=== PATIENT | female | born 1945 | race Caucasian/White ===

== ENCOUNTER 2022-02-27 13:14 | Emergency (ER) | payer MEDICARE, SELFPAY ==
[2022-02-27 13:15] VITALS: BP 177/95; PULSE 76; RESP 18; TEMP 36.4; O2SAT 98; BMI 31.1
--- NOTE | 2022-02-27 13:23 | ED_ITS ---
HPI - Extremity Problem General: Chief complaint: Fall Stated complaint: FELL OFF THE ROOF, LEFT ANKLE SWELLING Time Seen by Provider: 02/27/22 13:14 Source: patient Mode of arrival: EMS Limitations: no limitations History of Present Illness: 76-year-old female arrives via EMS after falling off a roof she complaining left ankle pain and right elbow pain. She has a history of A. fib but is not on any medications. She was stepping onto a ladder from the roof of and missed stepped fell landed on her feet twisting her left ankle and then landing on her right elbow. There is no loss consciousness st rike her head she is awake alert and oriented she denies any other injury she has an obvious deformity to the left ankle. There is an abrasion to the right elbow but no deformity she demonstrates active range of motion with pronation supination flexion extension with minimal discomfort. MD Complaint: joint swelling and joint pain Onset (ago): minute(s) Pain Consistency: constant Location: left (Ankle), right, upper extremity and lower extremity Quality: sharp Relieving factors: nothing Exacerbating factors: nothing Associated symptoms: Deny chest pain, fever(s) or rash Review of Systems Const: Denies: fever(s), chills, body aches, change in appetite, fatigue or malaise ENMT: Denies: throat pain, ear or mastoid pain, nasal discharge or nasal congestion Card: Denies: chest pain, edema, dyspnea on exertion or orthopnea Resp: Denies: dyspnea, productive cough or non-productive cough GI: Denies: abdominal pain, nausea, vomiting, hematemesis, coffee ground emesis, diarrhea, constipation, bloating, hematochezia or melena : Denies: flank pain, difficulty voiding, dysuria, urinary frequency or urinary urgency Musc: Reports: joint pain (Left ankle obvious deformity, right elbow abrasion) Skin/Breast: Denies: rash or pruritus PFSH ED PFSH: Medical History No pertinent past medical history Social History Smoking and tobacco status: never smoked Alcohol intake: never Physical Exam Const: COMMON NORMALS: no acute distress GENERAL APPEARANCE: cooperative and comfortable ORIENTATION/CONSCIOUSNESS: Yes awake, Yes oriented to person, Yes oriented to place and Yes oriented to time HENMT: COMMON NORMALS: normocephalic, atraumatic, hearing grossly normal bilaterally, external ears normal, EAC's normal and TM's normal bilaterally HEAD & SCALP: normocephalic and atraumatic EXTERNAL EAR: Yes external ears normal EXTERNAL AUDITORY CANAL: EAC's normal TYMPANIC MEMBRANE: TM's normal bilaterally Eye: COMMON NORMALS: Equal, round and reactive pupils present, EOMs intact bilaterally, conjunctivae normal and no scleral icterus CONJUNCTIVA: Yes conjunctivae normal PUPIL: Yes Equal, round and reactive pupils present Neck/C-Spine: COMMON NORMALS: full ROM, no lymphadenopathy, supple and no JVD Resp: COMMON NORMALS: normal respiratory effort, No retractions, No use of accessory muscles and clear to auscultation bilaterally AUSCULTATION: clear to auscultation bilaterally Cardio: COMMON NORMALS: no JVD, regular rate, regular rhythm and No murmurs present (Cardio) RATE: regular rate RHYTHM: regular rhythm GI: COMMON NORMALS: Soft to palpation and No hepatosplenomegaly present AUSCULTATION: Yes normoactive bowel sounds PALPATION: Yes Soft to palpation, No Tenderness to palpation present (GI), No Guarding due to palpation present (GI) and Yes No hepatosplenomegaly present Extremity: OTHER: Abrasion right elbow. Patient has active range of motion of flexion and pronation and supination with minimal discomfort. Most of the pain comes with palpation over the abrasion. Obvious deformity of the left ankle. Neuro: SENSORIUM/ORIENTATION: Yes oriented to person, Yes oriented to place and Yes oriented to time Skin: COMMON NORMALS: no rashes or lesions noted GENERAL SKIN EXAM: no rashes or lesions noted Procedures Orthopedic Fracture Reduction Fracture #1: Time Out Performed: Yes Side: left Fracture Reduction Location: other (Ankle) Analgesia: procedural sedation Technique: direct manipulation Post Reduction X-rays Demonstrate: anatomical reduction Post-reduction neuro exam: intact Post-reduction vascular exam: intact Splint Applied: Yes Patient Tolerated Procedure: well Orthopedic Splinting/Casting Injury #1: Side: left Lower Extremity Injury Location: ankle Lower Extremity Immobilizer: posterior splint Other Orthopedic Equipment: crutches Additional Comments: Posterior Ortho-Glass splint applied with ankle in 90 degree position good anatomical reduction of the fracture maintained. Procedural Sedation Indication: fracture/dislocation reduction Preparation: cardiac cath technician applied, pulse oximeter, capnometry used, supplemental O2 applied, suction/airway equipment at bedside and IV secured IV Etomidate dose (mg): 10 Patient Tolerated Procedure: well Complications: none Additional Comments: Initial attempt patient was given 5 etomidate had no reaction and given 5 more nurse notified me that the IV had infiltrated at that point. New IV was started patient was redosed with etomidate with adequate reaction which allowed us to remove her pants without significant discomfort and then reduce the fracture and apply splint patient tolerated well. Course Vital Signs: Vital signs: Vital Signs Temperature 97.5 F L 02/27/22 13:15 Pulse Rate 80 02/27/22 14:58 Respiratory Rate 23 H 02/27/22 14:58 Blood Pressure 142/65 02/27/22 14:58 Pulse Oximetry 100 02/27/22 14:58 MDM - Extremity (Nontraumatic) Medical Decision Making Question of right radial head fracture patient has pronation and supination with minimal discomfort she does have some soft tissue discomfort does not seem to have any significant joint discomfort she cannot recall any previous injury for now we will put her in a sling and have her follow-up with Ortho likely elbow injury we will place her in a wheelchair to make her nonweightbearing something she will be able to operate crutches appropriately without elbow. Posterior splint applied to the left lower leg after reduction of fracture. Follow-up with Ortho reviewed with the patient to review labs and x-rays patient discharged home. manager dialysis will make arrangements for Ortho follow-up. Medical Records I reviewed the patient's medical records. Lab Data I reviewed the patient's lab results. : 02/27/22 13:43 02/27/22 13:43 Radiology Impressions Elbow X-Ray 02/27/22 13:44 IMPRESSION: 1. Avulsion fracture of the lateral aspect of the radial head. The fracture fragment is difficult to localize. Fracture age is indeterminate but this may be an acute fracture. 2. Joint effusion. Ankle X-Ray 02/27/22 15:05 IMPRESSION: 1. Talotibial subluxation is been reduced. 2. Trimalleolar fracture as discussed above. Foot X-Ray 02/27/22 15:28 IMPRESSION: 1. Minimally displaced oblique fracture involving one of the proximal metatarsals. I suspect this probably the first or second metatarsal. 2. Very slight lateral subluxation of the first metatarsal with respect to the medial cuneiform. 3. Better alignment at the tibiotalar joint but there is still very slight anterior subluxation of the tibia. Laboratory Results WBC 19.5 10^3/uL (4.0-10.0) H 02/27/22 13:43 RBC 5.08 10^6/uL (4.1-5.3) 02/27/22 13:43 Hgb 14.3 g/dL (11.5-15.3) 02/27/22 13:43 Hct 43.7 % (37.0-47.0) 02/27/22 13:43 MCV 86.0 fl (81-99) 02/27/22 13:43 MCH 28.1 pg (28.0-34.0) 02/27/22 13:43 MCHC 32.7 g/dL (30.0-36.0) 02/27/22 13:43 RDW 13.8 % (12.1-15.1) 02/27/22 13:43 Plt Count 232 10^3/cmm (130-400) 02/27/22 13:43 MPV 10.5 fL (7.4-10.4) H 02/27/22 13:43 Neut % (Auto) 87.6 % 02/27/22 13:43 Lymph % (Auto) 6.4 % 02/27/22 13:43 [place] % (Auto) 4.9 % 02/27/22 13:43 Eos % (Auto) 0.2 % 02/27/22 13:43 Baso % (Auto) 0.3 % 02/27/22 13:43 Neut # (Auto) 17.11 10^3/uL (1.8-7.7) H 02/27/22 13:43 Lymph # (Auto) 1.2 10^3/uL (0.8-4.8) 02/27/22 13:43 [place] # (Auto) 1.0 10^3/uL (0.2-0.9) H 02/27/22 13:43 Eos # (Auto) 0.0 10^3/uL (0.0-0.8) 02/27/22 13:43 Baso # (Auto) 0.1 10^3/uL (0.0-0.1) 02/27/22 13:43 Nucleated RBC % (auto) 0 % 02/27/22 13:43 Nucleated RBCs # 0.0 /100WBC 02/27/22 13:43 Sodium 133 mmol/L (136-145) L 02/27/22 13:43 Potassium 3.9 mmol/L (3.5-5.1) 02/27/22 13:43 Chloride 99 mmol/L (98-107) 02/27/22 13:43 Carbon Dioxide 22 mmol/L (22-29) 02/27/22 13:43 Anion Gap 15.9 (5-19) 02/27/22 13:43 BUN 14 mg/dL (8-23) 02/27/22 13:43 Creatinine 0.5 mg/dL (0.5-0.9) 02/27/22 13:43 GFR Calculation Not Reportable 02/27/22 13:43 Glucose 127 mg/dL (65-115) H 02/27/22 13:43 Calculated Osmolality 278 mOsm/kg (285-295) L 02/27/22 13:43 Calcium 9.2 mg/dL (8.5-10.5) 02/27/22 13:43 Total Bilirubin 0.4 mg/dL (0.15-1.2) 02/27/22 13:43 AST 27 U/L (0-32) 02/27/22 13:43 ALT 20 U/L (0-33) 02/27/22 13:43 Alkaline Phosphatase 55 IU/L (35-105) 02/27/22 13:43 Total Protein 6.1 g/dL (6.6-8.7) L 02/27/22 13:43 Albumin 4.2 g/dL (3.5-5.2) 02/27/22 13:43 Globulin 1.9 g/dL (1.3-4.6) 02/27/22 13:43 Discharge Plan Discharge Patient Disposition: Home Clinical Impression: Trimalleolar fracture of left ankle, Closed fracture of radial head Condition: Stable Prescriptions: New hydrocodone-acetaminophen 5-325 mg tablet 1 tab PO Q6H PRN (Reason: pain) Qty: 20 0RF No Action multivitamin Tablet 1 tab PO DAILY 0RF aspirin 325 mg Tablet 650 mg PO DAILY PRN (Reason: Pain) 0RF Discharge Orders: Discharge ED (Routine); Ordered 02/27/22 Ordered By: Ankur Anderson Other Ambulatory Orders: DME: Wheelchair (Order) Location: None Selected Ordered By: Ankur Anderson Discharge Diet: Usual diet Discharge Activity: Limit activity as instructed Patient Instructions: Opioid Safety Activity Restrictions/Additional Instructions: manager dialysis will make arrangements for you to follow-up with orthopedics. Nonweightbearing on the left foot. Coding Level of Care Code ED Billet Cutter for Moises Fwd Exam Comprehensive
--- NOTE | 2022-02-27 13:24 | XR_ITS ---
WS: [id number] Exam: XR ankle LT min 3V* [id number] Date/Time of Exam: 02/27/2022 1:27 PM Reason For Exam: fall/deformity There is a comminuted displaced fracture of the lower fibula. There is also a transverse fracture of the medial malleolus with some displacement. A posterior shelf tibial fracture is also noted with dorothy e displacement. There is anterior and medial subluxation of the tibia upon the talar dome. Soft tissu e swelling about the ankle. Partially visualized acute fracture the proximal first metatarsal noted. XR/XR ankle LT min 3V* [id number] IMPRESSION: 1. Displaced trimalleolar fracture of the ankle with the anterior medial sublux ation of the tibia upon the talar dome. Soft tissue swelling. 2. There also appears to be an acute partially visualized fracture involving th e proximal first metatarsal. Detailed images of the foot would be recommended f or further workup.
--- NOTE | 2022-02-27 13:44 | XR_ITS ---
WS: [id number] Exam: XR elbow RT min 3V* [id number] Date/Time of Exam: 02/27/2022 1:55 PM Reason For Exam: pain trauma There is an avulsion fracture involving the lateral aspect of the radial head. The fracture fragment is difficult to identify but might lie along the neck of the radius. No other fractures. There is blaise nt effusion. XR/XR elbow RT min 3V* [id number] IMPRESSION: 1. Avulsion fracture of the lateral aspect of the radial head. The fracture fra gment is difficult to localize. Fracture age is indeterminate but this may be a n acute fracture. 2. Joint effusion.
[2022-02-27 13:58] LABS: Basophils # 0.1 10^3/uL (0.0-0.1); Basophils % 0.3 %; Eosinophils % 0.2 %; Hematocrit 43.7 % (37.0-47.0); Hemoglobin 14.3 g/dL (11.5-15.3); Lymphocytes # 1.2 10^3/uL (0.8-4.8); Lymphocytes % 6.4 %; Mean Corpuscular HGB Conc 32.7 g/dL (30.0-36.0); Mean Corpuscular Hemoglobin 28.1 pg (28.0-34.0); Mean Platelet Volume 10.5 fL (7.4-10.4); Monocytes % 4.9 %; Neutrophils # 17.11 10^3/uL (1.8-7.7); Neutrophils % 87.6 %; Nucleated Red Blood Cells % 0 %; Platelet Count 232 10^3/cmm (130-400); Red Blood Count 5.08 10^6/uL (4.1-5.3); Red Cell Distribution Width 13.8 % (12.1-15.1); White Blood Count 19.5 10^3/uL (4.0-10.0)
[2022-02-27 14:23] VITALS: RESP 14; O2SAT 97
[2022-02-27] MEDS: morphine 4 mg/mL SDV 1 mL IVP (14:23)
[2022-02-27] MEDS: ondansetron 2 mg/ML SDV 2 mL 4 MG IVP (14:23)
[2022-02-27 14:30] LABS: Alanine Aminotransferase 20 U/L (0-33); Albumin Level 4.2 g/dL (3.5-5.2); Alkaline Phosphatase 55 IU/L (35-105); Aspartate Amino Transferase 27 U/L (0-32); Blood Urea Nitrogen 14 mg/dL (8-23); Calcium 9.2 mg/dL (8.5-10.5); Carbon Dioxide 22 mmol/L (22-29); Chloride 99 mmol/L (98-107); Globulin 1.9 g/dL (1.3-4.6); Glucose 127 mg/dL (65-115); Osmolality Calculated 278 mOsm/kg (285-295); Sodium 133 mmol/L (136-145); Total Bilirubin 0.4 mg/dL (0.15-1.2); Total Protein 6.1 g/dL (6.6-8.7)
[2022-02-27 14:32] LABS: Anion Gap 15.9 (5-19); Potassium 3.9 mmol/L (3.5-5.1)
[2022-02-27 14:58] VITALS: BP 142/65; PULSE 80; RESP 23; O2SAT 100
--- NOTE | 2022-02-27 15:05 | XR_ITS ---
WS: [id number] Exam: XR ankle LT 2V [id number] Date/Time of Exam: 02/27/2022 3:07 PM Reason For Exam: POST REDUCT Comparison with the last exam performed earlier on the same day at 0145 hours. Previously noted talotibial subluxation has been reduced. Again noted is trimalleolar fracture of the ankle. There is still some displacement of the distal fibular fracture and posterior shelf tibial fr acture. Soft tissue swelling about the ankle. Posterior fiberglass splint in place. XR/XR ankle LT 2V [id number] IMPRESSION: 1. Talotibial subluxation is been reduced. 2. Trimalleolar fracture as discussed above.
--- NOTE | 2022-02-27 15:28 | XR_ITS ---
WS: [id number] LEFT FOOT: 3 VIEW(S) TECHNIQUE: AP, oblique and lateral. HISTORY: Trauma pain COMPARISON: Study earlier the same day. Since the prior examination there is better alignment at the tibiotalar joint. There is still very sl ight anterior subluxation of the tibia with respect to the talar dome. Partial splinting of the foot and ankle. Seen best on the lateral projection is a fracture involving the proximal metatarsal. This is probably the second or first metatarsal. The proximal first metatarsal is very slightly laterally with respec t to the medial cuneiform. Trimalleolar fracture at the ankle was better visualized on the dedicated ankle radiographs. XR/XR foot LT min 3V* [id number] IMPRESSION: 1. Minimally displaced oblique fracture involving one of the proximal metatars als. I suspect this probably the first or second metatarsal. 2. Very slight lateral subluxation of the first metatarsal with respect to the medial cuneiform. 3. Better alignment at the tibiotalar joint but there is still very slight ant erior subluxation of the tibia.
--- NOTE | 2022-02-27 18:22 | PC.NURSE ---
DR. GODFREY PERFORMED LEFT ANKLE REDUCTION. SHORT LEG POSTERIOR SPLINT PLACED.
--- NOTE | 2022-02-28 11:28 | DCPLANNER ---
Addendum entered by Liza Grant 03/21/22 20:20: Patient had a follow up appointment scheduled with ortho - patient did attend appointment. Addendum entered by Liza Grant 03/01/22 07:56: Patient has a follow up appointment scheduled for Saturday, March 05, 2022 at 11:[address] Cobos at ortho. Clinic will call patient with appointment information. Original Note: industrial maintenance manager had message to schedule a follow up appointment for patient with ortho. industrial maintenance manager sent patients information to the front office staff at ortho. Patients information will be printed and reviewed. Clinic will call patient with appointment information.
== END 2022-02-27 18:26 | disposition home or self-care (01) ==
PROVIDERS: Emergency Provider Family Medicine
DX: S82.852A Displaced trimalleolar fracture of left lower leg, initial encounter for closed fracture (principal); S52.121A Displaced fracture of head of right radius, initial encounter for closed fracture; W13.2XXA Fall from, out of or through roof, initial encounter
CPT/HCPCS: 27818; 73080; 73600; 73610; 73630; 80053; 85025; 96374; 96375; 99284; J2270; J2405; J3490

== ENCOUNTER → 2022-03-05 11:00 | Outpatient (BNVA) | payer MEDICARE, SELFPAY | PROVIDERS: PCP Nurse Practitioner; Referring Provider Family Medicine; Visit Provider Specialist | DX: S92.315A Nondisplaced fracture of first metatarsal bone, left foot, initial encounter for closed fracture (principal); S92.322A Displaced fracture of second metatarsal bone, left foot, initial encounter for closed fracture; S92.332A Displaced fracture of third metatarsal bone, left foot, initial encounter for closed fracture; S93.326A Dislocation of tarsometatarsal joint of unspecified foot, initial encounter; W11.XXXA Fall on and from ladder, initial encounter; S82.852A Displaced trimalleolar fracture of left lower leg, initial encounter for closed fracture; S52.124A Nondisplaced fracture of head of right radius, initial encounter for closed fracture; Z46.89 Encounter for fitting and adjustment of other specified devices; S82.852D Displaced trimalleolar fracture of left lower leg, subsequent encounter for closed fracture with routine healing; S52.121D Displaced fracture of head of right radius, subsequent encounter for closed fracture with routine healing; X58.XXXD Exposure to other specified factors, subsequent encounter | CPT/HCPCS: 24650; 73080; 73610; 73630; 97760; 99204; 99205; L3761; L4361 ==

== ENCOUNTER 2022-03-05 14:07 | Outpatient (CLI) | payer MEDICARE, SELFPAY | END 2022-03-05 14:08 | disposition home or self-care (01) | LOC: SPT 03-06 14:08 | PROVIDERS: PCP Nurse Practitioner; Visit Provider Specialist | DX: Z46.89 Encounter for fitting and adjustment of other specified devices (principal); S82.852D Displaced trimalleolar fracture of left lower leg, subsequent encounter for closed fracture with routine healing; S52.121D Displaced fracture of head of right radius, subsequent encounter for closed fracture with routine healing; X58.XXXD Exposure to other specified factors, subsequent encounter | CPT/HCPCS: 97760; L3761; L4361 ==

== ENCOUNTER → 2022-03-14 13:29 | Outpatient (BNVA) | payer MEDICARE, SELFPAY | PROVIDERS: PCP Nurse Practitioner; Visit Provider Podiatrist Foot & Ankle Surgery | DX: S92.332D Displaced fracture of third metatarsal bone, left foot, subsequent encounter for fracture with routine healing (principal); S82.852D Displaced trimalleolar fracture of left lower leg, subsequent encounter for closed fracture with routine healing; S92.315D Nondisplaced fracture of first metatarsal bone, left foot, subsequent encounter for fracture with routine healing; S92.322D Displaced fracture of second metatarsal bone, left foot, subsequent encounter for fracture with routine healing; S93.325D Dislocation of tarsometatarsal joint of left foot, subsequent encounter; W13.2XXA Fall from, out of or through roof, initial encounter | CPT/HCPCS: 73610; 73630; 99214 ==

== ENCOUNTER → 2022-03-22 09:22 | Outpatient (BNVA) | payer MEDICARE, SELFPAY | PROVIDERS: PCP Nurse Practitioner; Visit Provider Podiatrist Foot & Ankle Surgery | DX: S92.332D Displaced fracture of third metatarsal bone, left foot, subsequent encounter for fracture with routine healing (principal); S82.852D Displaced trimalleolar fracture of left lower leg, subsequent encounter for closed fracture with routine healing; S92.315D Nondisplaced fracture of first metatarsal bone, left foot, subsequent encounter for fracture with routine healing; S92.322D Displaced fracture of second metatarsal bone, left foot, subsequent encounter for fracture with routine healing; S93.325D Dislocation of tarsometatarsal joint of left foot, subsequent encounter; M25.572 Pain in left ankle and joints of left foot; M79.672 Pain in left foot; W13.2XXD Fall from, out of or through roof, subsequent encounter | CPT/HCPCS: 99213; 99214 ==

== ENCOUNTER 2022-03-23 08:35 | Day surgery (SDC) | payer MEDICARE, SELFPAY ==
[2022-03-22 12:04] VITALS: BMI 31.1
[2022-03-23] VITALS (11 sets, daily range): BP systolic 148–184; BP diastolic 58–93; PULSE 48–81; RESP 16; TEMP 36.6–37.2; O2SAT 92–100
--- NOTE | 2022-03-23 | SCC_ITS ---
Procedure done: Open reduction internal fixation left trimalleolar fracture. CPT code 82811 Primary arthrodesis left tarsometatarsal joint. CPT code 20219 Open reduction internal fixation left second metatarsal fracture. CPT code 82969 14 seconds of fluoroscopic guidance, for a cumulative dose of 0.3 mGy, was provided to Dr. Irwin by the radiology department. C-arm images of the LEFT ankle were saved for the patient's permanent record. CATE
--- NOTE | 2022-03-23 09:09 | ECG_ITS ---
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 Measurements Intervals [place] Rate: 91 P: 45 CO: 142 QRS: -6 QRSD: 80 T: 71 QT: 336 QTc: 413 Interpretive Statements SINUS RHYTHM WITH OCCASIONAL VENTRICULAR PREMATURE COMPLEXES NONSPECIFIC T-WAVE ABNORMALITY No previous ECG available for comparison Electronically Signed On 03-23-2022 20:44:02 CDT by Bradley Reed M.D. [id number]
--- NOTE | 2022-03-23 09:32 | P.ANESASSM_ITS ---
Pre-Anesthetic Assessment Height/Weight: Height 1.57 m Weight 77.111 kg Temp Pulse Resp BP Pulse Ox 98.0 F 61 16 173/72 96 03/23/22 09:01 03/23/22 09:01 03/23/22 09:01 03/23/22 09:01 03/23/22 09:01 Preop Diagnosis: Left trimalleolar fracture. Left Lisfranc fracture dislocation. Operation Date: 03/23/22 10:10 Proposed Procedures p ORIF Trimalleolar Ankle 12219/86092/60681/s82.852a/s93.326a/s92.322a(Left) - Gato Irwin DPM s ORIF Metatarsal(Left) - Gato Irwin DPM Familial anesthetic complications: None Was Beta Venecia taken within 24 hours: N/A Was Clonidine taken within 24 hours: N/A Last intake: Intake Last Liquid Date 03/22/22 Last Liquid Time 19:00 Last Solid Date 03/22/22 Last Solid Time 17:30 Social No alcohol and No tobacco Exam alert, oriented x 3, clear to auscultation bilaterally and regular rate & rhythm Airway Submandibular: within normal limits Cervical ROM: within normal limits Mallampati: Class II Dentition: full History/ROS No significant history except as noted Anesthetic Plan ASA status: 2 Anesthesia: General and Regional (specify below) (left pop blk) Medications/Allergies Home Medications Medication Instructions Recorded Confirmed Last Taken Type aspirin 325 mg tablet 650 mg PO DAILY PRN 02/27/22 03/23/22 03/22/22 History hydrocodone 5 mg-acetaminophen 325 1 tab PO Q6H PRN #20 tab 02/27/22 03/23/22 03/22/22 19:00 Rx mg tablet multivitamin 1 tab PO DAILY 02/27/22 03/23/22 03/22/22 History HINGED ELBOW BRACE. #1 ea 03/05/22 03/22/22 Unknown Rx cam boot #1 ea 03/06/22 03/22/22 Unknown Rx Allergies Allergy/AdvReac Type Severity Reaction Status Date / Time No Known Allergies Allergy Verified 03/22/22 12:03 [facility] Anesthesia Medical History No pertinent past medical history Social History Smoking and tobacco status: never smoked Alcohol intake: never Data Anesthesia Cardiac Studies: No Data to Display
[2022-03-23] MEDS: sodium chloride 0.9% 1,000 ML 30 ML IV (09:47)
--- NOTE | 2022-03-23 09:48 | W.PM.OPSUD ---
Surgery/Procedure H&P Update DATE OF PROCEDURE: March 23, 2022 DATE H&P PERFORMED: 03/16/22 CHANGES TO PREVIOUS DOCUMENTATION: None PREOP DIAGNOSIS: Left trimalleolar fracture. Left Lisfranc fracture dislocation. PLANNED PROCEDURE: Operation Date: 03/23/22 10:10 Proposed Procedures p ORIF Trimalleolar Ankle 75116/[id number]/08314/s82.852a/s93.326a/s92.322a(Left) - Gato Irwin DPM s ORIF Metatarsal(Left) - Gato Irwin DPM
--- NOTE | 2022-03-23 10:27 | ANES.PROC ---
Anesthesia Procedures Procedure/Date: 03/23/22 Nerve Block ^: Nerve Block 1: Main Anesthesia: general anesthesia Time Out Performed: Yes Consent: requested by attending/covering physician, from patient, risks and benefits reviewed and patient agrees to proceed Nerve block location: popliteal (left) Anesthesia monitors applied: pulse oximetry, EKG, BP cuff and oxygen Nerve block position: supine Anesthetic Used: ropivicaine 0.5% Amount of anesthesia used (mL): 30 Ultrasound used to: recognize landmarks Nerve Stimulator Used?: No Interscalene/Femoral BLK: 4 stimuplex 21 g needle used for position and inplane approach Injection: neg aspiration of heme Patient Tolerated Procedure: well Complications: none
[2022-03-23] MEDS: lidocaine 2% INJ 20 mL INJECTION (10:52)
--- NOTE | 2022-03-23 12:31 | XR_ITS ---
WS: [id number] LEFT FOOT: 3 VIEW(S) TECHNIQUE: AP, oblique and lateral. HISTORY: post op COMPARISON: 03/14/2022 Short plate and screw fixation across the first and second tarsometatarsal articulations. The fractur es involving the metatarsals are in good position alignment. No widening of the Lisfranc joint. Also noted are plate and screw fixations involving the medial and lateral malleolus. XR/XR foot LT min 3V* [id number] IMPRESSION: Plate and screw fixation across the first and second tarsometatarsal articulati ons with fractures in good alignment.
--- NOTE | 2022-03-23 12:32 | XR_ITS ---
WS: [id number] LEFT ANKLE: 3 VIEW(S) TECHNIQUE: AP, oblique(s) and lateral. HISTORY: post op COMPARISON: 03/14/2022. Status post short plate and screw fixation distal fibular fracture which is in good position and alig nment. Additional hooked plate and screws stabilizing the medial malleolus fracture which is also in good position and alignment. Soft tissue gregg are present bilaterally. The ankle mortise is kevan lly aligned. Additional plate and screw fixation involving the proximal first and second metatarsals. Extensive soft tissue edema. XR/XR ankle LT min 3V* [id number] IMPRESSION: 1. Bimalleolar plate and screw fixation of fractures now in good position and alignment. 2. Additional plate and screw fixation proximal first and second metatarsal fr actures.
--- NOTE | 2022-03-23 12:36 | P.OP_ITS ---
Operative Report Date of procedure: March 23, 2022 Pre-op diagnosis: Left trimalleolar ankle fracture. Left second metatarsal fracture. Left first tarsometatarsal dislocation. Post-op diagnosis: Same Post-op findings: Gross instability at the first metatarsal base and medial cuneiform joint. Procedure done: Open reduction internal fixation left trimalleolar fracture. CPT code 30188 Primary arthrodesis left tarsometatarsal joint. CPT code 79604 Open reduction internal fixation left second metatarsal fracture. CPT code 82711 Implants: On 28 one third tubular plate and 3.5 millimeter screws. [place] 28 2 hole hook plate plate medially with 3.5 millimeter screws. [place] 28 tarsometatarsal joint arthrodesis plate with 3.5 millimeter screws, [place] 28 clover plate with 2.7 millimeter screws. 2-0 Vicryl, 3-0 Vicryl, skin gregg and 4-0 nylon. Specimens removed/disposition: None Pathology: None Surgeon: Gato Irwin D.P.M. Meat Seafood Associate: See intraoperative documentation Estimated blood loss: 25 Approximately 104 IV fluids: None Urine output: None Complications: None Findings: Gross instability at the left first metatarsal base and medial cuneiform articulation. Brief History: Left trimalleolar fracture and left tarsometatarsal joint fracture with Lisfranc dislocation fell off of roof cleaning out her gutters date of injury 02/27/2022 with concomitant right elbow injury. Patient examined and evaluated, findings and treatment options discussed with patient and her daughter and at length.? She is already utilizing a wheelchair and is living in a wheelchair accessible home.? Has help for everyday living with family including her and daughter.? I discussed the extent of her fractures and need for surgical intervention.? Recommended ORIF of left trimalleolar fracture and primary arthrodesis of left first and second and potentially third tarsometatarsal joints due to metatarsal fracture, displaced Lisfranc injury. Fracture blisters resolved, soft tissue appropriate for surgical intervention. Will proceed as planned. Risks include but are not limited to pain, bleeding, numbness, infection, hardware irritation, hardware failure, delayed union, malunion, nonunion, deep vein thrombosis, heart attack, stroke and . She is at increased risk for wound complications postoperatively. Patient n.p.o. since midnight. Informed consent signed by patient myself. Initialed patient's left lower extremity. No guarantees written, expressed or implied. Patient wishes to proceed. Procedure: Under mild sedation the patient was brought to the operating room and placed on the operating table in supine position. A timeout was performed. Anesthesia was then administered by the anesthesia service. Left popliteal block performed preoperatively per anesthesia. Well-padded pneumatic tourniquet applied left high calf. Left lower extremity was then scrubbed, prepped and draped utilizing normal aseptic technique. Left foot and ankle were exanguinated with an Esmarch bandage and the tourniquet inflated to 250 mmHg. Attention was directed to the lateral malleolus where a linear longitudinal incision was made with a #15 blade through skin with dissection carried down through subcutaneous tissue to the layer of periosteum utilizing sharp and blunt technique. Care was taken to retract and preserve neurovascular and tendinous structures. All bleeders were ligated and cauterized as necessary. Periosteal incision was made in the distal fibular fracture was appreciated this was oblique starting at the ankle mortise and a Tom Be B type fracture, this was distracted and curettage and flushed of hematoma formation followed by reduction and fixation utilizing standard AO technique. [place] 28 one third tubular plate and 3.5 millimeter screws utilized to stabilize the fracture with excellent bony apposition and compression noted. Screws not violating the ankle joint confirmed with intraoperative fluoroscopy. Fibula was out to length and derotated in a nonanatomic position. No angulation appreciated post reduction. Incision was flushed with saline solution and closed with periosteum reapproximated utilizing 2-0 Vicryl, subcutaneous tissue reapproximated utilizing 3-0 Vicryl and skin reapproximated utilizing gregg. Attention was then directed to the medial malleolus where a curvilinear incision was made with a #15 blade with dissection carried down the layer of periosteum utilizing sharp and blunt technique. Care was taken to retract and preserve neurovascular and tendinous structures. All bleeders were ligated and cauterized as necessary. Fracture was curettaged of hematoma utilizing a curette and flushed with saline solution. Periosteal flap within the fracture was freed. This was reduced and fixated utilizing standard AO technique and was stabilized utilizing a [place] 28 medial malleolus hook plate with excellent bony apposition and compression noted and fracture being reduced. Ankle mortise was congruent on all 3 standard views utilizing intraoperative fluoroscopy. No hardware violating the ankle joint. The incision was then flushed with saline solution and closed in a layered fashion with 2-0 Vicryl periosteum, 3-0 Vicryl in the subcutaneous tissue and skin gregg. Attention was then directed to the left dorsal medial foot at the level of the first metatarsal base medial cuneiform joint where a linear longitudinal incision was made with a #15 blade with dissection carried down through subcutaneous tissue to the layer of periosteum identifying the first metatarsal base and medial cuneiform articulation. Care was taken to retract and preserve neurovascular and tendinous structures. All bleeders were ligated and cauterized as necessary. Intraoperative manipulation of the first metatarsal base and medial cuneiform joint showed gross instability. Intraoperative decision was made to perform arthrodesis given the amount of instability appreciated intraoperatively. Instability was in all 3 planes. Distal articular surface of the medial cuneiform and proximal articular surface of the first metatarsal base was transected utilizing sagittal saw possible operative field, subchondral drilling followed by joint compression and fixation utilizing standard AO technique and a [place] 28 anatomic plate with 3.5 mm locking and nonlocking screws with excellent bony apposition and compression noted. Incision was then flushed with saline solution and closed in a layered fashion utilizing 3-0 Vicryl periosteum and subcutaneous tissue and 4-0 nylon at skin. Attention was then directed to the dorsal left midfoot where a linear longitudinal incision was made over the second metatarsal and intermediate c uneiform. Dissection was carried down through subcutaneous tissue to the layer of periosteum and fracture of the second metatarsal with care taken to retract and preserve neurovascular and tendinous structures. All bleeders were ligated and cauterized as necessary. The second metatarsal fracture was noted to extend into the joint at the second metatarsal base and intermediate cuneiform. The fr acture was curettaged of hematoma and flushed with saline solution followed by reduction and fixation with intraoperative decision to bridge across the intermediate cuneiform and second metatarsal joint. Fracture was reduced and fixated utilizing standard AO technique and [place] 28 clover plate with 2.7 mm locking and nonlocking screws. Excellent bony apposition and compression noted. Fracture was reduced in all 3 planes. Incision was flushed with saline solution and closed in a layered fashion. 3-0 Vicryl at subcutaneous tissue and periosteum. Skin reapproximated utilizing 4-0 nylon. Incision sites were dressed with Adaptic, sterile 4 x 4's, Kerlix and Rigo wrap. An Unna boot was applied as well to help control edema postoperatively. Cam boot was then applied and tourniquet was deflated with a prompt hyperemic response noted to the distal digits of the left foot. Patient tolerated the procedure and anesthesia well and was transferred to the PACU with vital signs stable and vascular status intact. Following a period of postoperative monitoring she will be discharged home is to remain strict nonweightbearing, elevate her left foot while resting and continue with aspirin daily to potentially reduce the risk of deep vein thrombosis. Will follow-up in podiatry clinic next week.
--- NOTE | 2022-03-23 13:15 | ANE.PACU2 ---
Inpatient post-anesthesia follow up: Airway intact: Yes Vital signs: Temperature 98.8 F Pulse Rate 76 Respiratory Rate 16 Blood Pressure 162/69 Pulse Oximetry 92 Oxygen Delivery Me thod Room Air Oxygen Flow Rate 5 Fraction of Inspir ed Oxygen Hydration adequate: Yes Nausea and vomiting: No Pain level: 2 Mental status: Baseline
== END 2022-03-23 14:15 | disposition home or self-care (01) ==
PROVIDERS: PCP Nurse Practitioner; Visit Provider Podiatrist Foot & Ankle Surgery
PROC: (CPT 27822; principal; 2022-03-23 10:00)
PROC: (CPT 28485; 2022-03-23 10:00)
DX: S82.852A Displaced trimalleolar fracture of left lower leg, initial encounter for closed fracture (principal); S92.322A Displaced fracture of second metatarsal bone, left foot, initial encounter for closed fracture; S92.312A Displaced fracture of first metatarsal bone, left foot, initial encounter for closed fracture; X58.XXXA Exposure to other specified factors, initial encounter; Z79.82 Long term (current) use of aspirin; W13.2XXA Fall from, out of or through roof, initial encounter
CPT/HCPCS: 27822; 28485; 28615; 64450; 73610; 73630; 76000; 76942; 93005; C1713; J0690; J1100; J2405; J2704; J2795; J3010; J7030

== ENCOUNTER → 2022-04-02 13:35 | Outpatient (BNVA) | payer MEDICARE, SELFPAY | PROVIDERS: PCP Nurse Practitioner; Visit Provider Specialist | DX: Z98.890 Other specified postprocedural states (principal); S52.122D Displaced fracture of head of left radius, subsequent encounter for closed fracture with routine healing; X58.XXXD Exposure to other specified factors, subsequent encounter | CPT/HCPCS: 73080; 99203; 99204; 99213 ==

== ENCOUNTER → 2022-04-12 15:46 | Outpatient (BNVA) | payer MEDICARE, SELFPAY | PROVIDERS: PCP Nurse Practitioner; Visit Provider Podiatrist Foot & Ankle Surgery | DX: Z98.890 Other specified postprocedural states (principal) | CPT/HCPCS: 73600; 73630 ==

== ENCOUNTER → 2022-05-02 14:16 | Outpatient (BNVA) | payer MEDICARE, SELFPAY | PROVIDERS: PCP Nurse Practitioner; Visit Provider Podiatrist Foot & Ankle Surgery | DX: Z98.890 Other specified postprocedural states (principal) | CPT/HCPCS: 73610; 73630; 99024 ==

== ENCOUNTER → 2022-05-24 14:38 | Outpatient (BNVA) | payer MEDICARE, SELFPAY | PROVIDERS: PCP Nurse Practitioner; Visit Provider Podiatrist Foot & Ankle Surgery | DX: Z98.890 Other specified postprocedural states (principal) | CPT/HCPCS: 73600; 73630; 99024 ==

== ENCOUNTER 2024-01-04 10:28 | Inpatient (IN) | payer MEDICARE, SELFPAY ==
[2024-01-04] VITALS (34 sets, daily range): BP systolic 106–176; BP diastolic 48–87; PULSE 69–111; RESP 12–35; TEMP 36.1–36.9; O2SAT 79–99; BMI 31.6; BMI 31.4
--- NOTE | 2024-01-04 10:47 | XRR_ITS ---
PROCEDURE INFORMATION: Exam: XR Chest Exam date and time: 01/04/2024 10:56 AM Age: 78 years old Clinical indication: Shortness of breath; Additional info: Dyspnea/cough TECHNIQUE: Imaging protocol: Radiologic exam of the chest. Views: 1 view. COMPARISON: No relevant prior studies available. FINDINGS: Lungs: Lung volumes are low. Central interstitial markings are indistinct. There is central lower lung predominant ground-glass opacity. Pleural spaces: The right lateral costophrenic sulcus is blunted. The left lateral costophrenic sulcus is blunted. No pneumothorax. Heart/Mediastinum: The cardiac silhouette is prominent but partially obscured. Bones/joints: There is moderate degenerative disease of the right shoulder. No visible fractures. XR/XR chest 1V portable [id number] IMPRESSION: 1. Bilateral pulmonary opacity consistent with pulmonary edema. 2. Bilateral pleural effusions. 3. Probable cardiac enlargement. The heart is partially obscured.
--- NOTE | 2024-01-04 10:48 | ECG_ITS ---
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 Measurements Intervals [place] Rate: 114 P: 42 OK: 155 QRS: 31 QRSD: 81 T: 28 QT: 271 QTc: 373 Interpretive Statements SINUS TACHYCARDIA WITH OCCASIONAL SUPRAVENTRICULAR PREMATURE COMPLEXES NONSPECIFIC T-WAVE ABNORMALITY ABNORMAL RHYTHM ECG Compared to ECG 03/23/2022 09:21:07 Sinus rhythm no longer present Ventricular premature complex(es) no longer present T-wave abnormality still present Electronically Signed On 01-04-2024 15:31:08 CYTOGENETIC TECHNICIAN by Ignacio Rivers M.D. [id number]
--- NOTE | 2024-01-04 10:56 | ED_ITS ---
HPI - SOB/Dyspnea 2 General: Chief Complaint: Shortness of Breath/Dyspnea Stated Complaint: SOB Time Seen by Provider: 01/04/24 10:46 Source: patient Mode of arrival: ambulatory History of Present Illness: HPI Narrative: 70-year-old female presents emergency ro om complaining of shortness of breath increased swelling in her legs. On arrival here She is in the 70s. She does correct with supplemental oxygen. No history of coronary disease atrial fibrillation congestive heart failure that she is aware of. She is not on any anticoagulants. She is not on any diuretics. Earlier this week she was seen in the office and treated for respiratory illness. MD elicited complaint: shortness of breath Associated symptoms: Reports orthopnea and palpitations; Deny abdominal pain, chest pain or fever(s) Review of Systems 2 Const: Denies: fever(s) or chills Card: Reports: palpitations, edema, swelling of feet/ankles, dyspnea on exertion and orthopnea; Denies: chest pain Resp: Reports: dyspnea and non-productive cough GI: Denies: abdominal pain : Denies: dysuria, urinary frequency or urinary urgency Musc: Denies: neck pain or back pain Skin/Breast: Denies: rash PFSH ED 2 PFSH: Medical History Anxiety Anxiety No pertinent past medical history Surgical History History of foot surgery Social History Smoking and tobacco/nicotine status: never used tobacco/nicotine Alcohol intake: never Substance/Drug Use: never Physical Exam 2 Const: GENERAL APPEARANCE: cooperative NUTRITIONAL APPEARANCE: obese O RIENTATION/CONSCIOUSNESS: Yes awake, Yes oriented to person, Yes oriented to place and Yes oriented to time HENMT: COMMON NORMALS: normocephalic, atraumatic and hearing grossly normal bilaterally HEAD & SCALP: normocephalic and atraumatic Resp: EFFORT & INSPECTION: Yes tachypneic, Yes respiratory distress, Yes labored and Yes uses accessory muscles AUSCULTATION: crackles Cardio: COMMON NORMALS: regular rhythm and No murmurs present (Cardio) R ATE: tachycardic RHYTHM: regular rhythm GI: COMMON NORMALS: Soft to palpation and No hepatosplenomegaly present A USCULTATION: Yes normoactive bowel sounds PALPATION: Yes Soft to palpation, No Tenderness to palpation present (GI), No Guarding due to palpation present (GI) and Yes No hepatosplenomegaly present Extremity: COMMON NORMALS: normal to inspection, capillary refill normal, no clubbing, cyanosis or edema, no calf tenderness and no pedal edema Neuro: SENSORIUM/ORIENTATION: Yes oriented to person, Yes oriented to place and Yes oriented to time Skin: COMMON NORMALS: no rashes or lesions noted GENERAL SKIN EXAM: no rashes or lesions noted Course 2 Vital Signs: Vital signs: Vital Signs Temperature 97.4 F L 01/04/24 13:15 Pulse Rate 87 01/04/24 16:00 Respiratory Rate 27 H 01/04/24 16:00 Blood Pressure 125/54 01/04/24 16:00 Pulse Oximetry 98 01/04/24 16:00 Oxygen Delivery Me thod BiPAP 01/04/24 13:51 Fraction of Inspir ed Oxygen 30 01/04/24 13:51 MDM - SOB/Dyspnea Medical Decision Making Acute severe decompensated congestive heart failure patient was not previously known to have heart issues. Initial troponin was slightly elevated delta troponin was markedly elevated she not having any chest pain there is no acute ST changes on her EKG I did inform Dr. Robles the troponin came back after patient be admitted and left the department. I suspect it is from decompensated heart failure. But the time she left to between BiPAP and Lasix she was significantly improved and much more comfortable she diuresed over 700 mL. Echocardiogram has been ordered will admit to ICU for her decompensated congestive heart failure. Discussed with family. Dr. Robles was going to review the chart again and reevaluate the patient after we have advised him of the positive delta troponin Medical Records I reviewed the patient's medical records. Lab Data I reviewed the patient's lab results. 01/04/24 10:50 01/04/24 10:50 Labs/Radiology: Radiology Impressions Chest X-Ray 01/04/24 10:47 IMPRESSION: 1. Bilateral pulmonary opacity consistent with pulmonary edema. 2. Bilateral pleural effusions. 3. Probable cardiac enlargement. The heart is partially obscured. Laboratory Results WBC 15.94 10^3/uL (3.29-11.43) H 01/04/24 10:50 RBC 5.10 10^6/uL (3.85-5.65) 01/04/24 10:50 Hgb 14.70 g/dL (11.27-16.99) 01/04/24 10:50 Hct 45.9 % (36-47) 01/04/24 10:50 MCV 90.0 fl (85-98) 01/04/24 10:50 MCH 28.8 pg (27-33) 01/04/24 10:50 MCHC 32.0 g/dL (30-55) 01/04/24 10:50 RDW 14.9 % (12.1-15.1) 01/04/24 10:50 Plt Count 319 10^3/cmm (157-399) 01/04/24 10:50 MPV 10.7 fL (7.4-10.4) H 01/04/24 10:50 Neut % (Auto) 89.7 % 01/04/24 10:50 Lymph % (Auto) 7.0 % 01/04/24 10:50 [place] % (Auto) 2.5 % 01/04/24 10:50 Eos % (Auto) 0.1 % 01/04/24 10:50 Baso % (Auto) 0.1 % 01/04/24 10:50 Neut # (Auto) 14.30 10^3/uL (1.8-7.7) H 01/04/24 10:50 Lymph # (Auto) 1.1 10^3/uL (0.8-4.8) 01/04/24 10:50 [place] # (Auto) 0.4 10^3/uL (0.2-0.9) 01/04/24 10:50 Eos # (Auto) 0.0 10^3/uL (0.0-0.8) 01/04/24 10:50 Baso # (Auto) 0.0 10^3/uL (0.0-0.1) 01/04/24 10:50 Nucleated RBC % (auto) 0 % 01/04/24 10:50 Nucleated RBCs # 0.0 /100WBC 01/04/24 10:50 Specimen Type Arterial 01/04/24 10:49 Sample Site Brachial, left 01/04/24 10:49 ABG pH 7.26 (7.35-7.45) L 01/04/24 10:49 ABG pCO2 57.9 mmHg (35-45) H 01/04/24 10:49 ABG pO2 69.2 mmHg (80.0-100.0) L 01/04/24 10:49 ABG PO2/FiO2 Ratio 0 01/04/24 10:49 ABG HCO3 25.8 mmol/L (22-26) 01/04/24 10:49 ABG O2 Saturation 91.8 01/04/24 10:49 ABG Base Excess -2.5 mmol/L (-2.0-2.0) L 01/04/24 10:49 [place] Test N/a 01/04/24 10:49 A-a O2 Gradient 19.1 mmHg (5-10) H 01/04/24 10:49 Hematocrit 45.9 % (37-47) 01/04/24 10:49 Hgb O2 Saturation 90.1 % (95-100) L 01/04/24 10:49 Carboxyhemoglobin 1.5 %THgb (0.4-20.1) 01/04/24 10:49 Methemoglobin 0.4 % (0.4-1.5) 01/04/24 10:49 Total Hemoglobin 15.0 g/dL (12-16) 01/04/24 10:49 Sodium 139.0 mmol/L (131-143) 01/04/24 10:49 Potassium 4.1 mmol/L (3.5-5.0) 01/04/24 10:49 Glucose 232.0 mg/dL (70-115) H 01/04/24 10:49 Ionized Calcium 1.3 mmol/L (1.1-1.4) 01/04/24 10:49 O2 Delivery Device Nc 01/04/24 10:49 O2 Liters/Min 5.0 % 01/04/24 10:49 FiO2 40.0 % 01/04/24 10:49 Windows Security Analyst ID Amh 01/04/24 10:49 Sodium 138 mmol/L (136-145) 01/04/24 10:50 Potassium 4.9 mmol/L (3.5-5.1) 01/04/24 10:50 Chloride 101 mmol/L (98-107) 01/04/24 10:50 Carbon Dioxide 24 mmol/L (22-29) 01/04/24 10:50 Anion Gap 17.9 (5-19) 01/04/24 10:50 BUN 24 mg/dL (8-23) H 01/04/24 10:50 Creatinine 0.7 mg/dL (0.5-0.9) 01/04/24 10:50 GFR Calculation Not Reportable 01/04/24 10:50 Glucose 255 mg/dL (65-115) H 01/04/24 10:50 Estimat Average Glucose 120 01/04/24 10:50 Hemoglobin A1c 5.8 % (4.0-6.0) 01/04/24 10:50 Calculated Osmolality 299 mOsm/kg (285-295) H 01/04/24 10:50 Lactic Acid 2.6 mmol/L (0.5-2.2) H 01/04/24 10:50 Calcium 9.6 mg/dL (8.5-10.5) 01/04/24 10:50 Total Bilirubin 1.0 mg/dL (0.15-1.2) 01/04/24 10:50 AST 29 U/L (0-32) 01/04/24 10:50 ALT 42 U/L (0-33) H 01/04/24 10:50 Alkaline Phosphatase 75 U/L (35-105) 01/04/24 10:50 Troponin T Baseline 21 ng/L (0-10) H 01/04/24 10:50 NT-Pro-B Natriuret Pep 1417 pg/mL (0-450) H 01/04/24 10:50 Total Protein 6.4 g/dL (6.6-8.7) L 01/04/24 10:50 Albumin 4.2 g/dL (3.5-5.2) 01/04/24 10:50 Globulin 2.2 g/dL (1.3-4.6) 01/04/24 10:50 Triglycerides 111 mg/dL (0-150) 01/04/24 10:50 Cholesterol 204 mg/dL (0-200) H 01/04/24 10:50 LDL Cholesterol, Calc 136 mg/dL (50-129) H 01/04/24 10:50 HDL Cholesterol 46 mg/dL (60-100) L 01/04/24 10:50 LDL/HDL Ratio 2.96 RATIO (0.00-3.22) 01/04/24 10:50 Cholesterol/HDL Ratio 4.43 mg/dL (0.0-4.40) H 01/04/24 10:50 Adenovirus (PCR) Not detected (NOT DETECT) 01/04/24 11:25 C. pneumoniae DNA (PCR) Not detected (NOT DETECT) 01/04/24 11:25 Coronavirus 229E (PCR) Not detected (NOT DETECT) 01/04/24 11:25 Human Metapneumovir PCR Not detected (NOT DETECT) 01/04/24 11:25 Influenza A (H1) PCR Not detected (NOT DETECT) 01/04/24 11:25 Influ A (H1/09) PCR Not detected (NOT DETECT) 01/04/24 11:25 Influenza A (H3) PCR Not detected (NOT DETECT) 01/04/24 11:25 Influenza Type A (PCR) Not detected (NOT DETECT) 01/04/24 11:25 Influenza Type B (PCR) Not detected (NOT DETECT) 01/04/24 11:25 M. pneumoniae (PCR) Not detected (NOT DETECT) 01/04/24 11:25 Parainfluenza 1 (PCR) Not detected (NOT DETECT) 01/04/24 11:25 Parainfluenza 2 (PCR) Not detected (NOT DETECT) 01/04/24 11:25 Parainfluenza 3 (PCR) Not detected (NOT DETECT) 01/04/24 11:25 Parainfluenza 4 (PCR) Not detected (NOT DETECT) 01/04/24 11:25 RSV Type A (PCR) Not detected (NOT DETECT) 01/04/24 11:25 RSV Type B (PCR) Not detected (NOT DETECT) 01/04/24 11:25 Entero/Rhino (PCR) Not detected (NOT DETECT) 01/04/24 11:25 SARS-CoV-2 (PCR) Not detected (NOT DETECT) 01/04/24 11:25 All radiology interpretation(s) finalized by discharge Discharge Plan Discharge Patient Disposition: Admitted As Inpatient Admit Provider: Aldo Robles Clinical Impression: CHF (congestive heart failure), Hypertension, Lactic acidosis, Transaminitis Condition: Stable Coding Level of Care Code ED Patient Observer for Moises Jeff
[2024-01-04 10:59] LABS: Basophils % 0.1 %; Eosinophils % 0.1 %; Hematocrit 45.9 % (36-47); Lymphocytes # 1.1 10^3/uL (0.8-4.8); Mean Corpuscular Hemoglobin 28.8 pg (27-33); Mean Platelet Volume 10.7 fL (7.4-10.4); Monocytes # 0.4 10^3/uL (0.2-0.9); Monocytes % 2.5 %; Neutrophils % 89.7 %; Nucleated Red Blood Cells % 0 %; Platelet Count 319 10^3/cmm (157-399); Red Cell Distribution Width 14.9 % (12.1-15.1); White Blood Count 15.94 10^3/uL (3.29-11.43)
[2024-01-04] MEDS: FUROsemide 10 mg/mL SDV 4mL 40 MG IVP ×2 (10:59→16:57)
[2024-01-04 11:00] LABS: ABG PCO2 57.9 mmHg (35-45); ABG PH Result 7.26 (7.35-7.45); Alveolar-Arterial Oxygen Gradi 19.1 mmHg (5-10); Arterial Blood Gas Hematocrit 45.9 % (37-47); Base Excess ABG -2.5 mmol/L (-2.0-2.0); Blood Gas Operator Identificat AMH; Blood Gas Sample Site Brachial, left; Blood Gas Sample Type Arterial; Carboxyhemoglobin 1.5 %THgb (0.4-20.1); HCO3 ABG 25.8 mmol/L (22-26); HGB O2 Sat 90.1 % (95-100); Ionized Calcium Level - ABG 1.3 mmol/L (1.1-1.4); Methemoglobin 0.4 % (0.4-1.5); Oxygen Device NC; Oxygen Saturation ABG 91.8; PO2 ABG 69.2 mmHg (80.0-100.0); PO2 FiO2 Ratio Arterial Blood 0; Potassium Level - ABG 4.1 mmol/L (3.5-5.0)
--- NOTE | 2024-01-04 11:07 | USCV_ITS ---
Arielle Salas Age: 78 Gender: F : 1945 Exam Date: 01/04/2024 14:21 Ordering Phys: Ankur Anderson DO Technologist: Tony Santos [place]am Location[place] [facility] [place] Indication: chf BP: 118 / 50 HR: Rhythm: Sinus Technical Quality: Adequate MEASUREMENTS (Male / Female) Normal Values 2D ECHO LVOT Diameter 2.1 cm LV Ejection Fraction MOD 2C 72.0 % LV Ejection Fraction 2C AL 0.0 % LA Diameter 4.5 cm Aorta at Sinotubular Diameter 2.6 cm IVC Diameter 1.7 cm M-MODE LA Ao Ratio MM 2.0 AV Cusp Separation MM 2.1 cm DOPPLER AV Peak Velocity 312.6 cm/s LVOT Peak Velocity 99.0 cm/s AV Area Cont Eq vti 0.8 cm squared AV Area Cont Eq pk 1.1 cm squared MV Peak Velocity 459.0 cm/s MV Area PHT 5.4 cm squared Mitral E to A Ratio 2.8 TR Peak Velocity 349.0 cm/s TR Peak Gradient 48.7 mmHg TR Mean Velocity 251.0 cm/s TR Mean Gradient 28.8 mmHg TR Velocity Time Integral 84.8 cm PV Peak Velocity 93.3 cm/s RV Ejection Time 0.3 s FINDINGS Left Ventricle Normal left ventricular size and systolic function, EF 72% Grade III/IV diastolic dysfunction (restrictive filling pattern), severely elevated filling pressures. Mild left ventricular hypertrophy. No regional wall motion abnormalities. Right Ventricle The right ventricle is normal in size and function. Right Atrium The right atrium is normal in size. Left Atrium Moderately increased left atrial size. Mitral Valve Moderate mitral annular calcification. Moderate prolapse of the posterior mitral leaflet. Moderate eccentric mitral regurgitation with the regurgitant jet directed anteriorly Aortic Valve Thickened aortic valve. Tricuspid Valve [id number] tricuspid valve regurgitation. Estimated pulmonary artery peak systolic pressure is a 57 mmHg with a mean pressure of 37 mmHg Pulmonic Valve Moderate pulmonary valve regurgitation. Pericardium No pericardial effusion Aorta Normal ascending aorta dimension. Normal ascending aorta dimension. IVC Normal IVC dimension with <50% respiratory change of the inferior vena cava. CONCLUSIONS Normal left ventricular size and systolic function, EF 72%. Grade III/IV diastolic dysfunction (restrictive filling pattern), severely elevated filling pressures. Mild left ventricular hypertrophy. No regional wall motion abnormalities. Moderately increased left atrial size. Moderate mitral annular calcification. Moderate prolapse of the posterior mitral leaflet. At least moderate eccentric mitral regurgitation with the regurgitant jet directed anteriorly. Thickened aortic valve. [id number] tricuspid valve regurgitation. Moderate pulmonary hypertension with an estimated pulmonary artery peak systolic pressure of 57 mmHg. Moderate pulmonary valve regurgitation. There is no pericardial effusion. No similar previous studies are available for comparison Dr Ignacio Rivers MD [facility] (Electronically Signed) Final Date: 05 January 2024 09:44 S
[2024-01-04 11:22] LABS: Troponin(5th) Baseline 21 ng/L (0-10)
[2024-01-04 11:25] LABS: Lactic Sepsis W/Reflex 2.6 mmol/L (0.5-2.2)
[2024-01-04] MEDS: labetalol 5 mg/mL SDV 20mL IVP (11:29)
[2024-01-04] MEDS: hyDRALAzine 20 mg/mL INJ 1 mL 10 MG IVP (11:30)
[2024-01-04 11:32] LABS: Alanine Aminotransferase 42 U/L (0-33); Albumin Level 4.2 g/dL (3.5-5.2); Alkaline Phosphatase 75 U/L (35-105); Aspartate Amino Transferase 29 U/L (0-32); Blood Urea Nitrogen 24 mg/dL (8-23); Calcium 9.6 mg/dL (8.5-10.5); Carbon Dioxide 24 mmol/L (22-29); Chloride 101 mmol/L (98-107); Globulin 2.2 g/dL (1.3-4.6); Glucose 255 mg/dL (65-115); NT Pro B Type Natriuretic Pept 1417 pg/mL (0-450); Osmolality Calculated 299 mOsm/kg (285-295); Sodium 138 mmol/L (136-145); Total Protein 6.4 g/dL (6.6-8.7)
[2024-01-04 11:33] LABS: Anion Gap 17.9 (5-19); Potassium 4.9 mmol/L (3.5-5.1)
[2024-01-04 12:32] LABS: ABG PCO2 39.4 mmHg (35-45); ABG PH Result 7.43 (7.35-7.45); Alveolar-Arterial Oxygen Gradi 16.9 mmHg (5-10); Arterial Blood Gas Hematocrit 45.9 % (37-47); Base Excess ABG 1.8 mmol/L (-2.0-2.0); Blood Gas Operator Identificat AMH; Blood Gas Sample Site Brachial, left; Blood Gas Sample Type Arterial; Carboxyhemoglobin 1.4 %THgb (0.4-20.1); HCO3 ABG 26.1 mmol/L (22-26); HGB O2 Sat 97.5 % (95-100); Ionized Calcium Level - ABG 1.3 mmol/L (1.1-1.4); Methemoglobin 0.3 % (0.4-1.5); Oxygen Device BIPAP; Oxygen Saturation ABG 99.2; PO2 FiO2 Ratio Arterial Blood 0; Potassium Level - ABG 3.6 mmol/L (3.5-5.0)
[2024-01-04 12:59] LABS: Reflex Lactate Order REFLEX LACTIC ORDERD
--- NOTE | 2024-01-04 13:28 | P.HP_ITS ---
Providers/Chief Complaint 2 Admitting Physician: Aldo Robles MD Primary Care Provider: LAZARA Wesley-Casey Chief Complaint: SOB History of Present Illness Arielle Salas is a 78 year old female with a past medical history significant for anxiety who presents emergency department shortness of breath. Patient states she was in her usual state of health about 2 to 3 weeks ago. She reports symptoms began with shortness of breath. Worse with exertion. Improved with rest. She noticed leg swelling 3 to 4 days ago. Her respiratory status continued to worsen. She was seen by PCP prescribed prednisone and azithromycin. Despite taking these, symptoms not improved. This prompted her to visit the emergency department. In the emergency department, patient was found to have mixed respiratory failure with respiratory distress. She required BiPAP therapy. She was found to have acute heart failure. She denies any history of known congestive heart failure or heart disease. Of note, patient endorses significant stress and emotional sadness related to her 's condition. He is currently admitted at [facility] in [place]. He has metastatic cancer with very poor prognosis. She reports are planning on discharging him on Saturday to [facility]. She notices this has caused her severe stress. Review of Systems 2 Narrative: A complete review of systems was obtained and is negative except as stated in HPI. Medications/Allergies Home Medications Medication Instructions Recorded Confirmed Last Taken Type aspirin 325 mg tablet 650 mg PO DAILY PRN Pain 02/27/22 01/04/24 03/22/22 History multivitamin 1 tab PO DAILY 02/27/22 01/04/24 01/04/24 History HINGED ELBOW BRACE. #1 ea 03/05/22 01/04/24 Unknown Rx cam boot #1 ea 03/06/22 01/04/24 Unknown Rx albuterol sulfate 90 mcg/actuation 2 puff inhalation QID PRN 01/02/24 01/04/24 01/04/24 Rx aerosol inhaler shortness of breath or wheezing #6.7 grams azithromycin 250 mg tablet See Rx Instructions PO .COMPLEX #6 01/02/24 01/04/24 01/04/24 Rx tabs buspirone 10 mg tablet 10 mg PO TID #30 tabs 01/02/24 01/04/24 01/04/24 Rx prednisone 20 mg tablet 20 mg PO BID #10 tabs 01/02/24 01/04/2401/04/24 Rx Allergies Allergy/AdvReac Type Severity Reaction Status Date / Time No Known Allergies Allergy Verified 01/04/24 10:57 PFSH Acute 2 PFSH: Medical History Anxiety Anxiety No pertinent past medical history Surgical History History of foot surgery Social History (Updated 01/04/24 @ 15:34 by Aldo Robles MD) Smoking and tobacco/nicotine status: never used tobacco/nicotine Alcohol intake: never Substance/Drug Use: never Vitals/I&O/Wt Last Vital Signs Temp 97.4 F L 01/04/24 13:15 Pulse 78 01/04/24 13:24 Resp 19 H 01/04/24 13:15 BP 116/77 01/04/24 13:15 Pulse Ox 99 01/04/24 13:24 O2 Del Method Room Air 01/04/24 13:14 FiO2 35 01/04/24 13:24 01/03/24 01/04/24 01/04/24 22:59 06:59 14:59 Output Total 700 / 700 Balance -700 / -700 Weight last 48 hrs Weight 78 kg Weight 78.471 kg Physical Exam 2 Narrative: General: Patient is awake. In moderate respiratory distress. Head: Normocephalic. Atraumatic. EOM intact. Neck: Elevated JVD. Cardiovascular: RRR. No gallops. No murmurs. 2+ pitting edema bilateral lower extremities. Lungs: Increased work of breathing. Tachypneic with accessory muscle use. On BiPAP. Dependent crackles with very faint end expiratory cardiac wheeze. Skin: No jaundice. No rashes. Abdomen: Normal bowel sounds, abdomen soft and nontender. Genito Urinary: Genital exam not performed since complaints not related. Rectal: Rectal exam not performed since no symptoms indicated blood loss. Extremities: No cyanosis or clubbing. Musculoskeletal: No swollen or erythematous joints. Neurological: Moves all 4 extremities. No myoclonus. Urinary Catheter Management: Hackett: Cath Placed During This Visit: yes Urinary Catheter Date of Insertion: 01/04/24 Urinary Catheter Time of Insertion: 11:15 Data 01/04/24 10:50 01/04/24 10:50 Micro: Microbiology 01/04/24 10:50 Blood Culture - Preliminary Blood SPECIMEN COLLECTED 01/04/24 11:29 Blood Culture - Preliminary Blood SPECIMEN COLLECTED A&P Assessment and plan (1) CHF (congestive heart failure): Acute congestive heart failure Unknown type Stat echo Start IV diuresis Hackett for strict I's and O's Daily weights Supportive care (2) Respiratory failure: Acute hypoxic hypercapnic respiratory failure requiring noninvasive mechanical ventilation secondary to above Treat underlying heart failure Telemetry with continuous pulse oximetry Pulmonary toilet, supportive care (3) Myocardial injury: Troponin elevated with positive delta troponin Echocardiogram is pending, follow-up read EKG is reviewed Telemetry monitoring Start baby aspirin, hold home aspirin Start statin Start therapeutic Lovenox to cover for possible NSTEMI (4) Emotional stress: Patient reports very high emotional stress due to 's element Patient may have Takotsubo cardiomyopathy, follow-up echo Supportive care (5) Anxiety: Continue home meds (6) Hypertension: Blood pressure elevated Received IV antihypertensives in the ED Blood pressure is improved Continue Lasix Plan for beta-pietro as CHF includes (7) Leukocytosis: Suspect steroid-induced, trend procalcitonin and CRP for possible infection (8) Lactic acidosis: Secondary to heart failure (9) Transaminitis: Suspected congestive hepatopathy (10) Dyslipidemia: Lipids and A1c backordered Start high intensity statin Plan DVT prophylaxis: Therapeutic Lovenox CODE STATUS: Full code Attestations 2 Medical Necessity Statement*: Patient presents with shortness of breath, found to have respiratory distress with acute hypoxic/hypercapnic respiratory failure requiring noninvasive mechanical ventilation and ICU level of care with expected hospitalization to cross 2 midnights. Critical Care Time: The high probability of a clinically significant, sudden or life threatening deterioration of the patient's pulmonary cardiac system(s) required my full and direct attention, intervention and personal management. The critical care time is as shown. This time is in addition to time spent performing any reported procedures but includes the following: [x] Data and vital sign review and interpretation [x] Patient assessment, examination and intervention [x] Documentation [x] Medication orders and management Critical care diagnoses: Acute hypoxic hypercapnic respiratory failure requiring noninvasive mechanical ventilation Critical Care Time (min): 35 Coding Level of Care Code Acute Code for [facility] Diagnoses CHF (congestive heart failure) I50.9 Respiratory failure J96.90 Myocardial injury I5A Emotional stress R45.7 Anxiety F41.9 Hypertension I10 Leukocytosis D72.829 Lactic acidosis E87.20 Transaminitis R74.01 Dyslipidemia E78.5
[2024-01-04 13:58] LABS: Troponin 5 2HR 71.82 ng/L (0-10)
[2024-01-04 14:02] LABS: Lactic Acid level (Lactate) 2.9 mmol/L (0.5-2.2); Troponin 5 2HR Delta 50.82 ABS# (0-10)
[2024-01-04 14:07] LABS: Procalcitonin 0.05 ng/mL (0-0.5)
--- NOTE | 2024-01-04 14:08 | PC.NURSE ---
admit from er very dyspnic on transfer to bed placed back on bipap , no significant prior medical history related that her is in [facility] with new diagnosis of cancer and making arrangements for discharge to skilled nursing saturday and this has been very stressful for her .. tearful when attempt to talk about
[2024-01-04] MEDS: BuSPIRONE 10 mg Tablet PO ×2 (15:03→20:12)
[2024-01-04] MEDS: enoxaparin 80 mg/0.8 mL Syringe SUBCUT (15:03)
[2024-01-04 15:21] LABS: Chol HDL Ratio 4.43 mg/dL (0.0-4.40); Cholesterol 204 mg/dL (0-200); HDL Cholesterol 46 mg/dL (60-100); LDL Cholesterol Calculated 136 mg/dL (50-129); LDL HDL Ratio 2.96 RATIO (0.00-3.22); Triglycerides 111 mg/dL (0-150)
[2024-01-04 15:39] LABS: Adenovirus Not Detected (NOT DETECT); Chlamydia Pneumoniae Not Detected (NOT DETECT); Coronavirus 229E,HKU1,NL63,OC4 Not Detected (NOT DETECT); Human Metapneumovirus Not Detected (NOT DETECT); Human Rhinovirus/Enterovirus Not Detected (NOT DETECT); Influenza A Not Detected (NOT DETECT); Influenza A H1 Not Detected (NOT DETECT); Influenza A H1-2009 Not Detected (NOT DETECT); Influenza A H3 Not Detected (NOT DETECT); Influenza B Not Detected (NOT DETECT); Mycoplasma Pneumoniae Not Detected (NOT DETECT); Parainfluenza Virus Type 1 Not Detected (NOT DETECT); Parainfluenza Virus Type 2 Not Detected (NOT DETECT); Parainfluenza Virus Type 3 Not Detected (NOT DETECT); Parainfluenza Virus Type 4 Not Detected (NOT DETECT); Respiratory Syncytial Virus A Not Detected (NOT DETECT); Respiratory Syncytial Virus B Not Detected (NOT DETECT); SARS-COV-2 Not Detected (NOT DETECT)
[2024-01-04 15:47] LABS: Estmated Average Glucose 120; Hemoglobin A1C 5.8 % (4.0-6.0)
--- NOTE | 2024-01-04 18:12 | PC.NURSE ---
off bipap short while to eat on 3lnc some dyspnea with activity back on bipap tolerating well at this time
[2024-01-04 18:23] LABS: Troponin 5 6HR 56.45 ng/L (0-10)
[2024-01-04 18:28] LABS: Troponin 5 6HR Delta 35.45 ng/L (0-12)
[2024-01-04] MEDS: atorvastatin 40 mg Tablet PO (20:12)
[2024-01-05] VITALS (48 sets, daily range): BP systolic 103–152; BP diastolic 46–75; PULSE 65–101; RESP 13–33; TEMP 36.5–36.8; O2SAT 90–99; BMI 30.7
[2024-01-05] MEDS: enoxaparin 80 mg/0.8 mL Syringe SUBCUT ×2 (03:59→14:23)
[2024-01-05 05:14] LABS: Basophils % 0.4 %; Eosinophils # 0.1 10^3/uL (0.0-0.8); Eosinophils % 0.7 %; Hematocrit 42.9 % (36-47); Lymphocytes # 1.7 10^3/uL (0.8-4.8); Lymphocytes % 16.5 %; Mean Corpuscular HGB Conc 31.7 g/dL (30-55); Mean Corpuscular Hemoglobin 28.5 pg (27-33); Mean Corpuscular Volume 89.7 fl (85-98); Mean Platelet Volume 10.3 fL (7.4-10.4); Monocytes % 9.3 %; Neutrophils # 7.55 10^3/uL (1.8-7.7); Neutrophils % 72.7 %; Nucleated Red Blood Cells % 0 %; Platelet Count 251 10^3/cmm (157-399); Red Blood Count 4.78 10^6/uL (3.85-5.65); Red Cell Distribution Width 15.1 % (12.1-15.1); White Blood Count 10.37 10^3/uL (3.29-11.43)
[2024-01-05 05:37] LABS: Blood Urea Nitrogen 25 mg/dL (8-23); Carbon Dioxide 31 mmol/L (22-29); Chloride 98 mmol/L (98-107); Creatinine Clr Calc Pharmacy 56.0486; Glucose 111 mg/dL (65-115); Magnesium 2.3 mg/dL (1.7-2.3); Osmolality Calculated 287 mOsm/kg (285-295); Phosphorus 3.9 mg/dL (2.5-4.5); Sodium 136 mmol/L (136-145)
[2024-01-05] MEDS: FUROsemide 10 mg/mL SDV 4mL 40 MG IVP ×2 (06:12→17:29)
[2024-01-05] MEDS: aspirin 81 mg EC Tablet PO (08:56)
[2024-01-05] MEDS: BuSPIRONE 10 mg Tablet PO ×3 (08:56→20:53)
--- NOTE | 2024-01-05 11:20 | PC.NURSE ---
off bipap for am breakfast tolerated well some dyspnea with activity noted . Developed leg cramps assisted up in chair
--- NOTE | 2024-01-05 15:00 | PC.NURSE ---
Report received from . Care assumed.
--- NOTE | 2024-01-05 16:02 | P.PN_ITS ---
Subjective 2 Subjective: Patient reports her breathing is improved some. Still short of breath. Denies nausea or vomiting. Denies fevers or chills. Medications: Reviewed: Yes Vitals/I&O/Wt Last Vital Signs Temp 97.8 F 01/05/24 04:00 Pulse 80 01/05/24 15:30 Resp 21 H 01/05/24 15:30 BP 125/50 01/05/24 15:30 Pulse Ox 94 01/05/24 15:30 O2 Del Method Room Air 01/05/24 15:30 O2 Flow Rate 3 01/05/24 14:30 FiO2 30 01/05/24 08:29 01/05/24 01/05/24 01/05/24 06:59 14:59 22:59 Intake Total 500 / 500 Output Total 175 / 2600 Balance -175 / -2150 500 / 500 Weight last 48 hrs Weight 76.34 kg Weight 78 kg Weight 78.471 kg Physical Exam 2 Narrative: General: Patient is awake and alert. Very pleasant. Head: Normocephalic. Atraumatic. EOM intact. Neck: Slightly elevated JVD. Cardiovascular: RRR. No gallops. 2-3+ murmur present. Lungs: Dependent crackles. Increased work of breathing when speaking. Currently on nasal cannula support. Skin: No jaundice. No rashes. Abdomen: Normal bowel sounds, abdomen soft and nontender. Genito Urinary: Hackett catheter with loly urine. Rectal: Rectal exam not performed since no symptoms indicated blood loss. Extremities: No cyanosis or clubbing. Musculoskeletal: No swollen or erythematous joints. Neurological: Moves all 4 extremities. No myoclonus. Urinary Catheter Management: Hackett: Cath Placed During This Visit: yes Reason for Continuing Indwelling Catheter: Accurate Measurement of Urinary Output in Critically Ill Patients Urinary Catheter Date of Insertion: 01/04/24 Urinary Catheter Time of Insertion: 11:15 Data 01/05/24 04:54 01/05/24 04:54 Micro: Microbiology 01/04/24 10:50 Blood Culture - Preliminary Blood NEGATIVE TO DATE 01/04/24 11:29 Blood Culture - Preliminary Blood NEGATIVE TO DATE A&P Assessment and plan (1) CHF (congestive heart failure): Acute heart failure with preserved ejection fraction exacerbation TTE with preserved LVEF 72%, grade 3/4 diastolic dysfunction, mitral valvulopathy, sequela of fluid overload Continue IV Lasix Hackett for strict I's and O's Daily weights Supportive care Cardiology consulted, discussed with Dr. Rivers (2) Respiratory failure: Acute hypoxic hypercapnic respiratory failure requiring noninvasive mechanical ventilation secondary to above Treat underlying heart failure Telemetry with continuous pulse oximetry Pulmonary toilet, supportive care (3) Myocardial injury: Acute myocardial injury, suspect secondary to acute CHF Echo reviewed She may benefit from ischemic evaluation, cardiology has been consulted Telemetry monitoring Continue low-dose aspirin Continue statin Continue therapeutic Lovenox for now until cardiology evaluates (4) Emotional stress: Patient reports very high emotional stress due to 's illness, he still admitted to [facility] with plans to discharge staff may be on Saturday, there is reports that he is requiring a sitter so this may not happen Supportive care (5) Anxiety: Continue home meds (6) Hypertension: Blood pressure has improved Continue Lasix She would benefit from a beta-pietro after decompensated CHF improves (7) Leukocytosis: Leukocytosis has resolved, was likely steroid-induced (8) Lactic acidosis: Secondary to heart failure (9) Transaminitis: Suspected congestive hepatopathy Will repeat liver function testing in a.m. (10) Dyslipidemia: Lipid profile reviewed, started statin A1c 5.8 Plan DVT prophylaxis: Therapeutic Lovenox CODE STATUS: Full code Attestations 2 Medical Necessity Statement*: Patient requires ongoing hospitalization for continued respiratory support, IV diuresis, electrolyte management, cardiology evaluation, and workup of newly diagnosed acute heart failure exacerbation. Coding Level of Care Code Acute Code for [facility] Diagnoses CHF (congestive heart failure) I50.9 Respiratory failure J96.90 Myocardial injury I5A Emotional stress R45.7 Anxiety F41.9 Hypertension I10 Leukocytosis D72.829 Lactic acidosis E87.20 Transaminitis R74.01 Dyslipidemia E78.5
--- NOTE | 2024-01-05 17:55 | P.CONIM_ITS ---
Providers/Reason For Consult 2 Consulting Physician/Specialty*: INES Rivers MD/cardiology Reason for Consult*: Acute heart failure/elevated troponin T/mitral regurgitation Requesting Physician: Patient with respiratory distress, congestive heart failure and abnormal echocardiogram Attending Physician: Aldo Robles MD Primary Care Provider: MARCIE Wesley History of Present Illness History of Present Illness Arielle Salas is a 78 year old female is admitted to hospital through the emergency room where she presented with complaints of progressive shortness of breath and leg swelling. According to the patient, she has not been feeling well for the last couple of months. She had some dyspnea on exertion. Over the last couple of weeks, the shortness of breath has been getting worse. She started noticing swelling of the lower extremities 3 days ago. Because of the worsening shortness of breath, she present to the emergency room. In the emergency room, she was found to be in respiratory failure. She was placed on BiPAP initially. She is gradually weaned off the BiPAP at this time. Her chest x-ray showed evidence of congestive heart failure and cardiomegaly. She had an echocardiogram done which revealed normal LV size and ejection fraction 72%. She had a grade 3 left- ventricular diastolic dysfunction. She was found to have features of mitral valve prolapse and at least moderate mitral regurgitation. She had moderate pulmonary hypertension and moderate left atrial enlargement. This patient has no previous history for congestive heart failure. No history for any heart murmur. She was told to have an irregular heartbeat a year ago when she presented with left ankle injury. She is not on any specific medications. She takes a baby aspirin a day. For the last 7 or 8 months, she been taking care of her who is diagnosed with metastatic bladder CA. He is currently at the [facility] in [place]. She has been undergoing a lot of stress situations at home. She has no previous history for any hypertension, diabetes or dyslipidemia. No history for CVA or peripheral artery disease. No history for kidney disease, liver disease or bleeding disorders. Her father had a myocardial infarction at the age of 69. Mother had a congestive heart failure in the late 70s. No other relevant family history. She denies any smoking abuse or alcohol abuse. Her blood test revealed an elevated troponin T with a 2-hour delta of 50 and a 6-hour delta of 35 Review of Systems 2 Narrative: CONSTITUTIONAL: No fever or chills. EYES: No blurring of vision or other visual disturbances lately. ENT: No hoarseness of voice, auditory disturbances or sore throat. CARDIOVASCULAR: As mentioned above. RESPIRATORY: Progressive shortness of breath as mentioned above GASTROINTESTINAL: No hematemesis or melena. GENITOURINARY: No dysuria or hematuria. INTEGUMENTARY: No skin rashes or history of skin cancer. NEURO: No transient ischemic attacks or amaurosis. PSYCHIATRIC: No history of psychosis or major depression. HEMATOLOGIC: No bleeding disorders or significant anemia. ENDOCRINE: No history of polyuria or polydipsia. MUSCULOSKELETAL: Swelling of the lower extremities as mentioned above ALLERGY/IMMUNOLOGY: As mentioned above. Medications/Allergies Home Medications Medication Instructions Recorded Confirmed Last Taken Type aspirin 325 mg tablet 650 mg PO DAILY PRN Pain 02/27/22 01/04/24 03/22/22 History multivitamin 1 tab PO DAILY 02/27/22 01/04/24 01/04/24 History HINGED ELBOW BRACE. #1 ea 03/05/22 01/04/24 Unknown Rx cam boot #1 ea 03/06/22 01/04/24 Unknown Rx albuterol sulfate 90 mcg/actuation 2 puff inhalation QID PRN 01/02/24 01/04/24 01/04/24 Rx aerosol inhaler shortness of breath or wheezing #6.7 grams azithromycin 250 mg tablet See Rx Instructions PO .COMPLEX #6 01/02/24 01/04/24 01/04/24 Rx tabs buspirone 10 mg tablet 10 mg PO TID #30 tabs 01/02/24 01/04/24 01/04/24 Rx prednisone 20 mg tablet 20 mg PO BID #10 tabs 01/02/24 01/04/24 01/04/24 Rx Allergies Allergy/AdvReac Type Severity Reaction Status Date / Time No Known Allergies Allergy Verified 01/04/24 10:57 Current Medications Generic Name Dose Route Start Last Admin Trade Name Freq PRN Reason Stop Dose Admin Aspirin 81 mg 01/05/24 09:00 01/05/24 08:56 Aspirin 81 Mg Ec Tablet PO 81 mg DAILY NATHAN Administration Atorvastatin Calcium 40 mg 01/04/24 21:00 01/04/24 20:12 Atorvastatin 40 Mg Tablet PO 40 mg BEDTIME NATHAN Administration Buspirone HCl 10 mg 01/04/24 15:00 01/05/24 14:23 Buspirone 10 Mg Tablet PO 10 mg TID NATHAN Administration Enoxaparin Sodium 80 mg 01/04/24 15:00 01/05/24 14:23 Enoxaparin 80 Mg/0.8 Ml Syringe SUBCUT 80 mg Q12H NATHAN Administration Furosemide 40 mg 01/04/24 17:00 01/05/24 06:12 Furosemide 10 Mg/Ml Sdv 4ml IVP 40 mg BIDAC NATHAN Administration PFSH Acute 2 PFSH: Medical History Anxiety Anxiety No pertinent past medical history Surgical History History of foot surgery Social History Smoking and tobacco/nicotine status: never used tobacco/nicotine Alcohol intake: never Substance/Drug Use: never Vitals/I&O/Wt Last Vital Signs Temp 97.8 F 01/05/24 04:00 Pulse 80 01/05/24 15:30 Resp 21 H 01/05/24 15:30 BP 125/50 01/05/24 15:30 Pulse Ox 94 01/05/24 15:30 O2 Del Method Room Air 01/05/24 15:30 O2 Flow Rate 3 01/05/24 14:30 FiO2 30 01/05/24 08:29 01/05/24 01/05/24 01/05/24 06:59 14:59 22:59 Intake Total 500 / 500 Output Total 175 / 2600 Balance -175 / -2150 500 / 500 Weight last 48 hrs Weight 168 lb 4.8 oz Weight 171 lb 15.369 oz Weight 173 lb Physical Exam 2 Narrative: GENERAL: The patient is alert and oriented times three. Not in any acute distress. HEENT: No significant pallor, icterus or lymphadenopathy.Oral cavity: There are no mucous membrane lesions. NECK: Trachea appears to be central. No masses noted. No JVD or thyromegaly appreciated. RESPIRATORY: Chest is symmetrical. No intercostals muscle retraction or any accessory muscle activation. There is no chest wall tenderness. Breath sounds are heard bilaterally. No rales or rhonchi heard. No evidence of any consolidation. BREASTS: Deferred. HEART: The heart sounds are normal. No S3 or S4. Systolic murmur grade 3 or 6 in the mitral area. No pericardial rub ABDOMEN: No vessel pulsations or distention. No tenderness. No organomegaly appreciated. Bowel sounds are normally heard. : Deferred. RECTAL: Deferred. LYMPHATIC: No lymphadenopathy noted in the neck. EXTREMITIES: 1+ edema of the left lower extremity and trace edema of the right lower extremity. No cyanosis. Ever since the ankle injury on the left side, she been having more swelling on the left side. MUSCULOSKELETAL: No acute joint deformities or swelling SKIN: There are no significant rashes or ecchymosis NEUROPSYCHIATRIC: The patient is alert and oriented x3. Appears to be in a good mood. No tremors or rigidity noted. Urinary Catheter Management: Hackett: Cath Placed During This Visit: yes Reason for Continuing Indwelling Catheter: Accurate Measurement of Urinary Output in Critically Ill Patients Urinary Catheter Date of Insertion: 01/04/24 Urinary Catheter Time of Insertion: 11:15 Data 01/05/24 04:54 01/05/24 04:54 Other Labs: Laboratory Last Values WBC 10.37 10^3/uL (3.29-11.43) 01/05/24 04:54 RBC 4.78 10^6/uL (3.85-5.65) 01/05/24 04:54 Hgb 13.60 g/dL (11.27-16.99) 01/05/24 04:54 Hct 42.9 % (36-47) 01/05/24 04:54 MCV 89.7 fl (85-98) 01/05/24 04:54 MCH 28.5 pg (27-33) 01/05/24 04:54 MCHC 31.7 g/dL (30-55) 01/05/24 04:54 RDW 15.1 % (12.1-15.1) 01/05/24 04:54 Plt Count 251 10^3/cmm (157-399) 01/05/24 04:54 MPV 10.3 fL (7.4-10.4) 01/05/24 04:54 Neut % (Auto) 72.7 % 01/05/24 04:54 Lymph % (Auto) 16.5 % 01/05/24 04:54 Weld % (Auto) 9.3 % 01/05/24 04:54 Eos % (Auto) 0.7 % 01/05/24 04:54 Baso % (Auto) 0.4 % 01/05/24 04:54 Neut # (Auto) 7.55 10^3/uL (1.8-7.7) 01/05/24 04:54 Lymph # (Auto) 1.7 10^3/uL (0.8-4.8) 01/05/24 04:54 Weld # (Auto) 1.0 10^3/uL (0.2-0.9) H 01/05/24 04:54 Eos # (Auto) 0.1 10^3/uL (0.0-0.8) 01/05/24 04:54 Baso # (Auto) 0.0 10^3/uL (0.0-0.1) 01/05/24 04:54 Nucleated RBC % (auto) 0 % 01/05/24 04:54 Nucleated RBCs # 0.0 /100WBC 01/05/24 04:54 Specimen Type Arterial 01/04/24 12:20 Sample Site Brachial, left 01/04/24 12:20 ABG pH 7.43 (7.35-7.45) 01/04/24 12:20 ABG pCO2 39.4 mmHg (35-45) 01/04/24 12:20 ABG pO2 105.0 mmHg (80.0-100.0) H 01/04/24 12:20 ABG PO2/FiO2 Ratio 0 01/04/24 12:20 ABG HCO3 26.1 mmol/L (22-26) H 01/04/24 12:20 ABG O2 Saturation 99.2 01/04/24 12:20 ABG Base Excess 1.8 mmol/L (-2.0-2.0) 01/04/24 12:20 Parish Test N/a 01/04/24 12:20 A-a O2 Gradient 16.9 mmHg (5-10) H 01/04/24 12:20 Hematocrit 45.9 % (37-47) 01/04/24 12:20 Hgb O2 Saturation 97.5 % (95-100) 01/04/24 12:20 Carboxyhemoglobin 1.4 %THgb (0.4-20.1) 01/04/24 12:20 Methemoglobin 0.3 % (0.4-1.5) L 01/04/24 12:20 Total Hemoglobin 15.0 g/dL (12-16) 01/04/24 12:20 Sodium 139.0 mmol/L (131-143) 01/04/24 12:20 Potassium 3.6 mmol/L (3.5-5.0) 01/04/24 12:20 Glucose 186.0 mg/dL (70-115) H 01/04/24 12:20 Ionized Calcium 1.3 mmol/L (1.1-1.4) 01/04/24 12:20 O2 Delivery Device Bipap 01/04/24 12:20 O2 Liters/Min 5.0 % 01/04/24 10:49 FiO2 40.0 % 01/04/24 12:20 Teacher Education Director ID [facility] 01/04/24 12:20 Sodium 136 mmol/L (136-145) 01/05/24 04:54 Potassium 4.0 mmol/L (3.5-5.1) 01/05/24 04:54 Chloride 98 mmol/L (98-107) 01/05/24 04:54 Carbon Dioxide 31 mmol/L (22-29) H 01/05/24 04:54 Anion Gap 11.0 (5-19) 01/05/24 04:54 BUN 25 mg/dL (8-23) H 01/05/24 04:54 Creatinine 0.6 mg/dL (0.5-0.9) 01/05/24 04:54 GFR Calculation Not Reportable 01/05/24 04:54 Glucose 111 mg/dL (65-115) 01/05/24 04:54 Estimat Average Glucose 120 01/04/24 10:50 Hemoglobin A1c 5.8 % (4.0-6.0) 01/04/24 10:50 Calculated Osmolality 287 mOsm/kg (285-295) 01/05/24 04:54 Lactic Acid 2.6 mmol/L (0.5-2.2) H 01/04/24 10:50 Lactic Acid (Sepsis) 2.9 mmol/L (0.5-2.2) H 01/04/24 13:12 Calcium 9.0 mg/dL (8.5-10.5) 01/05/24 04:54 Phosphorus 3.9 mg/dL (2.5-4.5) 01/05/24 04:54 Magnesium 2.3 mg/dL (1.7-2.3) 01/05/24 04:54 Total Bilirubin 1.0 mg/dL (0.15-1.2) 01/04/24 10:50 AST 29 U/L (0-32) 01/04/24 10:50 ALT 42 U/L (0-33) H 01/04/24 10:50 Alkaline Phosphatase 75 U/L (35-105) 01/04/24 10:50 Troponin T Baseline 21 ng/L (0-10) H 01/04/24 10:50 Troponin T 120 Minute 71.82 ng/L (0-10) H 01/04/24 13:12 Delta Troponin T 50.82 ABS# (0-10) H* 01/04/24 13:12 Troponin T Hi Sens 6Hr 56.45 ng/L (0-10) H 01/04/24 17:52 Troponin T Hi Sens 6Hr Delta 35.45 ng/L (0-12) H* 01/04/24 17:52 C-Reactive Protein 3.0 mg/L (0.0-4.9) 01/04/24 13:12 NT-Pro-B Natriuret Pep 1417 pg/mL (0-450) H 01/04/24 10:50 Total Protein 6.4 g/dL (6.6-8.7) L 01/04/24 10:50 Albumin 4.2 g/dL (3.5-5.2) 01/04/24 10:50 Globulin 2.2 g/dL (1.3-4.6) 01/04/24 10:50 Triglycerides 111 mg/dL (0-150) 01/04/24 10:50 Cholesterol 204 mg/dL (0-200) H 01/04/24 10:50 LDL Cholesterol, Calc 136 mg/dL (50-129) H 01/04/24 10:50 HDL Cholesterol 46 mg/dL (60-100) L 01/04/24 10:50 LDL/HDL Ratio 2.96 RATIO (0.00-3.22) 01/04/24 10:50 Cholesterol/HDL Ratio 4.43 mg/dL (0.0-4.40) H 01/04/24 10:50 Procalcitonin 0.05 ng/mL (0-0.5) 01/04/24 13:12 Adenovirus (PCR) Not detected (NOT DETECT) 01/04/24 11:25 C. pneumoniae DNA (PCR) Not detected (NOT DETECT) 01/04/24 11:25 Coronavirus 229E (PCR) Not detected (NOT DETECT) 01/04/24 11:25 Human Metapneumovir PCR Not detected (NOT DETECT) 01/04/24 11:25 Influenza A (H1) PCR Not detected (NOT DETECT) 01/04/24 11:25 Influ A (H1/09) PCR Not detected (NOT DETECT) 01/04/24 11:25 Influenza A (H3) PCR Not detected (NOT DETECT) 01/04/24 11:25 Influenza Type A (PCR) Not detected (NOT DETECT) 01/04/24 11:25 Influenza Type B (PCR) Not detected (NOT DETECT) 01/04/24 11:25 M. pneumoniae (PCR) Not detected (NOT DETECT) 01/04/24 11:25 Parainfluenza 1 (PCR) Not detected (NOT DETECT) 01/04/24 11:25 Parainfluenza 2 (PCR) Not detected (NOT DETECT) 01/04/24 11:25 Parainfluenza 3 (PCR) Not detected (NOT DETECT) 01/04/24 11:25 Parainfluenza 4 (PCR) Not detected (NOT DETECT) 01/04/24 11:25 RSV Type A (PCR) Not detected (NOT DETECT) 01/04/24 11:25 RSV Type B (PCR) Not detected (NOT DETECT) 01/04/24 11:25 Entero/Rhino (PCR) Not detected (NOT DETECT) 01/04/24 11:25 SARS-CoV-2 (PCR) Not detected (NOT DETECT) 01/04/24 11:25 Micro: Microbiology 01/04/24 10:50 Blood Culture - Preliminary Blood NEGATIVE TO DATE 01/04/24 11:29 Blood Culture - Preliminary Blood NEGATIVE TO DATE Other data: Echocardiogram on 01/05/2024 normal left ventricular size and systolic function, EF 72%. Grade III/IV diastolic dysfunction (restrictive filling pattern), severely elevated filling pressures. Mild left ventricular hypertrophy. No regional wall motion abnormalities. Moderately increased left atrial size. Moderate mitral annular calcification. Moderate prolapse of the posterior mitral leaflet. At least moderate eccentric mitral regurgitation with the regurgitant jet directed anteriorly. Thickened aortic valve. [id number] tricuspid valve regurgitation. Moderate pulmonary hypertension with an estimated pulmonary artery peak systolic pressure of 57 mmHg. Moderate pulmonary valve regurgitation. There is no pericardial effusion. No similar previous studies are available for comparison EKG from 01/04/2024 Sinus tachycardia. Nonspecific T wave changes. A&P Assessment and plan (1) Elevated troponin: Most likely this patient had a type II myocardial infarction. The EKG changes are nonspecific. Possibility of her having underlying coronary disease is a consideration that needs to be excluded. Patient will be treated with subcu Lovenox, aspirin, statin and beta-pietro. (2) Acute heart failure with preserved ejection fraction: Etiology is not clear. Left-ventricular diastolic function is a strong possibility. Underlying coronary ischemia also is a strong consideration. Patient may be carefully treated with IV diuretics. (3) Hypertension: Currently the blood pressures are stage II. Antihypertensive medications need to be optimized. I may start him on metoprolol 25 mg p.o. twice daily Qualifiers: Hypertension type: primary hypertension Qualified Code(s): I10 - Essential (primary) hypertension (4) Dyslipidemia: Agree with the atorvastatin. 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 She may undergo any specific intervention at this point. Plan To further evaluate the etiology of the heart failure, and the elevated troponin T, we may go ahead and do a Myocardial perfusion imaging. A Lexiscan/sestamibi/sestamibi stress test would be appropriate. This may be done sometime tomorrow. Based on the results, further recommendations will be made. Thank you for the opportunity to evaluate this patient and make these recommendations Coding Level of Care Code 70527 Diagnoses Elevated troponin R79.89 Acute heart failure with preserved ejection fraction I50.31 Primary hypertension I10 Hypertension type: primary hypertension Dyslipidemia E78.5 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 Time Spent (min) 65
--- NOTE | 2024-01-05 19:08 | ECG_ITS ---
[facility] Test Date: 2024-01-06 Pat Name: Arielle Salas Department: Room: ICU08 Gender: Female Case Management Associate: : 1945 Requested By: Ignacio Rivres Order Number: [id number] Marina MD: Ignacio Rivers M.D. Interpretive Statements NAME OF STUDY: LEXISCAN SESTAMIBI STRESS TEST INDICATION: Congestive Heart Failure; Nonstemi PROCEDURE: At the baseline, the EKG revealed normal sinus rhythm with diffuse nonspecific T wave changes in the anterolateral and inferior leads. Motion artifacts are noted at the baseline recording.. The baseline heart was 80 bpm with a blood pressue of 128/67 mm of Hg Lexiscan was infused over a period of 20 seconds. A total of 0.4 milligrams of Lexiscan was infused. The stress phase was continued for a total of 5 minutes. Heart rate at the end of the stress phase was 84 bpm with a blood pressure 109/50 mm of Hg. The EKG at the peak infusion revealed no significant changes. Sestamibi was injected 20 seconds after the Lexiscan infusion. Heart rate at the end of the recovery phase was 95 bpm with a blood pressure of 130/70 mm of Hg. CONCLUSION: 1. No significant EKG changes with the LexiScan infusion 2. No LexiScan induced chest pain or cardiac arrhythmia 3. Normal blood pressure and heart rate response 4. Sestamibi/sestamibi perfusion scan pending; see separate report. Electronically Signed On 01-13-2024 9:10:31 ASSOCIATE DIRECTOR OF SALES by Ignacio Rivers M.D. [email or web address]
--- NOTE | 2024-01-05 19:38 | PC.NURSE ---
Shift summary: Pt has rested in bed and been up to chair today. She has received Lasix twice this shift. She was using O2 at 3lpm/NC now she is o room air O2 sats 95%. She is tolerating it well. A trace of edema still present on lower extremities. Sinus rhythm noted on monitor. She has ate a good portion of her meals. She has had 1350ml of urine output. Pt attempted to have Bm on BSC tody, Flatulence noted.
[2024-01-05] MEDS: atorvastatin 40 mg Tablet PO (20:52)
[2024-01-05] MEDS: metoprolol tartrate 25 mg Tablet PO (20:53)
[2024-01-06] VITALS (32 sets, daily range): BP systolic 103–136; BP diastolic 46–68; PULSE 66–92; RESP 14–28; TEMP 36.2–37.3; O2SAT 86–95; BMI 30.4
[2024-01-06] MEDS: enoxaparin 80 mg/0.8 mL Syringe SUBCUT (03:15)
[2024-01-06 03:46] LABS: Basophils % 0.4 %; Eosinophils # 0.1 10^3/uL (0.0-0.8); Eosinophils % 0.9 %; Hematocrit 40.7 % (36-47); Lymphocytes # 1.2 10^3/uL (0.8-4.8); Lymphocytes % 14.9 %; Mean Corpuscular HGB Conc 32.7 g/dL (30-55); Mean Corpuscular Hemoglobin 28.7 pg (27-33); Mean Corpuscular Volume 87.9 fl (85-98); Mean Platelet Volume 10.4 fL (7.4-10.4); Monocytes # 0.8 10^3/uL (0.2-0.9); Neutrophils % 73.3 %; Nucleated Red Blood Cells % 0 %; Platelet Count 228 10^3/cmm (157-399); Red Blood Count 4.63 10^6/uL (3.85-5.65); Red Cell Distribution Width 14.8 % (12.1-15.1); White Blood Count 8.04 10^3/uL (3.29-11.43)
[2024-01-06 04:05] LABS: Albumin Level 3.3 g/dL (3.5-5.2); Anion Gap 10.4 (5-19); Blood Urea Nitrogen 24 mg/dL (8-23); Calcium 8.5 mg/dL (8.5-10.5); Carbon Dioxide 32 mmol/L (22-29); Chloride 99 mmol/L (98-107); Creatinine Clr Calc Pharmacy 55.4411; Glucose 114 mg/dL (65-115); Magnesium 2.1 mg/dL (1.7-2.3); Phosphorus 3.3 mg/dL (2.5-4.5); Potassium 3.4 mmol/L (3.5-5.1); Sodium 138 mmol/L (136-145)
[2024-01-06 04:06] LABS: Alanine Aminotransferase 31 U/L (0-33); Albumin Level 3.3 g/dL (3.5-5.2); Alkaline Phosphatase 58 U/L (35-105); Aspartate Amino Transferase 15 U/L (0-32); Globulin 1.7 g/dL (1.3-4.6); Total Bilirubin 0.9 mg/dL (0.15-1.2)
--- NOTE | 2024-01-06 04:45 | PC.NURSE ---
Potassium PO: Patient's potassium had been treanding down and is currently 3.4, Dr. Waldron informed. Verbal order received for potassium 40 meq PO BID to be given with lasix.
[2024-01-06] MEDS: FUROsemide 10 mg/mL SDV 4mL 40 MG IVP (06:04)
[2024-01-06] MEDS: potassium chloride ER 20 mEq Tablet 40 MEQ PO (06:04)
[2024-01-06] MEDS: regadenoson 0.4 Mg/5 ml Syringe 0.400000000000000022 MG IVP (07:20)
[2024-01-06] MEDS: BuSPIRONE 10 mg Tablet PO ×2 (11:05→14:21)
[2024-01-06] MEDS: aspirin 81 mg EC Tablet PO (11:05)
[2024-01-06] MEDS: metoprolol tartrate 25 mg Tablet PO (11:05)
--- NOTE | 2024-01-06 13:49 | P.DS_ITS ---
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 6-hour delta was 35. This was attributed to most likely demand ischemia. Patient was placed on subcu Lovenox aspirin statin beta-pietro. She was diuresed during hospital stay and stress test was recommended. Stress test was completed which showed LVEF of 88% uniform tracer uptake with no abnormalities. Low-volume ischemia. Therefore it was decided to discharge patient home on metoprolol, aspirin, Lasix, potassium and she was given a follow-up appointment at discharge with cardiology. Cardiology also saw the patient during hospital stay and above recommendations were discussed with them prior to discharge. Physical Exam Narrative: General: Patient is awake and alert. Very pleasant. 2-3+ murmur present. Lungs: Clear to auscultation bilaterally no wheezes no rhonchi. Patient on room air. Abdomen: Normal bowel sounds, abdomen soft and nontender. Extremities: No cyanosis or clubbing. Musculoskeletal: No swollen or erythematous joints. Neurological: Moves all 4 extremities. No myoclonus. Urinary Catheter Management: Hackett: Cath Placed During This Visit: yes Reason for Continuing Indwelling Catheter: Accurate Measurement of Urinary Output in Critically Ill Patients Urinary Catheter Date of Insertion: 01/04/24 Urinary Catheter Time of Insertion: 11:15 Discharge Data Studies Completed and Pending Completed Studies During Hospitalization Category Date Time Status Cardiac Stress Test MIBI [Sestamibi Stress Test Request Exams 01/05/24 19:08 Draft ] Routine XR chest 1V portable [id number] Stat Exams 01/04/24 10:47 Completed NM velia perf SPECT r/s* [id number] Routine Nuc Med 01/06/24 19:09 Completed US echo complete [CV. echo complete* [id number]] Stat Ultrasound 01/04/24 11:07 Completed Pending at discharge Category Date Time Status Blood Culture Stat Lab 01/04/24 10:50 Results Radiology Impressions Chest X-Ray 01/04/24 10:47 IMPRESSION: 1. Bilateral pulmonary opacity consistent with pulmonary edema. 2. Bilateral pleural effusions. 3. Probable cardiac enlargement. The heart is partially obscured. Laboratory Results WBC 8.04 10^3/uL (3.29-11.43) 01/06/24 03:14 RBC 4.63 10^6/uL (3.85-5.65) 01/06/24 03:14 Hgb 13.30 g/dL (11.27-16.99) 01/06/24 03:14 Hct 40.7 % (36-47) 01/06/24 03:14 MCV 87.9 fl (85-98) 01/06/24 03:14 MCH 28.7 pg (27-33) 01/06/24 03:14 MCHC 32.7 g/dL (30-55) 01/06/24 03:14 RDW 14.8 % (12.1-15.1) 01/06/24 03:14 Plt Count 228 10^3/cmm (157-399) 01/06/24 03:14 MPV 10.4 fL (7.4-10.4) 01/06/24 03:14 Neut % (Auto) 73.3 % 01/06/24 03:14 Lymph % (Auto) 14.9 % 01/06/24 03:14 [place] % (Auto) 10.0 % 01/06/24 03:14 Eos % (Auto) 0.9 % 01/06/24 03:14 Baso % (Auto) 0.4 % 01/06/24 03:14 Neut # (Auto) 5.90 10^3/uL (1.8-7.7) 01/06/24 03:14 Lymph # (Auto) 1.2 10^3/uL (0.8-4.8) 01/06/24 03:14 [place] # (Auto) 0.8 10^3/uL (0.2-0.9) 01/06/24 03:14 Eos # (Auto) 0.1 10^3/uL (0.0-0.8) 01/06/24 03:14 Baso # (Auto) 0.0 10^3/uL (0.0-0.1) 01/06/24 03:14 Nucleated RBC % (auto) 0 % 01/06/24 03:14 Nucleated RBCs # 0.0 /100WBC 01/06/24 03:14 Specimen Type Arterial 01/04/24 12:20 Sample Site Brachial, left 01/04/24 12:20 ABG pH 7.43 (7.35-7.45) 01/04/24 12:20 ABG pCO2 39.4 mmHg (35-45) 01/04/24 12:20 ABG pO2 105.0 mmHg (80.0-100.0) H 01/04/24 12:20 ABG PO2/FiO2 Ratio 0 01/04/24 12:20 ABG HCO3 26.1 mmol/L (22-26) H 01/04/24 12:20 ABG O2 Saturation 99.2 01/04/24 12:20 ABG Base Excess 1.8 mmol/L (-2.0-2.0) 01/04/24 12:20 Parish Test N/a 01/04/24 12:20 A-a O2 Gradient 16.9 mmHg (5-10) H 01/04/24 12:20 Hematocrit 45.9 % (37-47) 01/04/24 12:20 Hgb O2 Saturation 97.5 % (95-100) 01/04/24 12:20 Carboxyhemoglobin 1.4 %THgb (0.4-20.1) 01/04/24 12:20 Methemoglobin 0.3 % (0.4-1.5) L 01/04/24 12:20 Total Hemoglobin 15.0 g/dL (12-16) 01/04/24 12:20 Sodium 139.0 mmol/L (131-143) 01/04/24 12:20 Potassium 3.6 mmol/L (3.5-5.0) 01/04/24 12:20 Glucose 186.0 mg/dL (70-115) H 01/04/24 12:20 Ionized Calcium 1.3 mmol/L (1.1-1.4) 01/04/24 12:20 O2 Delivery Device Bipap 01/04/24 12:20 O2 Liters/Min 5.0 % 01/04/24 10:49 FiO2 40.0 % 01/04/24 12:20 Stave Cutter ID Amh 01/04/24 12:20 Sodium 138 mmol/L (136-145) 01/06/24 03:14 Potassium 3.4 mmol/L (3.5-5.1) L 01/06/24 03:14 Chloride 99 mmol/L (98-107) 01/06/24 03:14 Carbon Dioxide 32 mmol/L (22-29) H 01/06/24 03:14 Anion Gap 10.4 (5-19) 01/06/24 03:14 BUN 24 mg/dL (8-23) H 01/06/24 03:14 Creatinine 0.6 mg/dL (0.5-0.9) 01/06/24 03:14 GFR Calculation Not Reportable 01/06/24 03:14 Glucose 114 mg/dL (65-115) 01/06/24 03:14 Estimat Average Glucose 120 01/04/24 10:50 Hemoglobin A1c 5.8 % (4.0-6.0) 01/04/24 10:50 Calculated Osmolality 287 mOsm/kg (285-295) 01/05/24 04:54 Lactic Acid 2.6 mmol/L (0.5-2.2) H 01/04/24 10:50 Lactic Acid (Sepsis) 2.9 mmol/L (0.5-2.2) H 01/04/24 13:12 Calcium 8.5 mg/dL (8.5-10.5) 01/06/24 03:14 Phosphorus 3.3 mg/dL (2.5-4.5) 01/06/24 03:14 Magnesium 2.1 mg/dL (1.7-2.3) 01/06/24 03:14 Total Bilirubin 0.9 mg/dL (0.15-1.2) 01/06/24 03:14 Direct Bilirubin 0.20 mg/dL (0.00-0.30) 01/06/24 03:14 AST 15 U/L (0-32) 01/06/24 03:14 ALT 31 U/L (0-33) 01/06/24 03:14 Alkaline Phosphatase 58 U/L (35-105) 01/06/24 03:14 Troponin T Baseline 21 ng/L (0-10) H 01/04/24 10:50 Troponin T 120 Minute 71.82 ng/L (0-10) H 01/04/24 13:12 Delta Troponin T 50.82 ABS# (0-10) H* 01/04/24 13:12 Troponin T Hi Sens 6Hr 56.45 ng/L (0-10) H 01/04/24 17:52 Troponin T Hi Sens 6Hr Delta 35.45 ng/L (0-12) H* 01/04/24 17:52 C-Reactive Protein 3.0 mg/L (0.0-4.9) 01/04/24 13:12 NT-Pro-B Natriuret Pep 1417 pg/mL (0-450) H 01/04/24 10:50 Total Protein 5.0 g/dL (6.6-8.7) L 01/06/24 03:14 Albumin 3.3 g/dL (3.5-5.2) L 01/06/24 03:14 Albumin 3.3 g/dL (3.5-5.2) L 01/06/24 03:14 Globulin 1.7 g/dL (1.3-4.6) 01/06/24 03:14 Triglycerides 111 mg/dL (0-150) 01/04/24 10:50 Cholesterol 204 mg/dL (0-200) H 01/04/24 10:50 LDL Cholesterol, Calc 136 mg/dL (50-129) H 01/04/24 10:50 HDL Cholesterol 46 mg/dL (60-100) L 01/04/24 10:50 LDL/HDL Ratio 2.96 RATIO (0.00-3.22) 01/04/24 10:50 Cholesterol/HDL Ratio 4.43 mg/dL (0.0-4.40) H 01/04/24 10:50 Procalcitonin 0.05 ng/mL (0-0.5) 01/04/24 13:12 Adenovirus (PCR) Not detected (NOT DETECT) 01/04/24 11:25 C. pneumoniae DNA (PCR) Not detected (NOT DETECT) 01/04/24 11:25 Coronavirus 229E (PCR) Not detected (NOT DETECT) 01/04/24 11:25 Human Metapneumovir PCR Not detected (NOT DETECT) 01/04/24 11:25 Influenza A (H1) PCR Not detected (NOT DETECT) 01/04/24 11:25 Influ A (H1/09) PCR Not detected (NOT DETECT) 01/04/24 11:25 Influenza A (H3) PCR Not detected (NOT DETECT) 01/04/24 11:25 Influenza Type A (PCR) Not detected (NOT DETECT) 01/04/24 11:25 Influenza Type B (PCR) Not detected (NOT DETECT) 01/04/24 11:25 M. pneumoniae (PCR) Not detected (NOT DETECT) 01/04/24 11:25 Parainfluenza 1 (PCR) Not detected (NOT DETECT) 01/04/24 11:25 Parainfluenza 2 (PCR) Not detected (NOT DETECT) 01/04/24 11:25 Parainfluenza 3 (PCR) Not detected (NOT DETECT) 01/04/24 11:25 Parainfluenza 4 (PCR) Not detected (NOT DETECT) 01/04/24 11:25 RSV Type A (PCR) Not detected (NOT DETECT) 01/04/24 11:25 RSV Type B (PCR) Not detected (NOT DETECT) 01/04/24 11:25 Entero/Rhino (PCR) Not detected (NOT DETECT) 01/04/24 11:25 SARS-CoV-2 (PCR) Not detected (NOT DETECT) 01/04/24 11:25 Vitals Last Vital Signs Temp 98.2 F 01/06/24 13:00 Pulse 66 01/06/24 13:00 Resp 20 H 01/06/24 13:00 BP 131/54 01/06/24 13:30 Pulse Ox 92 01/06/24 13:00 O2 Del Method Room Air 01/06/24 09:30 O2 Flow Rate 3 01/05/24 14:30 FiO2 30 01/05/24 08:29 Discharge Plan Discharge Patient Disposition: Home Condition: Stable Prescriptions: Continued (DME) HINGED ELBOW BRACE. See Rx Instructions .ROUTE .MEDSUPPLY Qty: 1 0RF Rx Instructions: As directed set 0-90 buspirone 10 mg tablet 10 mg PO TID Qty: 30 2RF (DME) cam boot See Rx Instructions .Route .MEDSUPPLY Qty: 1 0RF Rx Instructions: As directed multivitamin Tablet 1 tab PO DAILY aspirin 325 mg Tablet 650 mg PO DAILY PRN (Reason: Pain) Discontinued prednisone 20 mg tablet 20 mg PO BID Qty: 10 0RF No Action atorvastatin 40 mg tablet 40 mg PO BEDTIME Qty: 30 2RF Lasix 40 mg tablet 40 mg PO DAILY Qty: 30 2RF metoprolol tartrate 25 mg tablet 25 mg PO BID@0900,2100 Qty: 60 2RF aspirin 81 mg tablet,delayed release (DR/EC) 81 mg PO DAILY Qty: 30 2RF potassium chloride 10 mEq tablet extended release 10 meq PO DAILY Qty: 30 2RF Discharge Orders: Discharge Order (Routine); Ordered 01/06/24 Ordered By: Aleta Mesa Referrals: Ignacio Rivers MD [Physician] - 1 month Lalitha Morales FNP-C [Primary Care Provider] - 4-7 days Shell Perez FNP [Nurse Practitioner] - 01/22/24 2:00 pm Discharge Diet: Cardiac Discharge Activity: Resume usual activity Patient Instructions: Metoprolol (By mouth), Furosemide (By mouth), Potassium Chloride (By mouth), Aspirin (By mouth), Atorvastatin (By mouth), Heart Failure (DC), Mitral Regurgitation (DC), Heart Healthy Diet (DC), Opioid Safety Discharge Attestations Time Spent in Discharge Care*: greater than 30 min Quality Metrics Clinical Quality Measures [ No reported AMI, CVA or VTE this stay] Coding Level of Care Code 65764 Total time (in minutes) for Discharge: 30 Diagnoses Elevated troponin R79.89 Acute heart failure with preserved ejection fraction I50.31 Primary hypertension I10 Hypertension type: primary hypertension Dyslipidemia E78.5 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
--- NOTE | 2024-01-06 14:03 | PM.PN ---
Subjective Subjective: The patient is feeling okay. No chest pain or palpitations. Telemetry shows sinus rhythm. No new arrhythmias on the monitor. Medications: Medication Review Details: Current Medications Acetaminophen (Acetaminophen 325 Mg Tablet) 650 mg PO Q6H PRN PRN Reason: Mild/Mod Pain Or Temp >/= 101 Albuterol Sulfate (Albuterol 2.5 Mg/3 Ml Neb) 2.5 mg INHALATION Q4H.RESPIRATORY PRN PRN Reason: SHORTNESS OF BREATH Aminophylline (Aminophylline 25 Mg/Ml Sdv 10 Ml) 25 mg IVP Q2M PRN PRN Reason: see dose instructions Stop: 01/07/24 07:07 Aspirin (Aspirin 81 Mg Ec Tablet) 81 mg PO DAILY [facility] Last Admin: 01/06/24 11:05 Dose: 81 mg Atorvastatin Calcium (Atorvastatin 40 Mg Tablet) 40 mg PO BEDTIME [facility] Last Admin: 01/05/24 20:52 Dose: 40 mg Buspirone HCl (Buspirone 10 Mg Tablet) 10 mg PO TID [facility] Last Admin: 01/06/24 11:05 Dose: 10 mg Enoxaparin Sodium (Enoxaparin 80 Mg/0.8 Ml Syringe) 80 mg SUBCUT Q12H [facility] Last Admin: 01/06/24 03:15 Dose: 80 mg Furosemide (Furosemide 10 Mg/Ml Sdv 4ml) 40 mg IVP BIDAC [facility] Last Admin: 01/06/24 06:04 Dose: 40 mg Metoprolol Tartrate (Metoprolol Tartrate 25 Mg Tablet) 25 mg PO BID@0900,2100 [facility] Last Admin: 01/06/24 11:05 Dose: 25 mg Nitroglycerin (Nitroglycerin 0.4 Mg Sublingual Tablet) 0.4 mg SUBLINGUAL Q5M PRN PRN Reason: CHEST PAIN Stop: 01/07/24 07:07 Ondansetron HCl (Ondansetron 2 Mg/Ml Sdv 2 Ml) 4 mg IVP Q8H PRN PRN Reason: vomiting, or N/V if npo Ondansetron HCl (Ondansetron 4 Mg Tablet) 4 mg PO Q8H PRN PRN Reason: NAUSEA Ondansetron HCl (Ondansetron 2 Mg/Ml Sdv 2 Ml) 4 mg IVP Q2M PRN PRN Reason: NAUSEA Potassium Chloride (Potassium Chloride Er 20 Meq Tablet) 40 meq PO BIDAC NATHAN Stop: 01/06/24 17:01 Last Admin: 01/06/24 06:04 Dose: 40 meq Vitals/I&O/Wt Last Vital Signs Temp 98.2 F 01/06/24 13:00 Pulse 66 01/06/24 13:00 Resp 20 H 01/06/24 13:00 BP 131/54 01/06/24 13:30 Pulse Ox 92 01/06/24 13:00 O2 Del Method Room Air 01/06/24 09:30 O2 Flow Rate 3 01/05/24 14:30 FiO2 30 01/05/24 08:29 01/05/24 01/06/24 01/06/24 22:59 06:59 14:59 Intake Total 300 / 800 480 / 480 Output Total 1800 / 1800 300 / 2100 Balance -1500 / -1000 -300 / -1300 480 / 480 Weight last 48 hrs Weight 166 lb 1 oz Weight 166 lb 1 oz Weight 168 lb 4.8 oz Physical Exam Narrative: GENERAL: The patient is alert and oriented times three. Not in any acute distress. HEENT: No significant pallor, icterus or lymphadenopathy.Oral cavity: There are no mucous membrane lesions. NECK: Trachea appears to be central. No masses noted. No JVD or thyromegaly appreciated. RESPIRATORY: Chest is symmetrical. No intercostals muscle retraction or any accessory muscle activation. There is no chest wall tenderness. Breath sounds are heard bilaterally. No rales or rhonchi heard. No evidence of any consolidation. BREASTS: Deferred. HEART: The heart sounds are normal. No S3 or S4. Systolic murmur grade 3 or 6 in the mitral area. No pericardial rub ABDOMEN: No vessel pulsations or distention. No tenderness. No organomegaly appreciated. Bowel sounds are normally heard. : Deferred. RECTAL: Deferred. LYMPHATIC: No lymphadenopathy noted in the neck. EXTREMITIES: 1+ edema of the left lower extremity and trace edema of the right lower extremity. No cyanosis. Ever since the ankle injury on the left side, she been having more swelling on the left side. MUSCULOSKELETAL: No acute joint deformities or swelling SKIN: There are no significant rashes or ecchymosis NEUROPSYCHIATRIC: The patient is alert and oriented x3. Appears to be in a good mood. No tremors or rigidity noted. Urinary Catheter Management: Hackett: Cath Placed During This Visit: yes Reason for Continuing Indwelling Catheter: Accurate Measurement of Urinary Output in Critically Ill Patients Urinary Catheter Date of Insertion: 01/04/24 Urinary Catheter Time of Insertion: 11:15 Data 01/06/24 03:14 01/06/24 03:14 Other Labs: Laboratory Last Values WBC 8.04 10^3/uL (3.29-11.43) 01/06/24 03:14 RBC 4.63 10^6/uL (3.85-5.65) 01/06/24 03:14 Hgb 13.30 g/dL (11.27-16.99) 01/06/24 03:14 Hct 40.7 % (36-47) 01/06/24 03:14 MCV 87.9 fl (85-98) 01/06/24 03:14 MCH 28.7 pg (27-33) 01/06/24 03:14 MCHC 32.7 g/dL (30-55) 01/06/24 03:14 RDW 14.8 % (12.1-15.1) 01/06/24 03:14 Plt Count 228 10^3/cmm (157-399) 01/06/24 03:14 MPV 10.4 fL (7.4-10.4) 01/06/24 03:14 Neut % (Auto) 73.3 % 01/06/24 03:14 Lymph % (Auto) 14.9 % 01/06/24 03:14 [place] % (Auto) 10.0 % 01/06/24 03:14 Eos % (Auto) 0.9 % 01/06/24 03:14 Baso % (Auto) 0.4 % 01/06/24 03:14 Neut # (Auto) 5.90 10^3/uL (1.8-7.7) 01/06/24 03:14 Lymph # (Auto) 1.2 10^3/uL (0.8-4.8) 01/06/24 03:14 [place] # (Auto) 0.8 10^3/uL (0.2-0.9) 01/06/24 03:14 Eos # (Auto) 0.1 10^3/uL (0.0-0.8) 01/06/24 03:14 Baso # (Auto) 0.0 10^3/uL (0.0-0.1) 01/06/24 03:14 Nucleated RBC % (auto) 0 % 01/06/24 03:14 Nucleated RBCs # 0.0 /100WBC 01/06/24 03:14 Specimen Type Arterial 01/04/24 12:20 Sample Site Brachial, left 01/04/24 12:20 ABG pH 7.43 (7.35-7.45) 01/04/24 12:20 ABG pCO2 39.4 mmHg (35-45) 01/04/24 12:20 ABG pO2 105.0 mmHg (80.0-100.0) H 01/04/24 12:20 ABG PO2/FiO2 Ratio 0 01/04/24 12:20 ABG HCO3 26.1 mmol/L (22-26) H 01/04/24 12:20 ABG O2 Saturation 99.2 01/04/24 12:20 ABG Base Excess 1.8 mmol/L (-2.0-2.0) 01/04/24 12:20 Parish Test N/a 01/04/24 12:20 A-a O2 Gradient 16.9 mmHg (5-10) H 01/04/24 12:20 Hematocrit 45.9 % (37-47) 01/04/24 12:20 Hgb O2 Saturation 97.5 % (95-100) 01/04/24 12:20 Carboxyhemoglobin 1.4 %THgb (0.4-20.1) 01/04/24 12:20 Methemoglobin 0.3 % (0.4-1.5) L 01/04/24 12:20 Total Hemoglobin 15.0 g/dL (12-16) 01/04/24 12:20 Sodium 139.0 mmol/L (131-143) 01/04/24 12:20 Potassium 3.6 mmol/L (3.5-5.0) 01/04/24 12:20 Glucose 186.0 mg/dL (70-115) H 01/04/24 12:20 Ionized Calcium 1.3 mmol/L (1.1-1.4) 01/04/24 12:20 O2 Delivery Device Bipap 01/04/24 12:20 O2 Liters/Min 5.0 % 01/04/24 10:49 FiO2 40.0 % 01/04/24 12:20 Commissions Analyst ID Amh 01/04/24 12:20 Sodium 138 mmol/L (136-145) 01/06/24 03:14 Potassium 3.4 mmol/L (3.5-5.1) L 01/06/24 03:14 Chloride 99 mmol/L (98-107) 01/06/24 03:14 Carbon Dioxide 32 mmol/L (22-29) H 01/06/24 03:14 Anion Gap 10.4 (5-19) 01/06/24 03:14 BUN 24 mg/dL (8-23) H 01/06/24 03:14 Creatinine 0.6 mg/dL (0.5-0.9) 01/06/24 03:14 GFR Calculation Not Reportable 01/06/24 03:14 Glucose 114 mg/dL (65-115) 01/06/24 03:14 Estimat Average Glucose 120 01/04/24 10:50 Hemoglobin A1c 5.8 % (4.0-6.0) 01/04/24 10:50 Calculated Osmolality 287 mOsm/kg (285-295) 01/05/24 04:54 Lactic Acid 2.6 mmol/L (0.5-2.2) H 01/04/24 10:50 Lactic Acid (Sepsis) 2.9 mmol/L (0.5-2.2) H 01/04/24 13:12 Calcium 8.5 mg/dL (8.5-10.5) 01/06/24 03:14 Phosphorus 3.3 mg/dL (2.5-4.5) 01/06/24 03:14 Magnesium 2.1 mg/dL (1.7-2.3) 01/06/24 03:14 Total Bilirubin 0.9 mg/dL (0.15-1.2) 01/06/24 03:14 Direct Bilirubin 0.20 mg/dL (0.00-0.30) 01/06/24 03:14 AST 15 U/L (0-32) 01/06/24 03:14 ALT 31 U/L (0-33) 01/06/24 03:14 Alkaline Phosphatase 58 U/L (35-105) 01/06/24 03:14 Troponin T Baseline 21 ng/L (0-10) H 01/04/24 10:50 Troponin T 120 Minute 71.82 ng/L (0-10) H 01/04/24 13:12 Delta Troponin T 50.82 ABS# (0-10) H* 01/04/24 13:12 Troponin T Hi Sens 6Hr 56.45 ng/L (0-10) H 01/04/24 17:52 Troponin T Hi Sens 6Hr Delta 35.45 ng/L (0-12) H* 01/04/24 17:52 C-Reactive Protein 3.0 mg/L (0.0-4.9) 01/04/24 13:12 NT-Pro-B Natriuret Pep 1417 pg/mL (0-450) H 01/04/24 10:50 Total Protein 5.0 g/dL (6.6-8.7) L 01/06/24 03:14 Albumin 3.3 g/dL (3.5-5.2) L 01/06/24 03:14 Albumin 3.3 g/dL (3.5-5.2) L 01/06/24 03:14 Globulin 1.7 g/dL (1.3-4.6) 01/06/24 03:14 Triglycerides 111 mg/dL (0-150) 01/04/24 10:50 Cholesterol 204 mg/dL (0-200) H 01/04/24 10:50 LDL Cholesterol, Calc 136 mg/dL (50-129) H 01/04/24 10:50 HDL Cholesterol 46 mg/dL (60-100) L 01/04/24 10:50 LDL/HDL Ratio 2.96 RATIO (0.00-3.22) 01/04/24 10:50 Cholesterol/HDL Ratio 4.43 mg/dL (0.0-4.40) H 01/04/24 10:50 Procalcitonin 0.05 ng/mL (0-0.5) 01/04/24 13:12 Adenovirus (PCR) Not detected (NOT DETECT) 01/04/24 11:25 C. pneumoniae DNA (PCR) Not detected (NOT DETECT) 01/04/24 11:25 Coronavirus 229E (PCR) Not detected (NOT DETECT) 01/04/24 11:25 Human Metapneumovir PCR Not detected (NOT DETECT) 01/04/24 11:25 Influenza A (H1) PCR Not detected (NOT DETECT) 01/04/24 11:25 Influ A (H1/09) PCR Not detected (NOT DETECT) 01/04/24 11:25 Influenza A (H3) PCR Not detected (NOT DETECT) 01/04/24 11:25 Influenza Type A (PCR) Not detected (NOT DETECT) 01/04/24 11:25 Influenza Type B (PCR) Not detected (NOT DETECT) 01/04/24 11:25 M. pneumoniae (PCR) Not detected (NOT DETECT) 01/04/24 11:25 Parainfluenza 1 (PCR) Not detected (NOT DETECT) 01/04/24 11:25 Parainfluenza 2 (PCR) Not detected (NOT DETECT) 01/04/24 11:25 Parainfluenza 3 (PCR) Not detected (NOT DETECT) 01/04/24 11:25 Parainfluenza 4 (PCR) Not detected (NOT DETECT) 01/04/24 11:25 RSV Type A (PCR) Not detected (NOT DETECT) 01/04/24 11:25 RSV Type B (PCR) Not detected (NOT DETECT) 01/04/24 11:25 Entero/Rhino (PCR) Not detected (NOT DETECT) 01/04/24 11:25 SARS-CoV-2 (PCR) Not detected (NOT DETECT) 01/04/24 11:25 Micro: Microbiology 01/04/24 10:50 Blood Culture - Preliminary Blood NEGATIVE TO DATE 01/04/24 11:29 Blood Culture - Preliminary Blood NEGATIVE TO DATE Other data: The Myocardial perfusion imaging today 1.. Fairly uniform myocardial tracer uptake with no significant perfusion abnormalities. 2. Normal LV ejection fraction of 88%. 3. LV wall motion analysis revealing no gross wall motion abnormalities. 4. Normal LV volume Low probability for coronary ischemia, based on the above findings No similar previous studies are available for comparison A&P Assessment and plan (1) Elevated troponin: In view of the unremarkable Myocardial perfusion imaging, most likely this is a type II myocardial infarction. Patient is stable. She has normal LV systolic function. The MPI results and the implications were discussed in detail with the patient. (2) Acute heart failure with preserved ejection fraction: Most likely from the diastolic dysfunction and possibly uncontrolled hypertension. Her blood pressure seems to be getting under control. May continue on the current medications. IV Lasix may change to p.o. Lasix 40 mg daily (3) Hypertension: Currently normotensive. May continue on the current medicines. Qualifiers: Hypertension type: primary hypertension Qualified Code(s): I10 - Essential (primary) hypertension (4) Dyslipidemia: Agree with the atorvastatin. 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 She may not need to undergo any specific intervention at this point. May do a repeat echocardiogram next year Plan The Lovenox may be discontinued. May keep her on metoprolol 25 mg p.o. twice daily, baby aspirin 1 tablet p.o. daily,lasix 40 mg PO daily, Potassium 20 mEq daily and the Atrovastain. 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
--- NOTE | 2024-01-06 16:26 | PC.NURSE ---
Discharge Note Patient discharged to home accompanied by son. Discharge instructions reviewed with patient and son, both verbalized understanding of teaching. All patient belongings including glasses and bra sent home upon discharge. All prescriptions sent to pharmacy.
--- NOTE | 2024-01-06 19:09 | NMCV_ITS ---
NM velia perf SPECT r/s* [id number] Arielle Salas Age: 78 Gender: F : 1945 Exam Date: 01/06/2024 06:36 Ordering Phys: Ignacio Rivers MD ([email or web address]) Technologist: NICOLAS Dowd Exam Location: [facility] Indications: CHEST PAIN STRESS TEST Please see separate stress test report in [facility] for full findings IMAGE PROTOCOL Rest/Stress 1 Lexiscan Day Radiopharmaceutical Dose (mCi) Administration Site Administered by Rest: Tc-99m 10.6 IV NICOLAS Leigh Sestamibi Stress:Tc-99m 32.6 IV NICOLAS Leigh Sestamibi Rest: 06-Jan-2024 60 Discovery 630 Stress: 06-Jan-2024 30 Discovery 630 0.4mg Lexiscan. Supine position only as patient was unable to lay prone. SPECT RESULTS Technical Quality: Excellent Raw Data Analysis: Normal Image Corrections: No attenuation or motion correction applied Summed Stress Score: 0 Summed Rest Score: 0 Summed Difference Score: 0 PERFUSION FINDINGS Uniform myocardial tracer uptake. No significant perfusion normalities. FUNCTIONAL RESULTS (calculated via Gated SPECT) Stress Image LV EF (%): 88 Stress EDV (mL):84 TID: 0.85 Stress ESV (mL):10 FUNCTIONAL FINDINGS: Segmental wall motion analysis revealing no gross wall motion abnormalities IMPRESSIONS 1. Fairly uniform myocardial tracer uptake with no significant perfusion abnormalities. 2. Normal LV ejection fraction of 88%. 3. LV wall motion analysis revealing no gross wall motion abnormalities. 4. Normal LV volume Low probability for coronary ischemia, based on the above findings No similar previous studies are available for comparison Dr Ignacio Rivers MD [facility] (Electronically Signed) Final Date: 06 January 2024 09:34 S
== END 2024-01-06 16:16 | disposition home or self-care (01) | DRG 280 ==
LOC: ER 10:57 → ICU 11:43
PROVIDERS: Admitting Provider Internal Medicine; Emergency Provider Family Medicine; PCP Nurse Practitioner; Visit Provider Internal Medicine
DX: I50.31 Acute diastolic (congestive) heart failure (principal); J96.01 Acute respiratory failure with hypoxia; I21.A1 Myocardial infarction type 2; J96.02 Acute respiratory failure with hypercapnia; E87.20 Acidosis, unspecified; F41.9 Anxiety disorder, unspecified; E78.5 Hyperlipidemia, unspecified; I34.1 Nonrheumatic mitral (valve) prolapse; I34.0 Nonrheumatic mitral (valve) insufficiency; Z73.3 Stress, not elsewhere classified; Z79.82 Long term (current) use of aspirin; Z11.52 Encounter for screening for COVID-19
CPT/HCPCS: 36415; 36600; 51702; 71045; 78452; 80048; 80051; 80053; 80061; 80069; 80076; 82330; 82805; 83036; 83605; 83735; 83880; 84100; 84145; 84484; 85025; 86140; 87040; 87486; 87581; 87633; 93005; 93017; 93306; 94660; 94664; 96372; 96374; 96375; 96376; 99291; A9500; J0360; J1650; J1940; J2785; J3490

== ENCOUNTER → 2024-01-14 13:40 | Outpatient (BNVA) | payer MEDICARE, SELFPAY | PROVIDERS: PCP Nurse Practitioner; Visit Provider Nurse Practitioner Family | DX: E87.6 Hypokalemia (principal) | CPT/HCPCS: 80053 ==

== ENCOUNTER → 2024-01-22 13:58 | Outpatient (BNVA) | payer MEDICARE, SELFPAY | PROVIDERS: PCP Nurse Practitioner Family; Visit Provider Nurse Practitioner Family | DX: I50.9 Heart failure, unspecified (principal) | CPT/HCPCS: 99214 ==

== ENCOUNTER → 2024-01-28 13:50 | Outpatient (BNVA) | payer MEDICARE, SELFPAY | PROVIDERS: PCP Nurse Practitioner Family; Visit Provider Nurse Practitioner Family | DX: R06.02 Shortness of breath (principal); I50.9 Heart failure, unspecified | CPT/HCPCS: 71046 ==

== ENCOUNTER 2024-01-28 15:28 | Inpatient (IN) | payer MEDICARE, SELFPAY ==
[2024-01-28] VITALS (7 sets, daily range): BP systolic 143–163; BP diastolic 60–78; PULSE 89–91; RESP 16–18; TEMP 36.4–36.7; O2SAT 93–99; BMI 30.3; BMI 29.0
--- NOTE | 2024-01-28 15:32 | XR_ITS ---
WS: [id number] Portable AP upright chest, 01/28/2024,1542 hours Clinical Data: sob Comparison: Two-view chest, 01/28/2024, 1351 hours Findings: Again there is a moderate left effusion and small right effusion. There is an opacity overl jaguar the right lung base. The heart is probably enlarged. The upper lobes are relatively clear. The h eart size is obscured by the pleural effusion. The aortic arch shows tortuosity. Impression: No change from chest x-ray earlier in the day.
[2024-01-28 16:10] LABS: Basophils # 0.1 10^3/uL (0.0-0.1); Basophils % 0.4 %; Eosinophils # 0.2 10^3/uL (0.0-0.8); Eosinophils % 1.7 %; Hematocrit 41.6 % (36-47); Lymphocytes # 0.8 10^3/uL (0.8-4.8); Lymphocytes % 7.5 %; Mean Corpuscular Hemoglobin 27.9 pg (27-33); Mean Corpuscular Volume 87.4 fl (85-98); Mean Platelet Volume 9.6 fL (7.4-10.4); Monocytes # 0.9 10^3/uL (0.2-0.9); Neutrophils # 9.16 10^3/uL (1.8-7.7); Nucleated Red Blood Cells % 0 %; Platelet Count 263 10^3/cmm (157-399); Red Blood Count 4.76 10^6/uL (3.85-5.65); Red Cell Distribution Width 13.8 % (12.1-15.1); White Blood Count 11.18 10^3/uL (3.29-11.43)
[2024-01-28 16:52] LABS: Alanine Aminotransferase 19 U/L (0-33); Albumin Level 3.7 g/dL (3.5-5.2); Alkaline Phosphatase 76 U/L (35-105); Aspartate Amino Transferase 13 U/L (0-32); Blood Urea Nitrogen 16 mg/dL (8-23); Calcium 8.9 mg/dL (8.5-10.5); Carbon Dioxide 29 mmol/L (22-29); Chloride 98 mmol/L (98-107); Creatinine Clr Calc Pharmacy 55.0591; Globulin 2.9 g/dL (1.3-4.6); Glucose 125 mg/dL (65-115); NT Pro B Type Natriuretic Pept 441 pg/mL (0-450); Osmolality Calculated 287 mOsm/kg (285-295); Sodium 137 mmol/L (136-145); Total Bilirubin 0.6 mg/dL (0.15-1.2); Total Protein 6.6 g/dL (6.6-8.7)
--- NOTE | 2024-01-28 17:17 | ED_ITS ---
HPI - SOB/Dyspnea 2 General: Chief Complaint: Shortness of Breath/Dyspnea Stated Complaint: sob Time Seen by Provider: 01/28/24 17:05 Source: patient Mode of arrival: ambulatory Limitations: no limitations History of Present Illness: HPI Narrative: 78-year-old female states she has been h aving dyspnea with exertion over the last 4 days. States she was recently diagnosed CHF she has been on Lasix had some mild lower extremity edema. She denies any chest pain denies any fever she had a slight cough denies any known sick contacts. Associated symptoms: Deny abdominal pain, chest pain, fever(s), nausea or vomiting Review of Systems 2 Const: Denies: fever(s), chills, body aches or change in appetite ENMT: Denies: throat pain or dental pain Card: Denies: chest pain Resp: Reports: dyspnea GI: Denies: abdominal pain, nausea, vomiting or diarrhea Musc: Denies: neck pain or back pain Skin/Breast: Denies: rash Neuro: Denies: headache(s) PFSH ED 2 PFSH: Medical History Anxiety Anxiety No pertinent past medical history Surgical History History of foot surgery Social History Smoking and tobacco/nicotine status: never used tobacco/nicotine Alcohol intake: never Substance/Drug Use: never Physical Exam 2 Const: COMMON NORMALS: patient oriented x3 HENMT: COMMON NORMALS: normocephalic and atraumatic HEAD & SCALP: n ormocephalic and atraumatic Eye: COMMON NORMALS: Equal, round and reactive pupils present and EOMs intact bilaterally PUPIL: Yes Equal, round and reactive pupils present Neck/C-Spine: COMMON NORMALS: full ROM and supple Chest: COMMONS NORMALS: normal inspection of the chest and normal palpation of entire chest wall Resp: COMMON NORMALS: normal respiratory effort, No retractions, No use of accessory muscles and clear to auscultation bilaterally AUSCULTATION: clear to auscultation bilaterally Cardio: COMMON NORMALS: regular rate, regular rhythm and No murmurs present (Cardio) RATE: regular rate RHYTHM: regular rhythm GI: COMMON NORMALS: Normal to inspection, nondistended, normoactive bowel sounds present, Soft to palpation, non-tender and no masses PALPATION: Yes Soft to palpation Extremity: COMMON NORMALS: normal to inspection and full ROM Neuro: COMMON NORMALS: patient oriented x3, moves all extremities and no focal motor deficits Psych: COMMON NORMALS: mental status grossly normal, Normal thought process present and cooperative THOUGHT PROCESS: Normal thought process present Skin: COMMON NORMALS: no rashes or lesions noted and no wounds GENERAL SKIN EXAM: no rashes or lesions noted Course 2 Vital Signs: Vital signs: Vital Signs Temperature 98.0 F 01/28/24 15:33 Pulse Rate 89 01/28/24 20:30 Respiratory Rate 16 01/28/24 18:31 Blood Pressure 145/71 01/28/24 20:30 Pulse Oximetry 96 01/28/24 20:30 Oxygen Delivery Me thod Nasal Cannula 01/28/24 18:31 Oxygen Flow Rate 2 01/28/24 18:31 MDM - SOB/Dyspnea Medical Decision Making Patient presents here with dyspnea likely CHF she does have lower extremity edema dyspnea when she lays flat or exertion she is requiring 2 L of oxygen currently did try to CTA here she is not able to tolerate laying flat he has no signs of PE did get blood cultures spoke to hospitalist will admit for observation. She had no chest pain. Medical Records I reviewed the patient's medical records. Lab Data I reviewed the patient's lab results. 01/28/24 16:02 01/28/24 16:02 Labs/Radiology: Laboratory Results WBC 11.18 10^3/uL (3.29-11.43) 01/28/24 16:02 RBC 4.76 10^6/uL (3.85-5.65) 01/28/24 16:02 Hgb 13.30 g/dL (11.27-16.99) 01/28/24 16:02 Hct 41.6 % (36-47) 01/28/24 16:02 MCV 87.4 fl (85-98) 01/28/24 16:02 MCH 27.9 pg (27-33) 01/28/24 16:02 MCHC 32.0 g/dL (30-55) 01/28/24 16:02 RDW 13.8 % (12.1-15.1) 01/28/24 16:02 Plt Count 263 10^3/cmm (157-399) 01/28/24 16:02 MPV 9.6 fL (7.4-10.4) 01/28/24 16:02 Neut % (Auto) 82.0 % 01/28/24 16:02 Lymph % (Auto) 7.5 % 01/28/24 16:02 [place] % (Auto) 8.0 % 01/28/24 16:02 Eos % (Auto) 1.7 % 01/28/24 16:02 Baso % (Auto) 0.4 % 01/28/24 16:02 Neut # (Auto) 9.16 10^3/uL (1.8-7.7) H 01/28/24 16:02 Lymph # (Auto) 0.8 10^3/uL (0.8-4.8) 01/28/24 16:02 [place] # (Auto) 0.9 10^3/uL (0.2-0.9) 01/28/24 16:02 Eos # (Auto) 0.2 10^3/uL (0.0-0.8) 01/28/24 16:02 Baso # (Auto) 0.1 10^3/uL (0.0-0.1) 01/28/24 16:02 Nucleated RBC % (auto) 0 % 01/28/24 16:02 Nucleated RBCs # 0.0 /100WBC 01/28/24 16:02 Sodium 137 mmol/L (136-145) 01/28/24 16:02 Potassium 4.0 mmol/L (3.5-5.1) 01/28/24 16:02 Chloride 98 mmol/L (98-107) 01/28/24 16:02 Carbon Dioxide 29 mmol/L (22-29) 01/28/24 16:02 Anion Gap 14.0 (5-19) 01/28/24 16:02 BUN 16 mg/dL (8-23) 01/28/24 16:02 Creatinine 0.5 mg/dL (0.5-0.9) 01/28/24 16:02 GFR Calculation Not Reportable 01/28/24 16:02 Glucose 125 mg/dL (65-115) H 01/28/24 16:02 Calculated Osmolality 287 mOsm/kg (285-295) 01/28/24 16:02 Calcium 8.9 mg/dL (8.5-10.5) 01/28/24 16:02 Total Bilirubin 0.6 mg/dL (0.15-1.2) 01/28/24 16:02 AST 13 U/L (0-32) 01/28/24 16:02 ALT 19 U/L (0-33) 01/28/24 16:02 Alkaline Phosphatase 76 U/L (35-105) 01/28/24 16:02 Troponin T Baseline 14 ng/L (0-10) H 01/28/24 16:02 Troponin T 120 Minute 13.09 ng/L (0-10) H 01/28/24 18:15 Delta Troponin T -0.91 ABS# (0-10) L 01/28/24 18:15 NT-Pro-B Natriuret Pep 441 pg/mL (0-450) 01/28/24 16:02 Total Protein 6.6 g/dL (6.6-8.7) 01/28/24 16:02 Albumin 3.7 g/dL (3.5-5.2) 01/28/24 16:02 Globulin 2.9 g/dL (1.3-4.6) 01/28/24 16:02 All radiology interpretation(s) finalized by discharge EKG Data EKG 1: I personally reviewed and interpreted this EKG as follows: EKG Interpretation Date: 01/28/24 EKG interpretation time: 17:37 Interpretation: nsr hr [address] or t wave abnormalities qrs 75 qtc 321 Discharge Plan Discharge Condition: Stable Prescriptions: No Action (DME) HINGED ELBOW BRACE. See Rx Instructions .ROUTE .MEDSUPPLY Qty: 1 0RF Rx Instructions: As directed set 0-90 buspirone 10 mg tablet 10 mg PO TID Qty: 30 2RF atorvastatin 40 mg tablet 40 mg PO BEDTIME Qty: 30 2RF Lasix 40 mg tablet 40 mg PO DAILY Qty: 30 2RF metoprolol tartrate 25 mg tablet 25 mg PO BID@0900,2100 Qty: 60 2RF aspirin 81 mg tablet,delayed release (DR/EC) 81 mg PO DAILY Qty: 30 2RF potassium chloride 10 mEq tablet extended release 10 meq PO DAILY Qty: 30 2RF (DME) cam boot See Rx Instructions .Route .MEDSUPPLY Qty: 1 0RF Rx Instructions: As directed multivitamin Tablet 1 tab PO DAILY aspirin 325 mg Tablet 650 mg PO DAILY PRN (Reason: Pain) Referrals: Anyi Etienne FNP-C [Primary Care Provider] - Coding Level of Care Code ED Second Baker for Moises Jeff
--- NOTE | 2024-01-28 17:27 | PC.NURSE ---
pt on bedside catdiac monitor
--- NOTE | 2024-01-28 17:37 | ECG_ITS ---
[facility] Test Date: 2024-01-28 Pat Name: Arielle Salas Department: Room: Gender: Female [employer]: : 1945 Requested By: Elena Hays Order Number: [id number] Marina MD: Bradley Reed M.D. Measurements Intervals [place] Rate: 85 P: 26 CA: 149 QRS: 26 QRSD: 75 T: 30 QT: 279 QTc: 332 Interpretive Statements SINUS RHYTHM POSSIBLE RIGHT VENTRICULAR CONDUCTION DELAY [RSR (QR) IN V1/V2] NONSPECIFIC T-WAVE ABNORMALITY Compared to ECG 01/04/2024 10:50:02 Sinus tachycardia no longer present T-wave abnormality still present Electronically Signed On 01-28-2024 21:29:57 CDT by Bradley Reed M.D. [id number]
[2024-01-28 17:38] LABS: Troponin(5th) Baseline 14 ng/L (0-10)
[2024-01-28] MEDS: FUROsemide 10 mg/mL SDV 4mL 40 MG IVP (18:27)
[2024-01-28] MEDS: LORazepam 2 mg/mL INJ 10 mL MDV 0.5 MG IVP (18:27)
--- NOTE | 2024-01-28 19:08 | PC.NURSE ---
Report to JOE Gramajo
[2024-01-28 19:19] LABS: Troponin 5 2HR 13.09 ng/L (0-10)
[2024-01-28 19:22] LABS: Troponin 5 2HR Delta -0.91 ABS# (0-10)
--- NOTE | 2024-01-28 20:15 | PC.NURSE ---
called lab to collect blood cultures, lab stated they would send someone other. abts are now over 1 hr late, waiting on blood cultures.
--- NOTE | 2024-01-28 20:33 | P.HP_ITS ---
Providers/Chief Complaint 2 Primary Care Provider: MARCIE Cordoba Chief Complaint: sob History of Present Illness Arielle Salas is a 78 year old female who was recently discharged from the hospital for management of diastolic CHF/patient Presented back with orthopnea PND fluid gain and inadequate diuresis. Patient is stating that she has not been able to lay flat at all since her discharge, she thinks her Lasix has stopped working for her, she does not use oxygen at baseline, currently on 2 L, no active chest pain, fever or diarrhea. Patient does not have any previous diagnosis of sleep apnea. She is compliant with her medications, she lives with her at home. Significant D-dimer, requested CTA chest, X-ray showing pleural effusion, will request thoracentesis Patient is not on any anticoagulating agent hold Lovenox for DVT, check INR, will keep n.p.o. after midnight, patient received IV Lasix in the ER, Review of Systems 2 Const: Denies: fever(s) Eyes: Denies: change in vision ENMT: Denies: throat pain Card: Denies: chest pain Resp: Reports: dyspnea GI: Denies: abdominal pain : Denies: flank pain Musc: Denies: neck pain Skin/Breast: Denies: rash Medications/Allergies Home Medications Medication Instructions Recorded Confirmed Last Taken Type aspirin 325 mg tablet 650 mg PO DAILY PRN Pain 02/27/22 01/28/24 03/22/22 History multivitamin 1 tab PO DAILY 02/27/22 01/28/24 01/04/24 History HINGED ELBOW BRACE. #1 ea 03/05/22 01/28/24 Unknown Rx cam boot #1 ea 03/06/22 01/28/24 Unknown Rx buspirone 10 mg tablet 10 mg PO TID #30 tabs 01/02/24 01/28/24 01/04/24 Rx aspirin 81 mg tablet,delayed 81 mg PO DAILY #30 tabs 01/14/24 01/28/24 Unknown Rx release atorvastatin 40 mg tablet 40 mg PO BEDTIME #30 tabs 01/14/24 01/28/24 Unknown Rx furosemide 40 mg tablet (Lasix) 40 mg PO DAILY #30 tabs 01/14/24 01/28/24 Unknown Rx metoprolol tartrate 25 mg tablet 25 mg PO BID@0900,2100 #60 tabs 01/14/24 01/28/24 Unknown Rx potassium chloride 10 mEq 10 meq PO DAILY #30 tabs 01/14/24 01/28/24 Unknown Rx tablet,extended release Allergies Allergy/AdvReac Type Severity Reaction Status Date / Time No Known Allergies Allergy Verified 01/28/24 13:26 PFSH Acute 2 PFSH: Medical History Anxiety Anxiety No pertinent past medical history Surgical History History of foot surgery Social History Smoking and tobacco/nicotine status: never used tobacco/nicotine Alcohol intake: never Substance/Drug Use: never Vitals/I&O/Wt Last Vital Signs Temp 98.0 F 01/28/24 15:33 Pulse 91 01/28/24 18:31 Resp 16 01/28/24 18:31 BP 163/71 01/28/24 18:31 Pulse Ox 97 01/28/24 18:31 O2 Del Method Nasal Cannula 01/28/24 18:31 O2 Flow Rate 2 01/28/24 18:31 Weight last 48 hrs Weight 75.296 kg Physical Exam 2 Narrative: Patient is awake and alert Clinical and fluid overload Anasarca GCS 15 Nonfocal neuroexam Currently on 2 L Bilateral breath sounds diminished, mild cardiac wheezing Pleasant cooperative Not able to lay flat Positive troponin PND Data 01/28/24 16:02 01/28/24 16:02 A&P Assessment and plan (1) Hypertension: Qualifiers: Hypertension type: primary hypertension Qualified Code(s): I10 - Essential (primary) hypertension (2) CHF (congestive heart failure): Qualifiers: Heart failure chronicity: acute Heart failure type: unspecified Qualified Code(s): I50.9 - Heart failure, unspecified (3) Pleural effusion: Plan Acute diastolic CHF exacerbation Moderate pulmonary hypertension, Patient may benefit from right and left heart cath Pleural effusion Patient is symptomatic with pleural effusion Will request IR for thoracentesis Check D-dimer, INR Hold DVT prophylaxis for tonight Will keep n.p.o. after midnight Continue IV Lasix Will place Hackett catheter To decrease the work of breathing I will put her on BiPAP overnight Patient is agreeable Abnormal D-dimer will request CTA chest Hypokalemia: Replenished Goals of care discussed with the patient from the nurse, patient patient is stating that she does not want chest compressions or intubation or defibrillation she would like to discuss that with her family to inform them, but she is adamant that she is DNI/DNI Attestations 2 Medical Necessity Statement*: Anticipating discharge within 40 hours Diagnoses Primary hypertension I10 Hypertension type: primary hypertension Acute congestive heart failure, unspecified heart failure type I50.9 Heart failure chronicity: acute Heart failure type: unspecified Pleural effusion J90
[2024-01-28 20:56] LABS: D Dimer 2.43 ug/mLFEU (0-0.59)
[2024-01-28] MEDS: metoprolol tartrate 25 mg Tablet PO (22:04)
[2024-01-28] MEDS: azithromycin 500 MG in sodium chloride 0.9% 250 ML 250 MG IV (22:04)
[2024-01-28 22:46] LABS: Lactate Dehydrogenase 139 U/L (135-214)
[2024-01-28 22:51] LABS: Troponin 5 6HR 18.84 ng/L (0-10); Troponin 5 6HR Delta 4.84 ng/L (0-12)
[2024-01-29] VITALS (12 sets, daily range): BP systolic 96–151; BP diastolic 54–81; PULSE 64–81; RESP 16–22; TEMP 36.6–36.8; O2SAT 94–99
[2024-01-29 02:14] LABS: Vitamin B12 616 pg/mL (232-1245)
[2024-01-29 06:01] LABS: Basophils # 0.1 10^3/uL (0.0-0.1); Basophils % 0.4 %; Eosinophils # 0.1 10^3/uL (0.0-0.8); Eosinophils % 1.1 %; Hematocrit 41.9 % (36-47); Lymphocytes # 0.9 10^3/uL (0.8-4.8); Mean Corpuscular HGB Conc 32.2 g/dL (30-55); Mean Corpuscular Hemoglobin 27.8 pg (27-33); Mean Corpuscular Volume 86.2 fl (85-98); Mean Platelet Volume 9.3 fL (7.4-10.4); Monocytes # 1.1 10^3/uL (0.2-0.9); Monocytes % 8.3 %; Neutrophils # 10.69 10^3/uL (1.8-7.7); Neutrophils % 82.9 %; Nucleated Red Blood Cells % 0 %; Platelet Count 283 10^3/cmm (157-399); Red Blood Count 4.86 10^6/uL (3.85-5.65); Red Cell Distribution Width 13.8 % (12.1-15.1); White Blood Count 12.89 10^3/uL (3.29-11.43)
[2024-01-29 06:28] LABS: Anion Gap 10.9 (5-19); Blood Urea Nitrogen 15 mg/dL (8-23); C Reactive Protein 45.7 mg/L (0.0-4.9); Calcium 8.9 mg/dL (8.5-10.5); Carbon Dioxide 30 mmol/L (22-29); Chloride 99 mmol/L (98-107); Glucose 128 mg/dL (65-115); Osmolality Calculated 284 mOsm/kg (285-295); Phosphorus 3.8 mg/dL (2.5-4.5); Potassium 3.9 mmol/L (3.5-5.1); Sodium 136 mmol/L (136-145)
[2024-01-29 06:29] LABS: Creatinine Clr Calc Pharmacy 56.3883
[2024-01-29] MEDS: sennosides-docusate Tablet 1 TAB PO (08:41)
[2024-01-29] MEDS: metoprolol tartrate 25 mg Tablet PO ×2 (08:41→20:21)
[2024-01-29] MEDS: potassium chloride ER 20 mEq Tablet 40 MEQ PO (08:41)
[2024-01-29] MEDS: FUROsemide 10 mg/mL SDV 10mL 60 MG IVP ×2 (08:45→20:18)
[2024-01-29] MEDS: morphine 4 mg/mL SDV 1 mL 1 MG IVP (09:47)
[2024-01-29 09:56] LABS: Iron 17 ug/dL (37-145); Percent Saturation 7.2 % (20-50); Total Iron Binding Capacity 233 mcg/dl; Unsaturated Iron Binding 216 ug/dL (112-347)
[2024-01-29 10:36] LABS: Add Urine Culture? Yes; Add Urine Microscopic? YES; Bacteria Urine 1+ /hpf; Bilirubin Urine Neg (Negative); Blood Urine 3+ (Negative); Glucose Urine UA Norm (Normal); Ketones Urine Negative (Negative); Leukocyte Esterase Urine 1+ (Negative); Mucus Urine 3+ /hpf; Nitrate Urine Negative (Negative); Protein Urine Neg (Negative); Specific Gravity, Urine 1.005 (1.005-1.030); Squamous Epithelial Cell Urine 0-4 /hpf (0-5); Urine Appearance SL Hazy (CLEAR); Urine Color Yellow (Yellow); Urobilinogen Urine Norm (Negative); pH Urine 7 (5-7)
--- NOTE | 2024-01-29 12:02 | XR_ITS ---
WS: [id number] CHEST XRAY TECHNIQUE: Portable chest. CLINICAL INFORMATION: thoracentesis COMPARISON: 01/28/2024 FINDINGS: Heart: Cardiomegaly. Lungs: Status post LEFT thoracentesis. Improved LEFT pleural effusion. Persistent consolidation LEFT lower lobe. Small RIGHT pleural effusion. Mild pulmonary vascular congestion. No pneumothorax. Bones: Osteopenia. IMPRESSION: 1. Status post LEFT thoracentesis. No pneumothorax.
--- NOTE | 2024-01-29 12:31 | P.PN_ITS ---
Subjective 2 Subjective: Admitted overnight. H&P and labs appreciated. Patient sitting comfortably in bed on 2 L of oxygen supplementation. States she gets out of breath with minimal ambulation or laying down flat at. Currently she is at 35 to 40 degrees with head of the bed elevated. Denies any chest pain, nausea and vomiting. Family at bedside. Vitals/I&O/Wt Last Vital Signs Temp 98.0 F 01/29/24 07:00 Pulse 74 01/29/24 07:24 Resp 16 01/29/24 09:47 BP 122/71 01/29/24 07:00 Pulse Ox 94 01/29/24 07:24 O2 Del Method Nasal Cannula 01/29/24 07:24 O2 Flow Rate 1.5 01/29/24 07:24 01/28/24 01/29/24 01/29/24 22:59 06:59 14:59 Intake Total 250 / 250 Output Total 200 / 200 1300 / 1300 Balance 50 / 50 -1300 / -1300 Weight last 48 hrs Weight 75.478 kg Weight 74.298 kg Weight 75.296 kg Physical Exam 2 Narrative: General: No acute distress, AO x3, nasal cannula HEENT: PERRLA, pupils bilaterally equal and reactive Chest: Normal vesicular breath sounds, no added sounds, decreased breath sounds bilaterally in lower zone left more than right, fine crackles all over lung khan with voice CVS: S1-S2 regular, soft pansystolic murmur at apex radiating to anterior axillary line, no tachycardia, no gallops, no rubs Abdomen: Soft, nontender, no organomegaly, bowel sounds present Neuro: No focal deficits, no facial deformity, AO x3, power 5/5 in all limbs Urinary Catheter Management: Hackett: Cath Placed During This Visit: yes Reason for Continuing Indwelling Catheter: Accurate Measurement of Urinary Output in Critically Ill Patients Urinary Catheter Date of Insertion: 01/28/24 Urinary Catheter Time of Insertion: 23:45 Data 01/29/24 05:53 01/29/24 05:53 Micro: Microbiology 01/29/24 09:45 Bacterial Antigens - Final Urine Kidney 01/29/24 09:45 Legionella Urinary Antigen - Final Unknown Source 01/28/24 20:46 Blood Culture - Preliminary Blood SPECIMEN COLLECTED 01/28/24 20:51 Blood Culture - Preliminary Blood SPECIMEN COLLECTED A&P Assessment and plan (1) Hypoxic respiratory failure: Most likely in setting of diastolic heart failure along with significant bilateral pleural effusions. Patient unable to have conversation lying in the bed flat. Currently on 2 L. Transitioned to high flow nasal cannula to decrease work of breathing. D-dimer also mildly elevated at 2.4. Cannot rule out PE especially given her symptoms. Plan for CTA when possible. If unable to get CT over the next 24 hours we will plan for starting anticoagulation presumably. Hoping to get CTA within next 24 to 48 hours once patient has diuresed more. (2) CHF (congestive heart failure): Diastolic in nature. 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 Fluid restriction up to 1200 cc. IV Lasix 60 mg twice daily. Target net negative of around 1 L in next 24 hours. Hackett catheterization. Daily weight. Strict input output charting. 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 Will plan for pleural fluid studies and treat accordingly. Plan Full code Fluid restriction to 1200 cc Cardiac diet Heparin 5000 every 8 hourly for DVT prophylaxis Famotidine for PUD prophylaxis Transfer to CSU. Attestations 2 Medical Necessity Statement*: Requires further hospitalization for management of congestive heart failure leading to respiratory failure. 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
[2024-01-29 12:34] LABS: Appearance, Pleural Fluid CLOUDY (CLEAR); Color, Pleural Fluid Yellow (Pale Yellow)
[2024-01-29 12:35] LABS: PATH Referal YES
[2024-01-29 12:37] LABS: Fluid Laterality Left Lower
[2024-01-29 12:38] LABS: Mononuclear %, Pleural Fluid 59 %; Mononuclear, Pleural Fluid # 1.009 10^3/uL; Polynuclear Cells, Pleural # 0.705 10^3/uL; Polynuclear Cells, Pleural % 41 %
[2024-01-29 12:43] LABS: Left Pleural Fluid Analysis Left Lung; PATH Referral YES
[2024-01-29 13:11] LABS: Pleural Fluid Albumin 2.5 g/dL
[2024-01-29 13:12] LABS: LDH Pleural Fluid 150 U/L; Total Protein Pleural Fluid 3.4 g/dL
[2024-01-29 14:11] LABS: Lactate Dehydrogenase 156 U/L (135-214)
[2024-01-29] MEDS: heparin 5,000 unit/mL INJ 1 mL 5000 UNIT SUBCUT ×2 (14:31→20:21)
[2024-01-29] MEDS: famotidine 20 mg Tablet PO (17:55)
[2024-01-29] MEDS: vancomycin 1,000 MG in sodium chloride 0.9% 250 ML 250 MG IV (17:56)
[2024-01-29] MEDS: piperacillin-tazobactam 3.375 GM in sodium chloride 0.9% (plus) 50 ML IV (20:20)
[2024-01-29] MEDS: atorvastatin 40 mg Tablet PO (20:21)
--- NOTE | 2024-01-29 22:07 | US_ITS ---
WS: [id number] ULTRASOUND-GUIDED THORACENTESIS CLINICAL INFORMATION: Bilateral pleural effusion with worsening shortness of breat PROCEDURE: Informed consent: The risks, benefits, and alternatives of the procedure were discussed with the alyssa ent. Verbal and written consent was obtained. Timeout: A timeout was performed to confirm the correct patient, procedure, and site. Site: LEFT chest Preparation: A suitable skin site was identified. The patient was prepped and draped in usual sterile fashion. Lidocaine 1% was used for local anesthesia. Catheter: 4 Thai One-Step catheter. Fluid Volume: 900 ml Color: Bloody Discarded safely. Sent to the laboratory for analysis. Complications: None. IMPRESSION: Uncomplicated ultrasound-guided thoracentesis.
[2024-01-30] VITALS (8 sets, daily range): BP systolic 119–147; BP diastolic 48–70; PULSE 72–96; RESP 18–33; TEMP 36.7; O2SAT 95–100
[2024-01-30] MEDS: piperacillin-tazobactam 3.375 GM in sodium chloride 0.9% (plus) 50 ML IV ×3 (01:59→21:44)
[2024-01-30 05:21] LABS: Basophils # 0.1 10^3/uL (0.0-0.1); Basophils % 0.5 %; Eosinophils # 0.4 10^3/uL (0.0-0.8); Eosinophils % 3.5 %; Hematocrit 39.7 % (36-47); Lymphocytes % 9.1 %; Mean Corpuscular HGB Conc 31.7 g/dL (30-55); Mean Corpuscular Hemoglobin 27.5 pg (27-33); Mean Corpuscular Volume 86.7 fl (85-98); Mean Platelet Volume 9.9 fL (7.4-10.4); Monocytes % 9.2 %; Neutrophils # 8.55 10^3/uL (1.8-7.7); Neutrophils % 77.2 %; Nucleated Red Blood Cells % 0 %; Platelet Count 257 10^3/cmm (157-399); Red Blood Count 4.58 10^6/uL (3.85-5.65); Red Cell Distribution Width 13.8 % (12.1-15.1); White Blood Count 11.08 10^3/uL (3.29-11.43)
[2024-01-30] MEDS: heparin 5,000 unit/mL INJ 1 mL 5000 UNIT SUBCUT ×3 (05:46→21:43)
[2024-01-30] MEDS: vancomycin 1,000 MG in sodium chloride 0.9% 250 ML 250 MG IV ×2 (05:47→17:19)
[2024-01-30 05:54] LABS: Alanine Aminotransferase 12 U/L (0-33); Albumin Level 3.1 g/dL (3.5-5.2); Alkaline Phosphatase 65 U/L (35-105); Anion Gap 13.4 (5-19); Aspartate Amino Transferase 9 U/L (0-32); Blood Urea Nitrogen 16 mg/dL (8-23); Calcium 8.3 mg/dL (8.5-10.5); Carbon Dioxide 30 mmol/L (22-29); Chloride 98 mmol/L (98-107); Globulin 2.5 g/dL (1.3-4.6); Glucose 117 mg/dL (65-115); Osmolality Calculated 288 mOsm/kg (285-295); Potassium 3.4 mmol/L (3.5-5.1); Sodium 138 mmol/L (136-145); Total Bilirubin 0.7 mg/dL (0.15-1.2); Total Protein 5.6 g/dL (6.6-8.7)
[2024-01-30 06:00] LABS: Creatinine Clr Calc Pharmacy 56.3883
[2024-01-30] MEDS: metoprolol tartrate 25 mg Tablet PO ×2 (08:41→21:43)
[2024-01-30] MEDS: famotidine 20 mg Tablet PO ×2 (08:41→17:19)
[2024-01-30] MEDS: sennosides-docusate Tablet 1 TAB PO (08:41)
[2024-01-30] MEDS: potassium chloride ER 20 mEq Tablet 40 MEQ PO ×2 (08:41→10:06)
[2024-01-30] MEDS: FUROsemide 10 mg/mL SDV 10mL 60 MG IVP ×3 (08:41→21:43)
--- NOTE | 2024-01-30 12:16 | PC.NURSE ---
Physician orders: Xanax ONE time order PO 0.5mg.
[2024-01-30] MEDS: ALPRAZolam 0.5 mg Tablet PO (12:33)
--- NOTE | 2024-01-30 14:39 | P.PN_ITS ---
Subjective 2 Subjective: No acute events overnight. Today morning patient states she is feeling a lot better. Saturating well on 4 L high flow nasal cannula. She was able to lie down flat overnight and sleep in the bed. Denies any nausea, vomiting, headache, dizziness. Slightly anxious today because of the health of her . Vitals/I&O/Wt Last Vital Signs Temp 98.1 F 01/30/24 08:35 Pulse 79 01/30/24 12:08 Resp 27 H 01/30/24 12:08 BP 147/66 01/30/24 12:08 Pulse Ox 100 01/30/24 12:08 O2 Del Method High Flow Nasal Cannula 01/30/24 08:35 O2 Flow Rate 5 01/30/24 08:35 01/29/24 01/30/24 01/30/24 22:59 06:59 14:59 Intake Total 370 / 370 100 / 470 440 / 440 Output Total 1700 / 3000 1000 / 1000 Balance 370 / -930 -1600 / -2530 -560 / -560 Weight last 48 hrs Weight 74.389 kg Weight 74.389 kg Weight 75.478 kg Weight 74.298 kg Weight 75.296 kg Physical Exam 2 Narrative: General: No acute distress, AO x3, nasal cannula HEENT: PERRLA, pupils bilaterally equal and reactive Chest: Normal vesicular breath sounds, no added sounds, decreased breath sounds bilaterally in lower zone left more than right, fine crackles all over lung khan with voice CVS: S1-S2 regular, soft pansystolic murmur at apex radiating to anterior axillary line, no tachycardia, no gallops, no rubs Abdomen: Soft, nontender, no organomegaly, bowel sounds present Neuro: No focal deficits, no facial deformity, AO x3, power 5/5 in all limbs Urinary Catheter Management: Hackett: Cath Placed During This Visit: yes Reason for Continuing Indwelling Catheter: Accurate Measurement of Urinary Output in Critically Ill Patients Urinary Catheter Date of Insertion: 01/28/24 Urinary Catheter Time of Insertion: 23:45 Data 01/30/24 04:32 01/30/24 04:32 Micro: Microbiology 01/30/24 10:45 Gram Stain - Final Pleural Fluid 01/29/24 09:45 Urine Culture - Preliminary Urine,Clean Catch 01/28/24 20:51 Blood Culture - Preliminary Blood NEGATIVE TO DATE 01/28/24 20:46 Blood Culture - Preliminary Blood NEGATIVE TO DATE 01/29/24 09:45 Bacterial Antigens - Final Urine Kidney 01/29/24 09:45 Legionella Urinary Antigen - Final Unknown Source A&P Assessment and plan (1) Hypoxic respiratory failure: Most likely in setting of diastolic heart failure along with significant bilateral pleural effusions. Improving. D-dimer slightly elevated to CTA negative for pulm embolism. Oxygen supplementation keeping saturation over 92%. Wean accordingly. (2) CHF (congestive heart failure): Diastolic in nature. 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 Fluid restriction up to 1200 cc. IV Lasix 60 mg 3 times a day. Target net 1.5 L negative. Hackett catheterization. Daily weight. Strict input output charting. Replete potassium 40 mg orally along with continued 40 mg daily. Repeat BMP daily for now. Patient is on aggressive IV diuresis will have to monitor potassium levels. Qualifiers: Heart failure chronicity: acute Heart failure type: unspecified Qualified Code(s): I50.9 - Heart failure, unspecified (3) Pleural effusion: Postthoracentesis 900 cc removed from left lung. Fluid studies consistent with exudative. Follow-up fluid culture results and pathology. Empyema less likely but for now we will start on IV Zosyn and vancomycin. Will continue IV antibiotics till culture results available. MRSA swab. 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 Blood pressure stable. Continue with home dose of metoprolol. Uptitrate as for goal blood pressures. Qualifiers: Hypertension type: primary hypertension Qualified Code(s): I10 - Essential (primary) hypertension Plan Full code Fluid restriction to 1200 cc Cardiac diet Heparin 5000 every 8 hourly for DVT prophylaxis Famotidine for PUD prophylaxis Attestations 2 Medical Necessity Statement*: Requires further hospitalization for management of hypoxic respiratory failure in setting of diastolic congestive heart failure, bilateral pleural effusion post left thoracocentesis Diagnoses Hypoxic respiratory failure J96.91 Acute congestive heart failure, unspecified heart failure type I50.9 Heart failure chronicity: acute Heart failure type: unspecified Pleural effusion J90 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
--- NOTE | 2024-01-30 17:06 | CTR_ITS ---
PROCEDURE INFORMATION: Exam: CTA Chest With Contrast Exam date and time: 01/30/2024 9:40 AM Age: 78 years old Clinical indication: Shortness of breath; Additional info: SOB TECHNIQUE: Imaging protocol: Computed tomographic angiography of the chest with contrast. Exam focused on the arteries. 3D rendering (Not supervised by radiologist): MIP and/or 3D reconstructed images were created by the technologist. Radiation optimization: All CT scans at this facility use at least one of these dose optimization techniques: automated exposure control; mA and/or kV adjustment per patient size (includes targeted exams where dose is matched to clinical indication); or iterative reconstruction. Contrast material: OMNI 350; Contrast volume: 100 ml; Contrast route: INTRAVENOUS (IV); COMPARISON: CR XR chest 1V portable [id number] 01/29/2024 11:11 AM RADIATION DOSE METRICS: Total DLP (mGy-cm): 375.54 FINDINGS: Pulmonary arteries: Normal. No pulmonary emboli. Aorta: Unremarkable. No aortic aneurysm. No aortic dissection. Lungs: See Pleural spaces finding. Pleural spaces: There are large bilateral pleural effusions along with patchy pulmonary infiltrates bilaterally. There is bibasilar atelectasis. Heart: Moderate cardiomegaly is noted. Lymph nodes: Unremarkable. No enlarged lymph nodes. Bones/joints: Unremarkable. No acute fracture. Soft tissues: Unremarkable. CT/CT angio chest PE protcl [id number] IMPRESSION: CHF with large bilateral pleural effusions
[2024-01-30] MEDS: atorvastatin 40 mg Tablet PO (21:43)
[2024-01-31] VITALS (10 sets, daily range): BP systolic 102–136; BP diastolic 50–62; PULSE 68–84; RESP 18–27; TEMP 36.6–37.1; O2SAT 94–96; BMI 29.2
--- NOTE | 2024-01-31 04:50 | PC.NURSE ---
Patient refused placement of second IV.
[2024-01-31] MEDS: piperacillin-tazobactam 3.375 GM in sodium chloride 0.9% (plus) 50 ML IV ×3 (05:26→20:30)
[2024-01-31] MEDS: heparin 5,000 unit/mL INJ 1 mL 5000 UNIT SUBCUT ×3 (05:27→20:22)
[2024-01-31 05:46] LABS: Basophils # 0.1 10^3/uL (0.0-0.1); Basophils % 0.6 %; Eosinophils # 0.4 10^3/uL (0.0-0.8); Eosinophils % 3.2 %; Hematocrit 42.3 % (36-47); Lymphocytes # 1.2 10^3/uL (0.8-4.8); Mean Corpuscular HGB Conc 31.9 g/dL (30-55); Mean Corpuscular Hemoglobin 27.6 pg (27-33); Mean Corpuscular Volume 86.5 fl (85-98); Mean Platelet Volume 9.6 fL (7.4-10.4); Monocytes # 1.1 10^3/uL (0.2-0.9); Monocytes % 10.3 %; Neutrophils # 8.09 10^3/uL (1.8-7.7); Neutrophils % 74.5 %; Nucleated Red Blood Cells % 0 %; Platelet Count 256 10^3/cmm (157-399); Red Blood Count 4.89 10^6/uL (3.85-5.65); Red Cell Distribution Width 13.7 % (12.1-15.1); White Blood Count 10.86 10^3/uL (3.29-11.43)
[2024-01-31 06:14] LABS: Alanine Aminotransferase 10 U/L (0-33); Albumin Level 3.1 g/dL (3.5-5.2); Alkaline Phosphatase 69 U/L (35-105); Anion Gap 14.5 (5-19); Aspartate Amino Transferase 15 U/L (0-32); Blood Urea Nitrogen 20 mg/dL (8-23); Calcium 8.6 mg/dL (8.5-10.5); Carbon Dioxide 31 mmol/L (22-29); Chloride 97 mmol/L (98-107); Creatinine Clr Calc Pharmacy 49.9456; Globulin 2.7 g/dL (1.3-4.6); Glucose 129 mg/dL (65-115); Osmolality Calculated 292 mOsm/kg (285-295); Potassium 3.5 mmol/L (3.5-5.1); Sodium 139 mmol/L (136-145); Total Bilirubin 0.7 mg/dL (0.15-1.2); Total Protein 5.8 g/dL (6.6-8.7)
[2024-01-31 06:43] LABS: Vancomycin Trough 15.3 ug/mL (10-15)
[2024-01-31] MEDS: potassium chloride ER 20 mEq Tablet 40 MEQ PO (08:34)
[2024-01-31] MEDS: sennosides-docusate Tablet 1 TAB PO (08:34)
[2024-01-31] MEDS: metoprolol tartrate 25 mg Tablet PO ×2 (08:34→20:21)
[2024-01-31] MEDS: famotidine 20 mg Tablet PO ×2 (08:35→15:55)
[2024-01-31] MEDS: FUROsemide 40 mg Tablet PO ×2 (08:35→15:54)
[2024-01-31] MEDS: vancomycin 1,000 MG in sodium chloride 0.9% 250 ML 250 MG IV ×2 (09:57→22:08)
--- NOTE | 2024-01-31 10:09 | PC.SOCIAL ---
IMM Update pg 2 of IMM updated and discussed w/ patient. Copy provided and copy dated, initialed and placed in chart.
--- NOTE | 2024-01-31 11:45 | P.PN_ITS ---
Subjective 2 Subjective: No acute vents overnight. Patient denies any nausea, vomiting, headache. Laying comfortably in bed. States she is feeling a lot better. Saturating well on 2 L of supplementation. Has remained hemodynamically stable and afebrile. Vitals/I&O/Wt Last Vital Signs Temp 98.7 F 01/31/24 08:00 Pulse 78 01/31/24 08:00 Resp 19 H 01/31/24 08:00 BP 119/57 01/31/24 08:00 Pulse Ox 95 01/31/24 08:00 O2 Del Method Nasal Cannula 01/31/24 08:00 O2 Flow Rate 5 01/30/24 08:35 01/30/24 01/31/24 01/31/24 22:59 06:59 14:59 Intake Total 390 / 830 650 / 1480 420 / 420 Output Total 2700 / 3700 1900 / 5600 Balance -2310 / -2870 -1250 / -4120 420 / 420 Weight last 48 hrs Weight 74.928 kg Weight 74.933 kg Weight 74.389 kg Weight 74.389 kg Physical Exam 2 Narrative: General: No acute distress, AO x3, nasal cannula HEENT: PERRLA, pupils bilaterally equal and reactive Chest: Normal vesicular breath sounds, no added sounds, decreased breath sounds bilaterally in lower zone left more than right, fine crackles all over lung khan with voice CVS: S1-S2 regular, soft pansystolic murmur at apex radiating to anterior axillary line, no tachycardia, no gallops, no rubs Abdomen: Soft, nontender, no organomegaly, bowel sounds present Neuro: No focal deficits, no facial deformity, AO x3, power 5/5 in all limbs Urinary Catheter Management: Hackett: Cath Placed During This Visit: yes Reason for Continuing Indwelling Catheter: Accurate Measurement of Urinary Output in Critically Ill Patients Urinary Catheter Date of Insertion: 01/28/24 Urinary Catheter Time of Insertion: 23:45 Data 01/31/24 05:39 01/31/24 05:39 Micro: Microbiology 01/30/24 10:45 Gram Stain - Final Pleural Fluid 01/29/24 09:45 Urine Culture - Preliminary Urine,Clean Catch A&P Assessment and plan (1) Hypoxic respiratory failure: Most likely in setting of diastolic heart failure along with significant bilateral pleural effusions. Improving. D-dimer slightly elevated to CTA negative for pulm embolism. Oxygen supplementation keeping saturation over 92%. Wean accordingly. (2) CHF (congestive heart failure): Diastolic in nature. 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 Fluid restriction up to 1200 cc. IV Lasix 60 mg 3 times a day. Target net 1.5 L negative. Hackett catheterization. Daily weight. Strict input output charting. Replete potassium 40 mg orally along with continued 40 mg daily. Repeat BMP daily for now. Patient is on aggressive IV diuresis will have to monitor potassium levels. Qualifiers: Heart failure chronicity: acute Heart failure type: unspecified Qualified Code(s): I50.9 - Heart failure, unspecified (3) Pleural effusion: Postthoracentesis 900 cc removed from left lung. Fluid studies consistent with exudative. Follow-up fluid culture results and pathology. Empyema less likely but for now we will start on IV Zosyn and vancomycin. Will continue IV antibiotics till culture results available. MRSA swab. 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 Blood pressure stable. Continue with home dose of metoprolol. Uptitrate as for goal blood pressures. Qualifiers: Hypertension type: primary hypertension Qualified Code(s): I10 - Essential (primary) hypertension Plan Full code Fluid restriction to 1200 cc Cardiac diet Heparin 5000 every 8 hourly for DVT prophylaxis Famotidine for PUD prophylaxis Plan for the day: Follow-up blood culture, fluid culture. Continue with IV Zosyn and vancomycin. MRSA swab results pending. Overall 6 L negative. Patient developing mild contraction alkalosis. Switch from IV Lasix 60 mg 3 times daily to oral Lasix 40 mg twice daily. Continue with fluid restriction. Potassium stable today. Continue with oral potassium 40 mg daily for now. Discharge plan: Plan to discharge in next 24 hours to 48 hours depending on fluid culture results on oral Lasix. Patient would benefit with home O2 evaluation prior to discharge. 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
--- NOTE | 2024-01-31 12:22 | PC.SOCIAL ---
IMM Update pg 2 of IMM updated and reviewed w/ patient. Copy provided and copy dated, initialed and placed in chart.
[2024-01-31 12:40] LABS: Methicillin-Resist S.aureu PCR NOT DETECTED (NOT DETECTED)
[2024-01-31] MEDS: atorvastatin 40 mg Tablet PO (20:21)
[2024-02-01] VITALS (11 sets, daily range): BP systolic 96–131; BP diastolic 56–75; PULSE 70–148; RESP 18–25; TEMP 36.6–37; O2SAT 78–97; BMI 29.2
[2024-02-01] MEDS: piperacillin-tazobactam 3.375 GM in sodium chloride 0.9% (plus) 50 ML IV ×3 (04:49→23:38)
[2024-02-01] MEDS: heparin 5,000 unit/mL INJ 1 mL 5000 UNIT SUBCUT ×3 (04:49→22:10)
[2024-02-01 05:16] LABS: Basophils # 0.1 10^3/uL (0.0-0.1); Basophils % 0.8 %; Eosinophils # 0.5 10^3/uL (0.0-0.8); Eosinophils % 5.2 %; Hematocrit 39.7 % (36-47); Lymphocytes # 1.1 10^3/uL (0.8-4.8); Lymphocytes % 11.8 %; Mean Corpuscular Hemoglobin 27.4 pg (27-33); Mean Corpuscular Volume 85.7 fl (85-98); Mean Platelet Volume 9.8 fL (7.4-10.4); Monocytes # 0.8 10^3/uL (0.2-0.9); Monocytes % 9.4 %; Neutrophils # 6.44 10^3/uL (1.8-7.7); Neutrophils % 72.5 %; Nucleated Red Blood Cells % 0 %; Platelet Count 250 10^3/cmm (157-399); Red Blood Count 4.63 10^6/uL (3.85-5.65); Red Cell Distribution Width 13.7 % (12.1-15.1); White Blood Count 8.89 10^3/uL (3.29-11.43)
[2024-02-01 05:32] LABS: Alanine Aminotransferase 10 U/L (0-33); Albumin Level 3.1 g/dL (3.5-5.2); Alkaline Phosphatase 65 U/L (35-105); Anion Gap 11.5 (5-19); Aspartate Amino Transferase 12 U/L (0-32); Blood Urea Nitrogen 21 mg/dL (8-23); Calcium 8.2 mg/dL (8.5-10.5); Carbon Dioxide 32 mmol/L (22-29); Chloride 100 mmol/L (98-107); Creatinine Clr Calc Pharmacy 49.9902; Globulin 2.3 g/dL (1.3-4.6); Glucose 109 mg/dL (65-115); Osmolality Calculated 294 mOsm/kg (285-295); Potassium 3.5 mmol/L (3.5-5.1); Sodium 140 mmol/L (136-145); Total Bilirubin 0.7 mg/dL (0.15-1.2); Total Protein 5.4 g/dL (6.6-8.7)
[2024-02-01] MEDS: potassium chloride ER 20 mEq Tablet 40 MEQ PO (08:04)
[2024-02-01] MEDS: famotidine 20 mg Tablet PO ×2 (08:04→17:31)
[2024-02-01] MEDS: FUROsemide 40 mg Tablet PO (08:04)
[2024-02-01] MEDS: sennosides-docusate Tablet 1 TAB PO (08:05)
[2024-02-01] MEDS: metoprolol tartrate 25 mg Tablet PO (08:10)
--- NOTE | 2024-02-01 10:17 | P.DS_ITS ---
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: Status: Acute (5) Hypertension: Status: Acute Qualifiers: Hypertension type: primary hypertension Qualified Code(s): I10 - Essential (primary) hypertension Reason for Visit Reason for Visit: sob Physical Exam Urinary Catheter Management: Hackett: Cath Placed During This Visit: yes Reason for Continuing Indwelling Catheter: Accurate Measurement of Urinary Output in Critically Ill Patients Urinary Catheter Date of Insertion: 01/28/24 Urinary Catheter Time of Insertion: 23:45 Discharge Data Studies Completed and Pending Completed Studies During Hospitalization Category Date Time Status CT angio chest PE protcl [id number] Stat Cat Scan 01/30/24 17:06 Completed XR chest 1V portable [id number] Stat Exams 01/28/24 15:32 Completed XR chest 1V portable [id number] Stat Exams 01/29/24 12:02 Completed US thoracentesis [id number] Routine Ultrasound 01/29/24 22:07 Completed Pending at discharge Category Date Time Status Anaerobic Culture Routine Lab 01/30/24 10:45 Results Blood Culture Stat Lab 01/28/24 20:46 Results Body Fluid Culture & GS Routine Lab 01/30/24 10:45 Results Fungal Culture not HR/SK/BL Routine Lab 01/30/24 10:45 Received Mycobacteria, Culture w/Fluor Routine Lab 01/30/24 10:45 Received Vancomycin Trough Timed Lab 02/01/24 21:00 Ordered Radiology Impressions Chest CTA 01/30/24 17:06 IMPRESSION: CHF with large bilateral pleural effusions Laboratory Results WBC 8.89 10^3/uL (3.29-11.43) 02/01/24 03:41 RBC 4.63 10^6/uL (3.85-5.65) 02/01/24 03:41 Hgb 12.70 g/dL (11.27-16.99) 02/01/24 03:41 Hct 39.7 % (36-47) 02/01/24 03:41 MCV 85.7 fl (85-98) 02/01/24 03:41 MCH 27.4 pg (27-33) 02/01/24 03:41 MCHC 32.0 g/dL (30-55) 02/01/24 03:41 RDW 13.7 % (12.1-15.1) 02/01/24 03:41 Plt Count 250 10^3/cmm (157-399) 02/01/24 03:41 MPV 9.8 fL (7.4-10.4) 02/01/24 03:41 Neut % (Auto) 72.5 % 02/01/24 03:41 Lymph % (Auto) 11.8 % 02/01/24 03:41 Schuyler % (Auto) 9.4 % 02/01/24 03:41 Eos % (Auto) 5.2 % 02/01/24 03:41 Baso % (Auto) 0.8 % 02/01/24 03:41 Neut # (Auto) 6.44 10^3/uL (1.8-7.7) 02/01/24 03:41 Lymph # (Auto) 1.1 10^3/uL (0.8-4.8) 02/01/24 03:41 Schuyler # (Auto) 0.8 10^3/uL (0.2-0.9) 02/01/24 03:41 Eos # (Auto) 0.5 10^3/uL (0.0-0.8) 02/01/24 03:41 Baso # (Auto) 0.1 10^3/uL (0.0-0.1) 02/01/24 03:41 Nucleated RBC % (auto) 0 % 02/01/24 03:41 Total Counted Not Reportable 01/28/24 12:11 Nucleated RBCs # 0.0 /100WBC 02/01/24 03:41 PT 15.60 SECONDS (12.1-14.9) H 01/29/24 05:53 INR 1.20 (0.8-1.2) 01/29/24 05:53 D-Dimer 2.43 ug/mLFEU (0-0.59) H 01/28/24 16:02 Sodium 140 mmol/L (136-145) 02/01/24 03:41 Potassium 3.5 mmol/L (3.5-5.1) 02/01/24 03:41 Chloride 100 mmol/L (98-107) 02/01/24 03:41 Carbon Dioxide 32 mmol/L (22-29) H 02/01/24 03:41 Anion Gap 11.5 (5-19) 02/01/24 03:41 BUN 21 mg/dL (8-23) 02/01/24 03:41 Creatinine 0.9 mg/dL (0.5-0.9) 02/01/24 03:41 GFR Calculation Not Reportable 02/01/24 03:41 Glucose 109 mg/dL (65-115) 02/01/24 03:41 Calculated Osmolality 294 mOsm/kg (285-295) 02/01/24 03:41 Calcium 8.2 mg/dL (8.5-10.5) L 02/01/24 03:41 Phosphorus 3.8 mg/dL (2.5-4.5) 01/29/24 05:53 Magnesium 2.0 mg/dL (1.7-2.3) 01/29/24 05:53 Iron 17 ug/dL (37-145) L 01/29/24 05:53 TIBC 233 mcg/dl 01/29/24 05:53 % Saturation 7.2 % (20-50) L 01/29/24 05:53 Unsat Iron Binding 216 ug/dL (112-347) 01/29/24 05:53 Total Bilirubin 0.7 mg/dL (0.15-1.2) 02/01/24 03:41 AST 12 U/L (0-32) 02/01/24 03:41 ALT 10 U/L (0-33) 02/01/24 03:41 Alkaline Phosphatase 65 U/L (35-105) 02/01/24 03:41 Lactate Dehydrogenase 156 U/L (135-214) 01/29/24 05:53 Troponin T Baseline 14 ng/L (0-10) H 01/28/24 16:02 Troponin T 120 Minute 13.09 ng/L (0-10) H 01/28/24 18:15 Delta Troponin T -0.91 ABS# (0-10) L 01/28/24 18:15 Troponin T Hi Sens 6Hr 18.84 ng/L (0-10) H 01/28/24 21:59 Troponin T Hi Sens 6Hr Delta 4.84 ng/L (0-12) 01/28/24 21:59 C-Reactive Protein 45.7 mg/L (0.0-4.9) H 01/29/24 05:53 NT-Pro-B Natriuret Pep 441 pg/mL (0-450) 01/28/24 16:02 Total Protein 5.4 g/dL (6.6-8.7) L 02/01/24 03:41 Albumin 3.1 g/dL (3.5-5.2) L 02/01/24 03:41 Globulin 2.3 g/dL (1.3-4.6) 02/01/24 03:41 Vitamin B12 616 pg/mL (232-1245) 01/28/24 18:15 Urine Color Yellow (Yellow) 01/29/24 09:45 Urine Appearance Sl hazy (CLEAR) A 01/29/24 09:45 Urine pH 7 (5-7) 01/29/24 09:45 Ur Specific [place] 1.005 (1.005-1.030) 01/29/24 09:45 Urine Protein Neg (Negative) 01/29/24 09:45 Urine Glucose (UA) Norm (Normal) 01/29/24 09:45 Urine Ketones Negative (Negative) 01/29/24 09:45 Urine Blood 3+ (Negative) H 01/29/24 09:45 Urine Nitrate Negative (Negative) 01/29/24 09:45 Urine Bilirubin Neg (Negative) 01/29/24 09:45 Urine Urobilinogen Norm mg/dL (Negative) 01/29/24 09:45 Ur Leukocyte Esterase 1+ (Negative) H 01/29/24 09:45 Urine RBC 10-15 /hpf (0-2) H 01/29/24 09:45 Urine WBC 5-10 /hpf (0-5) H 01/29/24 09:45 Ur Squamous Epith Cells 0-4 /hpf (0-5) H 01/29/24 09:45 Amorphous Sediment Not Reportable 01/29/24 09:45 Urine Bacteria 1+ /hpf (NONE) H 01/29/24 09:45 Urine Mucus 3+ /hpf 01/29/24 09:45 Fld Crystal Laterality Left lower 01/28/24 12:11 Pleural Color Yellow (Pale Yellow) H 01/28/24 12:11 Pleural Appearance Cloudy (CLEAR) 01/28/24 12:11 Pleural pH 8.00 (6.5-7.5) H 01/28/24 12:11 Pleural WBC 1714.000 /uL (0-1000) H 01/28/24 12:11 Pleural RBC 5.000 10^3/uL 01/28/24 12:11 Pleural Mononuc # Auto 1.009 10^3/uL 01/28/24 12:11 Pleural Other Cells Not Reportable 01/28/24 12:11 Pleural Polynuclear % 41 % 01/28/24 12:11 Pleural Polynuclear # 0.705 10^3/uL 01/28/24 12:11 Pleural Mononuclear % 59 % 01/28/24 12:11 Pleural Other Cells Lt Left lung 01/28/24 12:11 Pleural Total Protein 3.4 g/dL 01/28/24 12:11 Pleural Albumin 2.5 g/dL 01/28/24 12:11 Pleural LDH 150 U/L 01/28/24 12:11 Pleural Glucose 128.0 mg/dL 01/28/24 12:11 Vancomycin Trough 15.3 ug/mL (10-15) H 01/31/24 05:39 MRSA (PCR) Not detected (NOT DETECTED) 01/29/24 21:55 Path Cons w/Slide Yes 01/28/24 12:11 Pathology Message Yes 01/28/24 12:11 Vitals Last Vital Signs Temp 98.3 F 02/01/24 07:07 Pulse 77 02/01/24 08:57 Resp 18 02/01/24 08:57 BP 131/56 02/01/24 07:07 Pulse Ox 90 02/01/24 08:57 O2 Del Method Room Air 02/01/24 08:57 O2 Flow Rate 2 01/31/24 14:20 Discharge Plan Discharge Patient Disposition: Home Condition: Stable Prescriptions: New famotidine 20 mg Tablet 20 mg PO BID Qty: 20 0RF Continued (DME) HINGED ELBOW BRACE. See Rx Instructions .ROUTE .MEDSUPPLY Qty: 1 0RF Rx Instructions: As directed set 0-90 atorvastatin 40 mg tablet 40 mg PO BEDTIME Qty: 30 2RF metoprolol tartrate 25 mg tablet 25 mg PO BID@0900,2100 Qty: 60 2RF aspirin 81 mg tablet,delayed release (DR/EC) 81 mg PO DAILY Qty: 30 2RF potassium chloride 10 mEq tablet extended release 10 meq PO DAILY Qty: 30 2RF (DME) cam boot See Rx Instructions .Route .MEDSUPPLY Qty: 1 0RF Rx Instructions: As directed multivitamin Tablet 1 tab PO DAILY aspirin 325 mg Tablet 650 mg PO DAILY PRN (Reason: Pain) calcium carbonate 500 mg calcium (1,250 mg) Tablet 500 mg PO QAM albuterol sulfate 90 mcg/actuation HFA aerosol inhaler 2 puff INHALATION QID PRN (Reason: Shortness Of Breath Or Wheezing) Changed furosemide [Lasix] 40 mg tablet 40 mg PO BID Qty: 30 2RF Rx Instructions: Take 3 times a day till 02/23 then twice a day After that Discharge Orders: Discharge Order (Routine); Ordered 02/01/24 Ordered By: Zion Buckner Referrals: Anyi Etienne FNP-C [Primary Care Provider] - 7-10 days (Please call Anyi Etienne's Office on Saturday at [phone] to schedule a follow up appointment for 7-10 days. Thank you.) Discharge Diet: Cardiac Discharge Activity: Resume usual activity and Increase activity as tolerated Patient Instructions: Famotidine (By mouth) (Acid Controller, Acid Station Superintendent, Pepcid AC, Pepcid), Heart Failure (DC), CHF Stoplight, Opioid Safety Activity Restrictions/Additional Instructions: Restrict fluid intake to less than 1500 cc, salt intake to less than 2 g daily. Advised to check his weight daily at home. Is advised that weight today would be the dry weight and if body weight increases by around 5 pounds, patient is to take an extra dose of Lasix daily till body weight comes down to weight today. If not able to come down to dry body weight in 1 week, then is to call cardiology office for further recommendations. Patient was counseled in detail to take medications regularly as prescribed. 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
[2024-02-01] MEDS: ondansetron 2 mg/ML SDV 2 mL 4 MG IVP (10:41)
[2024-02-01] MEDS: vancomycin 1,000 MG in sodium chloride 0.9% 250 ML 250 MG IV ×2 (12:38→22:10)
--- NOTE | 2024-02-01 14:02 | ECG_ITS ---
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 Measurements Intervals [place] Rate: 123 P: 0 WY: 0 QRS: 22 QRSD: 82 T: -9 QT: 325 QTc: 465 Interpretive Statements ATRIAL FLUTTER/TACHYCARDIA WITH RAPID VENTRICULAR RESPONSE NONSPECIFIC ST & T-WAVE ABNORMALITY ABNORMAL RHYTHM ECG INTERPRETATION BASED ON A DEFAULT AGE OF 40 YEARS Compared to ECG 01/28/2024 17:37:01 Sinus rhythm no longer present T-wave abnormality still present Electronically Signed On 02-02-2024 23:59:52 CDT by Bradley Reed M.D. [id number]
[2024-02-01] MEDS: dilTIAZem 100 MG in sodium chloride 0.9% (add-van) 100 ML IV (15:28)
--- NOTE | 2024-02-01 15:36 | P.PN_ITS ---
Subjective 2 Subjective: No acute events overnight. Patient states she is feeling a lot better. Today morning patient was turned down to room air and she was saturating 90-91%. She qualified for 2 L of oxygen supplementation on home O2 eval. Plan was to discharge her today but while being discharged she underwent A-fib with RVR. Discharge was canceled because the same reason. Vitals/I&O/Wt Last Vital Signs Temp 97.9 F 02/01/24 11:04 Pulse 74 02/01/24 11:04 Resp 25 H 02/01/24 11:04 BP 111/61 02/01/24 11:04 Pulse Ox 91 02/01/24 12:40 O2 Del Method Nasal Cannula 02/01/24 11:04 O2 Flow Rate 2 02/01/24 12:40 02/01/24 02/01/24 02/01/24 06:59 14:59 22:59 Intake Total 450 / 1250.625 780 / 780 Output Total 650 / 1650 Balance -200 / -399.375 780 / 780 Weight last 48 hrs Weight 75.07 kg Weight 75.07 kg Weight 74.928 kg Weight 74.933 kg Physical Exam 2 Narrative: General: No acute distress, AO x3, nasal cannula HEENT: PERRLA, pupils bilaterally equal and reactive Chest: Normal vesicular breath sounds, no added sounds, decreased breath sounds bilaterally in lower zone left more than right, fine crackles all over lung khan with voice CVS: S1-S2 regular, soft pansystolic murmur at apex radiating to anterior axillary line, no tachycardia, no gallops, no rubs Abdomen: Soft, nontender, no organomegaly, bowel sounds present Neuro: No focal deficits, no facial deformity, AO x3, power 5/5 in all limbs Urinary Catheter Management: Hackett: Cath Placed During This Visit: yes Reason for Continuing Indwelling Catheter: Accurate Measurement of Urinary Output in Critically Ill Patients Urinary Catheter Date of Insertion: 01/28/24 Urinary Catheter Time of Insertion: 23:45 Data 02/01/24 03:41 02/01/24 03:41 Micro: Microbiology 01/30/24 10:45 Gram Stain - Final Pleural Fluid Anaerobic Culture - Preliminary Body Fluid Culture - Preliminary 01/29/24 09:45 Urine Culture - Final Urine,Clean Catch A&P Assessment and plan (1) Hypoxic respiratory failure: Most likely in setting of diastolic heart failure along with significant bilateral pleural effusions. Improving. D-dimer slightly elevated to CTA negative for pulm embolism. Oxygen supplementation keeping saturation over 92%. Wean accordingly. (2) CHF (congestive heart failure): Diastolic in nature. 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 Fluid restriction up to 1200 cc. Switch back to IV Lasix 40 mg twice daily as patient will have increased congestive heart failure symptoms because of being in RVR. Monitor BMP daily for possibility of developing contraction alkalosis. Hackett catheterization. Daily weight. Strict input output charting. Continue with 40 mg of potassium daily. Currently stable. Qualifiers: Heart failure chronicity: acute Heart failure type: unspecified Qualified Code(s): I50.9 - Heart failure, unspecified (3) Atrial fibrillation with RVR: Started on Cardizem drip after 10 mg of IV Cardizem push. Titrate keeping heart rate below 100. Will transition over to oral Cardizem within next 24 hours. Given RVR will discuss in detail with the patient again regarding need for anticoagulation for stroke prevention. Navin Vascor?5. (4) Pleural effusion: Postthoracentesis 900 cc removed from left lung. Fluid studies consistent with exudative. Follow-up fluid culture results and pathology. MRSA swab negative. Discontinue vancomycin. Continue with Zosyn. Follow-up culture results. If negative will discontinue antibiotics. Pathology negative. 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 Blood pressure stable. Holding off on metoprolol as above because patient is in A-fib with RVR transition over to Cardizem. Qualifiers: Hypertension type: primary hypertension Qualified Code(s): I10 - Essential (primary) hypertension Plan Full code Fluid restriction to 1200 cc Cardiac diet Heparin 5000 every 8 hourly for DVT prophylaxis Famotidine for PUD prophylaxis Attestations 2 Medical Necessity Statement*: Requires further hospitalization for management of A-fib with RVR leading to congestive heart failure with significant bilateral pleural effusions Diagnoses Hypoxic respiratory failure J96.91 Acute congestive heart failure, unspecified heart failure type I50.9 Heart failure chronicity: acute Heart failure type: unspecified Atrial fibrillation with RVR I48.91 Pleural effusion J90 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
[2024-02-01] MEDS: amiodarone 150 MG/100 ML PREMIX 400 MG IV (16:54)
[2024-02-01] MEDS: FUROsemide 10 mg/mL SDV 4mL 40 MG IVP (17:31)
[2024-02-01] MEDS: ferrous gluconate 324 mg Tablet PO (17:31)
--- NOTE | 2024-02-01 20:05 | PC.NURSE ---
1335- pt went into afib w/rvr 125-130s while waiting for pt's home tim [place]aud, noticed on tele monitor that she is on afib w/rvr 120s to 130s. pt is alert, oriented, denies any chest pain, discomfort or sob. notified dr warren, ekg taken. cardizem drip started. vs monitor. 1636pm- 92/64, HR-130s to 140s on 10 mg of cardizem drip. notified dr warren on this, he put orders for amio drip and bolus. pt still denies any chest pain, sob or chest discomfort or palpitations. alert, orientedx4.
--- NOTE | 2024-02-01 20:25 | PC.NURSE ---
1441- physician order that pt is not going home today. so DC order is cancelled.
[2024-02-01 21:54] LABS: Vancomycin Trough 20.1 ug/mL (10-15)
[2024-02-01] MEDS: atorvastatin 40 mg Tablet PO (22:10)
[2024-02-02] VITALS (11 sets, daily range): BP systolic 120–148; BP diastolic 60–82; PULSE 70–144; RESP 18–26; TEMP 36.4–36.9; O2SAT 90–99
[2024-02-02] MEDS: FUROsemide 10 mg/mL SDV 4mL 40 MG IVP (04:58)
[2024-02-02] MEDS: heparin 5,000 unit/mL INJ 1 mL 5000 UNIT SUBCUT (04:58)
[2024-02-02 05:28] LABS: Basophils # 0.1 10^3/uL (0.0-0.1); Basophils % 0.6 %; Eosinophils # 0.4 10^3/uL (0.0-0.8); Eosinophils % 4.4 %; Lymphocytes # 0.9 10^3/uL (0.8-4.8); Lymphocytes % 10.1 %; Mean Corpuscular HGB Conc 31.4 g/dL (30-55); Mean Corpuscular Hemoglobin 27.2 pg (27-33); Mean Corpuscular Volume 86.5 fl (85-98); Mean Platelet Volume 9.6 fL (7.4-10.4); Monocytes # 0.9 10^3/uL (0.2-0.9); Neutrophils # 6.97 10^3/uL (1.8-7.7); Neutrophils % 74.6 %; Nucleated Red Blood Cells % 0 %; Platelet Count 244 10^3/cmm (157-399); Red Blood Count 4.97 10^6/uL (3.85-5.65); Red Cell Distribution Width 13.7 % (12.1-15.1); White Blood Count 9.34 10^3/uL (3.29-11.43)
[2024-02-02 05:59] LABS: Alanine Aminotransferase 10 U/L (0-33); Albumin Level 2.9 g/dL (3.5-5.2); Alkaline Phosphatase 66 U/L (35-105); Anion Gap 13.3 (5-19); Aspartate Amino Transferase 12 U/L (0-32); Blood Urea Nitrogen 17 mg/dL (8-23); Calcium 8.3 mg/dL (8.5-10.5); Carbon Dioxide 32 mmol/L (22-29); Chloride 99 mmol/L (98-107); Creatinine Clr Calc Pharmacy 44.8714; Globulin 2.5 g/dL (1.3-4.6); Glucose 136 mg/dL (65-115); Osmolality Calculated 296 mOsm/kg (285-295); Potassium 3.3 mmol/L (3.5-5.1); Sodium 141 mmol/L (136-145); Total Bilirubin 0.4 mg/dL (0.15-1.2); Total Protein 5.4 g/dL (6.6-8.7)
--- NOTE | 2024-02-02 07:11 | PC.PHAR ---
Vancomycin Pharmacy to Dose Trough returned at 20.1 for 1 GM Q12h, changed dose to 1250mg Q18h Use this page to adjust dose, Tinf, or tau when only a TROUGH is taken. VANCOMYCIN or AMINOGLYCOSIDE: VANCO mg/kg Last Name Bridges Dose(mg) 1000 16.31 First Name Arielle Tinf (hrs) 1 hrs : 45 Tau=freq (hrs) 12 hrs Location: 103-1 Cmax (calculated) 40.6 mcg/ml Cpeak (calculated) 38.2 mcg/ml Sex (M/F) F Cmin (trough): 20.1 mcg/ml AGE (yrs) 78 Calculated Vd: 46.0 liters Ht (inches) 63.0 Calculated Ke: 0.061 hrs-1 ABW (Kg) 74.7 Calculated T1/2: 11.34 hrs IBW (Kg) 52.4 mg/kg DW (Kg) 61.3 NEW Dose (mg) 1250 20.39 NEW Tinf (hrs) 1 NEW Tau (hrs) 18 VANCO GENT TARGETS Expected Cmax: 39.5 Targets Standard Dosing High Dose Expected Cpeak: 37.2 25 to 40 6 - 12 mcg/ml 20 - 24 mcg/ml Expected Cmin: 14.0 10 to 20 0.5 - 2 mcg/ml < 1 mcg/ml WHEN DO I GIVE THE NEXT DOSE? When will the Blood Conc. Be Equal to my New Expected Cmin? If Dose was HELD If Dose was GIVEN Give Next Dose In: (From time trough drawn) 6 hrs 18 hrs Where will the Conc. Be if I wait : 6.7 mcg/ml 13.9 mcg/ml 18 hrs
[2024-02-02] MEDS: sennosides-docusate Tablet 1 TAB PO (08:48)
[2024-02-02] MEDS: piperacillin-tazobactam 3.375 GM in sodium chloride 0.9% (plus) 50 ML IV ×2 (08:48→15:09)
[2024-02-02] MEDS: potassium chloride ER 20 mEq Tablet 40 MEQ PO ×2 (08:48→10:20)
[2024-02-02] MEDS: famotidine 20 mg Tablet PO ×2 (08:48→17:32)
[2024-02-02] MEDS: amiodarone 200 mg Tablet PO ×2 (10:59→17:32)
--- NOTE | 2024-02-02 13:17 | P.PN_ITS ---
Subjective 2 Subjective: No acute vents overnight. Patient denies any nausea, vomiting, headache. She converted back to normal sinus rhythm with heart rate running in the 70s on examination. Patient did not tolerate Cardizem drip well with heart rate persistently elevated and blood pressure was dropping hence was started on amiodarone drip. Continued on amiodarone drip of 0.5 overnight. Patient states her breathing is stable. Vitals/I&O/Wt Last Vital Signs Temp 97.6 F 02/02/24 11:06 Pulse 76 02/02/24 11:06 Resp 20 H 02/02/24 11:06 BP 146/60 02/02/24 11:06 Pulse Ox 96 02/02/24 11:06 O2 Del Method Nasal Cannula 02/02/24 11:06 O2 Flow Rate 2 02/01/24 12:40 02/01/24 02/02/24 02/02/24 22:59 06:59 14:59 Intake Total 200.000 / 980.000 799.424 / 1779.424 680 / 680 Output Total 700 / 1100 900 / 2000 450 / 450 Balance -500.000 / -120.000 -100.576 / -220.576 230 / 230 Weight last 48 hrs Weight 74.661 kg Weight 75.07 kg Weight 75.07 kg Physical Exam 2 Narrative: General: No acute distress, AO x3, nasal cannula HEENT: PERRLA, pupils bilaterally equal and reactive Chest: Normal vesicular breath sounds, no added sounds, decreased breath sounds bilaterally in lower zone left more than right, fine crackles all over lung khan with voice CVS: S1-S2 regular, soft pansystolic murmur at apex radiating to anterior axillary line, no tachycardia, no gallops, no rubs Abdomen: Soft, nontender, no organomegaly, bowel sounds present Neuro: No focal deficits, no facial deformity, AO x3, power 5/5 in all limbs Urinary Catheter Management: Hackett: Cath Placed During This Visit: yes, but has since been removed by the nurse Reason for Continuing Indwelling Catheter: Accurate Measurement of Urinary Output in Critically Ill Patients Urinary Catheter Date of Insertion: 01/28/24 Urinary Catheter Time of Insertion: 23:45 Date Urinary Catheter Removed: 02/01/24 Time Urinary Catheter Discontinued: 10:30 Data 02/02/24 04:40 02/02/24 04:40 Micro: Microbiology 01/30/24 10:45 Gram Stain - Final Pleural Fluid Anaerobic Culture - Preliminary Body Fluid Culture - Final A&P Assessment and plan (1) Hypoxic respiratory failure: Most likely in setting of diastolic heart failure along with significant bilateral pleural effusions. Improving. D-dimer slightly elevated to CTA negative for pulm embolism. Oxygen supplementation keeping saturation over 92%. Wean accordingly. (2) CHF (congestive heart failure): Diastolic in nature. 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 Fluid restriction up to 1200 cc. Switch back to IV Lasix 40 mg twice daily as patient will have increased congestive heart failure symptoms because of being in RVR. Monitor BMP daily for possibility of developing contraction alkalosis. Hackett catheterization. Daily weight. Strict input output charting. Continue with 40 mg of potassium daily. Currently stable. Qualifiers: Heart failure chronicity: acute Heart failure type: unspecified Qualified Code(s): I50.9 - Heart failure, unspecified (3) Atrial fibrillation with RVR: Started on Cardizem drip after 10 mg of IV Cardizem push. Titrate keeping heart rate below 100. Will transition over to oral Cardizem within next 24 hours. Given RVR will discuss in detail with the patient again regarding need for anticoagulation for stroke prevention. Navin Vascor?5. (4) Pleural effusion: Postthoracentesis 900 cc removed from left lung. Fluid studies consistent with exudative. Follow-up fluid culture results and pathology. MRSA swab negative. Discontinue vancomycin. Continue with Zosyn. Follow-up culture results. If negative will discontinue antibiotics. Pathology negative. 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 Blood pressure stable. Holding off on metoprolol as above because patient is in A-fib with RVR transition over to Cardizem. Qualifiers: Hypertension type: primary hypertension Qualified Code(s): I10 - Essential (primary) hypertension Plan Full code Fluid restriction to 1200 cc Cardiac diet Eliquis will be sufficient with DVT prophylaxis Famotidine for PUD prophylaxis Plan for the day: Switch back to Lasix 40 mg oral twice daily. Wean oxygen supplementation keeping saturation over 90%. Once amiodarone drip infusion is finished switch to amiodarone 200 mg twice daily. Can be discharged on 200 mg twice daily for 7 days followed by 200 mg daily. Monitor blood pressures. Goal would be less than 140/90 mmHg. Can add Imdur if blood pressure is elevated which would also help with mitral regurgitation. Continue with fluid restriction. Discussed anticoagulation with the patient given being in A-fib with RVR for stroke prevention. She is agreeable. Will start on Eliquis 5 mg twice daily. Stop heparin 5000 every 8 hourly for DVT prophylaxis. MRSA swab negative. Body fluid cultures so far negative. Discontinue vancomycin. Continue with Zosyn to finish a 5-day course. Would not need any oral antibiotics on discharge. Monitor potassium. Replace 40 mEq additional. Keep potassium around 4. Discharge plan: Patient remains hemodynamically stable, on minimal oxygen supplementation without any further rapid ventricular rate while switching to oral amiodarone can be discharged in next 24 hours home. 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
[2024-02-02] MEDS: FUROsemide 40 mg Tablet PO (15:09)
[2024-02-02] MEDS: apixaban 5 mg Tablet PO (21:02)
[2024-02-02] MEDS: atorvastatin 40 mg Tablet PO (21:02)
[2024-02-03] VITALS (8 sets, daily range): BP systolic 129–149; BP diastolic 61–78; PULSE 68–86; RESP 16–24; TEMP 36.6; O2SAT 88–100
[2024-02-03] MEDS: piperacillin-tazobactam 3.375 GM in sodium chloride 0.9% (plus) 50 ML IV ×2 (00:13→10:29)
[2024-02-03 05:08] LABS: Basophils # 0.1 10^3/uL (0.0-0.1); Basophils % 0.5 %; Eosinophils # 0.4 10^3/uL (0.0-0.8); Eosinophils % 4.1 %; Hematocrit 42.8 % (36-47); Lymphocytes # 1.1 10^3/uL (0.8-4.8); Lymphocytes % 11.7 %; Mean Corpuscular HGB Conc 31.5 g/dL (30-55); Mean Corpuscular Hemoglobin 27.2 pg (27-33); Mean Corpuscular Volume 86.3 fl (85-98); Monocytes # 1.1 10^3/uL (0.2-0.9); Neutrophils % 72.3 %; Nucleated Red Blood Cells % 0 %; Platelet Count 263 10^3/cmm (157-399); Red Blood Count 4.96 10^6/uL (3.85-5.65); Red Cell Distribution Width 13.7 % (12.1-15.1); White Blood Count 9.68 10^3/uL (3.29-11.43)
[2024-02-03 05:36] LABS: Alanine Aminotransferase 20 U/L (0-33); Albumin Level 3.2 g/dL (3.5-5.2); Alkaline Phosphatase 75 U/L (35-105); Anion Gap 14.8 (5-19); Aspartate Amino Transferase 22 U/L (0-32); Blood Urea Nitrogen 20 mg/dL (8-23); Calcium 8.9 mg/dL (8.5-10.5); Carbon Dioxide 32 mmol/L (22-29); Chloride 101 mmol/L (98-107); Creatinine Clr Calc Pharmacy 40.7922; Globulin 2.5 g/dL (1.3-4.6); Glucose 132 mg/dL (65-115); Osmolality Calculated 302 mOsm/kg (285-295); Potassium 3.8 mmol/L (3.5-5.1); Sodium 144 mmol/L (136-145); Total Bilirubin 0.5 mg/dL (0.15-1.2); Total Protein 5.7 g/dL (6.6-8.7)
[2024-02-03] MEDS: famotidine 20 mg Tablet PO ×2 (10:27→17:04)
[2024-02-03] MEDS: amiodarone 200 mg Tablet PO ×2 (10:27→17:04)
[2024-02-03] MEDS: apixaban 5 mg Tablet PO (10:28)
[2024-02-03] MEDS: sennosides-docusate Tablet 1 TAB PO (10:28)
[2024-02-03] MEDS: potassium chloride ER 20 mEq Tablet 40 MEQ PO (10:28)
[2024-02-03] MEDS: ferrous gluconate 324 mg Tablet PO (10:28)
[2024-02-03] MEDS: FUROsemide 40 mg Tablet PO ×2 (10:29→17:04)
--- NOTE | 2024-02-03 11:44 | PC.SOCIAL ---
Pg 2 IMM Explained to pt Pg 2 IMM. No questions voiced. Provided pt a copy. Initialed, dated, & timed a copy & placed in chart.
[2024-02-03] MEDS: ondansetron 2 mg/ML SDV 2 mL 4 MG IVP (15:30)
--- NOTE | 2024-02-03 20:17 | PM.DCS ---
Discharge Providers Date of Admission: 01/29/24 10:21 Date of Discharge: February 03, 2024 Attending Provider at Admission: Brendan Hardin MD Attending Provider at Discharge: Gregor Smith Primary Care Provider: MARCIE Cordoba Diagnoses at Discharge Discharge Diagnosis (1) Hypoxic respiratory failure: Status: Acute (2) CHF (congestive heart failure): Status: Acute Qualifiers: Heart failure chronicity: acute Heart failure type: unspecified Qualified Code(s): I50.9 - Heart failure, unspecified Permanent problem details: Diastolic (3) Atrial fibrillation with RVR: Status: Acute (4) Pleural effusion: Status: Acute (5) 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 Patient is stating that she has not been able to lay flat at all since her discharge, she thinks her Lasix has stopped working for her, she does not use oxygen at baseline, currently on 2 L, no active chest pain, fever or diarrhea. Patient does not have any previous diagnosis of sleep apnea. She is compliant with her medications, she lives with her at home. Hospital Course Hospital Course She was admitted and treated for acute diastolic congestive heart failure exacerbation, received treatment with IV diuretics, fluid restriction, continue to have gradual improvement of volume overload, lower extremity edema with significant improvement. Empirically was treated with Zosyn while in the hospital, pleural effusion was assessed with thoracentesis which was suggestive of transudative effusion, no growth on cultures. During hospitalization just prior to discharge attempt yesterday went into A-fib with RVR, was treated with amiodarone. Started on Eliquis. Options were discussed that she has some concerns regarding her being able to afford Eliquis, however, as this will be her first payment with insurance going towards her deductible mills was anticipated to be lower on subsequent refills and she is agreeable to proceed. She is notified by phone regarding availability of amiodarone prescription. Please reassess atrial fibrillation control, consider switch away from amiodarone, monitor for amiodarone related adverse effects that may affect her eyes, thyroid, lungs, liver. Physical Exam Const: COMMON NORMALS: patient oriented x3 and alert GENERAL APPEARANCE: cooperative ORIENTATION/CONSCIOUSNESS: Yes awake HENMT: COMMON NORMALS: oropharynx normal Neck/C-Spine: COMMON NORMALS: no JVD Resp: COMMON NORMALS: normal respiratory effort and clear to auscultation bilaterally AUSCULTATION: clear to auscultation bilaterally Cardio: COMMON NORMALS: no JVD, regular rhythm, S1 normal heart sound present, S2 normal heart sound present and No murmurs present (Cardio) RHYTHM: regular rhythm HEART SOUNDS: S1 normal heart sound present and S2 normal heart sound present GI: COMMON NORMALS: Normal to inspection, nondistended, normoactive bowel sounds present, Soft to palpation and non-tender PALPATION: Yes Soft to palpation Extremity: COMMON NORMALS: no joint enlargement and no pedal edema Neuro: COMMON NORMALS: patient oriented x3 and moves all extremities SENSORIUM/ORIENTATION: Yes alert Skin: COMMON NORMALS: no rashes or lesions noted GENERAL SKIN EXAM: no rashes or lesions noted Urinary Catheter Management: Hackett: Cath Placed During This Visit: yes, but has since been removed by the nurse Reason for Continuing Indwelling Catheter: Accurate Measurement of Urinary Output in Critically Ill Patients Urinary Catheter Date of Insertion: 01/28/24 Urinary Catheter Time of Insertion: 23:45 Date Urinary Catheter Removed: 02/01/24 Time Urinary Catheter Discontinued: 10:30 Discharge Data Studies Completed and Pending Completed Studies During Hospitalization Category Date Time Status CT angio chest PE protcl [id number] Stat Cat Scan 01/30/24 17:06 Completed XR chest 1V portable [id number] Stat Exams 01/28/24 15:32 Completed XR chest 1V portable [id number] Stat Exams 01/29/24 12:02 Completed US thoracentesis [id number] Routine Ultrasound 01/29/24 22:07 Completed Pending at discharge Category Date Time Status Anaerobic Culture Routine Lab 01/30/24 10:45 Results Body Fluid Culture & GS Routine Lab 01/30/24 10:45 Results Fungal Culture not HR/SK/BL Routine Lab 01/30/24 10:45 Results Mycobacteria, Culture w/Fluor Routine Lab 01/30/24 10:45 Results Radiology Impressions Chest CTA 01/30/24 17:06 IMPRESSION: CHF with large bilateral pleural effusions Laboratory Results WBC 9.68 10^3/uL (3.29-11.43) 02/03/24 04:18 RBC 4.96 10^6/uL (3.85-5.65) 02/03/24 04:18 Hgb 13.50 g/dL (11.27-16.99) 02/03/24 04:18 Hct 42.8 % (36-47) 02/03/24 04:18 MCV 86.3 fl (85-98) 02/03/24 04:18 MCH 27.2 pg (27-33) 02/03/24 04:18 MCHC 31.5 g/dL (30-55) 02/03/24 04:18 RDW 13.7 % (12.1-15.1) 02/03/24 04:18 Plt Count 263 10^3/cmm (157-399) 02/03/24 04:18 MPV 10.0 fL (7.4-10.4) 02/03/24 04:18 Neut % (Auto) 72.3 % 02/03/24 04:18 Lymph % (Auto) 11.7 % 02/03/24 04:18 Armstrong % (Auto) 11.0 % 02/03/24 04:18 Eos % (Auto) 4.1 % 02/03/24 04:18 Baso % (Auto) 0.5 % 02/03/24 04:18 Neut # (Auto) 7.00 10^3/uL (1.8-7.7) 02/03/24 04:18 Lymph # (Auto) 1.1 10^3/uL (0.8-4.8) 02/03/24 04:18 Armstrong # (Auto) 1.1 10^3/uL (0.2-0.9) H 02/03/24 04:18 Eos # (Auto) 0.4 10^3/uL (0.0-0.8) 02/03/24 04:18 Baso # (Auto) 0.1 10^3/uL (0.0-0.1) 02/03/24 04:18 Nucleated RBC % (auto) 0 % 02/03/24 04:18 Total Counted Not Reportable 01/28/24 12:11 Nucleated RBCs # 0.0 /100WBC 02/03/24 04:18 PT 15.60 SECONDS (12.1-14.9) H 01/29/24 05:53 INR 1.20 (0.8-1.2) 01/29/24 05:53 D-Dimer 2.43 ug/mLFEU (0-0.59) H 01/28/24 16:02 Sodium 144 mmol/L (136-145) 02/03/24 04:18 Potassium 3.8 mmol/L (3.5-5.1) 02/03/24 04:18 Chloride 101 mmol/L (98-107) 02/03/24 04:18 Carbon Dioxide 32 mmol/L (22-29) H 02/03/24 04:18 Anion Gap 14.8 (5-19) 02/03/24 04:18 BUN 20 mg/dL (8-23) 02/03/24 04:18 Creatinine 1.1 mg/dL (0.5-0.9) H 02/03/24 04:18 GFR Calculation Not Reportable 02/03/24 04:18 Glucose 132 mg/dL (65-115) H 02/03/24 04:18 Calculated Osmolality 302 mOsm/kg (285-295) H 02/03/24 04:18 Calcium 8.9 mg/dL (8.5-10.5) 02/03/24 04:18 Phosphorus 3.8 mg/dL (2.5-4.5) 01/29/24 05:53 Magnesium 2.0 mg/dL (1.7-2.3) 01/29/24 05:53 Iron 17 ug/dL (37-145) L 01/29/24 05:53 TIBC 233 mcg/dl 01/29/24 05:53 % Saturation 7.2 % (20-50) L 01/29/24 05:53 Unsat Iron Binding 216 ug/dL (112-347) 01/29/24 05:53 Total Bilirubin 0.5 mg/dL (0.15-1.2) 02/03/24 04:18 AST 22 U/L (0-32) 02/03/24 04:18 ALT 20 U/L (0-33) 02/03/24 04:18 Alkaline Phosphatase 75 U/L (35-105) 02/03/24 04:18 Lactate Dehydrogenase 156 U/L (135-214) 01/29/24 05:53 Troponin T Baseline 14 ng/L (0-10) H 01/28/24 16:02 Troponin T 120 Minute 13.09 ng/L (0-10) H 01/28/24 18:15 Delta Troponin T -0.91 ABS# (0-10) L 01/28/24 18:15 Troponin T Hi Sens 6Hr 18.84 ng/L (0-10) H 01/28/24 21:59 Troponin T Hi Sens 6Hr Delta 4.84 ng/L (0-12) 01/28/24 21:59 C-Reactive Protein 45.7 mg/L (0.0-4.9) H 01/29/24 05:53 NT-Pro-B Natriuret Pep 441 pg/mL (0-450) 01/28/24 16:02 Total Protein 5.7 g/dL (6.6-8.7) L 02/03/24 04:18 Albumin 3.2 g/dL (3.5-5.2) L 02/03/24 04:18 Globulin 2.5 g/dL (1.3-4.6) 02/03/24 04:18 Vitamin B12 616 pg/mL (232-1245) 01/28/24 18:15 Urine Color Yellow (Yellow) 01/29/24 09:45 Urine Appearance Sl hazy (CLEAR) A 01/29/24 09:45 Urine pH 7 (5-7) 01/29/24 09:45 Ur Specific [place] 1.005 (1.005-1.030) 01/29/24 09:45 Urine Protein Neg (Negative) 01/29/24 09:45 Urine Glucose (UA) Norm (Normal) 01/29/24 09:45 Urine Ketones Negative (Negative) 01/29/24 09:45 Urine Blood 3+ (Negative) H 01/29/24 09:45 Urine Nitrate Negative (Negative) 01/29/24 09:45 Urine Bilirubin Neg (Negative) 01/29/24 09:45 Urine Urobilinogen Norm mg/dL (Negative) 01/29/24 09:45 Ur Leukocyte Esterase 1+ (Negative) H 01/29/24 09:45 Urine RBC 10-15 /hpf (0-2) H 01/29/24 09:45 Urine WBC 5-10 /hpf (0-5) H 01/29/24 09:45 Ur Squamous Epith Cells 0-4 /hpf (0-5) H 01/29/24 09:45 Amorphous Sediment Not Reportable 01/29/24 09:45 Urine Bacteria 1+ /hpf (NONE) H 01/29/24 09:45 Urine Mucus 3+ /hpf 01/29/24 09:45 Fld Crystal Laterality Left lower 01/28/24 12:11 Pleural Color Yellow (Pale Yellow) H 01/28/24 12:11 Pleural Appearance Cloudy (CLEAR) 01/28/24 12:11 Pleural pH 8.00 (6.5-7.5) H 01/28/24 12:11 Pleural WBC 1714.000 /uL (0-1000) H 01/28/24 12:11 Pleural RBC 5.000 10^3/uL 01/28/24 12:11 Pleural Mononuc # Auto 1.009 10^3/uL 01/28/24 12:11 Pleural Other Cells Not Reportable 01/28/24 12:11 Pleural Polynuclear % 41 % 01/28/24 12:11 Pleural Polynuclear # 0.705 10^3/uL 01/28/24 12:11 Pleural Mononuclear % 59 % 01/28/24 12:11 Pleural Other Cells Lt Left lung 01/28/24 12:11 Pleural Total Protein 3.4 g/dL 01/28/24 12:11 Pleural Albumin 2.5 g/dL 01/28/24 12:11 Pleural LDH 150 U/L 01/28/24 12:11 Pleural Glucose 128.0 mg/dL 01/28/24 12:11 Vancomycin Trough 20.1 ug/mL (10-15) H 02/01/24 20:59 MRSA (PCR) Not detected (NOT DETECTED) 01/29/24 21:55 Path Cons w/Slide Yes 01/28/24 12:11 Pathology Message Yes 01/28/24 12:11 Vitals Last Vital Signs Temp 97.8 F 02/03/24 04:00 Pulse 85 02/03/24 14:56 Resp 24 H 02/03/24 14:56 BP 149/61 02/03/24 14:56 Pulse Ox 97 02/03/24 14:56 O2 Del Method Nasal Cannula 03/25/24 13:30 O2 Flow Rate 2 02/03/24 14:39 Discharge Plan Discharge Patient Disposition: Home Condition: Stable Prescriptions: New famotidine 20 mg Tablet 20 mg PO BID Qty: 20 0RF Eliquis 5 mg tablet 5 mg PO BID Qty: 180 0RF amiodarone 200 mg tablet 200 mg PO BID Qty: 180 0RF Rx Instructions: Take 100mg BID for 7 days then take 100mg BID Continued (DME) HINGED ELBOW BRACE. See Rx Instructions .ROUTE .MEDSUPPLY Qty: 1 0RF Rx Instructions: As directed set 0-90 atorvastatin 40 mg tablet 40 mg PO BEDTIME Qty: 30 2RF metoprolol tartrate 25 mg tablet 25 mg PO BID@0900,2100 Qty: 60 2RF aspirin 81 mg tablet,delayed release (DR/EC) 81 mg PO DAILY Qty: 30 2RF potassium chloride 10 mEq tablet extended release 10 meq PO DAILY Qty: 30 2RF (DME) cam boot See Rx Instructions .Route .MEDSUPPLY Qty: 1 0RF Rx Instructions: As directed multivitamin Tablet 1 tab PO DAILY aspirin 325 mg Tablet 650 mg PO DAILY PRN (Reason: Pain) calcium carbonate 500 mg calcium (1,250 mg) Tablet 500 mg PO QAM albuterol sulfate 90 mcg/actuation HFA aerosol inhaler 2 puff INHALATION QID PRN (Reason: Shortness Of Breath Or Wheezing) Changed Lasix 40 mg tablet 40 mg PO BID Qty: 30 2RF Rx Instructions: Take 3 times a day till 02/23 then twice a day After that Discharge Orders: Discharge Order (Routine); Ordered 02/03/24 Ordered By: Gregor Smith Other Ambulatory Orders: DME: Oxygen (Order) Location: None Selected Ordered By: Gregor Smith Referrals: Anyi Etienne FNP-C [Primary Care Provider] - 02/05/24 10:00 am () Discharge Diet: Cardiac Discharge Activity: Resume usual activity and Increase activity as tolerated Patient Instructions: Famotidine (By mouth) (Acid Controller, Acid Millroom Supervisor, Pepcid AC, Pepcid), Amiodarone (By mouth) (Cordarone, Pacerone), Apixaban (By mouth), Heart Failure (DC), A-fib (Atrial Fibrillation) (DC), CHF Stoplight, Opioid Safety Activity Restrictions/Additional Instructions: Restrict fluid intake to less than 1500 cc, salt intake to less than 2 g daily. Advised to check weight daily at home. Is advised that weight today would be the dry weight and if body weight increases by around 5 pounds, patient is to take an extra dose of Lasix daily till body weight comes down to weight today. If not able to come down to dry body weight in 1 week, then is to call cardiology office for further recommendations. Patient was counseled in detail to take medications regularly as prescribed. 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
--- NOTE | 2024-02-04 09:01 | PC.NURSE ---
[facility] called for medication verification...dr crespo notified...the correct dose of amioderone is 200 mg po bid x 7 days;then 100 mg po bid thereafter
== END 2024-02-03 18:00 | disposition home or self-care (01) | DRG 291 ==
LOC: ER 17:18 → MEDSURG 20:50 → CSU 01-29 14:01
PROVIDERS: Student in an Organized Health Care Education/Training Program; Admitting Provider Internal Medicine; Emergency Provider Emergency Medicine; PCP Nurse Practitioner Family; Visit Provider Internal Medicine
DX: I11.0 Hypertensive heart disease with heart failure (principal); I50.33 Acute on chronic diastolic (congestive) heart failure; J90 Pleural effusion, not elsewhere classified; I48.91 Unspecified atrial fibrillation; I34.0 Nonrheumatic mitral (valve) insufficiency; E87.6 Hypokalemia; I27.20 Pulmonary hypertension, unspecified; F41.9 Anxiety disorder, unspecified
CPT/HCPCS: 32555; 36415; 51702; 71045; 71046; 71275; 80048; 80053; 80202; 80503; 81001; 81015; 82042; 82607; 82945; 83540; 83550; 83615; 83735; 83880; 83986; 84100; 84157; 84484; 85025; 85378; 85610; 86140; 86403; 87015; 87040; 87070; 87075; 87086; 87102; 87116; 87205; 87206; 87449; 87641; 87801; 89050; 93005; 94760; 96365; 96367; 96372; 96375; 96376; 97110; 97116; 97161; 99285; G0378; J0283; J0456; J1644; J1940; J2060; J2270; J2405; J2543; J3370; J3490; J7050

== ENCOUNTER → 2024-02-13 10:43 | Outpatient (BNVA) | payer MEDICARE, SELFPAY | PROVIDERS: PCP Nurse Practitioner Family; Visit Provider Internal Medicine Cardiovascular Disease | DX: R06.02 Shortness of breath (principal); I50.9 Heart failure, unspecified | CPT/HCPCS: 36415; 80048; 83880; 99214 ==

== ENCOUNTER 2024-02-24 10:53 | Inpatient (IN) | payer MEDICARE, SELFPAY ==
[2024-02-24] VITALS (36 sets, daily range): BP systolic 106–125; BP diastolic 49–71; PULSE 56–68; RESP 18–43; TEMP 36.6–36.8; O2SAT 87–99; BMI 28.2; BMI 28.1
--- NOTE | 2024-02-24 11:08 | ECG_ITS ---
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 Measurements Intervals [place] Rate: 63 P: 57 NE: 164 QRS: 43 QRSD: 84 T: 14 QT: 370 QTc: 381 Interpretive Statements SINUS RHYTHM WITH SINUS ARRHYTHMIA POSSIBLE RIGHT VENTRICULAR CONDUCTION DELAY [RSR (QR) IN V1/V2] NONSPECIFIC T-WAVE ABNORMALITY Compared to ECG 02/01/2024 14:02:04 Atrial flutter no longer present T-wave abnormality still present Electronically Signed On 02-24-2024 19:24:06 CDT by Ignacio Rivers M.D. [email or web address]
--- NOTE | 2024-02-24 11:20 | XR_ITS ---
WS: [id number] Exam: XR chest 1V portable [id number] Date/Time of Exam: 02/24/2024 11:32 AM Reason For Exam: dyspnea/cough Comparison 01/29/2024. Moderate-sized bibasal pleural effusions noted. Compressive atelectasis of both lower lobes. The hear t is enlarged and there is pulmonary vascular congestion. No pneumothorax. Bony structures are intact . The mediastinum is normal in contour. IMPRESSION: 1. Findings most suggestive of chronic congestive heart failure with prominent bibasal pleural effusi ons.
--- NOTE | 2024-02-24 11:21 | W.ED.GENADLT ---
HPI - General Adult General: Chief complaint: Shortness of Breath/Dyspnea Stated complaint: sob, fluid build up on legs, sent from [facility] Time Seen by Provider: 02/24/24 11:18 Source: patient Mode of arrival: ambulatory History of Present Illness: 70-year-old female presents emergency room complaining of worsening shortness of breath. She has severe congestive heart failure she had 2 hospitalizations in the last month and a half. She has noticed decreased urinary output other diuretics increasing leg swelling and worsening orthopnea. Onset (ago): day(s) Relieving factors: rest and other (Upright) Exacerbating factors: other (Lying down/exertion) Associated symptoms: Deny chest pain, confusion, cough, diaphoresis, decreased appetite, dyspnea, fevers/chills, headache(s), malaise, nausea, rash, palpitations, seizures, short of breath, syncope, vomiting or weakness Review of Systems Const: Denies: fever(s), chills, malaise or diaphoresis Card: Denies: chest pain, palpitations or syncope Resp: Denies: dyspnea GI: Denies: abdominal pain, nausea or vomiting : Denies: dysuria, urinary frequency or urinary urgency Musc: Denies: neck pain or back pain Skin/Breast: Denies: rash Neuro: Denies: headache(s) or confusion PFSH ED PFSH: Medical History 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 Hypertension CHF (congestive heart failure) Diastolic Lisfranc's dislocation Fracture of third metatarsal bone of left foot Fracture of second metatarsal bone of left foot Nondisplaced fracture of first left metatarsal bone Closed left trimalleolar fracture Anxiety No pertinent past medical history Surgical History History of foot surgery Social History Smoking and tobacco/nicotine status: never used tobacco/nicotine Alcohol intake: never Substance/Drug Use: never Physical Exam Const: GENERAL APPEARANCE: cooperative and comfortable ORIENTATION/CONSCIOUSNESS: Yes awake, Yes oriented to person, Yes oriented to place and Yes oriented to time HENMT: COMMON NORMALS: normocephalic, atraumatic and hearing grossly normal bilaterally HEAD & SCALP: normocephalic and atraumatic Resp: COMMON NORMALS: normal respiratory effort, No retractions and No use of accessory muscles AUSCULTATION: crackles Cardio: COMMON NORMALS: regular rate, regular rhythm and No murmurs present (Cardio) RATE: regular rate RHYTHM: regular rhythm GI: COMMON NORMALS: Soft to palpation and No hepatosplenomegaly present AUSCULTATION: Yes normoactive bowel sounds PALPATION: Yes Soft to palpation, No Tenderness to palpation present (GI), No Guarding due to palpation present (GI) and Yes No hepatosplenomegaly present Extremity: COMMON NORMALS: normal to inspection, capillary refill normal and no calf tenderness GENERAL: Yes edema Neuro: SENSORIUM/ORIENTATION: Yes oriented to person, Yes oriented to place and Yes oriented to time Skin: COMMON NORMALS: no rashes or lesions noted GENERAL SKIN EXAM: no rashes or lesions noted Course Vital Signs: Vital signs: Vital Signs Temperature 98.0 F 02/24/24 11:12 Pulse Rate 57 L 02/24/24 13:00 Respiratory Rate 28 H 02/24/24 13:00 Blood Pressure 120/60 02/24/24 13:00 Pulse Oximetry 97 02/24/24 12:55 Oxygen Delivery Me thod Nasal Cannula 02/24/24 12:05 Oxygen Flow Rate 2 02/24/24 12:05 [facility] - General Adult Medical Decision Making Recurrence exacerbation of COPD. Patient has well-preserved ejection fraction but her diastolic filling is extremely limited according to her last echo done in December. We did give her some Lasix when she arrived here because she has increased fluid retention she has had some good output with it so far but still short of breath with any activity even repositioning in the bed. Discussed with hospitalist orders written Medical Records I reviewed the patient's medical records. Lab Data I reviewed the patient's lab results. 02/24/24 11:40 02/24/24 11:40 Laboratory Results WBC 7.63 10^3/uL (3.29-11.43) 02/24/24 11:40 RBC 4.40 10^6/uL (3.85-5.65) 02/24/24 11:40 Hgb 11.90 g/dL (11.27-16.99) 02/24/24 11:40 Hct 36.8 % (36-47) 02/24/24 11:40 MCV 83.6 fl (85-98) L 02/24/24 11:40 MCH 27.0 pg (27-33) 02/24/24 11:40 MCHC 32.3 g/dL (30-55) 02/24/24 11:40 RDW 15.1 % (12.1-15.1) 02/24/24 11:40 Plt Count 215 10^3/cmm (157-399) 02/24/24 11:40 MPV 10.2 fL (7.4-10.4) 02/24/24 11:40 Neut % (Auto) 62.7 % 02/24/24 11:40 Lymph % (Auto) 12.2 % 02/24/24 11:40 [place] % (Auto) 10.2 % 02/24/24 11:40 Eos % (Auto) 13.5 % 02/24/24 11:40 Baso % (Auto) 1.0 % 02/24/24 11:40 Neut # (Auto) 4.78 10^3/uL (1.8-7.7) 02/24/24 11:40 Lymph # (Auto) 0.9 10^3/uL (0.8-4.8) 02/24/24 11:40 [place] # (Auto) 0.8 10^3/uL (0.2-0.9) 02/24/24 11:40 Eos # (Auto) 1.0 10^3/uL (0.0-0.8) H 02/24/24 11:40 Baso # (Auto) 0.1 10^3/uL (0.0-0.1) 02/24/24 11:40 Nucleated RBC % (auto) 0 % 02/24/24 11:40 Nucleated RBCs # 0.0 /100WBC 02/24/24 11:40 Sodium 136 mmol/L (136-145) 02/24/24 11:40 Potassium 4.0 mmol/L (3.5-5.1) 02/24/24 11:40 Chloride 94 mmol/L (98-107) L 02/24/24 11:40 Carbon Dioxide 30 mmol/L (22-29) H 02/24/24 11:40 Anion Gap 16.0 (5-19) 02/24/24 11:40 BUN 24 mg/dL (8-23) H 02/24/24 11:40 Creatinine 1.0 mg/dL (0.5-0.9) H 02/24/24 11:40 GFR Calculation Not Reportable 02/24/24 11:40 Glucose 144 mg/dL (65-115) H 02/24/24 11:40 Calculated Osmolality 289 mOsm/kg (285-295) 02/24/24 11:40 Calcium 9.1 mg/dL (8.5-10.5) 02/24/24 11:40 Magnesium 2.2 mg/dL (1.7-2.3) 02/24/24 11:40 Total Bilirubin 1.1 mg/dL (0.15-1.2) 02/24/24 11:40 AST 13 U/L (0-32) 02/24/24 11:40 ALT 18 U/L (0-33) 02/24/24 11:40 Alkaline Phosphatase 84 U/L (35-105) 02/24/24 11:40 Troponin T Baseline 24 ng/L (0-10) H 02/24/24 11:40 NT-Pro-B Natriuret Pep 1102 pg/mL (0-450) H 02/24/24 11:40 Total Protein 6.2 g/dL (6.6-8.7) L 02/24/24 11:40 Albumin 3.8 g/dL (3.5-5.2) 02/24/24 11:40 Globulin 2.4 g/dL (1.3-4.6) 02/24/24 11:40 Urine Color Yellow (Yellow) 02/24/24 12:31 Urine Appearance Clear (CLEAR) 02/24/24 12:31 Urine pH 8 (5-7) H 02/24/24 12:31 Ur Specific [place] 1.005 (1.005-1.030) 02/24/24 12:31 Urine Protein Neg (Negative) 02/24/24 12:31 Urine Glucose (UA) Norm (Normal) 02/24/24 12:31 Urine Ketones Negative (Negative) 02/24/24 12:31 Urine Blood Neg (Negative) 02/24/24 12:31 Urine Nitrate Negative (Negative) 02/24/24 12:31 Urine Bilirubin Neg (Negative) 02/24/24 12:31 Prot Sulfosalicylic Acd Negative (Negative) 02/24/24 12:31 Urine Urobilinogen Norm mg/dL (Negative) 02/24/24 12:31 Ur Leukocyte Esterase Negative (Negative) 02/24/24 12:31 All radiology interpretation(s) finalized by discharge Discharge Plan Discharge Patient Disposition: Admitted As Inpatient Clinical Impression: Diastolic congestive heart failure, Bilateral pleural effusion Condition: Stable Prescriptions: No Action (DME) HINGED ELBOW BRACE. See Rx Instructions .ROUTE .MEDSUPPLY Qty: 1 0RF Rx Instructions: As directed set 0-90 famotidine 20 mg tablet 20 mg PO BID metoprolol tartrate 25 mg tablet 25 mg PO BID@0900,2100 Qty: 60 2RF ferrous gluconate 324 mg (38 mg iron) tablet 324 mg PO DAILY Qty: 30 5RF (DME) cam boot See Rx Instructions .Route .MEDSUPPLY Qty: 1 0RF Rx Instructions: As directed ondansetron 8 mg tablet,disintegrating 8 mg PO Q8H PRN (Reason: nausea and vomiting) Qty: 30 2RF potassium chloride 10 mEq tablet extended release 10 meq PO DAILY Qty: 30 2RF multivitamin Tablet 1 tab PO DAILY calcium carbonate 500 mg calcium (1,250 mg) Tablet 500 mg PO QAM albuterol sulfate 90 mcg/actuation HFA aerosol inhaler 2 puff INHALATION QID PRN (Reason: Shortness Of Breath Or Wheezing) furosemide [Lasix] 40 mg tablet 40 mg PO BID Qty: 30 2RF Eliquis 5 mg tablet 5 mg PO BID Qty: 180 0RF amiodarone 200 mg tablet 100 mg PO BID Referrals: Anyi Etienne FNP-C [Primary Care Provider] - Coding Level of Care Code ED 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
[2024-02-24 11:49] LABS: Basophils # 0.1 10^3/uL (0.0-0.1); Eosinophils % 13.5 %; Hematocrit 36.8 % (36-47); Lymphocytes # 0.9 10^3/uL (0.8-4.8); Lymphocytes % 12.2 %; Mean Corpuscular HGB Conc 32.3 g/dL (30-55); Mean Corpuscular Volume 83.6 fl (85-98); Mean Platelet Volume 10.2 fL (7.4-10.4); Monocytes # 0.8 10^3/uL (0.2-0.9); Monocytes % 10.2 %; Neutrophils # 4.78 10^3/uL (1.8-7.7); Neutrophils % 62.7 %; Nucleated Red Blood Cells % 0 %; Platelet Count 215 10^3/cmm (157-399); Red Cell Distribution Width 15.1 % (12.1-15.1); White Blood Count 7.63 10^3/uL (3.29-11.43)
[2024-02-24] MEDS: FUROsemide 10 mg/mL SDV 10mL 60 MG IVP (11:50)
[2024-02-24 12:04] LABS: Troponin(5th) Baseline 24 ng/L (0-10)
[2024-02-24 12:24] LABS: Alanine Aminotransferase 18 U/L (0-33); Albumin Level 3.8 g/dL (3.5-5.2); Alkaline Phosphatase 84 U/L (35-105); Aspartate Amino Transferase 13 U/L (0-32); Blood Urea Nitrogen 24 mg/dL (8-23); Calcium 9.1 mg/dL (8.5-10.5); Carbon Dioxide 30 mmol/L (22-29); Globulin 2.4 g/dL (1.3-4.6); Glucose 144 mg/dL (65-115); Magnesium 2.2 mg/dL (1.7-2.3); NT Pro B Type Natriuretic Pept 1102 pg/mL (0-450); Total Bilirubin 1.1 mg/dL (0.15-1.2); Total Protein 6.2 g/dL (6.6-8.7)
[2024-02-24 12:38] LABS: Add Urine Microscopic? NO; Charge for UA Resulting for Rev
[2024-02-24 12:39] LABS: Creatinine Clr Calc Pharmacy 42.5069
[2024-02-24 12:41] LABS: Chloride 94 mmol/L (98-107); Osmolality Calculated 289 mOsm/kg (285-295); Sodium 136 mmol/L (136-145)
[2024-02-24 12:44] LABS: Urine Appearance Clear (CLEAR); Urine Color Yellow (Yellow); pH Urine 8 (5-7)
[2024-02-24 12:45] LABS: Bilirubin Urine Neg (Negative); Blood Urine Neg (Negative); Glucose Urine UA Norm (Normal); Ketones Urine Negative (Negative); Leukocyte Esterase Urine Negative (Negative); Nitrate Urine Negative (Negative); Protein Urine Neg (Negative); Specific Gravity, Urine 1.005 (1.005-1.030); Sulfosalicylic Acid Urine Negative (Negative); Urobilinogen Urine Norm (Negative)
--- NOTE | 2024-02-24 13:21 | ECG_ITS ---
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 Measurements Intervals [place] Rate: 64 P: 78 NV: 153 QRS: 50 QRSD: 79 T: 17 QT: 409 QTc: 422 Interpretive Statements SINUS RHYTHM POSSIBLE RIGHT VENTRICULAR CONDUCTION DELAY [RSR (QR) IN V1/V2] NONSPECIFIC T-WAVE ABNORMALITY Compared to ECG 02/24/2024 11:08:28 Sinus arrhythmia no longer present T-wave abnormality still present Electronically Signed On 02-24-2024 19:37:27 CDT by Ignacio Rivers M.D. [id number]
[2024-02-24 14:53] LABS: Troponin 5 2HR 23.92 ng/L (0-10)
[2024-02-24 14:56] LABS: Troponin 5 2HR Delta -0.08 ABS# (0-10)
--- NOTE | 2024-02-24 15:06 | P.HP_ITS ---
Providers/Chief Complaint 2 Admitting Physician: Julienne Nielsen MD Primary Care Provider: MARCIE Cordoba Chief Complaint: sob, fluid build up on legs, sent from [facility] History of Present Illness Arielle Salas is a 78 year old female who was recently discharged from the hospital for management of diastolic CHF/patient Presented back with progressive shortness of breath and leg swelling. Patient is stating that she has not been able to lay flat at all since her discharge, not able to walk around without breathlessness, irrespective of using oxygen at 2LNC. She denies any recent history of fever cold cough nausea vomiting or diarrhea. Denies any chest pain palpitations or dizziness. She reports taking p.o. Lasix 40 mg 3 times a day but with no relief. She had a 2D echo done recently and 01/04 which showed Normal left ventricular size and systolic function, EF 72%. Grade III/IV diastolic dysfunction (restrictive filling pattern), severely elevated filling pressures. Mild left ventricular hypertrophy. No regional wall motion abnormalities. Moderately increased left atrial size. Moderate mitral annular calcification. Moderate prolapse of the posterior mitral leaflet. At least moderate eccentric mitral regurgitation with the regurgitant jet directed anteriorly. Thickened aortic valve. Kjij-ls-gwurrzzn tricuspid valve regurgitation. Moderate pulmonary hypertension with an estimated pulmonary artery peak systolic pressure of 57 mmHg. Moderate pulmonary valve regurgitation. There is no pericardial effusion. In ER she was found to have BNP 1102 Chest x-ray c/w Moderate-sized bibasal pleural effusions noted. Compressive atelectasis of both lower lobes. The heart is enlarged and there is pulmonary vascular congestion. No pneumothorax. Bony structures are intact. The mediastinum is normal in contour. Review of Systems 2 General: Reports: 10 or more systems reviewed and unremarkable except in HPI and below Medications/Allergies Home Medications Medication Instructions Recorded Confirmed Last Taken Type multivitamin 1 tab PO DAILY 02/27/22 02/24/24 02/24/24 History HINGED ELBOW BRACE. #1 ea 03/05/22 02/24/24 Unknown Rx cam boot #1 ea 03/06/22 02/24/24 Unknown Rx metoprolol tartrate 25 mg tablet 25 mg PO BID@0900,2100 #60 tabs 01/14/24 02/24/24 02/24/24 Rx albuterol sulfate 90 mcg/actuation 2 puff inhalation QID PRN 01/29/24 02/24/24 Unknown History aerosol inhaler Shortness Of Breath Or Wheezing calcium carbonate 500 mg PO QAM 01/29/24 02/24/24 02/24/24 History furosemide 40 mg tablet (Lasix) 40 mg PO BID #30 tabs 02/01/24 02/24/24 02/24/24 Rx apixaban 5 mg tablet (Eliquis) 5 mg PO BID #180 tabs 02/03/24 02/24/24 02/24/24 Rx ferrous gluconate 324 mg (38 mg 324 mg PO DAILY #30 tabs 02/05/24 02/24/24 02/24/24 Rx iron) tablet famotidine 20 mg tablet 20 mg PO BID 02/13/24 02/24/24 02/24/24 History ondansetron 8 mg disintegrating 8 mg PO Q8H PRN nausea and 02/13/24 02/24/24 Unknown Rx tablet vomiting #30 tabs potassium chloride 10 mEq 10 meq PO DAILY #30 tabs 02/18/24 02/24/24 02/24/24 Rx tablet,extended release amiodarone 200 mg tablet 100 mg PO BID 02/24/24 02/24/24 02/24/24 History Allergies Allergy/AdvReac Type Severity Reaction Status Date / Time No Known Allergies Allergy Verified 02/24/24 12:00 PFSH Acute 2 PFSH: Medical History 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 Hypertension CHF (congestive heart failure) Diastolic Lisfranc's dislocation Fracture of third metatarsal bone of left foot Fracture of second metatarsal bone of left foot Nondisplaced fracture of first left metatarsal bone Closed left trimalleolar fracture Anxiety No pertinent past medical history Surgical History History of foot surgery Social History Smoking and tobacco/nicotine status: never used tobacco/nicotine Alcohol intake: never Substance/Drug Use: never Vitals/I&O/Wt Last Vital Signs Temp 98.0 F 02/24/24 11:12 Pulse 59 L 02/24/24 14:00 Resp 35 H 02/24/24 14:00 BP 114/49 02/24/24 14:00 Pulse Ox 97 02/24/24 14:39 O2 Del Method Nasal Cannula 02/24/24 14:39 O2 Flow Rate 2 02/24/24 14:39 Weight last 48 hrs Weight 69.853 kg Weight 70.035 kg Physical Exam 2 Narrative: She is alert awake oriented x 3 not in acute distress Chest clear to auscultation bilaterally, no wheezing or rhonchi heart On supplemental oxygen at 2 L nasal cannula Cardiovascular normal heart sounds regular rate and rhythm Abdomen NAD Extremities bilateral 2+ pitting edema present Data 02/24/24 11:40 02/24/24 11:40 A&P Assessment and plan (1) CHF (congestive heart failure): Qualifiers: Heart failure chronicity: acute Heart failure type: unspecified Qualified Code(s): I50.9 - Heart failure, unspecified (2) Bilateral pleural effusion: (3) Atrial fibrillation: (4) Hypertension: Qualifiers: Hypertension type: primary hypertension Qualified Code(s): I10 - Essential (primary) hypertension (5) Dyslipidemia: (6) Emotional stress: Plan 78-year-old female with history of hypertension dyslipidemia congestive heart failure atrial fibrillation on Eliquis bilateral pleural effusions iron deficiency anemia GERD presented with complaint of orthopnea paroxysmal nocturnal dyspnea and worsening bilateral lower extremity edema likely secondary to 1. acute on chronic diastolic congestive heart failure. Fluid restriction up to 1200 cc. Switch to IV Lasix 40 mg twice daily Hackett catheterization. Daily weight. Strict input output charting. daily BMP's and potassium replacement as needed. continue home dose of PO potassium 10meq daily for now. 2. Atrial fibrillation-stable, rate controlled Will continue p.o. Eliquis 5 mg twice daily amiodarone 100 mg twice daily and metoprolol 25 mg twice daily. 3. Resume home medications 4. Cardiac diet 5. DVT prophylaxis, she is already on Eliquis 6. GI prophylaxis with IV Pepcid 20 mg twice a day 7. CODE STATUS discussed with patient, she is DNR/DNI. 8. Need Rehab eval and HH services if needed. Attestations 2 Medical Necessity Statement*: She needs continued hospitalization for management of worsening congestive heart failure and bilateral pleural effusions on oral furosemide therapy. Time Spent in Patient Care: 30 minutes Coding Level of Care Code Acute Code for Chg Fwd Diagnoses Acute congestive heart failure, unspecified heart failure type I50.9 Heart failure chronicity: acute Heart failure type: unspecified Bilateral pleural effusion J90 Atrial fibrillation I48.91 Primary hypertension I10 Hypertension type: primary hypertension Dyslipidemia E78.5 Emotional stress R45.7 Time Spent (min) 30
[2024-02-24] MEDS: FUROsemide 10 mg/mL SDV 4mL 40 MG IVP (16:52)
[2024-02-24] MEDS: famotidine 20 mg/2 mL INJ IVP (16:52)
[2024-02-24] MEDS: apixaban 5 mg Tablet PO (16:53)
[2024-02-24] MEDS: amiodarone 200 mg Tablet 100 MG PO (16:53)
--- NOTE | 2024-02-24 17:21 | ECG_ITS ---
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 Measurements Intervals [place] Rate: 67 P: 81 DC: 141 QRS: 45 QRSD: 94 T: 0 QT: 402 QTc: 425 Interpretive Statements SINUS RHYTHM INCOMPLETE RIGHT BUNDLE BRANCH BLOCK [90+ ms QRS DURATION, TERMINAL R IN V1/V2, 40+ ms S IN I/aVL/V4/V5/V6] NONSPECIFIC T-WAVE ABNORMALITY Compared to ECG 02/24/2024 15:45:59 Incomplete right bundle-branch block now present T-wave abnormality still present Electronically Signed On 02-24-2024 19:38:41 CDT by Ignacio Rivers M.D. [id number]
[2024-02-24 18:06] LABS: Troponin 5 6HR 22.09 ng/L (0-10); Troponin 5 6HR Delta -1.91 ng/L (0-12)
[2024-02-24] MEDS: metoprolol tartrate 25 mg Tablet PO (20:09)
[2024-02-25] VITALS (11 sets, daily range): BP systolic 115–143; BP diastolic 58–75; PULSE 58–67; RESP 18–19; TEMP 36.3–36.9; O2SAT 92–98
[2024-02-25] MEDS: FUROsemide 10 mg/mL SDV 4mL 40 MG IVP ×3 (03:58→15:36)
[2024-02-25] MEDS: famotidine 20 mg/2 mL INJ IVP ×2 (03:58→15:35)
[2024-02-25 05:49] LABS: Anion Gap 13.7 (5-19); Blood Urea Nitrogen 22 mg/dL (8-23); Calcium 8.8 mg/dL (8.5-10.5); Carbon Dioxide 32 mmol/L (22-29); Chloride 98 mmol/L (98-107); Creatinine Clr Calc Pharmacy 45.0035; Glucose 138 mg/dL (65-115); Magnesium 2.4 mg/dL (1.7-2.3); Osmolality Calculated 296 mOsm/kg (285-295); Potassium 3.7 mmol/L (3.5-5.1); Sodium 140 mmol/L (136-145)
[2024-02-25] MEDS: amiodarone 200 mg Tablet 100 MG PO ×2 (08:55→17:14)
[2024-02-25] MEDS: apixaban 5 mg Tablet PO ×2 (08:56→17:15)
[2024-02-25] MEDS: multivitamin therapeutic Tablet 1 TAB PO (08:56)
[2024-02-25] MEDS: ferrous gluconate 324 mg Tablet PO (08:56)
[2024-02-25] MEDS: potassium chloride ER 10 mEq Tablet PO (08:56)
[2024-02-25] MEDS: metoprolol tartrate 25 mg Tablet PO ×2 (08:56→20:29)
--- NOTE | 2024-02-25 09:28 | PC.CHAP ---
Pastoral Care Encounter/Spiritual Assessment Type of Contact [] Declined orientation & mobility specialist visit [] Patient/Family/Request visit [] Outpatient visit [] Follow-up visit [] Physician referral [] Code/Alert [x] Routine visit [] Staff referral [] Actively dying [] Patient sleeping [] Family support [] [] Out of room [] Palliative care [] [] Receiving care in room [] Pre-surgical visit [] Trauma [] Long length of stay [] ICU visit [] Other: Relational/Emotional Strength [x] Patient feels connected with others/family/visitors/staff [] Distress [] Loneliness/isolation [] Abandonment Spirituality of Patient [x] Person of Ana [] Attends Hoahaoism of their Ana [x] Believes in Prayer [] Reads Bible or Uatsdin materials [] There are Spiritual issues to be addressed Core Laying Machine 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 Interventions [x] Prayer x[] Active listening [x] Non-anxious presence [x] Spiritual/emotional support [] Crisis/trauma care [] Spiritual counseling [] Bereavement support [] Provided bereavement packet [] Provided Bible/devotional materials [] Provided toy/stuffed animal, coloring book to patient or family member [] Provided Communion [] Anointing/[place] [] Salvation [x] Completed spiritual assessment [] Other: Impact on Illness or Injury [] Angry [] Fearful [] Anxious [] Often cries [] Exhaustion [] Unable to work [] Unable to attend hinduism [] Unable to walk/stand [] Unable to read [] Unable to drive [] Unable to eat/drink [] Unable to sleep [] Unable to be with family [] Patient intubated [] Other: Summary Time spent with patient 5 min
--- NOTE | 2024-02-25 16:29 | P.PN_ITS ---
Subjective 2 Subjective: No acute overnight events noted. I's and O's reviewed. Seen at bedside, she reports feeling much better as compared to admission. Denied any shortness of breath or chest pain. Medications: Reviewed: Yes Vitals/I&O/Wt Last Vital Signs Temp 97.7 F 02/25/24 12:05 Pulse 61 02/25/24 14:00 Resp 18 02/25/24 12:05 BP 119/68 02/25/24 12:05 Pulse Ox 95 02/25/24 12:05 O2 Del Method Nasal Cannula 02/25/24 12:05 O2 Flow Rate 2 02/25/24 08:40 02/25/24 02/25/24 02/25/24 06:59 14:59 22:59 Intake Total 360 / 1080 600 / 600 Output Total 1000 / 1125 900 / 900 Balance -640 / -45 -300 / -300 Weight last 48 hrs Weight 63.191 kg Weight 69.853 kg Weight 70.035 kg Physical Exam 2 Narrative: She is alert awake oriented x 3 not in acute distress Chest clear to auscultation bilaterally, no wheezing or rhonchi heart On supplemental oxygen at 2 L nasal cannula Cardiovascular normal heart sounds regular rate and rhythm Abdomen NAD Extremities bilateral 2+ pitting edema present Urinary Catheter Management: Hackett: Cath Placed During This Visit: yes Reason for Continuing Indwelling Catheter: Accurate Measurement of Urinary Output in Critically Ill Patients Urinary Catheter Date of Insertion: 02/24/24 Urinary Catheter Time of Insertion: 16:31 Data 02/24/24 11:40 02/25/24 05:16 A&P Assessment and plan (1) CHF (congestive heart failure): Qualifiers: Heart failure chronicity: acute Heart failure type: unspecified Qualified Code(s): I50.9 - Heart failure, unspecified (2) Bilateral pleural effusion: (3) Atrial fibrillation: (4) Hypertension: Qualifiers: Hypertension type: primary hypertension Qualified Code(s): I10 - Essential (primary) hypertension (5) Dyslipidemia: (6) Emotional stress: Plan 78-year-old female with history of hypertension dyslipidemia congestive heart failure atrial fibrillation on Eliquis bilateral pleural effusions iron deficiency anemia GERD presented with complaint of orthopnea paroxysmal nocturnal dyspnea and worsening bilateral lower extremity edema likely secondary to 1. acute on chronic diastolic congestive heart failure. Fluid restriction up to 1200 cc. Switch to IV Lasix 40 mg twice daily Hackett catheterization. Daily weight. Strict input output charting. daily BMP's and potassium replacement as needed. continue home dose of PO potassium 10meq daily for now. 2. Atrial fibrillation-stable, rate controlled Will continue p.o. Eliquis 5 mg twice daily amiodarone 100 mg twice daily and metoprolol 25 mg twice daily. 3. Resume home medications 4. Cardiac diet 5. DVT prophylaxis, she is already on Eliquis 6. GI prophylaxis with IV Pepcid 20 mg twice a day 7. CODE STATUS discussed with patient, she is DNR/DNI. Attestations 2 Medical Necessity Statement*: She needs continued hospitalization for acute congestive heart failure with diuresis with IV Lasix, not responding to oral therapy at home Time Spent in Patient Care: 15 minutes Coding Level of Care Code Acute Code for g Fwd Diagnoses Acute congestive heart failure, unspecified heart failure type I50.9 Heart failure chronicity: acute Heart failure type: unspecified Bilateral pleural effusion J90 Atrial fibrillation I48.91 Primary hypertension I10 Hypertension type: primary hypertension Dyslipidemia E78.5 Emotional stress R45.7 Time Spent (min) 15
[2024-02-26] MEDS: FUROsemide 10 mg/mL SDV 4mL 40 MG IVP (03:24)
[2024-02-26] MEDS: famotidine 20 mg/2 mL INJ IVP (03:24)
[2024-02-26 03:49] VITALS: BP 125/74; PULSE 61; RESP 16; TEMP 36.7; O2SAT 96
[2024-02-26 05:37] LABS: Anion Gap 13.2 (5-19); Blood Urea Nitrogen 26 mg/dL (8-23); Carbon Dioxide 32 mmol/L (22-29); Chloride 97 mmol/L (98-107); Glucose 141 mg/dL (65-115); Magnesium 2.3 mg/dL (1.7-2.3); Osmolality Calculated 295 mOsm/kg (285-295); Potassium 3.2 mmol/L (3.5-5.1); Sodium 139 mmol/L (136-145)
[2024-02-26 05:44] VITALS: PULSE 62
[2024-02-26 07:31] VITALS: BP 128/65; PULSE 64; RESP 17; TEMP 36.8; O2SAT 97
--- NOTE | 2024-02-26 08:19 | PC.SOCIAL ---
Pg 2 IMM. Explained to pt Pg 2 IMM. No questions voiced. Provided pt a copy. Initialed, dated, & timed a copy & placed in chart.
[2024-02-26 08:33] VITALS: PULSE 62; RESP 18; O2SAT 96
[2024-02-26] MEDS: potassium chloride ER 20 mEq Tablet 40 MEQ PO (09:07)
[2024-02-26] MEDS: amiodarone 200 mg Tablet 100 MG PO (09:07)
[2024-02-26] MEDS: multivitamin therapeutic Tablet 1 TAB PO (09:07)
[2024-02-26] MEDS: ferrous gluconate 324 mg Tablet PO (09:08)
[2024-02-26] MEDS: apixaban 5 mg Tablet PO (09:08)
[2024-02-26] MEDS: potassium chloride ER 10 mEq Tablet PO (09:08)
[2024-02-26] MEDS: metoprolol tartrate 25 mg Tablet PO (09:10)
--- NOTE | 2024-02-26 10:08 | P.DS_ITS ---
Discharge Providers Date of Admission: 02/24/24 13:47 Date of Discharge: February 26, 2024 Attending Provider at Admission: Julienne Nielsen MD Attending Provider at Discharge: Julienne Nielsen MD Primary Care Provider: MARCIE Cordoba Diagnoses at Discharge Discharge Diagnosis (1) CHF (congestive heart failure): Status: Acute Qualifiers: Heart failure chronicity: acute Heart failure type: unspecified Qualified Code(s): I50.9 - Heart failure, unspecified Permanent problem details: Diastolic (2) Bilateral pleural effusion: Status: Acute (3) Atrial fibrillation: Status: Acute (4) Hypertension: Status: Acute Qualifiers: Hypertension type: primary hypertension Qualified Code(s): I10 - Essential (primary) hypertension (5) Dyslipidemia: Status: Acute (6) Emotional stress: Status: Acute Reason for Visit Reason for Visit: sob, fluid build up on legs, sent from [facility] Brief History: Arielle Salas is a 78 year old female who was recently discharged from the hospital for management of diastolic CHF/patient Presented back with progressive shortness of breath and leg swelling. Patient is stating that she has not been able to lay flat at all since her discharge, not able to walk around without breathlessness, irrespective of using oxygen at 2LNC. She denies any recent history of fever cold cough nausea vomiting or diarrhea. Denies any chest pain palpitations or dizziness. She reports taking p.o. Lasix 40 mg 3 times a day but with no relief. Hospital Course Hospital Course She was started on IV Lasix 40 mg every 12 hours for diuresis. Input and output monitored with Hackett in place. She is -1 L, but feeling much better as compared to admission, and leg edema improved to 1+. Physical Exam Narrative: She is alert awake oriented x 3 not in acute distress Chest clear to auscultation bilaterally, no wheezing or rhonchi heart On supplemental oxygen at 2 L nasal cannula Cardiovascular normal heart sounds regular rate and rhythm Abdomen NAD Extremities bilateral 1+ pitting edema present Urinary Catheter Management: Hackett: Cath Placed During This Visit: yes Reason for Continuing Indwelling Catheter: Accurate Measurement of Urinary Output in Critically Ill Patients Urinary Catheter Date of Insertion: 02/24/24 Urinary Catheter Time of Insertion: 16:31 Discharge Data Studies Completed and Pending Completed Studies During Hospitalization Category Date Time Status XR chest 1V portable [id number] Stat Exams 02/24/24 11:20 Completed Pending at discharge Category Date Time Status Basic Metabolic Panel AM LABS Lab 02/27/24 04:00 Ordered Magnesium AM LABS Lab 02/27/24 04:00 Ordered Laboratory Results WBC 7.63 10^3/uL (3.29-11.43) 02/24/24 11:40 RBC 4.40 10^6/uL (3.85-5.65) 02/24/24 11:40 Hgb 11.90 g/dL (11.27-16.99) 02/24/24 11:40 Hct 36.8 % (36-47) 02/24/24 11:40 MCV 83.6 fl (85-98) L 02/24/24 11:40 MCH 27.0 pg (27-33) 02/24/24 11:40 MCHC 32.3 g/dL (30-55) 02/24/24 11:40 RDW 15.1 % (12.1-15.1) 02/24/24 11:40 Plt Count 215 10^3/cmm (157-399) 02/24/24 11:40 MPV 10.2 fL (7.4-10.4) 02/24/24 11:40 Neut % (Auto) 62.7 % 02/24/24 11:40 Lymph % (Auto) 12.2 % 02/24/24 11:40 [place] % (Auto) 10.2 % 02/24/24 11:40 Eos % (Auto) 13.5 % 02/24/24 11:40 Baso % (Auto) 1.0 % 02/24/24 11:40 Neut # (Auto) 4.78 10^3/uL (1.8-7.7) 02/24/24 11:40 Lymph # (Auto) 0.9 10^3/uL (0.8-4.8) 02/24/24 11:40 [place] # (Auto) 0.8 10^3/uL (0.2-0.9) 02/24/24 11:40 Eos # (Auto) 1.0 10^3/uL (0.0-0.8) H 02/24/24 11:40 Baso # (Auto) 0.1 10^3/uL (0.0-0.1) 02/24/24 11:40 Nucleated RBC % (auto) 0 % 02/24/24 11:40 Nucleated RBCs # 0.0 /100WBC 02/24/24 11:40 Sodium 139 mmol/L (136-145) 02/26/24 04:33 Potassium 3.2 mmol/L (3.5-5.1) L 02/26/24 04:33 Chloride 97 mmol/L (98-107) L 02/26/24 04:33 Carbon Dioxide 32 mmol/L (22-29) H 02/26/24 04:33 Anion Gap 13.2 (5-19) 02/26/24 04:33 BUN 26 mg/dL (8-23) H 02/26/24 04:33 Creatinine 0.8 mg/dL (0.5-0.9) 02/26/24 04:33 GFR Calculation Not Reportable 02/26/24 04:33 Glucose 141 mg/dL (65-115) H 02/26/24 04:33 Calculated Osmolality 295 mOsm/kg (285-295) 02/26/24 04:33 Calcium 9.0 mg/dL (8.5-10.5) 02/26/24 04:33 Magnesium 2.3 mg/dL (1.7-2.3) 02/26/24 04:33 Total Bilirubin 1.1 mg/dL (0.15-1.2) 02/24/24 11:40 AST 13 U/L (0-32) 02/24/24 11:40 ALT 18 U/L (0-33) 02/24/24 11:40 Alkaline Phosphatase 84 U/L (35-105) 02/24/24 11:40 Troponin T Baseline 24 ng/L (0-10) H 02/24/24 11:40 Troponin T 120 Minute 23.92 ng/L (0-10) H 02/24/24 13:58 Delta Troponin T -0.08 ABS# (0-10) L 02/24/24 13:58 Troponin T Hi Sens 6Hr 22.09 ng/L (0-10) H 02/24/24 17:32 Troponin T Hi Sens 6Hr Delta -1.91 ng/L (0-12) L 02/24/24 17:32 NT-Pro-B Natriuret Pep 1102 pg/mL (0-450) H 02/24/24 11:40 Total Protein 6.2 g/dL (6.6-8.7) L 02/24/24 11:40 Albumin 3.8 g/dL (3.5-5.2) 02/24/24 11:40 Globulin 2.4 g/dL (1.3-4.6) 02/24/24 11:40 Urine Color Yellow (Yellow) 02/24/24 12:31 Urine Appearance Clear (CLEAR) 02/24/24 12:31 Urine pH 8 (5-7) H 02/24/24 12:31 Ur Specific [place] 1.005 (1.005-1.030) 02/24/24 12:31 Urine Protein Neg (Negative) 02/24/24 12:31 Urine Glucose (UA) Norm (Normal) 02/24/24 12:31 Urine Ketones Negative (Negative) 02/24/24 12:31 Urine Blood Neg (Negative) 02/24/24 12:31 Urine Nitrate Negative (Negative) 02/24/24 12:31 Urine Bilirubin Neg (Negative) 02/24/24 12:31 Prot Sulfosalicylic Acd Negative (Negative) 02/24/24 12:31 Urine Urobilinogen Norm mg/dL (Negative) 02/24/24 12:31 Ur Leukocyte Esterase Negative (Negative) 02/24/24 12:31 Vitals Last Vital Signs Temp 98.2 F 02/26/24 07:31 Pulse 62 02/26/24 08:33 Resp 18 02/26/24 08:33 BP 128/65 02/26/24 07:31 Pulse Ox 96 02/26/24 08:33 O2 Del Method Nasal Cannula 02/26/24 08:33 O2 Flow Rate 2 02/26/24 08:33 Discharge Plan Discharge Patient Disposition: Home Condition: Stable Prescriptions: Continued (DME) HINGED ELBOW BRACE. See Rx Instructions .ROUTE .MEDSUPPLY Qty: 1 0RF Rx Instructions: As directed set 0-90 famotidine 20 mg tablet 20 mg PO BID metoprolol tartrate 25 mg tablet 25 mg PO BID@0900,2100 Qty: 60 2RF ferrous gluconate 324 mg (38 mg iron) tablet 324 mg PO DAILY Qty: 30 5RF (DME) cam boot See Rx Instructions .Route .MEDSUPPLY Qty: 1 0RF Rx Instructions: As directed ondansetron 8 mg tablet,disintegrating 8 mg PO Q8H PRN (Reason: nausea and vomiting) Qty: 30 2RF multivitamin Tablet 1 tab PO DAILY calcium carbonate 500 mg calcium (1,250 mg) Tablet 500 mg PO QAM albuterol sulfate 90 mcg/actuation HFA aerosol inhaler 2 puff INHALATION QID PRN (Reason: Shortness Of Breath Or Wheezing) Eliquis 5 mg tablet 5 mg PO BID Qty: 180 0RF amiodarone 200 mg tablet 100 mg PO BID Changed Lasix 40 mg tablet 40 mg PO TID 5 Days Qty: 30 2RF potassium chloride 10 mEq tablet extended release 10 meq PO BID 5 Days Qty: 30 2RF Discharge Orders: Discharge Order (Routine); Ordered 02/26/24 Ordered By: Julienne Nielsen Referrals: Anyi Etienne FNP-C [Primary Care Provider] - Discharge Diet: Cardiac Discharge Activity: Increase activity as tolerated Patient Instructions: Opioid Safety Activity Restrictions/Additional Instructions: take PO lasix 40mg three times a isabel for 5 days and then twice a day PO potassium 10meq twice a day for 5 days and then once a day. Discharge Attestations Time Spent in Discharge Care*: less than 30 min Quality Metrics Clinical Quality Measures [ No reported AMI, CVA or VTE this stay] Coding Level of Care Code Acute Code for [facility] Diagnoses Acute congestive heart failure, unspecified heart failure type I50.9 Heart failure chronicity: acute Heart failure type: unspecified Bilateral pleural effusion J90 Atrial fibrillation I48.91 Primary hypertension I10 Hypertension type: primary hypertension Dyslipidemia E78.5 Emotional stress R45.7 Time Spent (min) 20
[2024-02-26 11:50] VITALS: BP 120/66; PULSE 64; RESP 15; TEMP 36.8; O2SAT 96
--- NOTE | 2024-02-26 12:32 | PC.NURSE ---
Discussed discharge instructions, new medications and changed medications with patient. Discussed follow up appointments as well as the CHF stoplight. Patient verbalized understanding.
[2024-02-26 12:33] VITALS: BP 120/66; PULSE 64; RESP 15; TEMP 36.8; O2SAT 96
== END 2024-02-26 13:03 | disposition home or self-care (01) | DRG 291 ==
LOC: ER 13:08 → MEDSURG 13:48
PROVIDERS: Admitting Provider Internal Medicine; Emergency Provider Family Medicine; PCP Nurse Practitioner Family; Visit Provider Internal Medicine
DX: I11.0 Hypertensive heart disease with heart failure (principal); I50.33 Acute on chronic diastolic (congestive) heart failure; I48.20 Chronic atrial fibrillation, unspecified; Z79.01 Long term (current) use of anticoagulants; D50.9 Iron deficiency anemia, unspecified; K21.9 Gastro-esophageal reflux disease without esophagitis
CPT/HCPCS: 36415; 51702; 71045; 80048; 80053; 81003; 83735; 83880; 84484; 85025; 93005; 94664; 96374; 97116; 97161; 99285; J1940; J3490

== ENCOUNTER → 2024-03-09 10:40 | Outpatient (BNVA) | payer MEDICARE, SELFPAY | PROVIDERS: PCP Nurse Practitioner Family; Visit Provider Nurse Practitioner Family | DX: I50.9 Heart failure, unspecified (principal); Z99.81 Dependence on supplemental oxygen; R09.89 Other specified symptoms and signs involving the circulatory and respiratory systems | CPT/HCPCS: 71046 ==

== ENCOUNTER 2024-03-09 12:27 | Emergency (ER) | payer MEDICARE, SELFPAY ==
[2024-03-09] VITALS (43 sets, daily range): BP systolic 106–141; BP diastolic 51–80; PULSE 53–67; RESP 18–37; TEMP 36.8; O2SAT 89–100; BMI 28.0
--- NOTE | 2024-03-09 12:28 | XRR_ITS ---
PROCEDURE INFORMATION: Exam: XR Chest Exam date and time: 03/09/2024 1:00 PM Age: 78 years old Clinical indication: Pain; Angina pectoris; Additional info: Cp TECHNIQUE: Imaging protocol: Radiologic exam of the chest. Views: 1 view. COMPARISON: CR XR chest 2V* [id number] 03/09/2024 10:41 AM FINDINGS: Lungs: Stable interstitial lung markings and bibasilar atelectasis/infiltrates. Pleural spaces: Stable moderate bilateral pleural effusions. Heart/Mediastinum: Cardiac silhouette cannot be assessed due to silhouetting of the heart borders. Bones/joints: No acute bony abnormality. XR/XR chest 1V portable [id number] IMPRESSION: Stable pulmonary vascular congestion pattern. Infection cannot be excluded. Recommend clinical correlation.
--- NOTE | 2024-03-09 12:33 | ECG_ITS ---
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 Measurements Intervals [place] Rate: 64 P: 75 WI: 152 QRS: 52 QRSD: 91 T: 86 QT: 348 QTc: 359 Interpretive Statements SINUS RHYTHM INCOMPLETE RIGHT BUNDLE BRANCH BLOCK [90+ ms QRS DURATION, TERMINAL R IN V1/V2, 40+ ms S IN I/aVL/V4/V5/V6] Compared to ECG 02/24/2024 18:01:11 T-wave abnormality no longer present Electronically Signed On 03-09-2024 22:50:05 CDT by Ignacio Rivers M.D. [id number]
--- NOTE | 2024-03-09 12:58 | W.ED.SOB ---
HPI - SOB/Dyspnea General: Chief Complaint: Shortness of Breath/Dyspnea Stated Complaint: chest pains Time Seen by Provider: 03/09/24 12:41 Source: patient Mode of arrival: ambulatory Limitations: no limitations History of Present Illness: HPI Narrative: 78-year-old female has a history presents for heart failure. She has had multiple recent admissions due to her congestive heart failure she states that since being discharged she has had gradual increase shortness of breath with being much worse last 2 days she is extremely short of breath with ambulation she also had increasing extremity edema patient was sent over by her PCP today patient is typically on 2 L oxygen she is currently on 4. 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 Hypertension CHF (congestive heart failure) Diastolic Lisfranc's dislocation Fracture of third metatarsal bone of left foot Fracture of second metatarsal bone of left foot Nondisplaced fracture of first left metatarsal bone Closed left trimalleolar fracture Anxiety No pertinent past medical history Surgical History History of foot surgery Social History Smoking and tobacco/nicotine status: never used tobacco/nicotine Alcohol intake: never Substance/Drug Use: never Physical Exam Const: COMMON NORMALS: patient oriented x3 HENMT: COMMON NORMALS: normocephalic and atraumatic HEAD & SCALP: normocephalic and atraumatic Neck/C-Spine: COMMON NORMALS: full ROM and supple Chest: COMMONS NORMALS: normal inspection of the chest Resp: COMMON NORMALS: No retractions, No use of accessory muscles and clear to auscultation bilaterally EFFORT & INSPECTION: Yes tachypneic and Yes respiratory distress AUSCULTATION: clear to auscultation bilaterally Cardio: COMMON NORMALS: regular rate, regular rhythm and No murmurs present (Cardio) RATE: regular rate RHYTHM: regular rhythm GI: COMMON NORMALS: Normal to inspection, nondistended, normoactive bowel sounds present, Soft to palpation, non-tender and no masses PALPATION: Yes Soft to palpation Extremity: COMMON NORMALS: full ROM NARRATIVE EXTREMITY EXAM: 2+ edema Neuro: COMMON NORMALS: patient oriented x3, moves all extremities and no focal motor deficits Psych: COMMON NORMALS: mental status grossly normal, Normal thought process present and cooperative THOUGHT PROCESS: Normal thought process present Skin: COMMON NORMALS: no rashes or lesions noted and no wounds GENERAL SKIN EXAM: no rashes or lesions noted Course Vital Signs: Vital signs: Vital Signs Temperature 98.2 F 03/09/24 12:35 Pulse Rate 56 L 03/09/24 16:00 Respiratory Rate 23 H 03/09/24 16:00 Blood Pressure 118/61 03/09/24 16:10 Pulse Oximetry 89 L 03/09/24 16:05 Oxygen Delivery Me thod Nasal Cannula 03/09/24 15:40 Oxygen Flow Rate 2 03/09/24 15:40 MDM - SOB/Dyspnea Medical Decision Making Patient presents here with dyspnea she does have a history of CHF x-rays at her baseline did give her dose of Lasix here was able to turn her oxygen down to 2 L she did maintain her saturations I feel she stable at this time for discharge she is to take her Lasix 3 times a day over the next week follow-up with her PCP and her clinical informatics specialist return if worsening. Medical Records I reviewed the patient's medical records. Lab Data I reviewed the patient's lab results. 03/09/24 12:54 03/09/24 12:54 Labs/Radiology: Radiology Impressions Chest X-Ray 03/09/24 12:28 IMPRESSION: Stable pulmonary vascular congestion pattern. Infection cannot be excluded. Recommend clinical correlation. Laboratory Results WBC 8.85 10^3/uL (3.29-11.43) 03/09/24 12:54 RBC 4.27 10^6/uL (3.85-5.65) 03/09/24 12:54 Hgb 11.50 g/dL (11.27-16.99) 03/09/24 12:54 Hct 36.4 % (36-47) 03/09/24 12:54 MCV 85.2 fl (85-98) 03/09/24 12:54 MCH 26.9 pg (27-33) L 03/09/24 12:54 MCHC 31.6 g/dL (30-55) 03/09/24 12:54 RDW 16.1 % (12.1-15.1) H 03/09/24 12:54 Plt Count 241 10^3/cmm (157-399) 03/09/24 12:54 MPV 9.6 fL (7.4-10.4) 03/09/24 12:54 Neut % (Auto) 73.3 % 03/09/24 12:54 Lymph % (Auto) 12.5 % 03/09/24 12:54 [place] % (Auto) 8.9 % 03/09/24 12:54 Eos % (Auto) 4.0 % 03/09/24 12:54 Baso % (Auto) 0.7 % 03/09/24 12:54 Neut # (Auto) 6.49 10^3/uL (1.8-7.7) 03/09/24 12:54 Lymph # (Auto) 1.1 10^3/uL (0.8-4.8) 03/09/24 12:54 [place] # (Auto) 0.8 10^3/uL (0.2-0.9) 03/09/24 12:54 Eos # (Auto) 0.4 10^3/uL (0.0-0.8) 03/09/24 12:54 Baso # (Auto) 0.1 10^3/uL (0.0-0.1) 03/09/24 12:54 Nucleated RBC % (auto) 0 % 03/09/24 12:54 Nucleated RBCs # 0.0 /100WBC 03/09/24 12:54 PT 20.50 SECONDS (12.1-14.9) H 03/09/24 12:54 INR 1.70 (0.8-1.2) H 03/09/24 12:54 Sodium 135 mmol/L (136-145) L 03/09/24 12:54 Potassium 4.3 mmol/L (3.5-5.1) 03/09/24 12:54 Chloride 95 mmol/L (98-107) L 03/09/24 12:54 Carbon Dioxide 29 mmol/L (22-29) 03/09/24 12:54 Anion Gap 15.3 (5-19) 03/09/24 12:54 BUN 21 mg/dL (8-23) 03/09/24 12:54 Creatinine 1.0 mg/dL (0.5-0.9) H 03/09/24 12:54 GFR Calculation Not Reportable 03/09/24 12:54 Glucose 115 mg/dL (65-115) 03/09/24 12:54 Calculated Osmolality 284 mOsm/kg (285-295) L 03/09/24 12:54 Calcium 9.4 mg/dL (8.5-10.5) 03/09/24 12:54 Total Bilirubin 1.1 mg/dL (0.15-1.2) 03/09/24 12:54 AST 20 U/L (0-32) 03/09/24 12:54 ALT 30 U/L (0-33) 03/09/24 12:54 Alkaline Phosphatase 89 U/L (35-105) 03/09/24 12:54 Troponin T Baseline 27 ng/L (0-10) H 03/09/24 12:54 Troponin T 120 Minute 25.19 ng/L (0-10) H 03/09/24 14:49 Delta Troponin T -1.81 ABS# (0-10) L 03/09/24 14:49 NT-Pro-B Natriuret Pep 1853 pg/mL (0-450) H 03/09/24 12:54 Total Protein 7.0 g/dL (6.6-8.7) 03/09/24 12:54 Albumin 3.9 g/dL (3.5-5.2) 03/09/24 12:54 Globulin 3.1 g/dL (1.3-4.6) 03/09/24 12:54 Lipase 17 U/L (13-60) 03/09/24 12:54 All radiology interpretation(s) finalized by discharge EKG Data EKG 1: I personally reviewed and interpreted this EKG as follows: EKG Interpretation Date: 03/09/24 EKG interpretation time: 12:33 Interpretation: nsr hr [address] or t wave abnormalities qrs 91 qtc 357 Discharge Plan Discharge Patient Disposition: Home Clinical Impression: Congestive heart failure Condition: Stable Prescriptions: No Action (DME) HINGED ELBOW BRACE. See Rx Instructions .ROUTE .MEDSUPPLY Qty: 1 0RF Rx Instructions: As directed set 0-90 Lasix 40 mg tablet 40 mg PO BID Qty: 60 2RF amiodarone 200 mg tablet 100 mg PO BID 30 Days Qty: 15 2RF Eliquis 5 mg tablet 5 mg PO BID Qty: 60 2RF Rx Instructions: 340B metoprolol tartrate 25 mg tablet 25 mg PO BID@0900,2100 Qty: 60 2RF (DME) cam boot See Rx Instructions .Route .MEDSUPPLY Qty: 1 0RF Rx Instructions: As directed ondansetron 8 mg tablet,disintegrating 8 mg PO Q8H PRN (Reason: nausea and vomiting) Qty: 30 2RF multivitamin Tablet 1 tab PO QAM calcium carbonate 500 mg calcium (1,250 mg) Tablet 500 mg PO QAM albuterol sulfate 90 mcg/actuation HFA aerosol inhaler 2 puff INHALATION QID PRN (Reason: Shortness Of Breath Or Wheezing) potassium chloride 10 mEq tablet extended release 10 meq PO QAM ferrous gluconate 324 mg (38 mg iron) tablet 324 mg PO QAM Discharge Orders: Discharge ED (Routine); Ordered 03/09/24 Ordered By: Elena Hays Referrals: Anyi Etienne FNP-C [Primary Care Provider] - 1-3 days Discharge Diet: Advance as tolerated Discharge Activity: Resume usual activity Patient Instructions: Heart Failure (ED) Coding Level of Care Code ED Information Resource Consultant for Moises Jeff
[2024-03-09 13:06] LABS: Basophils # 0.1 10^3/uL (0.0-0.1); Basophils % 0.7 %; Eosinophils # 0.4 10^3/uL (0.0-0.8); Hematocrit 36.4 % (36-47); Lymphocytes # 1.1 10^3/uL (0.8-4.8); Lymphocytes % 12.5 %; Mean Corpuscular HGB Conc 31.6 g/dL (30-55); Mean Corpuscular Hemoglobin 26.9 pg (27-33); Mean Corpuscular Volume 85.2 fl (85-98); Mean Platelet Volume 9.6 fL (7.4-10.4); Monocytes # 0.8 10^3/uL (0.2-0.9); Monocytes % 8.9 %; Neutrophils # 6.49 10^3/uL (1.8-7.7); Neutrophils % 73.3 %; Nucleated Red Blood Cells % 0 %; Platelet Count 241 10^3/cmm (157-399); Red Blood Count 4.27 10^6/uL (3.85-5.65); Red Cell Distribution Width 16.1 % (12.1-15.1); White Blood Count 8.85 10^3/uL (3.29-11.43)
[2024-03-09 13:19] LABS: Troponin(5th) Baseline 27 ng/L (0-10)
[2024-03-09 13:30] LABS: Alanine Aminotransferase 30 U/L (0-33); Albumin Level 3.9 g/dL (3.5-5.2); Alkaline Phosphatase 89 U/L (35-105); Anion Gap 15.3 (5-19); Aspartate Amino Transferase 20 U/L (0-32); Blood Urea Nitrogen 21 mg/dL (8-23); Calcium 9.4 mg/dL (8.5-10.5); Carbon Dioxide 29 mmol/L (22-29); Chloride 95 mmol/L (98-107); Globulin 3.1 g/dL (1.3-4.6); Glucose 115 mg/dL (65-115); Lipase 17 U/L (13-60); NT Pro B Type Natriuretic Pept 1853 pg/mL (0-450); Osmolality Calculated 284 mOsm/kg (285-295); Potassium 4.3 mmol/L (3.5-5.1); Sodium 135 mmol/L (136-145); Total Bilirubin 1.1 mg/dL (0.15-1.2)
--- NOTE | 2024-03-09 13:30 | PC.PHAR ---
pt states she takes care of her own medications-pt states she no longer takes lipitor 40mg hs pt states not taken for 3-4 weeks states it tore her stomach up ext shows last filled 02/04/24 30d/s-pt states she no longer takes aspirin 81mg po daily-
[2024-03-09] MEDS: FUROsemide 10 mg/mL SDV 10mL 80 MG IVP (13:38)
--- NOTE | 2024-03-09 14:25 | ECG_ITS ---
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 Measurements Intervals [place] Rate: 56 P: 80 PA: 154 QRS: 55 QRSD: 96 T: 23 QT: 446 QTc: 434 Interpretive Statements SINUS BRADYCARDIA NONSPECIFIC T-WAVE ABNORMALITY Compared to ECG 03/09/2024 12:33:00 T-wave abnormality now present Sinus rhythm no longer present Incomplete right bundle-branch block no longer present Electronically Signed On 03-09-2024 22:54:07 CDT by Ignacio Rivers M.D. [id number]
[2024-03-09 15:22] LABS: Troponin 5 2HR 25.19 ng/L (0-10)
[2024-03-09 15:25] LABS: Troponin 5 2HR Delta -1.81 ABS# (0-10)
== END 2024-03-09 16:15 | disposition home or self-care (01) ==
PROVIDERS: Emergency Provider Emergency Medicine; PCP Nurse Practitioner Family
DX: I11.0 Hypertensive heart disease with heart failure (principal); I50.9 Heart failure, unspecified; Z79.01 Long term (current) use of anticoagulants; Z99.81 Dependence on supplemental oxygen; R09.89 Other specified symptoms and signs involving the circulatory and respiratory systems
CPT/HCPCS: 71045; 71046; 80053; 83690; 83880; 84484; 85025; 85610; 93005; 96374; 99284; J1940

== ENCOUNTER → 2024-03-13 09:44 | Outpatient (BNVA) | payer MEDICARE, SELFPAY | PROVIDERS: PCP Nurse Practitioner Family; Visit Provider Nurse Practitioner Family | DX: I11.0 Hypertensive heart disease with heart failure (principal); I50.32 Chronic diastolic (congestive) heart failure | CPT/HCPCS: 99214 ==

== ENCOUNTER → 2024-03-20 10:59 | Outpatient (BNVA) | payer MEDICARE, SELFPAY | PROVIDERS: PCP Nurse Practitioner Family; Visit Provider Internal Medicine Cardiovascular Disease | DX: I50.9 Heart failure, unspecified (principal) | CPT/HCPCS: 80048; 83880 ==

== ENCOUNTER 2024-03-27 13:31 | Inpatient (IN) | payer MEDICARE, SELFPAY ==
[2024-03-27] VITALS (24 sets, daily range): BP systolic 86–124; BP diastolic 38–53; PULSE 50–57; RESP 14–16; O2SAT 85–100
[2024-03-27] MEDS: etomidate 2 mg/mL INJ SDV 10 mL 20 MG IVP (13:35)
--- NOTE | 2024-03-27 13:37 | XR_ITS ---
WS: [id number] Portable AP supine chest, 03/27/2024 Clinical Data: RESP DISTRESS Comparison: Portable chest, 03/09/2024 Findings: There is total opacification of both lungs. The endotracheal tube is above the estela. The nasogastric tube probably ends at the gastro esophageal inlet. No pneumothorax is seen. No masses are seen. XR/XR chest 1V portable [id number] Impression: 1. Complete opacification of both lungs which may represent pneumonia, effusion , pulmonary vascular congestion and/or ARDS. 2. Endotracheal tube above the estela. 3. Nasogastric tube probably ends at gastroesophageal junction.
--- NOTE | 2024-03-27 13:38 | W.ED.SOB ---
HPI - SOB/Dyspnea General: Chief Complaint: Shortness of Breath/Dyspnea Stated Complaint: RESP. DISTRESS Time Seen by Provider: 03/27/24 13:37 Source: EMS Mode of arrival: EMS Limitations: other (Patient intubated) History of Present Illness: HPI Narrative: 70-year-old female with known history of heart failure reportedly called EMS for complaints of shortness of breath. EMS reported that when they arrived she complained of shortness of breath that was worse this morning and she woke up. Normally she is on 2 L by nasal cannula and had increased her oxygen to 5 L by the time they arrived. They were in the process of transporting the patient and she rapidly deteriorated to agonal breathing and a laryngeal mask airway was put in place. She was given rocuronium and etomidate. On arrival here she was immediately intubated see notes below. EKG was done which showed a left bundle branch block compared to an EKG done on March 09 of this year the bundle branch block is new. Later family arrived and tells me that she had had worsening heart failure symptoms this week had contacted the manager field service office and they had added another medication for her heart failure they described as another diuretic reviewing her chart I believe it was likely the spironolactone. 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 Hypertension CHF (congestive heart failure) Diastolic Lisfranc's dislocation Fracture of third metatarsal bone of left foot Fracture of second metatarsal bone of left foot Nondisplaced fracture of first left metatarsal bone Closed left trimalleolar fracture Anxiety No pertinent past medical history Surgical History History of foot surgery Social History Smoking and tobacco/nicotine status: never used tobacco/nicotine Alcohol intake: never Substance/Drug Use: never Physical Exam HENMT: COMMON NORMALS: normocephalic, atraumatic, hearing grossly normal bilaterally, external ears normal, EAC's normal, TM's normal bilaterally, Normal nasal mucous membranes and turbinates present, moist oral mucous membranes and oropharynx normal HEAD & SCALP: normocephalic and atraumatic NOSE: Normal nasal mucous membranes and turbinates present EXTERNAL EAR: Yes external ears normal EXTERNAL AUDITORY CANAL: EAC's normal TYMPANIC MEMBRANE: TM's normal bilaterally Eye: COMMON NORMALS: Equal, round and reactive pupils present, EOMs intact bilaterally, conjunctivae normal and no scleral icterus CONJUNCTIVA: Yes conjunctivae normal PUPIL: Yes Equal, round and reactive pupils present Neck/C-Spine: COMMON NORMALS: full ROM, no lymphadenopathy, supple and no JVD Lymph: LYMPHATIC: no lymphadenopathy noted and no lymphedema noted Resp: AUSCULTATION: crackles Cardio: COMMON NORMALS: no JVD, regular rate, regular rhythm and No murmurs present (Cardio) RATE: regular rate RHYTHM: regular rhythm GI: COMMON NORMALS: Soft to palpation and No hepatosplenomegaly present AUSCULTATION: Yes normoactive bowel sounds PALPATION: Yes Soft to palpation, No Tenderness to palpation present (GI), No Guarding due to palpation present (GI) and Yes No hepatosplenomegaly present Extremity: COMMON NORMALS: normal to inspection and capillary refill normal GENERAL: Yes edema Skin: COMMON NORMALS: no rashes or lesions noted GENERAL SKIN EXAM: no rashes or lesions noted Procedures Intubation sedative: Etomidate Mg Given: 20 paralytic: Rocuronium (Given approximately 35 to 40 minutes prior in the field) Laryngoscope: fiber optic video scope ET Tube Size: 8 ET Tube Uncuffed: No Tube Secured Depth (cm): 22 Tube Secured Location: teeth Tube Placement Confirmation: visualized tube passing through cords, equal breath sounds bilaterally, no breath sounds over epigastrium and confirmation by capnometry Patient Tolerated Procedure: well Intubation Complications: none Course Vital Signs: Vital signs: Vital Signs Respiratory Rate 16 03/27/24 14:09 Pulse Oximetry 88 L 03/27/24 14:09 Fraction of Inspir ed Oxygen 100 03/27/24 14:09 MDM - SOB/Dyspnea Medical Decision Making Initially on arrival patient was intubated rocuronium was still paralyzing, we did augment with etomidate 20 mg and then added fentanyl and Versed drips. Immediately after intubation EKG was done showed a bundle branch block I reviewed her chart and noted that her last EKG on March 09 did not have a bundle branch block. This is a new bundle branch block and meets criteria for STEMI. STEMI alert was called Dr. Gerard came and seen the patient reviewed the case she concurred and is taking the patient to the [facility]. Patient was noted clinically to appear to be in heart failure chest x-ray showed significant pulmonary edema she was given Lasix. In addition to this she was given usual STEMI medications including Plavix aspirin and heparin. Her blood pressures remained stable. Dr. Gerard is taking the patient to the [facility] and then will admit to the ICU. Of consult the Dr. Smith from the hospitalist service to be attending. Chest x-ray confirmed ET tube placement. OG shows ports below the diaphragm I did have them advance a slightly after the x-ray. Medical Records I reviewed the patient's medical records. Lab Data I reviewed the patient's lab results. 03/27/24 13:53 03/27/24 13:53 Labs/Radiology: Radiology Impressions Chest X-Ray 03/27/24 13:37 Impression: 1. Complete opacification of both lungs which may represent pneumonia, effusion, pulmonary vascular congestion and/or ARDS. 2. Endotracheal tube above the estela. 3. Nasogastric tube probably ends at gastroesophageal junction. Laboratory Results WBC 18.38 10^3/uL (3.29-11.43) H 03/27/24 13:53 RBC 4.08 10^6/uL (3.85-5.65) 03/27/24 13:53 Hgb 11.20 g/dL (11.27-16.99) L 03/27/24 13:53 Hct 36.0 % (36-47) 03/27/24 13:53 MCV 88.2 fl (85-98) 03/27/24 13:53 MCH 27.5 pg (27-33) 03/27/24 13:53 MCHC 31.1 g/dL (30-55) 03/27/24 13:53 RDW 16.7 % (12.1-15.1) H 03/27/24 13:53 Plt Count 250 10^3/cmm (157-399) 03/27/24 13:53 MPV 10.3 fL (7.4-10.4) 03/27/24 13:53 Neut % (Auto) 91.4 % 03/27/24 13:53 Lymph % (Auto) 4.6 % 03/27/24 13:53 [place] % (Auto) 2.3 % 03/27/24 13:53 Eos % (Auto) 0.5 % 03/27/24 13:53 Baso % (Auto) 0.3 % 03/27/24 13:53 Neut # (Auto) 16.80 10^3/uL (1.8-7.7) H 03/27/24 13:53 Lymph # (Auto) 0.8 10^3/uL (0.8-4.8) 03/27/24 13:53 [place] # (Auto) 0.4 10^3/uL (0.2-0.9) 03/27/24 13:53 Eos # (Auto) 0.1 10^3/uL (0.0-0.8) 03/27/24 13:53 Baso # (Auto) 0.1 10^3/uL (0.0-0.1) 03/27/24 13:53 Nucleated RBC % (auto) 0 % 03/27/24 13:53 Nucleated RBCs # 0.0 /100WBC 03/27/24 13:53 PT 23.40 SECONDS (12.1-14.9) H 03/27/24 13:53 INR 2.00 (0.8-1.2) H 03/27/24 13:53 APTT 27.2 SECONDS (23.9-36.7) 03/27/24 13:53 Specimen Type Arterial 03/27/24 13:33 Sample Site Radial, left 03/27/24 13:33 ABG pH 7.37 (7.35-7.45) 03/27/24 13:33 ABG pCO2 53.8 mmHg (35-45) H 03/27/24 13:33 ABG pO2 126.0 mmHg (80.0-100.0) H 03/27/24 13:33 ABG PO2/FiO2 Ratio 0 03/27/24 13:33 ABG HCO3 31.2 mmol/L (22-26) H 03/27/24 13:33 ABG Base Excess 4.8 mmol/L (-2.0-2.0) H 03/27/24 13:33 Parish Test Pos 03/27/24 13:33 Hematocrit 35.6 % (37-47) L 03/27/24 13:33 Hgb O2 Saturation 97.4 % (95-100) 03/27/24 13:33 Carboxyhemoglobin 1.8 %THgb (0.4-20.1) 03/27/24 13:33 Methemoglobin 0.4 % (0.4-1.5) 03/27/24 13:33 Total Hemoglobin 11.6 g/dL (12-16) L 03/27/24 13:33 O2 Delivery Device Ambu 03/27/24 13:33 O2 Liters/Min 15.0 % 03/27/24 13:33 FiO2 100.0 % 03/27/24 13:33 Religion Department Chair ID [facility] 03/27/24 13:33 All radiology interpretation(s) finalized by discharge Discharge Plan Discharge Patient Disposition: Admitted As Inpatient Clinical Impression: New onset left bundle branch block (LBBB), Hypoxic respiratory failure, Congestive heart failure, History of atrial fibrillation Condition: Stable Coding Level of Care Code ED Physician Credentialing Specialist for Moises Jeff
--- NOTE | 2024-03-27 13:41 | ECG_ITS ---
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 Measurements Intervals [place] Rate: 60 P: 77 NV: 160 QRS: 17 QRSD: 156 T: 91 QT: 530 QTc: 530 Interpretive Statements SINUS RHYTHM LEFT BUNDLE BRANCH BLOCK [120+ ms QRS DURATION, 80+ ms Q/S IN V1/V2, 85+ ms R IN I/aVL/V5/V6] INTERPRETATION BASED ON A DEFAULT AGE OF 40 YEARS Compared to ECG 03/09/2024 14:25:26 Left bundle-branch block now present Sinus bradycardia no longer present T-wave abnormality no longer present Electronically Signed On 03-28-2024 12:39:34 CDT by Levar Gerard M.D. [id number]
[2024-03-27 13:44] LABS: ABG PCO2 53.8 mmHg (35-45); ABG PH Result 7.37 (7.35-7.45); Arterial Blood Gas Hematocrit 35.6 % (37-47); Base Excess ABG 4.8 mmol/L (-2.0-2.0); Blood Gas Allen Test Pos; Blood Gas Operator Identificat AMH; Blood Gas Sample Site Radial, left; Blood Gas Sample Type Arterial; Carboxyhemoglobin 1.8 %THgb (0.4-20.1); HCO3 ABG 31.2 mmol/L (22-26); HGB O2 Sat 97.4 % (95-100); Methemoglobin 0.4 % (0.4-1.5); Oxygen Device AMBU; PO2 FiO2 Ratio Arterial Blood 0; Total Hemoglobin 11.6 g/dL (12-16)
--- NOTE | 2024-03-27 13:49 | XACV_ITS ---
Exam Room: [facility] Ht: 157 cm Wt: 68 kg BSA: 1.74 m2 Gender: Female : 1945 Exam Priority: Routine Procedure(s): Procedure Description: Diagnostic procedure Procedure Description: PCI procedure Procedure Description: Drug Eluting Coronary Stent Procedure Description: PTCA Procedure Description: Miscellaneous Procedure Description: ACT Procedure Description: Coronary Angiography Diagnostic Cath Status: Emergency Diagnostic Findings * Patient suddenly collapsed at home. On arrival to ER, acute pul edema and New LBBB. * Left main * : * Normal. * LAD: 50% diffuse disease in the midsegment. Good size diagonal branch with no significant disease. * Left circumflex: Large size vessel. There is a focal 70% chronic stenosis in the proximal segment. * RCA: Dominant vessel. Proximal mid 80-90% stenosis which appeared to be plaque rupture lesion and culprit for current acute presentation. * Summary: Severe two-vessel disease, proximal mid RCA and proximal circumflex. The lesion in RCA appears to be culprit for current presentation. * Plan: Angioplasty of RCA, with stage plasty of proximal circumflex stenosis. PCI Status: Emergency PCI Indication: Immediate PCI for STEMI Interventional Findings * The right coronary artery was engaged with JR 6 Dominican guider. Under appropriate anticoagulation with intravenous heparin as per protocol run-through coronary wire was advanced into the RCA and crossed the lesion in the proximal mid segment. The lesion was predilated with a 2.5 x 12 compliant balloon. Multiple inflations were performed to 10 george. Subsequently drug-eluting stent 3.0 x 34 was deployed at 14 george. Post stent angiography revealed excellent angiographic result, LISS-3 flow. No complication related to the procedure. * Summary: Successful angioplasty of proximal mid RCA with CHRIS. * Recommendations: Transfer to the ICU for management of mechanical ventilation and routine post PCI management. PCI for Multi-vessel Disease: Yes Interventional RX Recommendation: PCI w/o planned CABG Diagnostic RX Recommendation: PCI w/o planned CABG Anticoagulation: Heparin Pressures Phase:Rest AO : 75 / 54 ( 65 ) @ 3:16:00 PM 99 / 72 ( 87 ) @ 3:22:00 PM 144 / 60 ( 90 ) @ 3:26:00 PM 104 / 52 ( 75 ) @ 3:31:00 PM Clinical Evaluation EBL: 5mL-10mL Procedural Details Procedure Consent Obtained. Pre-Procedure Time Out. Identified patient by full name and date of as verbalized by the patient/guarantor. Does the consent match the physician's order: N/A Emergent. Accurate & Complete Informed Consent: N/A Emergent. Inpatient/Outpatient History & Physical on Chart: N/A Emergent. If H&P is completed, is and addenduem needed: N/A Emergent; If yes, is the addendum complete: N/A Emergent. Visualize and Verify Site with Patient/Guarantor: N/A. Relevant Radiology Images available: N/A Emergent. Pre-op teaching completed and patient verbalized understanding. The risks, benefits, and alternatives of sedation and/or procedure were discussed by physician. The patient agrees to continue. Procedure started. [facility] Clinical Fraility Score: 7: Severely Frail. IV Site on Arrival: 20 gauge in the left anticubital. Physician arrived. Quality Assurance Nurse Indications: ACS <= 24 hours. Chest Pain Symptom Assessment: Typical Angina Symptoms. Cardiovascular Instability: Yes, if yes, Persistant Ischemic Symptoms. Correct patient, site and procedure confirmed by cath team. Current diagnosis: STEMI. PERRLA. Strong, equal hand detail technician bilaterally. Lungs clear x 5 lobes. IV Site on Arrival: Saline Lock. IV Fluids: 0.9% NaCl at KVO. 0 mL infused prior to laboratory chief. bilateral groins was prepped with chloroprep then draped in the usual sterile fashion. Baseline sample Acquired. HR: 72 BPM. Physician scrubbed in. Immediate Pre-Procedure Time Out. Correct Patient: Yes; Correct Procedure: Yes; Correct Site: Yes; Correct Patient Position: Yes; Correct Supplies: Yes; Dried Flammable Prep: Yes; Blood Products Available: N/A;. Patient arrived to the laboratory chief on a ventilator and with Versed running at 1mg/hour and Fentanyl 50mcg/hour. Lidocaine 1% infiltrated to the right groin. Current Diagnosis : STEMI. Arterial access obtained with micropuncture set. Wire unable to cross. Wire and needle out. Arterial access obtained with micropuncture set. A 5 indian JL4 catheter in over wire. Multiple views taken of left coronary artery. Catheter removed over the standard wire. A 5 indian JR4 catheter in over wire. Levophed turned up to 8mcg/min. Multiple views taken of right coronary artery. Catheter removed over the standard wire. PCI Indication: STEMI. 6 indian JR 4 guide catheter was inserted over the wire. Runthrough guidewire was advanced through the guide catheter to lesion in the mid RCA. Levophed turned up to 10mcg/min. Inflation number : 1 A AB TREK 2.50X12 RX BALLOON was prepped and advanced across the Mid RCA , then inflated to 10 GEORGE for 0:11 seconds. Inflation number: 2 The AB TREK 2.50X12 RX BALLOON was reinflated across the Mid RCA, to 10 GEORGE for 0:08 seconds. Balloon out. Levophed turned down to 8mcg/min. Inflation Number : 3 Mikaela Collins ARIC 3.0X34 CHRIS -Lot Number# _[id number] EXP: 02/16/2025was prepped and advanced across the Mid RCA. The stent was deployed at 12 GEORGE for 0:18 seconds. Inflation number: 4 The stent balloon was then re-inflated across the Mid RCA to 16 GEORGE for 0:12 seconds. Stent balloon out over wire. PCI Indication : Immediate PCI for STEMI. Wire out. Guide catheter out. Levophed turned down to 6mcg/min. ACT drawn. Results out of range high seconds. Therapeutic limits - pre-heparin administration 90-150 seconds and monitoring heparin during a vascular procedure >250 seconds. A Right femoral angiogram was performed to determine safe placement of closure device. A Suture was successful obtaining hemostatsis at the Right Femoral artery insertion site. Sheath(s) sutured into position with 2-0 silk and sterile 4x4's and Op-site applied over the site. No oozing or signs and symptoms of hematoma noted. Arterial sheath flushed and connected to tranducer and pressure bag with heparinized saline. Post Procedure: Pulses reassessed and unchanged. PERRLA. Strong, equal hand detail technician bilaterally. No VTE prophylaxis required. Medication's Wasted: Lidocaine 1% = 4 mL. Medication's Wasted: Nitro = 49.9 mg. Medication's Wasted: Heparin = 4000 units mL. Medication's Wasted: Other = Versed 2 mg. Total IV fluids: 60 mL. Complications: None. Post-op diagnosis: CAD. Estimated blood loss: 5mL-10mL. Responsiveness - Normal response to verbal stimuli; alert and oriented, PERRLA. Airway - Unaffected, no intervention required; spontaneous ventilation. Circulation: W/N/L, pulses unchanged. Nausea/Vomiting: No. Procedure completed. Vital chart was stopped. Patient transferred by bed to ICU. Levophed turned down to 5mcg/min. Access Site Site: Right Femoral artery Sheath Size: 6 Fr Hemostasis Method: Suture Hemostasis Success: Successful Procedure Medications Start: 2:03 PM Stop: 2:03 PM Medication: Lasix (furosemide) Amount: 40 mg Route: I.V. Start: 2:10 PM Stop: 2:10 PM Medication: 0.9% Saline Amount: 100 ml Route: I.V. drip Start: 2:17 PM Stop: 2:17 PM Medication: Levophed (norepinephrine) Amount: 4 mcg/min Route: I.V. drip Start: 2:24 PM Stop: 2:24 PM Medication: Heparin Amount: 8000 units Route: I.V. Start: 2:34 PM Stop: 2:34 PM Medication: Heparin Amount: 2000 units Route: I.V. Start: 2:39 PM Stop: 2:39 PM Medication: Nitrogylcerin Amount: 100 mcg Route: I.A. I, the attending physician, have reviewed and verified all procedure medications. Yes, all medications given per verbal order History/Risk Factors Hypertension: No Dyslipidemia: No Peripheral Arterial Disease (PAD): No Myocardial Infarction (VA): No Obesity: No Renal Disease: No Prior Interventions PCI: No CABG: No Valve Surgery: No Report Signatures Amended by Levar Gerard MD on 03/27/2024 06:28 PM Finalized by Levar Gerard MD on 03/27/2024 06:24 PM
[2024-03-27] MEDS: aspirin 325 mg Tablet PO (13:55)
[2024-03-27] MEDS: clopidogrel 300 mg Tablet 600 MG PO (13:55)
[2024-03-27] MEDS: fentaNYL 1,000 MCG/100 ML BAG 5 MCG IV (13:56)
[2024-03-27] MEDS: midazolam hcl 100 MG/100 ML BAG IV (13:56)
[2024-03-27] MEDS: heparin 5,000 unit/mL INJ 1 mL 4000 UNIT IVP (13:57)
[2024-03-27 14:03] LABS: Basophils # 0.1 10^3/uL (0.0-0.1); Basophils % 0.3 %; Eosinophils # 0.1 10^3/uL (0.0-0.8); Eosinophils % 0.5 %; Lymphocytes # 0.8 10^3/uL (0.8-4.8); Lymphocytes % 4.6 %; Mean Corpuscular HGB Conc 31.1 g/dL (30-55); Mean Corpuscular Hemoglobin 27.5 pg (27-33); Mean Corpuscular Volume 88.2 fl (85-98); Mean Platelet Volume 10.3 fL (7.4-10.4); Monocytes # 0.4 10^3/uL (0.2-0.9); Monocytes % 2.3 %; Neutrophils % 91.4 %; Nucleated Red Blood Cells % 0 %; Platelet Count 250 10^3/cmm (157-399); Red Blood Count 4.08 10^6/uL (3.85-5.65); Red Cell Distribution Width 16.7 % (12.1-15.1); White Blood Count 18.38 10^3/uL (3.29-11.43)
--- NOTE | 2024-03-27 14:16 | PC.PHAR ---
PT UNABLE TO VERIFY MEDICATIONS. MED REC COMPLETED VIA TELEPHONE WITH KAYODE ULRICH. FILL DATES AND DAY SUPPLY ADDED IN PHARMACY NOTES. 03/27/24
[2024-03-27 14:17] LABS: Partial Thromboplastin Time 27.2 SECONDS (23.9-36.7)
[2024-03-27 14:18] LABS: Troponin(5th) Baseline 35 ng/L (0-10)
[2024-03-27 14:29] LABS: Alanine Aminotransferase 12 U/L (0-33); Albumin Level 3.5 g/dL (3.5-5.2); Alkaline Phosphatase 71 U/L (35-105); Blood Urea Nitrogen 23 mg/dL (8-23); Calcium 8.7 mg/dL (8.5-10.5); Carbon Dioxide 27 mmol/L (22-29); Chloride 96 mmol/L (98-107); Globulin 2.7 g/dL (1.3-4.6); Glucose 257 mg/dL (65-115); NT Pro B Type Natriuretic Pept 1703 pg/mL (0-450); Osmolality Calculated 294 mOsm/kg (285-295); Sodium 136 mmol/L (136-145); Total Bilirubin 1.2 mg/dL (0.15-1.2); Total Protein 6.2 g/dL (6.6-8.7)
[2024-03-27 14:36] LABS: Aspartate Amino Transferase 19 U/L (0-32)
[2024-03-27 15:48] LABS: Reflex Lactate Order REFLEX LACTIC ORDERD
--- NOTE | 2024-03-27 16:04 | ECG_ITS ---
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 Measurements Intervals [place] Rate: 51 P: 64 SC: 167 QRS: 66 QRSD: 88 T: -46 QT: 515 QTc: 478 Interpretive Statements SINUS BRADYCARDIA POSSIBLE RIGHT VENTRICULAR CONDUCTION DELAY [RSR (QR) IN V1/V2] MODERATE T-WAVE ABNORMALITY, CONSIDER ANTEROLATERAL ISCHEMIA [-0.1+ mV T-WAVE IN V3-V6] Compared to ECG 03/27/2024 13:41:10 T-wave abnormality now present Possible ischemia now present Sinus rhythm no longer present Left bundle-branch block no longer present Electronically Signed On 03-28-2024 13:11:41 CDT by Ignacio Rivers M.D. [id number]
[2024-03-27 16:05] LABS: ABG PCO2 32.6 mmHg (35-45); Alveolar-Arterial Oxygen Gradi 38.6 mmHg (5-10); Arterial Blood Gas Hematocrit 33.7 % (37-47); Base Excess ABG 7.5 mmol/L (-2.0-2.0); Blood Gas Allen Test Pos; Blood Gas Operator Identificat MONRO; Blood Gas Sample Site Radial, right; Blood Gas Sample Type Arterial; Blood Gas Tidal Volume 0.45; Carboxyhemoglobin 1.4 %THgb (0.4-20.1); HCO3 ABG 29.7 mmol/L (22-26); HGB O2 Sat 99.4 % (95-100); Ionized Calcium Level - ABG 1.2 mmol/L (1.1-1.4); Methemoglobin 0.1 % (0.4-1.5); Oxygen Device VENT; Oxygen Saturation ABG > 100.0; PO2 FiO2 Ratio Arterial Blood 0; Potassium Level - ABG 3.2 mmol/L (3.5-5.0)
[2024-03-27 16:06] LABS: ABG PH Result 7.57 (7.35-7.45)
--- NOTE | 2024-03-27 17:04 | P.HP_ITS ---
Providers/Chief Complaint 2 Admitting Physician: Levar Gerard MD Primary Care Provider: MARCIE Cordoba Chief Complaint: RESP. DISTRESS History of Present Illness EMS was called with complaints of shortness of breath, without further details below, she was previously on 2 L nasal cannula oxygen, she was found to have worsening hypoxia requiring at least 5 L nasal cannula at the time of arrival, but with progressive deterioration, respiratory failure, LMA was placed, she was brought to ER where airway was secured with endotracheal intubation. On cardiac workup and EKG revealed new left bundle branch block which she did not have before. STEMI alert was called with concern for STEMI equivalent. She was assessed by cardiology and taken emergently to [facility], subsequently admitted to the intensive care unit. Review of Systems 2 General: Reports: ROS unobtainable due to medical condition and ROS unobtainable due to mental status Medications/Allergies Home Medications Medication Instructions Recorded Confirmed Last Taken Type multivitamin 1 tab PO QAM 02/27/22 03/27/24 03/09/24 History HINGED ELBOW BRACE. #1 ea 03/05/22 03/27/24 Unknown Rx cam boot #1 ea 03/06/22 03/27/24 Unknown Rx albuterol sulfate 90 mcg/actuation 2 puff inhalation QID PRN 01/29/24 03/27/24 Unknown History aerosol inhaler Shortness Of Breath Or Wheezing calcium carbonate 500 mg PO QAM 01/29/24 03/27/24 03/09/24 History ondansetron 8 mg disintegrating 8 mg PO Q8H PRN nausea and 02/13/24 03/27/24 Unknown Rx tablet vomiting #30 tabs amiodarone 200 mg tablet 100 mg (1/2 x 200 mg) PO BID 30 03/03/24 03/27/24 03/09/24 Rx days #15 tabs apixaban 5 mg tablet (Eliquis) 5 mg PO BID #60 tabs 03/03/24 03/27/24 03/09/24 Rx furosemide 40 mg tablet (Lasix) 40 mg PO BID #60 tabs 03/03/24 03/27/24 03/09/24 Rx metoprolol tartrate 25 mg tablet 25 mg PO BID@0900,2100 #60 tabs 03/03/24 03/27/24 03/09/24 Rx ferrous gluconate 324 mg (38 mg 324 mg PO QAM 03/09/24 03/27/24 03/09/24 History iron) tablet potassium chloride 10 mEq 10 meq PO QAM #60 tabs 03/12/24 03/27/24 Unknown Rx tablet,extended release spironolactone 25 mg tablet 25 mg PO DAILY #30 tabs 03/13/24 03/27/24 Unknown Rx atorvastatin 40 mg tablet 40 mg PO BEDTIME 03/27/24 03/27/24 Unknown History Allergies Allergy/AdvReac Type Severity Reaction Status Date / Time No Known Allergies Allergy Verified 03/13/24 10:01 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 Hypertension CHF (congestive heart failure) Diastolic Lisfranc's dislocation Fracture of third metatarsal bone of left foot Fracture of second metatarsal bone of left foot Nondisplaced fracture of first left metatarsal bone Closed left trimalleolar fracture Anxiety No pertinent past medical history Surgical History History of foot surgery Social History Smoking and tobacco/nicotine status: never used tobacco/nicotine Alcohol intake: never Substance/Drug Use: never Vitals/I&O/Wt Last Vital Signs Resp 14 03/27/24 16:20 Pulse Ox 100 03/27/24 16:20 O2 Del Method Mechanical Ventilation 03/27/24 15:37 FiO2 40 03/27/24 16:20 03/27/24 03/27/24 03/27/24 06:59 14:59 22:59 Intake Total 4.267 / 4.267 Balance 4.267 / 4.267 Weight last 48 hrs Weight 63.412 kg Physical Exam 2 Narrative: Intubated, sedated. HENMT: COMMON NORMALS: oropharynx normal Neck/C-Spine: COMMON NORMALS: no JVD Resp: AUSCULTATION: diminished lung sounds Cardio: COMMON NORMALS: no JVD, regular rhythm, S1 normal heart sound present, S2 normal heart sound present and No murmurs present (Cardio) RHYTHM: regular rhythm HEART SOUNDS: S1 normal heart sound present and S2 normal heart sound present GI: COMMON NORMALS: Normal to inspection, nondistended, normoactive bowel sounds present, Soft to palpation and non-tender PALPATION: Yes Soft to palpation Extremity: COMMON NORMALS: no joint enlargement GENERAL: Yes edema (2+ BL LE) Skin: COMMON NORMALS: no rashes or lesions noted GENERAL SKIN EXAM: no rashes or lesions noted Data 03/27/24 13:53 03/27/24 13:53 A&P Assessment and plan (1) New onset left bundle branch block (LBBB): Reviewed vitals, CBC, INR, ABG, CMP, lactic acid, troponin, NT proBNP, EKG, chest x-ray, ER provider note, discussed with ER provider, discussed with coronary care unit nurse, discussed with resp therapist, discussed with RN, as well as discussed with patient's [id number]-non's mother who is accompanying her at bedside as well as [id number] over the speaker phone. As per discussion with cardiology status post PCI and stenting RCA. Continue aspirin, Plavix. Hold off anticoagulation for now. Had aspirin been on Eliquis prior to this. Discussed with family, will need additional monitoring and possibly treatment with risk of reperfusion injury. As per patient's prior expressed wishes, she is not to receive CPR in case of cardiopulmonary arrest. (2) Acute respiratory failure: Acute hypoxic respiratory failure, with pulmonary edema, Possible pneumonia. Assess with echocardiogram. Continue mechanical ventilatory support for now. Noted respiratory alkalosis, vent settings adjusted. Discussed with RT. Follow-up ABG will be obtained. As per discussion with cardiology continue current ventilatory support for now. She Additionally has not achieved hemodynamic stability is he had, slight quiring 4 mcg of Levophed. Wean off as tolerating. Possible cardiogenic shock, question of possibly septic shock. Will wean off sedation to reassess mental status, although she reportedly has woken up briefly before my visit, breathing trial in the morning. With possible pneumonia blood cultures have been obtained, lactic acid reviewed. Will request urine bacterial antigens. (3) Shock: Cardiogenic shock, status post STEMI equivalent, assess TTE. Continue Levophed support. As she still Levophed, and is having some bradycardia question is she may end up requiring dopamine per cardiology, discussed with family we will go ahead and obtain better access with PICC line. Wean down pressors as tolerating. Plan Atrial fibrillation: Normally on Eliquis. Metoprolol. Hold the pietro for now due to shock. History of diastolic congestive heart failure: In exacerbation, has received Lasix. As per discussion cardiology recommendation will give additional 40 mg IV Lasix. Attestations 2 Medical Necessity Statement*: Admission of over 2 midnights is anticipated for assessment of management of respiratory failure, STEMI equivalent. Coding Level of Care Code Critical Care >/= 30 minutes Critical care time (in minutes): 55 The high probability of a clinically significant, sudden or life threatening deterioration, as referenced in this documentation, required my full and direct attention, intervention and personal management. The critical care time shown is in addition to time spent performing any reported separately billable procedures and includes the following: [x] Data and vital sign review and interpretation [x ] Patient assessment, examination and intervention [x] Medication orders and management [x] Patient/Family updates as able [x] Care Coordination and Documentation. Diagnoses New onset left bundle branch block (LBBB) I44.7 Acute respiratory failure J96.00 Shock R57.9
--- NOTE | 2024-03-27 17:38 | XRR_ITS ---
PROCEDURE INFORMATION: Exam: XR Chest Exam date and time: 03/27/2024 6:20 PM Age: 78 years old Clinical indication: Device placement; Patient HX: Picc confirmation/og confirmation TECHNIQUE: Imaging protocol: Radiologic exam of the chest. Views: 1 view. COMPARISON: CR XR chest 1V portable [id number] 03/27/2024 1:48 PM FINDINGS: Tubes, catheters and devices: There is an ET tube positioned 5.4 cm above the estela. There is an NG tube which tracks into the stomach and off the field of view. Right-sided PICC positioned with its tip near the upper cavoatrial junction. Lungs: Diffuse opacities throughout both lungs with moderate right and small left pleural effusions. Pleural spaces: See Lungs finding. Heart/Mediastinum: Unremarkable. No cardiomegaly. Bones/joints: Unremarkable. XR/XR chest 1V portable [id number] IMPRESSION: 1. There is an ET tube positioned 5.4 cm above the estela. 2. There is an NG tube which tracks into the stomach and off the field of view. 3. Right-sided PICC positioned with its tip near the upper cavoatrial junction. 4. Diffuse opacities throughout both lungs with moderate right and small left pleural effusions.
[2024-03-27 18:09] LABS: ABG PCO2 38.5 mmHg (35-45); ABG PH Result 7.52 (7.35-7.45); Alveolar-Arterial Oxygen Gradi 19.2 mmHg (5-10); Arterial Blood Gas Hematocrit 32.4 % (37-47); Base Excess ABG 7.8 mmol/L (-2.0-2.0); Blood Gas Allen Test Pos; Blood Gas Operator Identificat MONRO; Blood Gas Sample Site Brachial, left; Blood Gas Sample Type Arterial; Blood Gas Tidal Volume 0.38; Carboxyhemoglobin 1.7 %THgb (0.4-20.1); HCO3 ABG 31.2 mmol/L (22-26); HGB O2 Sat 96.7 % (95-100); Ionized Calcium Level - ABG 1.2 mmol/L (1.1-1.4); Oxygen Device VENT; Oxygen Saturation ABG 98.3; PO2 ABG 86.8 mmHg (80.0-100.0); PO2 FiO2 Ratio Arterial Blood 0; Potassium Level - ABG 3.5 mmol/L (3.5-5.0); Total Hemoglobin 10.6 g/dL (12-16)
--- NOTE | 2024-03-27 18:13 | PC.NURSE ---
REceived patient from laboratory supervisor staff at 1513. Patient is intubated, 100%FIO2, 21 at the lip. HR: 54, BP: 140/69, SPO2: 100% on the ventilator, 100% fio2. Patient is sedated with versed and fentanyl, currently unresponsive, will titrate down as indicated. Sheath is in place, connected to a pressure bag. Tegaderm and gauze in place, no drainage/bleeding, No hematoma detected.
[2024-03-27] MEDS: cefTRIAXone 1,000 MG in sodium chloride 0.9% (plus) 50 ML 100 MG IV (18:35)
--- NOTE | 2024-03-27 18:35 | P.CONIM_ITS ---
Providers/Reason For Consult 2 Consulting Physician/Specialty*: Cardiology Reason for Consult*: Acute myocardial infarction, SD Attending Physician: Levar Gerard MD Primary Care Provider: MARCIE Cordoba History of Present Illness History of Present Illness Arielle Salas is a 78 year old female was brought to the emergency after being found collapsed at home. As per a family member she was doing quite well up to couple of hours prior to the incident and suddenly developed shortness of breath followed by gasping of air and ultimately collapsed. On EMT arrival patient was semiresponsive however quite hypoxic. She found to be in acute pulmonary edema with hypoxia. On arrival to ER she was immediately intubated and EKG revealed new left bundle branch block, clinical indicators of acute myocardial infarction. Patient also in profound pulmonary edema. However her vitals are stable blood pressure systolic more than 120 and heart rate in the 50-60s, sinus bradycardia. With likely acute myocardial infarction in the setting of new left bundle branch block compared to EKG few weeks ago, decision was made to proceed to cardiac [facility] for emergency cardiac catheterization and possible angioplasty. Cardiac cath revealed significant disease in circumflex artery and right coronary artery. The lesion in the right coronary artery appears to be culprit for current acute clinical presentation of SD. Therefore we proceeded to angioplasty of RCA. Successful angioplasty with drug-eluting stent was performed. Patient hemodynamically remained stable with minimal inotropic support and on ventilation. Postprocedure patient transferred to the ICU for further management. Review of Systems 2 Narrative: Patient intubated and on mechanical ventilation. As per record patient does appear to have history of hypertension, diastolic heart failure and intermittent a flutter/atrial fibrillation. Medications/Allergies Home Medications Medication Instructions Recorded Confirmed Last Taken Type multivitamin 1 tab PO QAM 02/27/22 03/27/24 03/09/24 History HINGED ELBOW BRACE. #1 ea 03/05/22 03/27/24 Unknown Rx cam boot #1 ea 03/06/22 03/27/24 Unknown Rx albuterol sulfate 90 mcg/actuation 2 puff inhalation QID PRN 01/29/24 03/27/24 Unknown History aerosol inhaler Shortness Of Breath Or Wheezing calcium carbonate 500 mg PO QAM 01/29/24 03/27/24 03/09/24 History ondansetron 8 mg disintegrating 8 mg PO Q8H PRN nausea and 02/13/24 03/27/24 Unknown Rx tablet vomiting #30 tabs amiodarone 200 mg tablet 100 mg (1/2 x 200 mg) PO BID 30 03/03/24 03/27/24 03/09/24 Rx days #15 tabs apixaban 5 mg tablet (Eliquis) 5 mg PO BID #60 tabs 03/03/24 03/27/24 03/09/24 Rx furosemide 40 mg tablet (Lasix) 40 mg PO BID #60 tabs 03/03/24 03/27/24 03/09/24 Rx metoprolol tartrate 25 mg tablet 25 mg PO BID@0900,2100 #60 tabs 03/03/24 03/27/24 03/09/24 Rx ferrous gluconate 324 mg (38 mg 324 mg PO QAM 03/09/24 03/27/24 03/09/24 History iron) tablet potassium chloride 10 mEq 10 meq PO QAM #60 tabs 03/12/24 03/27/24 Unknown Rx tablet,extended release spironolactone 25 mg tablet 25 mg PO DAILY #30 tabs 03/13/24 03/27/24 Unknown Rx atorvastatin 40 mg tablet 40 mg PO BEDTIME 03/27/24 03/27/24 Unknown History Allergies Allergy/AdvReac Type Severity Reaction Status Date / Time No Known Allergies Allergy Verified 03/13/24 10:01 Current Medications Generic Name Dose Route Start Last Admin Trade Name Freq PRN Reason Stop Dose Admin Midazolam HCl 100 mg in 100 mls @ 0 mls/hr 03/27/24 13:45 03/27/24 16:04 Versed IV 1 mg/hr .Q0M NATHAN 1 mls/hr Titration Protocol Per Protocol Fentanyl 1,000 mcg in 100 mls @ 0 mls/hr 03/27/24 13:45 03/27/24 13:56 Sublimaze IV 50 mcg/hr .Q0M NATHAN 5 mls/hr Administration Protocol Per Protocol Additional Medication Information Patient previous chart reviewed for allergies, no known allergy Home medication reviewed as per chart. 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 Hypertension CHF (congestive heart failure) Diastolic Lisfranc's dislocation Fracture of third metatarsal bone of left foot Fracture of second metatarsal bone of left foot Nondisplaced fracture of first left metatarsal bone Closed left trimalleolar fracture Anxiety No pertinent past medical history Surgical History History of foot surgery Social History Smoking and tobacco/nicotine status: never used tobacco/nicotine Alcohol intake: never Substance/Drug Use: never Vitals/I&O/Wt Last Vital Signs Pulse 50 L 03/27/24 18:00 Resp 14 03/27/24 18:00 BP 122/51 03/27/24 18:00 Pulse Ox 99 03/27/24 18:00 O2 Del Method Mechanical Ventilation 03/27/24 18:00 O2 Flow Rate 40 03/27/24 18:00 FiO2 40 03/27/24 16:20 03/27/24 03/27/24 03/27/24 06:59 14:59 22:59 Intake Total 4.267 / 4.267 Balance 4.267 / 4.267 Weight last 48 hrs Weight 139 lb 12.8 oz Physical Exam 2 Narrative: Patient is sedated and on mechanical ventilation. Current vital reveals blood pressure 108/72, pulse 66/min regular. Patient is currently on low-dose of Levophed. O2 saturation 95%. HEENT, neck examination appears unremarkable. Chest auscultation revealed bilateral rales consistent with pulmonary edema Card examination normal first and second heart sounds. The mild systolic murmur of MR. Abdomen soft nontender. Bowel sounds audible. Lower extremities warm and dry. Minimal lower extremity edema bilaterally. Skin warm and dry and without rash. Neuro exam deferred. Extremities appear unremarkable. Data 03/27/24 13:53 03/27/24 13:53 A&P Assessment and plan (1) Shock: (2) ACS (acute coronary syndrome): Plan 78-year-old female with known history of hypertension, previously documented diastolic heart failure and history of intermittent atrial fibrillation/a flutter now presented with likely acute SD resulting in collapse and shock with the evidence of new left bundle branch block on ECG. Successful angioplasty of right coronary artery was performed. Currently patient remains intubated and on inotropic support for cardiovascular and hemodynamic management. She is also on routine post PCI treatment. Her presentation and emergency management including angiography/angioplasty and the need of mechanical ventilation all discussed and explained to the family. Also explained her current clinical situation. Coding Level of Care Code Acute Code for Rejig Randee Diagnoses Shock R57.9 ACS (acute coronary syndrome) I24.9 Time Spent (min) 45
[2024-03-27] MEDS: azithromycin 500 MG in sodium chloride 0.9% 250 ML 250 MG IV (18:36)
[2024-03-27] MEDS: FUROsemide 10 mg/mL SDV 10mL 40 MG IVP (18:57)
--- NOTE | 2024-03-27 19:00 | PICC.NOTE ---
Triple lumen PICC placed to right brachial vein. Referred to vascular access nurse for PICC placement due to use of IV vasopressors and multiple IV drips. Risks and benefits discussed with patient son by ICU staff via phone and informed consent obtained. Right arm assessed with right brachial vein measuring 3.5 mm, straight, and apparent best choice for placement. Using sterile technique and MST, right brachial vein accessed x 1 stick. Mid-arm circumference measured 10 cm from right AC 29 cm. Trimmed cath 43 cm with 2 cm external length noted. CXR shows tip to appear to be in the distal SVC, awaiting read by radiologist. Line secured with stat-lock. Insertion site covered with Biopatch, gauze, and TSM. Report given to bedside nurse, MONTY Tirado.
--- NOTE | 2024-03-27 20:03 | ECG_ITS ---
[facility] Test Date: 2024-03-27 Pat Name: Arielle Salas Department: Room: ICU10 Gender: Female [place]iller: : 1945 Requested By: Ankur Storey Order Number: [id number] Marina MD: Bradley Reed M.D. Measurements Intervals [place] Rate: 54 P: 52 WV: 171 QRS: 60 QRSD: 141 T: 103 QT: 583 QTc: 557 Interpretive Statements SINUS BRADYCARDIA INDETERMINATE AXIS INTRAVENTRICULAR CONDUCTION DELAY [130+ ms QRS DURATION] PROLONGED QT INTERVAL Compared to ECG 03/27/2024 16:04:36 Indeterminate axis now present Intraventricular conduction delay now present Prolonged QT interval now present T-wave abnormality no longer present Possible ischemia no longer present Electronically Signed On 03-30-2024 12:57:45 CDT by Bradley Reed M.D. [id number]
[2024-03-27] MEDS: norepinephrine 4 MG/250 ML BAG 37.5 MG IV (21:32)
--- NOTE | 2024-03-27 21:32 | PC.NURSE ---
Levophed was running when shift report was given. This nurse needed to titrate medication higher and it was noted that there was not an active order for levophed. Dr. Purcell was consulted and ordered levophed.
[2024-03-27] MEDS: atorvastatin 40 mg Tablet 80 MG PO (22:12)
[2024-03-27] MEDS: fentaNYL 1,000 MCG/100 ML BAG 12.5 MCG IV (23:17)
--- NOTE | 2024-03-27 23:22 | ECG_ITS ---
[facility] Test Date: 2024-03-27 Pat Name: Arielle Salas Department: Room: ICU10 Gender: Female Pet Feeder: : 1945 Requested By: Austin Purcell Order Number: [id number] Marina MD: Levar Gerard M.D. Measurements Intervals [place] Rate: 58 P: 77 GA: 152 QRS: 38 QRSD: 140 T: 88 QT: 376 QTc: 369 Interpretive Statements SINUS BRADYCARDIA INDETERMINATE AXIS INTRAVENTRICULAR CONDUCTION DELAY [130+ ms QRS DURATION] Compared to ECG 03/27/2024 20:03:35 Prolonged QT interval no longer present Electronically Signed On 03-28-2024 12:11:24 CDT by Levar Gerard M.D. [email or web address] ([id number]
[2024-03-27 23:31] LABS: Lactic Acid level (Lactate) 1.4 mmol/L (0.5-2.2)
[2024-03-27 23:35] LABS: Partial Thromboplastin Time 44.8 SECONDS (23.9-36.7)
[2024-03-28] VITALS (67 sets, daily range): BP systolic 90–131; BP diastolic 38–72; PULSE 55–84; RESP 14; TEMP 36.9–37.8; O2SAT 92–100
[2024-03-28] MEDS: norepinephrine 4 MG/250 ML BAG 37.5 MG IV (00:01)
[2024-03-28 04:31] LABS: Basophils # 0.1 10^3/uL (0.0-0.1); Basophils % 0.9 %; Eosinophils # 0.1 10^3/uL (0.0-0.8); Eosinophils % 0.6 %; Hematocrit 27.6 % (36-47); Lymphocytes % 6.6 %; Mean Corpuscular HGB Conc 32.2 g/dL (30-55); Mean Corpuscular Hemoglobin 27.2 pg (27-33); Mean Corpuscular Volume 84.4 fl (85-98); Mean Platelet Volume 9.9 fL (7.4-10.4); Monocytes # 1.5 10^3/uL (0.2-0.9); Monocytes % 9.8 %; Neutrophils # 12.37 10^3/uL (1.8-7.7); Neutrophils % 81.6 %; Nucleated Red Blood Cells % 0 %; Platelet Count 244 10^3/cmm (157-399); Red Blood Count 3.27 10^6/uL (3.85-5.65); White Blood Count 15.17 10^3/uL (3.29-11.43)
[2024-03-28 05:01] LABS: Anion Gap 14.7 (5-19); Blood Urea Nitrogen 24 mg/dL (8-23); Calcium 8.3 mg/dL (8.5-10.5); Carbon Dioxide 30 mmol/L (22-29); Chloride 93 mmol/L (98-107); Creatinine Clr Calc Pharmacy 45.0754; Glucose 160 mg/dL (65-115); Magnesium 1.9 mg/dL (1.7-2.3); Osmolality Calculated 285 mOsm/kg (285-295); Potassium 3.7 mmol/L (3.5-5.1); Sodium 134 mmol/L (136-145)
[2024-03-28] MEDS: cefTRIAXone 1,000 MG in sodium chloride 0.9% (plus) 50 ML 100 MG IV ×2 (05:47→16:40)
[2024-03-28] MEDS: norepinephrine 4 MG/250 ML BAG 33.75 MG IV (05:48)
[2024-03-28] MEDS: fentaNYL 1,000 MCG/100 ML BAG 12.5 MCG IV (06:08)
[2024-03-28] MEDS: clopidogrel 75 mg Tablet PO (08:17)
[2024-03-28] MEDS: aspirin 325 mg Tablet PO (08:17)
[2024-03-28] MEDS: sennosides-docusate Tablet 1 TAB PO (08:17)
--- NOTE | 2024-03-28 11:34 | XRR_ITS ---
PROCEDURE INFORMATION: Exam: XR Chest Exam date and time: 03/28/2024 11:43 AM Age: 78 years old Clinical indication: Shortness of breath; Additional info: Chf; Vent maintence TECHNIQUE: Imaging protocol: Radiologic exam of the chest. Views: 1 view. COMPARISON: CR XR chest 1V portable [id number] 27/03/2024 18:20 FINDINGS: Tubes, catheters and devices: The endotracheal tube and nasogastric tube are stable. The right upper extremity PICC is stable. Lungs: Stable diffuse pulmonary infiltrates throughout both lungs. Pleural spaces: Stable moderate size right pleural effusion and stable small left pleural effusion Heart/Mediastinum: Unremarkable. No cardiomegaly. Bones/joints: Unremarkable. XR/XR chest 1V portable [id number] IMPRESSION: Stable chest
--- NOTE | 2024-03-28 12:00 | PC.NURSE ---
sheath removed at 1000 held pressure to site for total of 30 min , had issue with bleeding prior hematoma noted dressing applied and weaning sedation to wean vent
--- NOTE | 2024-03-28 12:21 | P.PN_ITS ---
Subjective 2 Subjective: Overnight patient remains clinically and hemodynamically stable. She remains intubated and on mechanical ventilation. Currently she is on low-dose of Levophed and her blood pressures are stable. The arterial sheath from the right femoral artery is now out. There is mild bruising at the site however no hematoma. No arrhythmia observed overnight. Medications: Medication Review Details: Current medication reviewed Vitals/I&O/Wt Last Vital Signs Pulse 76 03/28/24 10:30 Resp 14 03/28/24 11:21 BP 95/51 03/28/24 10:30 Pulse Ox 100 03/28/24 11:21 O2 Del Method Mechanical Ventilation 03/27/24 18:00 O2 Flow Rate 40 03/27/24 18:00 FiO2 30 03/28/24 11:21 03/27/24 03/28/24 03/28/24 22:59 06:59 14:59 Intake Total 340.550 / 340.550 668.729 / 1009.279 205.167 / 205.167 Output Total 650 / 650 Balance 340.550 / 340.550 18.729 / 359.279 205.167 / 205.167 Weight last 48 hrs Weight 157 lb 9.6 oz Weight 139 lb 12.8 oz Physical Exam 2 Narrative: Patient is on mechanical ventilation. HEENT examination unremarkable No apparent jugular venous distention Lungs auscultation revealed fine rales at the bases bilaterally. Cardiac examination normal first second heart sounds. No added sounds Abdomen soft and bowel sounds audible Lower extremity. Trace edema bilaterally Skin warm and dry. Data 03/28/24 04:16 03/28/24 04:16 Micro: Microbiology 03/27/24 20:00 Bacterial Antigens - Final Urine,Voided 03/27/24 15:10 Gram Stain - Final Sputum - Endotracheal Tube Aspirate 03/27/24 21:58 Blood Culture - Preliminary Blood SPECIMEN COLLECTED 03/27/24 22:30 Blood Culture - Preliminary Blood SPECIMEN COLLECTED 03/27/24 20:00 Legionella Urinary Antigen - Final Urine Catheterized A&P Assessment and plan (1) ACS (acute coronary syndrome): (2) Shock: Plan 78-year-old female who presented yesterday with acute pulmonary edema in the setting of acute IN. Successful angioplasty of right coronary artery. Patient remains intubated however hemodynamically stable on low-dose of Levophed. Heart failure symptoms have improved Plan to continue on dual antiplatelets and statins. Will add and optimize post IN medication once she is off the inotropic support and of ventilation. Attestations 2 Medical Necessity Statement*: 1. Acute IN 2. Cardiogenic shock 3. On mechanical ventilation Coding Level of Care Code Acute Code for Chg Fwd Diagnoses ACS (acute coronary syndrome) I24.9 Shock R57.9 Time Spent (min) 30
[2024-03-28] MEDS: fentaNYL 1,000 MCG/100 ML BAG 7.5 MCG IV (13:20)
[2024-03-28] MEDS: FUROsemide 10 mg/mL SDV 4mL 40 MG IVP (14:18)
[2024-03-28] MEDS: norepinephrine 4 MG/250 ML BAG 22.5 MG IV (16:40)
--- NOTE | 2024-03-28 16:59 | P.PN_ITS ---
Subjective 2 Subjective: Currently on pressors, AC vent Pressors being weaned. Vitals/I&O/Wt Last Vital Signs Pulse 78 03/28/24 16:30 Resp 14 03/28/24 14:02 BP 118/47 03/28/24 16:30 Pulse Ox 92 03/28/24 14:02 O2 Del Method Mechanical Ventilation 03/28/24 16:00 O2 Flow Rate 40 03/28/24 16:00 FiO2 30 03/28/24 14:02 03/28/24 03/28/24 03/28/24 06:59 14:59 22:59 Intake Total 668.729 / 1009.279 277.659 / 277.659 135.563 / 413.222 Output Total 650 / 650 650 / 650 Balance 18.729 / 359.279 -372.341 / -372.341 135.563 / -236.778 Weight last 48 hrs Weight 157 lb 9.6 oz Weight 139 lb 12.8 oz Physical Exam 2 Narrative: Intubated, sedated. HENMT: COMMON NORMALS: oropharynx normal Neck/C-Spine: COMMON NORMALS: no JVD Resp: AUSCULTATION: diminished lung sounds Cardio: COMMON NORMALS: no JVD, regular rhythm, S1 normal heart sound present, S2 normal heart sound present and No murmurs present (Cardio) RHYTHM: regular rhythm HEART SOUNDS: S1 normal heart sound present and S2 normal heart sound present GI: COMMON NORMALS: Normal to inspection, nondistended, normoactive bowel sounds present, Soft to palpation and non-tender PALPATION: Yes Soft to palpation Extremity: COMMON NORMALS: no joint enlargement GENERAL: Yes edema (2+ BL LE) Skin: COMMON NORMALS: no rashes or lesions noted GENERAL SKIN EXAM: no rashes or lesions noted Data 03/28/24 04:16 03/28/24 04:16 Micro: Microbiology 03/27/24 15:10 Gram Stain - Final Sputum - Endotracheal Tube Aspirate Sputum Culture - Preliminary 03/27/24 20:00 Bacterial Antigens - Final Urine,Voided 03/27/24 21:58 Blood Culture - Preliminary Blood SPECIMEN COLLECTED 03/27/24 22:30 Blood Culture - Preliminary Blood SPECIMEN COLLECTED 03/27/24 20:00 Legionella Urinary Antigen - Final Urine Catheterized A&P Assessment and plan (1) Acute respiratory failure: Acute hypoxic respiratory failure, with pulmonary edema, Possible pneumonia. Assess with echocardiogram. Continue mechanical ventilatory support for now. Noted respiratory alkalosis, vent settings adjusted. Continue weaning. Anticipate extubation soon Chest x-ray done and reviewed (2) Shock: Cardiogenic shock, status post STEMI equivalent, assess TTE. (3) ACS (acute coronary syndrome): Appreciate cardiology assistance. Plan Atrial fibrillation: Normally on Eliquis. Metoprolol. Hold the pietro for now due to shock. History of diastolic congestive heart failure: In exacerbation, has received Lasix. As per discussion cardiology recommendation will give additional 40 mg IV Lasix. Attestations 2 Medical Necessity Statement*: vent support Coding Level of Care Code Critical Care >/= 30 minutes Diagnoses Acute respiratory failure J96.00 Shock R57.9 ACS (acute coronary syndrome) I24.9
--- NOTE | 2024-03-28 17:05 | USCV_ITS ---
Maritza Arielle Age: 78 Gender: F : 1945 Exam Date: 03/28/2024 13:15 Ordering Phys: Gregor Smith MD Technologist: Tony Santos [place] [facility] [place]: VT BP: 110 / 47 HR: 80 Rhythm: Sinus Technical Quality: Adequate MEASUREMENTS (Male / Female) Normal Values 2D ECHO LV Diastolic Diameter PLAX 4.0 cm 4.2 - 5.9 / 3.9 - 5.3 cm IVS Diastolic Thickness 1.1 cm 0.6 - 1.0 / 0.6 - 0.9 cm IVS Systolic Thickness 1.4 cm LVPW Diastolic Thickness 1.3 cm 0.6 - 1.0 / 0.6 - 0.9 cm LVPW Systolic Thickness 1.7 cm LVOT Diameter 2.0 cm LV Ejection Fraction 2D Teich 76.8 % LV Ejection Fraction MOD 2C 69.2 % LV Ejection Fraction 2C AL 68.1 % LA Diameter 4.0 cm LA Sys Volume AL 53.1 cm cubed LA Sys Volume Index AL 29.7 cm cubed/m squared Aorta at Sinotubular Diameter 2.2 cm IVC Diameter 1.5 cm M-MODE LA Ao Ratio MM 2.1 AV Cusp Separation MM 1.9 cm DOPPLER AV Peak Velocity 156.3 cm/s LVOT Peak Velocity 124.0 cm/s AV Area Cont Eq vti 2.6 cm squared AV Area Cont Eq pk 2.6 cm squared MV Peak Velocity 138.0 cm/s MV Area PHT 4.5 cm squared Mitral E to A Ratio 1.6 TV Peak Velocity 274.3 cm/s TR Peak Velocity 299.0 cm/s TR Peak Gradient 35.8 mmHg TR Mean Velocity 224.0 cm/s TR Mean Gradient 21.7 mmHg TR Velocity Time Integral 58.2 cm PV Peak Velocity 125.3 cm/s RV Ejection Time 0.2 s FINDINGS Left Ventricle Normal left ventricular size, systolic function and wall thickness, with no regional wall motion abnormalities. Left ventricular ejection fraction is estimated at 65 %. Right Ventricle Normal right ventricular size and systolic function. Right Atrium Normal right atrial size. Left Atrium Moderately dilated left atrium Mitral Valve Thickened mitral valve with mild mitral annular calcification. There is a moderate mitral regurgitation with extrinsic posteriorly directed jet Aortic Valve Thickened aortic valve. No aortic valve stenosis. Tricuspid Valve Tricuspid valve not well visualized. Trace tricuspid valve regurgitation. TVPG 35 mmHg. Pulmonic Valve Pulmonic valve not well visualized. [id number] pulmonary valve regurgitation. Pericardium There is a localized mild pericardial effusion around inferoposterior surface. Aorta Normal size aortic root and proximal ascending aorta. IVC Normal IVC with blunt respiratory change. CONCLUSIONS Patient is intubated and on mechanical ventilation. 1. Normal LV systolic function. LVEF 65%. 2. Dilated LA with moderate mitral regurgitation, extrinsic posteriorly directed regurgitation jet. 3. Mildly elevated pulmonary pressure, 40 mmHg (patient intubated and on vent). Levar Gerard MD (Electronically Signed) Final Date: 29 Mar 2024 15:16 S
[2024-03-28 17:32] LABS: ABG PCO2 39.7 mmHg (35-45); ABG PH Result 7.51 (7.35-7.45); Alveolar-Arterial Oxygen Gradi 13.3 mmHg (5-10); Arterial Blood Gas Hematocrit 25.4 % (37-47); Base Excess ABG 8.3 mmol/L (-2.0-2.0); Blood Gas Allen Test Pos; Blood Gas Operator Identificat MONRO; Blood Gas Sample Site Radial, left; Blood Gas Sample Type Arterial; Blood Gas Tidal Volume 0.38; Carboxyhemoglobin 2.4 %THgb (0.4-20.1); HGB O2 Sat 92.3 % (95-100); Ionized Calcium Level - ABG 1.1 mmol/L (1.1-1.4); Methemoglobin 0.3 % (0.4-1.5); Oxygen Device VENT; Oxygen Saturation ABG 94.9; PO2 ABG 60.8 mmHg (80.0-100.0); PO2 FiO2 Ratio Arterial Blood 0; Potassium Level - ABG 3.4 mmol/L (3.5-5.0); Total Hemoglobin 8.3 g/dL (12-16)
[2024-03-28] MEDS: azithromycin 500 MG in sodium chloride 0.9% 250 ML 200 MG IV (18:41)
[2024-03-28] MEDS: atorvastatin 40 mg Tablet 80 MG PO (20:23)
[2024-03-28] MEDS: fentaNYL 1,000 MCG/100 ML BAG 10 MCG IV (23:11)
[2024-03-29] VITALS (57 sets, daily range): BP systolic 93–124; BP diastolic 39–60; PULSE 40–70; RESP 14–33; TEMP 36.6–36.7; O2SAT 92–100
--- NOTE | 2024-03-29 04:00 | XRR_ITS ---
PROCEDURE INFORMATION: Exam: XR Chest Exam date and time: 03/29/2024 4:40 AM Age: 78 years old Clinical indication: Other: Resp failure/chf; Patient HX: F/u for resp failure. Intubated. History of chf. TECHNIQUE: Imaging protocol: Radiologic exam of the chest. Views: 1 view. COMPARISON: CR (CHEST, ) 03/28/2024 11:43 AM FINDINGS: Tubes, catheters and devices: Lines and tubes unchanged. Lungs: Hazy bilateral diffuse patchy infiltrates and effusions again seen. Pleural spaces: No pneumothorax or other change. Heart/Mediastinum: The heart is large. Advanced diffuse vascular calcification noted. Bones/joints: Unremarkable. XR/XR chest 1V portable [id number] IMPRESSION: Unimproved exam from prior day.
[2024-03-29 05:01] LABS: Basophils # 0.1 10^3/uL (0.0-0.1); Basophils % 0.6 %; Eosinophils # 0.1 10^3/uL (0.0-0.8); Eosinophils % 0.7 %; Lymphocytes # 0.7 10^3/uL (0.8-4.8); Lymphocytes % 5.9 %; Mean Corpuscular HGB Conc 31.7 g/dL (30-55); Mean Corpuscular Hemoglobin 27.2 pg (27-33); Mean Corpuscular Volume 85.8 fl (85-98); Mean Platelet Volume 10.3 fL (7.4-10.4); Monocytes # 0.9 10^3/uL (0.2-0.9); Monocytes % 7.4 %; Neutrophils % 84.9 %; Nucleated Red Blood Cells % 0 %; Platelet Count 193 10^3/cmm (157-399); Red Blood Count 2.68 10^6/uL (3.85-5.65); Red Cell Distribution Width 17.3 % (12.1-15.1); White Blood Count 12.47 10^3/uL (3.29-11.43)
[2024-03-29] MEDS: cefTRIAXone 1,000 MG in sodium chloride 0.9% (plus) 50 ML 100 MG IV ×2 (05:10→17:05)
[2024-03-29 05:20] LABS: Alanine Aminotransferase 8 U/L (0-33); Albumin Level 2.6 g/dL (3.5-5.2); Alkaline Phosphatase 60 U/L (35-105); Anion Gap 11.5 (5-19); Aspartate Amino Transferase 11 U/L (0-32); Blood Urea Nitrogen 27 mg/dL (8-23); Calcium 7.7 mg/dL (8.5-10.5); Carbon Dioxide 31 mmol/L (22-29); Chloride 101 mmol/L (98-107); Creatinine Clr Calc Pharmacy 35.4002; Globulin 2.7 g/dL (1.3-4.6); Glucose 147 mg/dL (65-115); Osmolality Calculated 298 mOsm/kg (285-295); Potassium 3.5 mmol/L (3.5-5.1); Sodium 140 mmol/L (136-145); Total Bilirubin 0.9 mg/dL (0.15-1.2); Total Protein 5.3 g/dL (6.6-8.7)
[2024-03-29] MEDS: aspirin 325 mg Tablet PO (08:49)
[2024-03-29] MEDS: sennosides-docusate Tablet 1 TAB PO (08:49)
[2024-03-29] MEDS: clopidogrel 75 mg Tablet PO (08:49)
--- NOTE | 2024-03-29 16:01 | P.PN_ITS ---
Subjective 2 Subjective: A patient remains intubated and on mechanical ventilation Hemodynamically more stable. The inotropes are being weaned off. Noted hemoglobin is significantly low 7.8. There is bruising and moderate size hematoma over the left groin, the site of femoral arteriotomy. Currently patient is being transfused. No further active heart failure or any arrhythmia Medications: Medication Review Details: Medication reviewed Vitals/I&O/Wt Last Vital Signs Temp 97.9 F 03/29/24 15:38 Pulse 64 03/29/24 15:38 Resp 24 H 03/29/24 15:38 BP 115/56 03/29/24 15:38 Pulse Ox 98 03/29/24 14:52 O2 Del Method Mechanical Ventilation 03/29/24 15:00 O2 Flow Rate 40 03/28/24 16:00 FiO2 35 03/29/24 14:52 03/29/24 03/29/24 03/29/24 06:59 14:59 22:59 Intake Total 362.846 / 1107.318 376.333 / 376.333 0 / 376.333 Output Total 300 / 1600 Balance 62.846 / -492.682 376.333 / 376.333 0 / 376.333 Weight last 48 hrs Weight 154 lb 3.2 oz Weight 157 lb 9.6 oz Physical Exam 2 Narrative: Patient remains intubated and on ventilation. Vitals are stable on minimal inotropic support. Heart rate 80s sinus rhythm blood pressure 110/69 HEENT examination unremarkable. No apparent jugular venous distention. Chest auscultation revealed minimal bibasal rales. Card examination normal first and second heart sounds mild systolic murmur of MR Abdomen soft nontender. Lower extremities. Warm and dry. No lower extremity edema Data 03/29/24 04:20 03/29/24 04:20 Micro: Microbiology 03/27/24 15:10 Gram Stain - Final Sputum - Endotracheal Tube Aspirate Sputum Culture - Final 03/27/24 21:58 Blood Culture - Preliminary Blood NEGATIVE TO DATE 03/27/24 22:30 Blood Culture - Preliminary Blood NEGATIVE TO DATE A&P Assessment and plan (1) ACS (acute coronary syndrome): 78-year-old patient who presented with respiratory failure, pulmonary edema and cardiogenic shock with the new left bundle branch block concerning acute GA. Emergency cardiac cath revealed significant chronic disease in the proximal circumflex and 80% stenosis of proximal mid RCA, culprit for acute presentation. Subsequently Successful angioplasty of RCA was performed. Patient's hemoglobin has dropped significantly, likely secondary to bleeding at the right groin post procedure. There is static moderate size bruising and likely underlying hematoma. Patient was on anticoagulation with apixaban 5 mg twice a day at home for previous history of atrial fibrillation. she received a therapeutic dose of intravenous heparin at the time of angiography/angioplasty. The elevated white cell count which are now settling likely due to acute GA and possibly with added lower respiratory tract infection. Currently patient is being weaned off from inotropes and plan for extubation later today. She is also being transfused for low hemoglobin. Will continue dual antiplatelets and statins. (2) Shock: Attestations 2 Medical Necessity Statement*: 1. Acute GA 2. Cardiogenic shock 3. On mechanical ventilation Coding Level of Care Code Acute Code for [facility] Fwd Diagnoses ACS (acute coronary syndrome) I24.9 Shock R57.9 Time Spent (min) 45
[2024-03-29] MEDS: azithromycin 500 MG in sodium chloride 0.9% 250 ML 200 MG IV (17:06)
--- NOTE | 2024-03-29 17:16 | P.PN_ITS ---
Subjective 2 Subjective: SBT today sedation weaned Vitals/I&O/Wt Last Vital Signs Temp 97.9 F 03/29/24 16:00 Pulse 67 03/29/24 16:00 Resp 24 H 03/29/24 15:38 BP 117/48 03/29/24 16:00 Pulse Ox 100 03/29/24 15:30 O2 Del Method Mechanical Ventilation 03/29/24 15:00 O2 Flow Rate 40 03/28/24 16:00 FiO2 35 03/29/24 14:52 03/29/24 03/29/24 03/29/24 06:59 14:59 22:59 Intake Total 362.846 / 1107.318 376.333 / 376.333 0 / 376.333 Output Total 300 / 1600 Balance 62.846 / -492.682 376.333 / 376.333 0 / 376.333 Weight last 48 hrs Weight 154 lb 3.2 oz Weight 157 lb 9.6 oz Physical Exam 2 Narrative: Intubated, sedated. HENMT: COMMON NORMALS: oropharynx normal Neck/C-Spine: COMMON NORMALS: no JVD Resp: AUSCULTATION: diminished lung sounds Cardio: COMMON NORMALS: no JVD, regular rhythm, S1 normal heart sound present, S2 normal heart sound present and No murmurs present (Cardio) RHYTHM: regular rhythm HEART SOUNDS: S1 normal heart sound present and S2 normal heart sound present GI: COMMON NORMALS: Normal to inspection, nondistended, normoactive bowel sounds present, Soft to palpation and non-tender PALPATION: Yes Soft to palpation Extremity: COMMON NORMALS: no joint enlargement GENERAL: Yes edema (2+ BL LE) Skin: COMMON NORMALS: no rashes or lesions noted GENERAL SKIN EXAM: no rashes or lesions noted Data 03/29/24 04:20 03/29/24 04:20 Micro: Microbiology 03/27/24 15:10 Gram Stain - Final Sputum - Endotracheal Tube Aspirate Sputum Culture - Final 03/27/24 21:58 Blood Culture - Preliminary Blood NEGATIVE TO DATE 03/27/24 22:30 Blood Culture - Preliminary Blood NEGATIVE TO DATE A&P Assessment and plan (1) Acute respiratory failure: Acute hypoxic respiratory failure, with pulmonary edema, Possible pneumonia. Assess with echocardiogram. Continue mechanical ventilatory support for now. Noted respiratory alkalosis, vent settings adjusted. Continue weaning. Anticipate extubation soon Chest x-ray done and reviewed (2) Shock: Cardiogenic shock, status post STEMI equivalent, assess TTE. (3) ACS (acute coronary syndrome): Appreciate cardiology assistance. (4) Anemia: could be 2/2 hematoma blood ordered Plan Atrial fibrillation: Normally on Eliquis. Metoprolol. Hold the pietro for now due to shock. History of diastolic congestive heart failure: In exacerbation, has received Lasix. As per discussion cardiology recommendation will give additional 40 mg IV Lasix. Attestations 2 Medical Necessity Statement*: Arielle Salas requires ongoing inpatient care for blood, moniting labs Coding Level of Care Code 23945 Diagnoses Acute respiratory failure J96.00 Shock R57.9 ACS (acute coronary syndrome) I24.9 Anemia D64.9
[2024-03-29] MEDS: fentaNYL 1,000 MCG/100 ML BAG 5 MCG IV (17:52)
[2024-03-29] MEDS: FUROsemide 10 mg/mL SDV 4mL 40 MG IVP (19:47)
[2024-03-29] MEDS: atorvastatin 40 mg Tablet 80 MG PO (20:18)
[2024-03-30] VITALS (64 sets, daily range): BP systolic 92–142; BP diastolic 40–106; PULSE 51–136; RESP 9–33; TEMP 36.6–37.1; O2SAT 87–100
[2024-03-30] MEDS: fentaNYL 1,000 MCG/100 ML BAG 10 MCG IV (04:14)
[2024-03-30 04:34] LABS: ABG PCO2 40.1 mmHg (35-45); Alveolar-Arterial Oxygen Gradi 13.1 mmHg (5-10); Arterial Blood Gas Hematocrit 32.9 % (37-47); Base Excess ABG 7.5 mmol/L (-2.0-2.0); Blood Gas Allen Test Pos; Blood Gas Operator Identificat JB; Blood Gas Sample Site Radial, right; Blood Gas Sample Type Arterial; Blood Gas Tidal Volume 0.35; Carboxyhemoglobin 1.8 %THgb (0.4-20.1); HCO3 ABG 31.3 mmol/L (22-26); HGB O2 Sat 97.4 % (95-100); Ionized Calcium Level - ABG 1.1 mmol/L (1.1-1.4); Methemoglobin 0.4 % (0.4-1.5); Oxygen Device VENT; Oxygen Saturation ABG 99.5; PO2 ABG 97.4 mmHg (80.0-100.0); PO2 FiO2 Ratio Arterial Blood 0; Total Hemoglobin 10.7 g/dL (12-16)
[2024-03-30] MEDS: cefTRIAXone 1,000 MG in sodium chloride 0.9% (plus) 50 ML 100 MG IV ×2 (05:14→16:55)
[2024-03-30] MEDS: FUROsemide 10 mg/mL SDV 4mL 40 MG IVP (08:27)
[2024-03-30] MEDS: clopidogrel 75 mg Tablet PO (08:28)
[2024-03-30] MEDS: aspirin 325 mg Tablet PO (08:28)
[2024-03-30] MEDS: sennosides-docusate Tablet 1 TAB PO (08:28)
[2024-03-30] MEDS: potassium phosphate (mEq K) 40 MEQ in sodium chloride 0.9% (100 ml) 100 ML 27.2699999999999996 MEQ IV (09:38)
[2024-03-30] MEDS: dexmedeTOMIDine 0.9 % NaCL 400 MCG/100 ML PREMIX 1.67999999999999994 MCG IV (10:22)
--- NOTE | 2024-03-30 15:17 | PC.SOCIAL ---
Pg 2 IMM Updated pt's son on IMM. No questions voiced. Provided pt a copy. Initialed, dated, & timed a copy & placed in chart.
--- NOTE | 2024-03-30 15:51 | P.PN_ITS ---
Subjective 2 Subjective: Patient did not tolerate breathing trial, Precedex started Mild to moderate secretions. Vitals/I&O/Wt Last Vital Signs Temp 97.8 F 03/30/24 12:00 Pulse 55 L 03/30/24 14:00 Resp 14 03/30/24 14:26 BP 92/46 03/30/24 14:00 Pulse Ox 55 L 03/30/24 14:26 O2 Del Method Mechanical Ventilation 03/30/24 05:30 O2 Flow Rate 40 03/29/24 18:49 FiO2 30 03/30/24 14:26 03/30/24 03/30/24 03/30/24 06:59 14:59 22:59 Intake Total 137.834 / 1292.351 243.9650 / 121.6736 Output Total 600 / 600 Balance -462.166 / 692.731 372.4510 / 121.6736 Weight last 48 hrs Weight 148 lb 4.8 oz Weight 154 lb 3.2 oz Physical Exam 2 Narrative: Intubated, sedated. HENMT: COMMON NORMALS: oropharynx normal Neck/C-Spine: COMMON NORMALS: no JVD Resp: AUSCULTATION: diminished lung sounds Cardio: COMMON NORMALS: no JVD, regular rhythm, S1 normal heart sound present, S2 normal heart sound present and No murmurs present (Cardio) RHYTHM: regular rhythm HEART SOUNDS: S1 normal heart sound present and S2 normal heart sound present GI: COMMON NORMALS: Normal to inspection, nondistended, normoactive bowel sounds present, Soft to palpation and non-tender PALPATION: Yes Soft to palpation Extremity: COMMON NORMALS: no joint enlargement GENERAL: Yes edema (2+ BL LE) Skin: COMMON NORMALS: no rashes or lesions noted GENERAL SKIN EXAM: no rashes or lesions noted Data 03/29/24 04:20 03/29/24 04:20 Micro: Microbiology 03/27/24 15:10 Gram Stain - Final Sputum - Endotracheal Tube Aspirate Sputum Culture - Final A&P Assessment and plan (1) Acute respiratory failure: Acute hypoxic respiratory failure, with pulmonary edema, Possible pneumonia. Assess with echocardiogram. Continue mechanical ventilatory support for now. Noted respiratory alkalosis, vent settings adjusted. Continue weaning. Anticipate extubation soon Sedation adjusted (2) Shock: Cardiogenic shock, status post STEMI equivalent, assess TTE. (3) ACS (acute coronary syndrome): Appreciate cardiology assistance. (4) Anemia: could be 2/2 hematoma blood given Attestations 2 Medical Necessity Statement*: Arielle Salas requires ongoing inpatient care for vent support Coding Level of Care Code 64818 Diagnoses Acute respiratory failure J96.00 Shock R57.9 ACS (acute coronary syndrome) I24.9 Anemia D64.9
[2024-03-30] MEDS: propofol 1,000 MG/100 ML INJ 2.02000000000000002 MG IV (16:50)
[2024-03-30] MEDS: azithromycin 500 MG in sodium chloride 0.9% 250 ML 250 MG IV (16:58)
--- NOTE | 2024-03-30 17:44 | P.PN_ITS ---
Subjective 2 Subjective: Patient is intubated and sedated. Vitals/I&O/Wt Last Vital Signs Temp 98.1 F 03/30/24 16:00 Pulse 57 L 03/30/24 16:00 Resp 14 03/30/24 16:17 BP 113/50 03/30/24 16:00 Pulse Ox 99 03/30/24 16:17 O2 Del Method Mechanical Ventilation 03/30/24 05:30 O2 Flow Rate 40 03/29/24 18:49 FiO2 30 03/30/24 16:17 03/30/24 03/30/24 03/30/24 06:59 14:59 22:59 Intake Total 137.834 / 1292.110 007.6999 / 121.6736 0 / 121.6736 Output Total 600 / 600 Balance -462.166 / 692.943 612.9832 / 121.6736 0 / 121.6736 Weight last 48 hrs Weight 148 lb 4.8 oz Weight 154 lb 3.2 oz Physical Exam 2 Narrative: GENERAL: Patient is intubated and sedated NECK: No jugular vein distension. [] HEENT: No cyanosis. No icterus. No pallor. [] HEART: Regular S1 and S2. No murmur, rub or gallop. [] LUNGS: Clear to auscultate bilaterally. [] CENTRAL NERVOUS SYSTEM: Grossly nonfocal. [] EXTREMITIES: Lower extremities with 1+ edema bilaterally. [] Data 03/30/24 22:27 03/30/24 22:27 Micro: Microbiology 03/27/24 15:10 Gram Stain - Final Sputum - Endotracheal Tube Aspirate Sputum Culture - Final A&P Assessment and plan (1) New onset left bundle branch block (LBBB): (2) Atrial fibrillation with RVR: (3) Shock: (4) ACS (acute coronary syndrome): (5) Congestive heart failure: Plan Patient is intubated and sedated. Plan for possible extubation tomorrow. Continue dual antiplatelet therapy. Hemoglobin is low. No signs of overt bleeding. Heart rate is controlled. Monitor H and H. Thank you for involving us with care of this patient.We will continue to follow. Please call with questions. Attestations 2 Medical Necessity Statement*: Care expected to cross 2 midnights. Coding Level of Care Code Acute Code for [facility] Fwd Diagnoses New onset left bundle branch block (LBBB) I44.7 Atrial fibrillation with RVR I48.91 Shock R57.9 ACS (acute coronary syndrome) I24.9 Congestive heart failure I50.9
[2024-03-30] MEDS: atorvastatin 40 mg Tablet 80 MG PO (22:11)
[2024-03-30 22:52] LABS: Basophils # 0.1 10^3/uL (0.0-0.1); Basophils % 0.6 %; Eosinophils # 0.5 10^3/uL (0.0-0.8); Eosinophils % 4.4 %; Lymphocytes # 0.7 10^3/uL (0.8-4.8); Lymphocytes % 6.3 %; Mean Corpuscular HGB Conc 32.1 g/dL (30-55); Mean Corpuscular Volume 84.1 fl (85-98); Mean Platelet Volume 10.1 fL (7.4-10.4); Monocytes # 0.8 10^3/uL (0.2-0.9); Monocytes % 7.8 %; Neutrophils # 8.37 10^3/uL (1.8-7.7); Neutrophils % 80.5 %; Nucleated Red Blood Cells % 0 %; Platelet Count 198 10^3/cmm (157-399); Red Blood Count 3.33 10^6/uL (3.85-5.65); Red Cell Distribution Width 17.4 % (12.1-15.1); White Blood Count 10.39 10^3/uL (3.29-11.43)
--- NOTE | 2024-03-30 22:53 | ECG_ITS ---
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 Measurements Intervals [place] Rate: 141 P: 0 CO: 0 QRS: -33 QRSD: 145 T: 133 QT: 322 QTc: 493 Interpretive Statements ATRIAL FIBRILLATION WITH RAPID VENTRICULAR RESPONSE LEFT AXIS DEVIATION [QRS AXIS < -30] LEFT BUNDLE BRANCH BLOCK [120+ ms QRS DURATION, 80+ ms Q/S IN V1/V2, 85+ ms R IN I/aVL/V5/V6] Compared to ECG 03/27/2024 23:24:43 Left-axis deviation now present Left bundle-branch block now present Sinus bradycardia no longer present Indeterminate axis no longer present Intraventricular conduction delay no longer present Electronically Signed On 04-01-2024 0:18:28 CDT by Ignacio Rivers M.D. [id number]
[2024-03-30 23:19] LABS: Alanine Aminotransferase 12 U/L (0-33); Albumin Level 2.7 g/dL (3.5-5.2); Alkaline Phosphatase 61 U/L (35-105); Anion Gap 17.5 (5-19); Aspartate Amino Transferase 14 U/L (0-32); Blood Urea Nitrogen 24 mg/dL (8-23); Calcium 8.2 mg/dL (8.5-10.5); Carbon Dioxide 27 mmol/L (22-29); Chloride 102 mmol/L (98-107); Creatinine Clr Calc Pharmacy 46.3298; Globulin 3.1 g/dL (1.3-4.6); Glucose 80 mg/dL (65-115); Osmolality Calculated 299 mOsm/kg (285-295); Potassium 3.5 mmol/L (3.5-5.1); Sodium 143 mmol/L (136-145); Total Bilirubin 0.5 mg/dL (0.15-1.2); Total Protein 5.8 g/dL (6.6-8.7)
[2024-03-31] VITALS (102 sets, daily range): BP systolic 74–125; BP diastolic 47–79; PULSE 82–140; RESP 14–29; TEMP 36.3–37.1; O2SAT 79–99
[2024-03-31] MEDS: amiodarone 150 MG/100 ML PREMIX 400 MG IV (00:22)
[2024-03-31] MEDS: cefTRIAXone 1,000 MG in sodium chloride 0.9% (plus) 50 ML 100 MG IV ×2 (05:56→17:30)
--- NOTE | 2024-03-31 07:00 | XRR_ITS ---
PROCEDURE INFORMATION: Exam: XR Chest Exam date and time: 03/31/2024 7:15 AM Age: 78 years old Clinical indication: Shortness of breath; Additional info: SOB TECHNIQUE: Imaging protocol: Radiologic exam of the chest. Views: 1 view. COMPARISON: CR (CHEST, ) 03/29/2024 4:40 AM FINDINGS: Lungs: Vascular engorgement, interstitial and alveolar edema and bilateral pleural effusions all indicate congestive heart failure. Pleural spaces: See Lungs finding. Heart/Mediastinum: Unremarkable. No cardiomegaly. Bones/joints: Unremarkable. Other findings: Stable life support lines. XR/XR chest 1V portable [id number] IMPRESSION: Marked CHF. No significant change.
--- NOTE | 2024-03-31 08:00 | P.PN_ITS ---
Subjective 2 Subjective: Patient could not be extubated today. Diuresing well. Awake today and denies chest pain. Vitals/I&O/Wt Last Vital Signs Temp 97.6 F 03/31/24 02:00 Pulse 96 03/31/24 06:00 Resp 22 H 03/31/24 07:46 BP 96/47 03/31/24 06:00 Pulse Ox 99 03/31/24 07:46 O2 Del Method Mechanical Ventilation 03/30/24 20:30 O2 Flow Rate 40 03/29/24 18:49 FiO2 30 03/31/24 07:46 03/30/24 03/31/24 03/31/24 22:59 06:59 14:59 Intake Total 311.447 / 433.1206 253.913 / 687.0336 150 / 150 Output Total 1000 / 1000 350 / 1350 Balance -688.553 / -566.8794 -96.087 / -662.9664 150 / 150 Weight last 48 hrs Weight 150 lb 1.6 oz Weight 148 lb 4.8 oz Physical Exam 2 Narrative: GENERAL: Patient is intubated and sedated NECK: No jugular vein distension. [] HEENT: No cyanosis. No icterus. No pallor. [] HEART: Regular S1 and S2. No murmur, rub or gallop. [] LUNGS: Clear to auscultate bilaterally. [] CENTRAL NERVOUS SYSTEM: Grossly nonfocal. [] EXTREMITIES: Lower extremities with 1+ edema bilaterally. [] Data 03/30/24 22:27 03/30/24 22:27 A&P Assessment and plan (1) New onset left bundle branch block (LBBB): (2) Atrial fibrillation with RVR: (3) Shock: (4) ACS (acute coronary syndrome): (5) Congestive heart failure: Plan Patient would not be extubated today. Continue with diuresis and given give another dose of Lasix tonight. Continue dual antiplatelet therapy. Hemoglobin has been stable. Thank you for involving us with care of this patient.We will continue to follow. Please call with questions. Attestations 2 Medical Necessity Statement*: Care expected to cross 2 midnights. Coding Level of Care Code Acute Code for [facility] Diagnoses New onset left bundle branch block (LBBB) I44.7 Atrial fibrillation with RVR I48.91 Shock R57.9 ACS (acute coronary syndrome) I24.9 Congestive heart failure I50.9
[2024-03-31] MEDS: aspirin 325 mg Tablet PO (08:41)
[2024-03-31] MEDS: clopidogrel 75 mg Tablet PO (08:42)
[2024-03-31] MEDS: potassium chloride ER 20 mEq Tablet 40 MEQ PO (08:42)
[2024-03-31] MEDS: sennosides-docusate Tablet 1 TAB PO (08:42)
[2024-03-31] MEDS: FUROsemide 10 mg/mL SDV 4mL 40 MG IVP ×2 (12:20→19:55)
--- NOTE | 2024-03-31 16:38 | P.PN_ITS ---
Subjective 2 Subjective: SBT today cxr done lasix ordered Vitals/I&O/Wt Last Vital Signs Temp 98.7 F 03/31/24 08:45 Pulse 102 H 03/31/24 16:00 Resp 19 H 03/31/24 14:40 BP 94/57 03/31/24 16:00 Pulse Ox 95 03/31/24 16:00 O2 Del Method Mechanical Ventilation 03/30/24 20:30 O2 Flow Rate 40 03/29/24 18:49 FiO2 30 03/31/24 14:40 03/31/24 03/31/24 03/31/24 06:59 14:59 22:59 Intake Total 253.913 / 687.0336 150 / 150 Output Total 350 / 1350 Balance -96.087 / -662.9664 150 / 150 Weight last 48 hrs Weight 150 lb 1.6 oz Weight 148 lb 4.8 oz Physical Exam 2 Narrative: Intubated, sedated. HENMT: COMMON NORMALS: oropharynx normal Neck/C-Spine: COMMON NORMALS: no JVD Resp: AUSCULTATION: diminished lung sounds Cardio: COMMON NORMALS: no JVD, regular rhythm, S1 normal heart sound present, S2 normal heart sound present and No murmurs present (Cardio) RHYTHM: regular rhythm HEART SOUNDS: S1 normal heart sound present and S2 normal heart sound present GI: COMMON NORMALS: Normal to inspection, nondistended, normoactive bowel sounds present, Soft to palpation and non-tender PALPATION: Yes Soft to palpation Extremity: COMMON NORMALS: no joint enlargement GENERAL: Yes edema (2+ BL LE) Skin: COMMON NORMALS: no rashes or lesions noted GENERAL SKIN EXAM: no rashes or lesions noted Data 03/30/24 22:27 03/30/24 22:27 Attestations 2 Medical Necessity Statement*: Arielle Salas requires ongoing inpatient care for vent support, diuresis,weakness Coding Level of Care Code 36182
[2024-03-31] MEDS: azithromycin 500 MG in sodium chloride 0.9% 250 ML 250 MG IV (17:16)
--- NOTE | 2024-03-31 17:51 | PM.CONSULT ---
Providers/Reason For Consult Consulting Physician/Specialty*: Александр Leo MD FCCP/pulmonary critical care Reason for Consult*: Difficulty extubation Requesting Physician: Fred Hendrix MD Attending Physician: Fred Hendrix MD Primary Care Provider: MARCIE Cordoba History of Present Illness History of Present Illness Arielle Salas is a 78 year old female atrial fibrillation, diastolic congestive heart failure, dyslipidemia, hypertension, presented to EMS on 03/27/2024 for shortness of breath. On 03/27/2024 EMS reported when they arrived she complained of worsening shortness of breath-she uses baseline 2 L oxygen but has to increase it up to 5 L. Patient rapidly deteriorated to abdominal breathing and a laryngeal mask airway was put in place. On arrival to emergency room she was intubated immediately. EKG showed left bundle branch block-which is new compared to EKG 03/09/2023. STEMI alert was called and patient was taken to [facility]. Cardiac cath revealed significant disease in circumflex artery and RCA. The lesion in the RCA appears to be culprit-she will angioplasty of RCA. Patient remained hemodynamically stable with minimal inotropic support and on ventilation-transfer to ICU. Chest x-ray showed significant pulmonary edema and was given Lasix. She was also started on aspirin, Plavix and heparin. Echocardiogram 02/27/2024 showed normal LV systolic function LVEF 65%. Dilated LA with moderate mitral regurgitation. Mildly elevated pulmonary pressure 40 mmHg. On day 3-inotropes were weaned off. Moderate-sized hematoma over left groin. Hemoglobin 7.8-she received 1 PRBC transfusion. She has been on weaning trials for the last 2 days-however while on pressure support ventilation-she is going to apneic spells. Pulmonary critical care consult requested to help with weaning. Patient seen at bedside She is intubated-off sedation-following commands-respiratory rate is 35. Chest x-ray today continues to show vascular enlargement interstitial and alveolar edema and bilateral pleural effusions. Review of Systems General: Reports: ROS unobtainable due to endotracheal tube and ROS unobtainable due to medical condition Medications/Allergies Home Medications Medication Instructions Recorded Confirmed Last Taken Type multivitamin 1 tab PO QAM 02/27/22 03/27/24 03/09/24 History HINGED ELBOW BRACE. #1 ea 03/05/22 03/27/24 Unknown Rx cam boot #1 ea 03/06/22 03/27/24 Unknown Rx albuterol sulfate 90 mcg/actuation 2 puff inhalation QID PRN 01/29/24 03/27/24 Unknown History aerosol inhaler Shortness Of Breath Or Wheezing calcium carbonate 500 mg PO QAM 01/29/24 03/27/24 03/09/24 History ondansetron 8 mg disintegrating 8 mg PO Q8H PRN nausea and 02/13/24 03/27/24 Unknown Rx tablet vomiting #30 tabs amiodarone 200 mg tablet 100 mg (1/2 x 200 mg) PO BID 30 03/03/24 03/27/24 03/09/24 Rx days #15 tabs apixaban 5 mg tablet (Eliquis) 5 mg PO BID #60 tabs 03/03/24 03/27/24 03/09/24 Rx furosemide 40 mg tablet (Lasix) 40 mg PO BID #60 tabs 03/03/24 03/27/24 03/09/24 Rx metoprolol tartrate 25 mg tablet 25 mg PO BID@0900,2100 #60 tabs 03/03/24 03/27/24 03/09/24 Rx ferrous gluconate 324 mg (38 mg 324 mg PO QAM 03/09/24 03/27/24 03/09/24 History iron) tablet potassium chloride 10 mEq 10 meq PO QAM #60 tabs 03/12/24 03/27/24 Unknown Rx tablet,extended release spironolactone 25 mg tablet 25 mg PO DAILY #30 tabs 03/13/24 03/27/24 Unknown Rx atorvastatin 40 mg tablet 40 mg PO BEDTIME 03/27/24 03/27/24 Unknown History Allergies Allergy/AdvReac Type Severity Reaction Status Date / Time No Known Allergies Allergy Verified 03/13/24 10:01 Current Medications Generic Name Dose Route Start Last Admin Trade Name Freq PRN Reason Stop Dose Admin Aspirin 325 mg 03/28/24 09:00 03/31/24 08:41 Aspirin 325 Mg Tablet PO 325 mg DAILY NATHAN Administration Atorvastatin Calcium 80 mg 03/27/24 21:00 03/30/24 22:11 Atorvastatin 40 Mg Tablet PO 80 mg BEDTIME NATHAN Administration Clopidogrel Bisulfate 75 mg 03/28/24 09:00 03/31/24 08:42 Clopidogrel 75 Mg Tablet PO 75 mg DAILY NATHAN Administration Fentanyl 1,000 mcg in 100 mls @ 0 mls/hr 03/27/24 13:45 03/31/24 05:57 Sublimaze IV 25 mcg/hr .Q0M NATHAN 2.5 mls/hr Titration Protocol Per Protocol Ceftriaxone Sodium 1,000 mg/ 50 mls @ 100 mls/hr 03/27/24 17:30 03/31/24 17:30 Sodium Chloride IV 100 mls/hr Q12H NATHAN Administration Protocol Azithromycin 500 mg/ Sodium 250 mls @ 250 mls/hr 03/27/24 17:30 03/31/24 17:16 Chloride IV 250 mls/hr Q24H NATAHN Administration Protocol norepinephrine 4 mg in 250 mls @ 0 mls/hr 03/27/24 21:15 03/29/24 09:50 Levophed IV 0 mcg/min .Q0M NATHAN 0 mls/hr Titration Protocol Per Protocol Dexmedetomidine/Sodium Chloride 400 mcg in 100 mls @ 0 mls/hr 03/30/24 10:15 03/30/24 14:24 Precedex IV 0 mcg/kg/hr .Q0M NATHAN 0 mls/hr Titration Protocol Per Protocol Propofol 1,000 mg in 100 mls @ 0 mls/hr 03/30/24 16:30 03/31/24 05:53 Diprivan IV 5 mcg/kg/min .Q0M NATHAN 2.02 mls/hr Titration Protocol Per Protocol Amiodarone HCl/Dextrose 360 mg in 200 mls @ 0 mls/hr 03/30/24 23:46 03/31/24 06:34 Nexterone IV 0.5 mg/min .Q0M NATHAN 16.67 mls/hr Administration Protocol Per Protocol Potassium Chloride 40 meq 03/31/24 09:00 03/31/24 08:42 Potassium Chloride Er 20 Meq Tablet PO 40 meq DAILY NATHAN Administration Senna/Docusate Sodium 1 tab 03/28/24 09:00 03/31/24 08:42 Sennosides-Docusate Tablet PO 1 tab DAILY NATHAN Administration PFSH Acute PFSH: Medical History Atrial fibrillation Bilateral pleural effusion Diastolic congestive heart failure Dyslipidemia Emotional stress 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 Hypertension CHF (congestive heart failure) Diastolic Lisfranc's dislocation Fracture of third metatarsal bone of left foot Fracture of second metatarsal bone of left foot Nondisplaced fracture of first left metatarsal bone Closed left trimalleolar fracture Anxiety No pertinent past medical history Surgical History History of foot surgery Social History Smoking and tobacco/nicotine status: never used tobacco/nicotine Alcohol intake: never Substance/Drug Use: never Vitals/I&O/Wt Last Vital Signs Temp 98.7 F 03/31/24 08:45 Pulse 102 H 03/31/24 16:00 Resp 19 H 03/31/24 17:10 BP 94/57 03/31/24 16:00 Pulse Ox 97 03/31/24 17:10 O2 Del Method Mechanical Ventilation 03/30/24 20:30 O2 Flow Rate 40 03/29/24 18:49 FiO2 30 03/31/24 17:10 03/31/24 03/31/24 03/31/24 06:59 14:59 22:59 Intake Total 253.913 / 687.0336 150 / 150 Output Total 350 / 1350 Balance -96.087 / -662.9664 150 / 150 Weight last 48 hrs Weight 150 lb 1.6 oz Weight 148 lb 4.8 oz Physical Exam Narrative: PHYSICAL EXAM: General: lying in bed, sedated and intubated. HEENT:NCAT, PERRLA, EOMI Neck: Supple Lungs: Bilateral diffuse crackles Heart: s1/s2, RRR Abd: soft, NT, ND, BS + Normoactive Extremities: No edema TENSIONING MACHINE OPERATOR: sedated and limited TENSIONING MACHINE OPERATOR exam possible. SKIN: no rash Data 03/30/24 22:27 03/30/24 22:27 Other Labs: Radiology Impressions Chest X-Ray 03/31/24 07:00 IMPRESSION: Marked CHF. No significant change. Laboratory Results WBC 10.39 10^3/uL (3.29-11.43) 03/30/24 22:27 RBC 3.33 10^6/uL (3.85-5.65) L 03/30/24 22:27 Hgb 9.00 g/dL (11.27-16.99) L 03/30/24: Hct 28.0 % (36-47) L 03/30/24: MCV 84.1 fl (85-98) L 03/30/24: MCH 27.0 pg (27-33) 03/30/24: MCHC 32.1 g/dL (30-55) 03/30/24: RDW 17.4 % (12.1-15.1) H 03/30/24: Plt Count 198 10^3/cmm (157-399) 03/30/24: MPV 10.1 fL (7.4-10.4) 03/30/24: Neut % (Auto) 80.5 % 03/30/24: Lymph % (Auto) 6.3 % 03/30/24: Giles % (Auto) 7.8 % 03/30/24: Eos % (Auto) 4.4 % 03/30/24: Baso % (Auto) 0.6 % 03/30/24: Neut # (Auto) 8.37 10^3/uL (1.8-7.7) H 03/30/24: Lymph # (Auto) 0.7 10^3/uL (0.8-4.8) L 03/30/24: Giles # (Auto) 0.8 10^3/uL (0.2-0.9) 03/30/24: Eos # (Auto) 0.5 10^3/uL (0.0-0.8) 03/30/24: Baso # (Auto) 0.1 10^3/uL (0.0-0.1) 03/30/24: Nucleated RBC % (auto) 0 % 03/30/24: Nucleated RBCs # 0.0 /100WBC 03/30/24: PT 23.40 SECONDS (12.1-14.9) H 03/27/24 13:53 INR 2.00 (0.8-1.2) H 03/27/24 13:53 APTT 38.0 SECONDS (23.9-36.7) H 03/28/24 04:16 Specimen Type Arterial 05/20/24 04:20 Sample Site Radial, right 03/30/24 04:20 ABG pH 7.50 (7.35-7.45) H 03/30/24 04:20 ABG pCO2 40.1 mmHg (35-45) 03/30/24 04:20 ABG pO2 97.4 mmHg (80.0-100.0) 03/30/24 04:20 ABG PO2/FiO2 Ratio 0 03/30/24 04:20 ABG HCO3 31.3 mmol/L (22-26) H 03/30/24 04:20 ABG O2 Saturation 99.5 03/30/24 04:20 ABG Base Excess 7.5 mmol/L (-2.0-2.0) H 03/30/24 04:20 Parish Test Pos 03/30/24 04:20 A-a O2 Gradient 13.1 mmHg (5-10) H 03/30/24 04:20 Hematocrit 32.9 % (37-47) L 03/30/24 04:20 Hgb O2 Saturation 97.4 % (95-100) 03/30/24 04:20 Carboxyhemoglobin 1.8 %THgb (0.4-20.1) 03/30/24 04:20 Methemoglobin 0.4 % (0.4-1.5) 03/30/24 04:20 Total Hemoglobin 10.7 g/dL (12-16) L 03/30/24 04:20 Sodium 140.0 mmol/L (131-143) 03/30/24 04:20 Potassium 3.0 mmol/L (3.5-5.0) L 03/30/24 04:20 Glucose 91.0 mg/dL (70-115) 03/30/24 04:20 Ionized Calcium 1.1 mmol/L (1.1-1.4) 03/30/24 04:20 O2 Delivery Device Vent 03/30/24 04:20 O2 Liters/Min 15.0 % 03/27/24 13:33 FiO2 35.0 % 03/30/24 04:20 Tidal Volume 0.35 03/30/24 04:20 PEEP 5.0 cmH20 03/30/24 04:20 Cleaner Assistant ID Deshawn 03/30/24 04:20 Sodium 143 mmol/L (136-145) 03/30/24 22:27 Potassium 3.5 mmol/L (3.5-5.1) 03/30/24 22:27 Chloride 102 mmol/L (98-107) 03/30/24 22:27 Carbon Dioxide 27 mmol/L (22-29) 03/30/24 22:27 Anion Gap 17.5 (5-19) 03/30/24 22:27 BUN 24 mg/dL (8-23) H 03/30/24 22:27 Creatinine 0.9 mg/dL (0.5-0.9) 03/30/24 22:27 GFR Calculation Not Reportable 03/30/24 22:27 Glucose 80 mg/dL (65-115) 03/30/24 22: Calculated Osmolality 299 mOsm/kg (285-295) H 03/30/24 22:27 Lactic Acid 3.0 mmol/L (0.5-2.2) H 03/27/24 13:53 Lactic Acid (Sepsis) 1.4 mmol/L (0.5-2.2) 03/27/24 21:58 Calcium 8.2 mg/dL (8.5-10.5) L 03/30/24 22:27 Magnesium 1.9 mg/dL (1.7-2.3) 03/28/24 04:16 Total Bilirubin 0.5 mg/dL (0.15-1.2) 03/30/24 22:27 AST 14 U/L (0-32) 03/30/24 22:27 ALT 12 U/L (0-33) 03/30/24 22:27 Alkaline Phosphatase 61 U/L (35-105) 03/30/24 22:27 Troponin T Baseline 35 ng/L (0-10) H 03/27/24 13:53 Troponin T Hi Sens 6Hr 50.90 ng/L (0-10) H 03/27/24 21:58 Troponin T Hi Sens 6Hr Delta 15.90 ng/L (0-12) H* 03/27/24 21:58 NT-Pro-B Natriuret Pep 1703 pg/mL (0-450) H 03/27/24 13:53 Total Protein 5.8 g/dL (6.6-8.7) L 03/30/24 22:27 Albumin 2.7 g/dL (3.5-5.2) L 03/30/24 22:27 Globulin 3.1 g/dL (1.3-4.6) 03/30/24 22:27 Blood Type A Negative 03/29/24 13:20 Rho(D) Type Rh negative 03/29/24 13:20 Antibody Screen Negative 03/29/24 13:20 Crossmatch See Detail 03/29/24 13:20 A&P Assessment and plan (1) Difficult ventilator weaning: Intubated for respiratory failure secondary to acute on chronic CHF due to STEMI S/p cardiac cath-hypoplasty of RCA 03/28/2024 Currently off inotropes; echo showed normal EF Overall net even-chest x-ray still shows pulmonary congestion Off sedation-patient following commands-on pressure support 10-however respiratory rate greater than 35 Recommended to put her back on sedation with fentanyl and propofol; will give Lasix 40 Mg twice daily Will proceed with SAT and SBT tomorrow (2) Pleural effusion: Likely secondary to acute on chronic CHF Will continue diuretics and maintain net negative fluid balance (3) Acute respiratory failure: Secondary to fluid overload secondary to STEMI S/p stenting performed in RCA Currently she is requiring 30% FiO2 on ventilator (4) Congestive heart failure: Post stenting-echocardiogram EF 65% dilated LA with mitral regurg Continue Lasix 40 Mg daily; give additional 40 Mg today (5) ACS (acute coronary syndrome): New LBBB on EKG during admission STEMI alert called Cardiac cath revealed extensive significant chronic disease in the proximal circumflex and 80% stenosis of proximal mid RCA, culprit for acute presentation. Subsequently Successful angioplasty of RCA was performed. (6) Atrial fibrillation with RVR: Currently she is on amiodarone drip-heart rate 110 to 120 bpm Anticoagulation held due to groin hematoma secondary to cardiac cath Consult Attestations Medical Necessity Statement: Still intubated-continue with weaning trials Time Spent in Patient Care: Greater than 35 minutes (>than 50% of time spent in counselling and/or direct pt care on unit). Critical Care Time: The high probability of a clinically significant, sudden or life threatening deterioration of the patient's [pulmonary, cardiac] system(s) required my full and direct attention, intervention and personal management. The critical care time is as shown. This time is in addition to time spent performing any reported procedures but includes the following: [x] Data and vital sign review and interpretation [x] Patient assessment, examination and intervention [x] Documentation [x] Medication orders and management Coding Level of Care Code Acute Code for Chg Fwd Diagnoses Difficult ventilator weaning Z99.11 Pleural effusion J90 Acute respiratory failure J96.00 Congestive heart failure I50.9 ACS (acute coronary syndrome) I24.9 Atrial fibrillation with RVR I48.91 Time Spent (min) 64
[2024-03-31] MEDS: atorvastatin 40 mg Tablet 80 MG PO (20:14)
[2024-03-31] MEDS: fentaNYL 1,000 MCG/100 ML BAG 5 MCG IV (20:17)
[2024-04-01] VITALS (92 sets, daily range): BP systolic 88–167; BP diastolic 51–97; PULSE 61–127; RESP 21–33; TEMP 36.4–36.9; O2SAT 81–100; BMI 27.4
[2024-04-01] MEDS: cefTRIAXone 1,000 MG in sodium chloride 0.9% (plus) 50 ML 100 MG IV ×2 (05:08→17:01)
--- NOTE | 2024-04-01 08:23 | XRR_ITS ---
PROCEDURE INFORMATION: Exam: XR Chest Exam date and time: 04/01/2024 8:38 AM Age: 78 years old Clinical indication: Shortness of breath; Additional info: Daily TECHNIQUE: Imaging protocol: Radiologic exam of the chest. Views: 1 view. COMPARISON: CR XR chest 1V portable [id number] 03/31/2024 7:15 AM FINDINGS: Lungs: Unchanged pulmonary infiltrates and effusions, right greater than left. Pleural spaces: Unremarkable. No pleural effusion. No pneumothorax. Heart/Mediastinum: No change in the heart mediastinum. Bones/joints: Unremarkable. Other findings: Stable life support lines. XR/XR chest 1V portable [id number] IMPRESSION: No significant interval change.
[2024-04-01] MEDS: sennosides-docusate Tablet 1 TAB PO (09:17)
[2024-04-01] MEDS: aspirin 325 mg Tablet PO (09:17)
[2024-04-01] MEDS: potassium chloride ER 20 mEq Tablet 40 MEQ PO (09:17)
[2024-04-01] MEDS: clopidogrel 75 mg Tablet PO (09:17)
--- NOTE | 2024-04-01 10:09 | P.PN_ITS ---
Subjective 2 Subjective: No overnight events Appears to be in sinus rhythm-on amnio drip-consider switching to p.o. amnio Off sedation-following commands-tolerated breathing trial on pressure support -Will proceed with extubation to BiPAP -Current recommended to continue Lasix t wice daily and monitor electrolytes Medications: Medication Review Details: Medication reviewed Vitals/I&O/Wt Last Vital Signs Temp 97.6 F 04/01/24 06:15 Pulse 114 H 04/01/24 08:00 Resp 26 H 04/01/24 09:16 BP 109/69 04/01/24 08:00 Pulse Ox 98 04/01/24 09:16 O2 Del Method Mechanical Ventilation 04/01/24 06:15 O2 Flow Rate 40 03/29/24 18:49 FiO2 30 04/01/24 09:16 03/31/24 04/01/24 04/01/24 22:59 06:59 14:59 Intake Total 529.239 / 694.364 250 / 944.364 112.743 / 112.743 Output Total 1900 / 1900 250 / 2150 Balance -1370.761 / -1205.636 0 / -1205.636 112.743 / 112.743 Weight last 48 hrs Weight 150 lb 1 oz Weight 150 lb 1.6 oz Physical Exam 2 Narrative: PHYSICAL EXAM: General: lying in bed, sedated and intubated. HEENT:NCAT, PERRLA, EOMI Neck: Supple Lungs: Bilateral diffuse crackles Heart: s1/s2, RRR Abd: soft, NT, ND, BS + Normoactive Extremities: No edema ORGANIC CHEMIST: sedated and limited ORGANIC CHEMIST exam possible. SKIN: no rash Data 03/30/24 22:27 03/30/24 22:27 Other Labs: Radiology Impressions Chest X-Ray 04/01/24 08:23 IMPRESSION: No significant interval change. Laboratory Results WBC 10.39 10^3/uL (3.29-11.43) 03/30/24 22: RBC 3.33 10^6/uL (3.85-5.65) L 03/30/24 22:27 Hgb 9.00 g/dL (11.27-16.99) L 03/30/24 22: Hct 28.0 % (36-47) L 03/30/24 22: MCV 84.1 fl (85-98) L 03/30/24 22: MCH 27.0 pg (27-33) 03/30/24 22: MCHC 32.1 g/dL (30-55) 03/30/24 22: RDW 17.4 % (12.1-15.1) H 03/30/24 22: Plt Count 198 10^3/cmm (157-399) 03/30/24: MPV 10.1 fL (7.4-10.4) 03/30/24 22: Neut % (Auto) 80.5 % 03/30/24: Lymph % (Auto) 6.3 % 03/30/24: Willacy % (Auto) 7.8 % 03/30/24: Eos % (Auto) 4.4 % 03/30/24: Baso % (Auto) 0.6 % 03/30/24: Neut # (Auto) 8.37 10^3/uL (1.8-7.7) H 03/30/24 22: Lymph # (Auto) 0.7 10^3/uL (0.8-4.8) L 03/30/24: Willacy # (Auto) 0.8 10^3/uL (0.2-0.9) 03/30/24 22: Eos # (Auto) 0.5 10^3/uL (0.0-0.8) 03/30/24: Baso # (Auto) 0.1 10^3/uL (0.0-0.1) 03/30/24: Nucleated RBC % (auto) 0 % 03/30/24: Nucleated RBCs # 0.0 /100WBC 03/30/24 22: PT 23.40 SECONDS (12.1-14.9) H 03/27/24 13:53 INR 2.00 (0.8-1.2) H 03/27/24 13:53 APTT 38.0 SECONDS (23.9-36.7) H 03/28/24 04:16 Specimen Type Arterial 03/30/24 04:20 Sample Site Radial, right 03/30/24 04:20 ABG pH 7.50 (7.35-7.45) H 03/30/24 04:20 ABG pCO2 40.1 mmHg (35-45) 03/30/24 04:20 ABG pO2 97.4 mmHg (80.0-100.0) 03/30/24 04:20 ABG PO2/FiO2 Ratio 0 03/30/24 04:20 ABG HCO3 31.3 mmol/L (22-26) H 03/30/24 04:20 ABG O2 Saturation 99.5 03/30/24 04:20 ABG Base Excess 7.5 mmol/L (-2.0-2.0) H 03/30/24 04:20 Parish Test Pos 03/30/24 04:20 A-a O2 Gradient 13.1 mmHg (5-10) H 03/30/24 04:20 Hematocrit 32.9 % (37-47) L 03/30/24 04:20 Hgb O2 Saturation 97.4 % (95-100) 03/30/24 04:20 Carboxyhemoglobin 1.8 %THgb (0.4-20.1) 03/30/24 04:20 Methemoglobin 0.4 % (0.4-1.5) 03/30/24 04:20 Total Hemoglobin 10.7 g/dL (12-16) L 03/30/24 04:20 Sodium 140.0 mmol/L (131-143) 03/30/24 04:20 Potassium 3.0 mmol/L (3.5-5.0) L 03/30/24 04:20 Glucose 91.0 mg/dL (70-115) 03/30/24 04:20 Ionized Calcium 1.1 mmol/L (1.1-1.4) 03/30/24 04:20 O2 Delivery Device Vent 03/30/24 04:20 O2 Liters/Min 15.0 % 03/27/24 13:33 FiO2 35.0 % 03/30/24 04:20 Tidal Volume 0.35 03/30/24 04:20 PEEP 5.0 cmH20 03/30/24 04:20 Nail Puller ID Deshawn 03/30/24 04:20 Sodium 143 mmol/L (136-145) 03/30/24 22:27 Potassium 3.5 mmol/L (3.5-5.1) 03/30/24 22:27 Chloride 102 mmol/L (98-107) 03/30/24 22:27 Carbon Dioxide 27 mmol/L (22-29) 03/30/24 22:27 Anion Gap 17.5 (5-19) 03/30/24 22:27 BUN 24 mg/dL (8-23) H 03/30/24 22:27 Creatinine 0.9 mg/dL (0.5-0.9) 03/30/24 22:27 GFR Calculation Not Reportable 03/30/24 22:27 Glucose 80 mg/dL (65-115) 03/30/24 22:27 Calculated Osmolality 299 mOsm/kg (285-295) H 03/30/24 22:27 Lactic Acid 3.0 mmol/L (0.5-2.2) H 03/27/24 13:53 Lactic Acid (Sepsis) 1.4 mmol/L (0.5-2.2) 03/27/24 21:58 Calcium 8.2 mg/dL (8.5-10.5) L 03/30/24 22:27 Magnesium 1.9 mg/dL (1.7-2.3) 03/28/24 04:16 Total Bilirubin 0.5 mg/dL (0.15-1.2) 03/30/24 22:27 AST 14 U/L (0-32) 03/30/24 22:27 ALT 12 U/L (0-33) 03/30/24 22:27 Alkaline Phosphatase 61 U/L (35-105) 03/30/24 22:27 Troponin T Baseline 35 ng/L (0-10) H 03/27/24 13:53 Troponin T Hi Sens 6Hr 50.90 ng/L (0-10) H 03/27/24 21:58 Troponin T Hi Sens 6Hr Delta 15.90 ng/L (0-12) H* 03/27/24 21:58 NT-Pro-B Natriuret Pep 1703 pg/mL (0-450) H 03/27/24 13:53 Total Protein 5.8 g/dL (6.6-8.7) L 03/30/24 22:27 Albumin 2.7 g/dL (3.5-5.2) L 03/30/24 22:27 Globulin 3.1 g/dL (1.3-4.6) 03/30/24 22:27 Blood Type A Negative 03/29/24 13:20 Rho(D) Type Rh negative 03/29/24 13:20 Antibody Screen Negative 03/29/24 13:20 Crossmatch See Detail 03/29/24 13:20 A&P Assessment and plan (1) Difficult ventilator weaning: Intubated for respiratory failure secondary to acute on chronic CHF due to STEMI S/p cardiac cath-hypoplasty of RCA 03/28/2024 Currently off inotropes; echo showed normal EF Overall net even-chest x-ray still shows pulmonary congestion Off sedation-patient following commands-tolerated breathing trial Proceed with extubation to BiPAP (2) Pleural effusion: Likely secondary to acute on chronic CHF Will continue diuretics and maintain net negative fluid balance (3) Acute respiratory failure: Secondary to fluid overload secondary to STEMI S/p stenting performed in RCA Currently she is requiring 30% FiO2 on ventilator (4) Congestive heart failure: Post stenting-echocardiogram EF 65% dilated LA with mitral regurg Continue Lasix 40 Mg twice daily and monitor electrolytes (5) ACS (acute coronary syndrome): New LBBB on EKG during admission STEMI alert called Cardiac cath revealed extensive significant chronic disease in the proximal circumflex and 80% stenosis of proximal mid RCA, culprit for acute presentation. Subsequently Successful angioplasty of RCA was performed. (6) Atrial fibrillation with RVR: Currently she is on amiodarone drip-heart rate-60 to 90 bpm in sinus rhythm- consider switching to p.o. amiodarone Anticoagulation held due to groin hematoma secondary to cardiac cath Attestations 2 Medical Necessity Statement*: Plan to extubate today and will monitor 24 hours in ICU Time Spent in Patient Care: Greater than 35 minutes (>than 50% of time spent in counselling and/or direct pt care on unit) . Critical Care Time: The high probability of a clinically significant, sudden or life threatening deterioration of the patient's [pulmonary, cardiac] system(s) required my full and direct attention, intervention and personal management. The critical care time is as shown. This time is in addition to time spent performing any reported procedures but includes the following: [x] Data and vital sign review and interpretation [x] Patient assessment, examination and intervention [x] Documentation [x] Medication orders and management Coding Level of Care Code Acute Code for Chg Fwd Diagnoses Difficult ventilator weaning Z99.11 Pleural effusion J90 Acute respiratory failure J96.00 Congestive heart failure I50.9 ACS (acute coronary syndrome) I24.9 Atrial fibrillation with RVR I48.91 Time Spent (min) 58
--- NOTE | 2024-04-01 10:13 | P.PN_ITS ---
Subjective 2 Subjective: Patient has been extubated. Alert and oriented. Denies chest pain. Vitals/I&O/Wt Last Vital Signs Temp 97.6 F 04/01/24 06:15 Pulse 114 H 04/01/24 08:00 Resp 26 H 04/01/24 09:16 BP 109/69 04/01/24 08:00 Pulse Ox 98 04/01/24 09:16 O2 Del Method Mechanical Ventilation 04/01/24 06:15 O2 Flow Rate 40 03/29/24 18:49 FiO2 30 04/01/24 09:16 03/31/24 04/01/24 04/01/24 22:59 06:59 14:59 Intake Total 529.239 / 694.364 250 / 944.364 112.743 / 112.743 Output Total 1900 / 1900 250 / 2150 Balance -1370.761 / -1205.636 0 / -1205.636 112.743 / 112.743 Weight last 48 hrs Weight 150 lb 1 oz Weight 150 lb 1.6 oz Physical Exam 2 Narrative: GENERAL: Patient is intubated and sedated NECK: No jugular vein distension. [] HEENT: No cyanosis. No icterus. No pallor. [] HEART: Regular S1 and S2. No murmur, rub or gallop. [] LUNGS: Clear to auscultate bilaterally. [] CENTRAL NERVOUS SYSTEM: Grossly nonfocal. [] EXTREMITIES: Lower extremities with 1+ edema bilaterally. [] Data 04/02/24 05:32 04/02/24 05:32 A&P Assessment and plan (1) New onset left bundle branch block (LBBB): (2) Atrial fibrillation with RVR: (3) Shock: Resolved (4) ACS (acute coronary syndrome): (5) Congestive heart failure: Plan Patient extubated today. Feeling well. Continue diuresis. Close I&O's. Hemoglobin is staying stable. Monitor H&H. Can switch amiodarone IV to p.o. 400 mg twice daily today. Continue dual antiplatelet therapy for now. Can start eliquis at time of discharge and continue plavix Patient has residual moderate to severe left circumflex artery disease and moderate LAD disease. Will do outpatient stress test in a month to assess ischemia Thank you for involving us with care of this patient. We will continue to follow. Please call with questions. Attestations 2 Medical Necessity Statement*: Care expected to cross 2 midnights. Coding Level of Care Code Acute Code for Chg Fwd Diagnoses New onset left bundle branch block (LBBB) I44.7 Atrial fibrillation with RVR I48.91 Shock R57.9 ACS (acute coronary syndrome) I24.9 Congestive heart failure I50.9
--- NOTE | 2024-04-01 10:14 | PC.NURSE ---
Extubated at 0955
--- NOTE | 2024-04-01 11:03 | P.EN_ITS ---
Event Note Event Note: Brief History 78-year-old female-admitted for respirat ory failure secondary to acute on chronic CHF secondary to ACS-intubated during admission; underwent cardiac cath- found to have severe occlusion s/p PTCA RCA; off inotropes, continuing on diuretics; currently on 30% FiO2. The patient is currently being considered for liberation from mechanical ventilation. The patient is awake and alert with no noted neuro-focal deficits noted. The patient responds briskly to verbal stimulation and able to lift head off pillow against gravity. GCS: 11T. Spontaneous Breathing Trial: Weaning Parameters: NIF: -20, VC: 1200 ml., RSBI: 90, Positive Cuff Leak After a discussion with respiratory therapist regarding the plan for extubation, the patient has been successfully extubated to BiPAP 16/8 - 40% FiO2 with oxygen saturations 93%. No noted respiratory distress. Vital sign remain stable. No other observable changes noted in present condition. Will follow closely. Event Notes Attestations Time Spent in Patient Care: Greater than 35 minutes
[2024-04-01 11:11] LABS: Alanine Aminotransferase 12 U/L (0-33); Albumin Level 2.7 g/dL (3.5-5.2); Alkaline Phosphatase 62 U/L (35-105); Anion Gap 17.7 (5-19); Aspartate Amino Transferase 16 U/L (0-32); Blood Urea Nitrogen 22 mg/dL (8-23); Calcium 8.4 mg/dL (8.5-10.5); Carbon Dioxide 25 mmol/L (22-29); Chloride 104 mmol/L (98-107); Creatinine Clr Calc Pharmacy 52.4134; Globulin 3.4 g/dL (1.3-4.6); Glucose 151 mg/dL (65-115); Magnesium 2.2 mg/dL (1.7-2.3); Osmolality Calculated 302 mOsm/kg (285-295); Potassium 3.7 mmol/L (3.5-5.1); Sodium 143 mmol/L (136-145); Total Bilirubin 0.6 mg/dL (0.15-1.2); Total Protein 6.1 g/dL (6.6-8.7)
--- NOTE | 2024-04-01 14:28 | P.PN_ITS ---
Subjective 2 Subjective: Patient was extubated this morning. Evaluated with staff. No distress. Was placed on BiPAP. Vitals/I&O/Wt Last Vital Signs Temp 97.6 F 04/01/24 06:15 Pulse 70 04/01/24 14:00 Resp 26 H 04/01/24 09:16 BP 143/66 04/01/24 14:00 Pulse Ox 99 04/01/24 13:45 O2 Del Method Mechanical Ventilation 04/01/24 06:15 O2 Flow Rate 40 03/29/24 18:49 FiO2 40 04/01/24 10:05 03/31/24 04/01/24 04/01/24 22:59 06:59 14:59 Intake Total 529.239 / 694.364 250 / 944.364 112.743 / 112.743 Output Total 1900 / 1900 250 / 2150 Balance -1370.761 / -1205.636 0 / -1205.636 112.743 / 112.743 Weight last 48 hrs Weight 150 lb 1 oz Weight 150 lb 1.6 oz Physical Exam 2 Narrative: No acute distress HENMT: COMMON NORMALS: oropharynx normal Neck/C-Spine: COMMON NORMALS: no JVD Resp: AUSCULTATION: diminished lung sounds Cardio: COMMON NORMALS: no JVD, regular rhythm, S1 normal heart sound present, S2 normal heart sound present and No murmurs present (Cardio) RHYTHM: regular rhythm HEART SOUNDS: S1 normal heart sound present and S2 normal heart sound present GI: COMMON NORMALS: Normal to inspection, nondistended, normoactive bowel sounds present, Soft to palpation and non-tender PALPATION: Yes Soft to palpation Extremity: COMMON NORMALS: no joint enlargement GENERAL: Yes edema (2+ BL LE) Skin: COMMON NORMALS: no rashes or lesions noted GENERAL SKIN EXAM: no rashes or lesions noted Data 03/30/24 22:27 04/01/24 10:30 A&P Assessment and plan (1) Acute respiratory failure: Acute hypoxic respiratory failure, with pulmonary edema, Possible pneumonia. Assess with echocardiogram. extubated this AM continue diuresis, serial labs, wean O2 (2) Shock: Cardiogenic shock, status post STEMI equivalent, ECHO done not on pressors (3) ACS (acute coronary syndrome): Appreciate cardiology assistance. (4) Anemia: could be 2/2 hematoma blood given monitoring hgb Attestations 2 Medical Necessity Statement*: Ariellepatrick Salas requires ongoing inpatient care for oxygen support, diuresis Coding Level of Care Code 48081 Diagnoses Acute respiratory failure J96.00 Shock R57.9 ACS (acute coronary syndrome) I24.9 Anemia D64.9
[2024-04-01] MEDS: azithromycin 500 MG in sodium chloride 0.9% 250 ML 250 MG IV (17:02)
[2024-04-01] MEDS: amiodarone 200 mg Tablet 400 MG PO (17:02)
[2024-04-01] MEDS: FUROsemide 10 mg/mL SDV 4mL 40 MG IVP (17:50)
--- NOTE | 2024-04-01 17:58 | PC.NURSE ---
Wasted Levophed, Propofol, Versed, Fentanyl, Amiodorone witnessed by Cammy MILLAN, see MAR if needed.
[2024-04-01] MEDS: ondansetron 2 mg/ML SDV 2 mL 4 MG IVP (20:03)
[2024-04-01] MEDS: atorvastatin 40 mg Tablet 80 MG PO (20:06)
[2024-04-02] VITALS (39 sets, daily range): BP systolic 102–166; BP diastolic 51–91; PULSE 60–95; RESP 17–33; TEMP 36.2–37.1; O2SAT 81–100; BMI 27.4
[2024-04-02] MEDS: cefTRIAXone 1,000 MG in sodium chloride 0.9% (plus) 50 ML 100 MG IV ×2 (05:12→19:29)
[2024-04-02 06:06] LABS: Basophils # 0.1 10^3/uL (0.0-0.1); Basophils % 0.8 %; Eosinophils # 0.1 10^3/uL (0.0-0.8); Eosinophils % 0.4 %; Hematocrit 31.5 % (36-47); Lymphocytes # 0.8 10^3/uL (0.8-4.8); Lymphocytes % 6.5 %; Mean Corpuscular HGB Conc 30.8 g/dL (30-55); Mean Corpuscular Hemoglobin 26.8 pg (27-33); Mean Platelet Volume 9.6 fL (7.4-10.4); Monocytes # 0.9 10^3/uL (0.2-0.9); Monocytes % 7.4 %; Neutrophils # 9.66 10^3/uL (1.8-7.7); Neutrophils % 84.4 %; Nucleated Red Blood Cells % 0 %; Platelet Count 284 10^3/cmm (157-399); Red Blood Count 3.62 10^6/uL (3.85-5.65); Red Cell Distribution Width 17.2 % (12.1-15.1); White Blood Count 11.46 10^3/uL (3.29-11.43)
[2024-04-02 06:26] LABS: Alanine Aminotransferase 13 U/L (0-33); Albumin Level 2.9 g/dL (3.5-5.2); Alkaline Phosphatase 62 U/L (35-105); Anion Gap 17.4 (5-19); Aspartate Amino Transferase 15 U/L (0-32); Blood Urea Nitrogen 30 mg/dL (8-23); Calcium 8.6 mg/dL (8.5-10.5); Carbon Dioxide 28 mmol/L (22-29); Chloride 107 mmol/L (98-107); Creatinine Clr Calc Pharmacy 46.5897; Globulin 3.4 g/dL (1.3-4.6); Glucose 125 mg/dL (65-115); Magnesium 2.4 mg/dL (1.7-2.3); Osmolality Calculated 314 mOsm/kg (285-295); Potassium 4.4 mmol/L (3.5-5.1); Sodium 148 mmol/L (136-145); Total Bilirubin 0.7 mg/dL (0.15-1.2); Total Protein 6.3 g/dL (6.6-8.7)
--- NOTE | 2024-04-02 08:10 | P.PN_ITS ---
Subjective 2 Subjective: Patient is doing well. No chest pain. Alert and oriented. Vitals/I&O/Wt Last Vital Signs Temp 98.4 F 04/01/24 20:30 Pulse 65 04/02/24 06:00 Resp 26 H 04/01/24 09:16 BP 151/67 04/02/24 06:00 Pulse Ox 98 04/02/24 06:00 O2 Del Method Room Air 04/02/24 06:00 O2 Flow Rate 40 03/29/24 18:49 FiO2 40 04/02/24 03:30 04/01/24 04/02/24 04/02/24 22:59 06:59 14:59 Intake Total 494.483 / 607.226 Output Total 700 / 700 250 / 950 Balance -205.517 / -92.774 -250 / -342.774 Weight last 48 hrs Weight 150 lb 1 oz Weight 150 lb 1 oz Physical Exam 2 Narrative: GENERAL: Patient is intubated and sedated NECK: No jugular vein distension. [] HEENT: No cyanosis. No icterus. No pallor. [] HEART: Regular S1 and S2. No murmur, rub or gallop. [] LUNGS: Clear to auscultate bilaterally. [] CENTRAL NERVOUS SYSTEM: Grossly nonfocal. [] EXTREMITIES: Lower extremities with 1+ edema bilaterally. [] Data 04/03/24 02:50 04/03/24 02:50 Micro: Microbiology 03/27/24 21:58 Blood Culture - Final Blood NO GROWTH AFTER 5 DAYS 03/27/24 22:30 Blood Culture - Final Blood NO GROWTH AFTER 5 DAYS A&P Assessment and plan (1) New onset left bundle branch block (LBBB): (2) Atrial fibrillation with RVR: (3) Shock: Resolved (4) ACS (acute coronary syndrome): (5) Congestive heart failure: Plan Patient doing well since extubation. Has hypernatremia. Can slow down diuretic therapy. Continue plavix. Eliquis to be resumed. Patient had PCI of RCA. 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 Will do outpatient stress test in a month to assess ischemia Thank you for involving us with care of this patient. We will continue to follow. Please call with questions. Can be transferred out of ICU Attestations 2 Medical Necessity Statement*: Care expected to cross 2 midnights. Coding Level of Care Code Acute Code for Chg Fwd Diagnoses New onset left bundle branch block (LBBB) I44.7 Atrial fibrillation with RVR I48.91 Shock R57.9 ACS (acute coronary syndrome) I24.9 Congestive heart failure I50.9
[2024-04-02] MEDS: clopidogrel 75 mg Tablet PO (08:26)
[2024-04-02] MEDS: amiodarone 200 mg Tablet 400 MG PO ×2 (08:26→19:24)
[2024-04-02] MEDS: sennosides-docusate Tablet 1 TAB PO (08:26)
[2024-04-02] MEDS: aspirin 325 mg Tablet PO (08:26)
[2024-04-02] MEDS: potassium chloride ER 20 mEq Tablet 40 MEQ PO (08:26)
[2024-04-02] MEDS: apixaban 5 mg Tablet PO (08:26)
--- NOTE | 2024-04-02 08:26 | PM.PN ---
Subjective Subjective: No overnight events Successfully extubated to BiPAP yesterday night-today morning-placed on 6 L nasal cannula and patient is not in respiratory distress Started on clear liquids and advance as tolerated Labs show mild hyponatremia-we can get down Lasix to 40 Mg daily She can be transferred out of ICU Medications: Reviewed: Yes Medication Review Details: Medication reviewed Vitals/I&O/Wt Last Vital Signs Temp 98.4 F 04/01/24 20:30 Pulse 65 04/02/24 06:00 Resp 26 H 04/01/24 09:16 BP 151/67 04/02/24 06:00 Pulse Ox 98 04/02/24 06:00 O2 Del Method Room Air 04/02/24 06:00 O2 Flow Rate 40 03/29/24 18:49 FiO2 40 04/02/24 03:30 04/01/24 04/02/24 04/02/24 22:59 06:59 14:59 Intake Total 494.483 / 607.226 Output Total 700 / 700 250 / 950 Balance -205.517 / -92.774 -250 / -342.774 Weight last 48 hrs Weight 150 lb 1 oz Weight 150 lb 1 oz Physical Exam Narrative: PHYSICAL EXAM: General: lying in bed, sedated and intubated. HEENT:NCAT, PERRLA, EOMI Neck: Supple Lungs: Improved diffuse crackles Heart: s1/s2, RRR Abd: soft, NT, ND, BS + Normoactive Extremities: No edema NITRIC ACID CONCENTRATOR OPERATOR: sedated and limited NITRIC ACID CONCENTRATOR OPERATOR exam possible. SKIN: no rash Data 04/02/24 05:32 04/02/24 05:32 Other Labs: Radiology Impressions Chest X-Ray 04/01/24 08:23 IMPRESSION: No significant interval change. Laboratory Results WBC 11.46 10^3/uL (3.29-11.43) H 04/02/24 05:32 RBC 3.62 10^6/uL (3.85-5.65) L 04/02/24 05:32 Hgb 9.70 g/dL (11.27-16.99) L 04/02/24 05:32 Hct 31.5 % (36-47) L 04/02/24 05:32 MCV 87.0 fl (85-98) 04/02/24 05:32 MCH 26.8 pg (27-33) L 04/02/24 05:32 MCHC 30.8 g/dL (30-55) 04/02/24 05:32 RDW 17.2 % (12.1-15.1) H 04/02/24 05:32 Plt Count 284 10^3/cmm (157-399) 04/02/24 05:32 MPV 9.6 fL (7.4-10.4) 04/02/24 05:32 Neut % (Auto) 84.4 % 04/02/24 05:32 Lymph % (Auto) 6.5 % 04/02/24 05:32 Martin % (Auto) 7.4 % 04/02/24 05:32 Eos % (Auto) 0.4 % 04/02/24 05:32 Baso % (Auto) 0.8 % 04/02/24 05:32 Neut # (Auto) 9.66 10^3/uL (1.8-7.7) H 04/02/24 05:32 Lymph # (Auto) 0.8 10^3/uL (0.8-4.8) 04/02/24 05:32 Martin # (Auto) 0.9 10^3/uL (0.2-0.9) 04/02/24 05:32 Eos # (Auto) 0.1 10^3/uL (0.0-0.8) 04/02/24 05:32 Baso # (Auto) 0.1 10^3/uL (0.0-0.1) 04/02/24 05:32 Nucleated RBC % (auto) 0 % 04/02/24 05:32 Nucleated RBCs # 0.0 /100WBC 04/02/24 05:32 PT 23.40 SECONDS (12.1-14.9) H 03/27/24 13:53 INR 2.00 (0.8-1.2) H 03/27/24 13:53 APTT 38.0 SECONDS (23.9-36.7) H 03/28/24 04:16 Specimen Type Arterial 03/30/24 04:20 Sample Site Radial, right 03/30/24 04:20 ABG pH 7.50 (7.35-7.45) H 03/30/24 04:20 ABG pCO2 40.1 mmHg (35-45) 03/30/24 04:20 ABG pO2 97.4 mmHg (80.0-100.0) 03/30/24 04:20 ABG PO2/FiO2 Ratio 0 03/30/24 04:20 ABG HCO3 31.3 mmol/L (22-26) H 03/30/24 04:20 ABG O2 Saturation 99.5 03/30/24 04:20 ABG Base Excess 7.5 mmol/L (-2.0-2.0) H 03/30/24 04:20 Parish Test Pos 03/30/24 04:20 A-a O2 Gradient 13.1 mmHg (5-10) H 03/30/24 04:20 Hematocrit 32.9 % (37-47) L 03/30/24 04:20 Hgb O2 Saturation 97.4 % (95-100) 03/30/24 04:20 Carboxyhemoglobin 1.8 %THgb (0.4-20.1) 03/30/24 04:20 Methemoglobin 0.4 % (0.4-1.5) 03/30/24 04:20 Total Hemoglobin 10.7 g/dL (12-16) L 03/30/24 04:20 Sodium 140.0 mmol/L (131-143) 03/30/24 04:20 Potassium 3.0 mmol/L (3.5-5.0) L 03/30/24 04:20 Glucose 91.0 mg/dL (70-115) 03/30/24 04:20 Ionized Calcium 1.1 mmol/L (1.1-1.4) 03/30/24 04:20 O2 Delivery Device Vent 03/30/24 04:20 O2 Liters/Min 15.0 % 03/27/24 13:33 FiO2 35.0 % 03/30/24 04:20 Tidal Volume 0.35 03/30/24 04:20 PEEP 5.0 cmH20 03/30/24 04:20 Nuclear Powerplant Mechanic ID Deshawn 03/30/24 04:20 Sodium 148 mmol/L (136-145) H 04/02/24 05:32 Potassium 4.4 mmol/L (3.5-5.1) 04/02/24 05:32 Chloride 107 mmol/L (98-107) 04/02/24 05:32 Carbon Dioxide 28 mmol/L (22-29) 04/02/24 05:32 Anion Gap 17.4 (5-19) 04/02/24 05:32 BUN 30 mg/dL (8-23) H 04/02/24 05:32 Creatinine 0.9 mg/dL (0.5-0.9) 04/02/24 05:32 GFR Calculation Not Reportable 04/02/24 05:32 Glucose 125 mg/dL (65-115) H 04/02/24 05:32 Calculated Osmolality 314 mOsm/kg (285-295) H 04/02/24 05:32 Lactic Acid 3.0 mmol/L (0.5-2.2) H 03/27/24 13:53 Lactic Acid (Sepsis) 1.4 mmol/L (0.5-2.2) 03/27/24 21:58 Calcium 8.6 mg/dL (8.5-10.5) 04/02/24 05:32 Magnesium 2.4 mg/dL (1.7-2.3) H 04/02/24 05:32 Total Bilirubin 0.7 mg/dL (0.15-1.2) 04/02/24 05:32 AST 15 U/L (0-32) 04/02/24 05:32 ALT 13 U/L (0-33) 04/02/24 05:32 Alkaline Phosphatase 62 U/L (35-105) 04/02/24 05:32 Troponin T Baseline 35 ng/L (0-10) H 03/27/24 13:53 Troponin T Hi Sens 6Hr 50.90 ng/L (0-10) H 03/27/24 21:58 Troponin T Hi Sens 6Hr Delta 15.90 ng/L (0-12) H* 03/27/24 21:58 NT-Pro-B Natriuret Pep 1703 pg/mL (0-450) H 03/27/24 13:53 Total Protein 6.3 g/dL (6.6-8.7) L 04/02/24 05:32 Albumin 2.9 g/dL (3.5-5.2) L 04/02/24 05:32 Globulin 3.4 g/dL (1.3-4.6) 04/02/24 05:32 Blood Type A Negative 03/29/24 13:20 Rho(D) Type Rh negative 03/29/24 13:20 Antibody Screen Negative 03/29/24 13:20 Crossmatch See Detail 03/29/24 13:20 Micro: Microbiology 03/27/24 21:58 Blood Culture - Final Blood NO GROWTH AFTER 5 DAYS 03/27/24 22:30 Blood Culture - Final Blood NO GROWTH AFTER 5 DAYS A&P Assessment and plan (1) Difficult ventilator weaning: Intubated for respiratory failure secondary to acute on chronic CHF due to STEMI S/p cardiac cath-hypoplasty of RCA 03/28/2024 Currently off inotropes; echo showed normal EF Overall net even-chest x-ray still shows pulmonary congestion Successfully extubated yesterday to BiPAP; switched to nasal cannula today morning-saturating 92% on 6 L Need bedside physical therapy/pulmonary toileting (2) Pleural effusion: Likely secondary to acute on chronic CHF Will continue diuretics and maintain net negative fluid balance (3) Acute respiratory failure: Secondary to fluid overload secondary to STEMI S/p stenting performed in RCA Extubated to BiPAP and she is tolerating well (4) Congestive heart failure: Post stenting-echocardiogram EF 65% dilated LA with mitral regurg Sodium 148; cut down Lasix to 40 Mg daily, start on clear liquid diet and advance as tolerated (5) ACS (acute coronary syndrome): New LBBB on EKG during admission STEMI alert called Cardiac cath revealed extensive significant chronic disease in the proximal circumflex and 80% stenosis of proximal mid RCA, culprit for acute presentation. Subsequently Successful angioplasty of RCA was performed. (6) Atrial fibrillation with RVR: Currently she is on amiodarone drip-heart rate-60 to 90 bpm in sinus rhythm-switched to p.o. amiodarone Started on Eliquis 5 Mg p.o. twice daily Attestations Medical Necessity Statement*: Patient can be transferred out of ICU Time Spent in Patient Care: Greater than 35 minutes (>than 50% of time spent in counselling and/or direct pt care on unit). Critical Care Time: The high probability of a clinically significant, sudden or life threatening deterioration of the patient's [pulmonary, cardiac] system(s) required my full and direct attention, intervention and personal management. The critical care time is as shown. This time is in addition to time spent performing any reported procedures but includes the following: [x] Data and vital sign review and interpretation [x] Patient assessment, examination and intervention [x] Documentation [x] Medication orders and management Coding Level of Care Code Acute Code for Chg Fwd Diagnoses Difficult ventilator weaning Z99.11 Pleural effusion J90 Acute respiratory failure J96.00 Congestive heart failure I50.9 ACS (acute coronary syndrome) I24.9 Atrial fibrillation with RVR I48.91 Time Spent (min) 58
[2024-04-02] MEDS: FUROsemide 10 mg/mL SDV 4mL 40 MG IVP ×2 (11:19→15:40)
--- NOTE | 2024-04-02 15:32 | PC.NURSE ---
Transferred pt to [facility]-2 via w/c on 6L/nc oxygen. Pt tolerated the transfer well and exhausted herself transferring from w/c to bed. Obtained VS and noticed pt O2 sats in the low 80's%. Obtained an oxymask as the pt was doing a lot of mouth breathing and O2 sats hovered between 79-82%. Bipap machine arrived and placed on pt and managed to get her O2 sats up to 91% relatively quick. I returned to ICU once pt appeared to be stabilizing.
--- NOTE | 2024-04-02 15:37 | PC.NURSE ---
Patient arrived to CSU from ICU via wheelchair. Prior to departure patient was saturating at 92% on 5L. Once patient got to CSU patient began to desaturate and dropped into the low 70's. Respiratory was called and placed patient on bipap. Patient is now recovering and saturating in the 90's on bipap. Settings are 18, 10, and 60% fio2. Physician notified and received orders for lasix IVP 40 x1
--- NOTE | 2024-04-02 15:57 | P.PN_ITS ---
Subjective 2 Subjective: Extubated. Placed on BiPAP overnight. Did have some hypoxemia during the day. She reports she is having some anxiety with BiPAP. Otherwise sats are stable feels okay. Diet was advanced Vitals/I&O/Wt Last Vital Signs Temp 98.4 F 04/01/24 20:30 Pulse 92 04/02/24 15:31 Resp 18 04/02/24 13:47 BP 150/78 04/02/24 14:30 Pulse Ox 93 04/02/24 15:31 O2 Del Method Nasal Cannula 04/02/24 13:47 O2 Flow Rate 6 04/02/24 13:47 FiO2 60 04/02/24 15:34 04/02/24 04/02/24 04/02/24 06:59 14:59 22:59 Intake Total 800 / 800 50 / 850 Output Total 250 / 950 350 / 350 Balance -250 / -342.774 800 / 800 -300 / 500 Weight last 48 hrs Weight 150 lb 1 oz Weight 150 lb 1 oz Physical Exam 2 Narrative: No acute distress HENMT: COMMON NORMALS: oropharynx normal Neck/C-Spine: COMMON NORMALS: no JVD Resp: AUSCULTATION: diminished lung sounds Cardio: COMMON NORMALS: no JVD, regular rhythm, S1 normal heart sound present, S2 normal heart sound present and No murmurs present (Cardio) RHYTHM: regular rhythm HEART SOUNDS: S1 normal heart sound present and S2 normal heart sound present GI: COMMON NORMALS: Normal to inspection, nondistended, normoactive bowel sounds present, Soft to palpation and non-tender PALPATION: Yes Soft to palpation Extremity: COMMON NORMALS: no joint enlargement GENERAL: Yes edema (2+ BL LE) Skin: COMMON NORMALS: no rashes or lesions noted GENERAL SKIN EXAM: no rashes or lesions noted Data 04/02/24 05:32 04/02/24 05:32 Micro: Microbiology 03/27/24 21:58 Blood Culture - Final Blood NO GROWTH AFTER 5 DAYS 03/27/24 22:30 Blood Culture - Final Blood NO GROWTH AFTER 5 DAYS A&P Assessment and plan (1) Acute respiratory failure: Acute hypoxic respiratory failure, with pulmonary edema, Possible pneumonia. Assess with echocardiogram. extubated continue diuresis, serial labs, wean O2 BiPAP as needed. She was noted to be kind of on the dry side but poor urine output. Due to her difficulty breathing we will give one-time dose of Lasix (2) Shock: Cardiogenic shock, status post STEMI equivalent, ECHO done not on pressors (3) ACS (acute coronary syndrome): Appreciate cardiology assistance. (4) Anemia: could be 2/2 hematoma blood given monitoring hgb Plan Transfer to CSU, advance diet, physical therapy Attestations 2 Medical Necessity Statement*: Arielle Oliva Maritza requires ongoing inpatient care for treatment of cardiac and pulmonary disease, weakness Coding Level of Care Code 18271 Diagnoses Acute respiratory failure J96.00 Shock R57.9 ACS (acute coronary syndrome) I24.9 Anemia D64.9
--- NOTE | 2024-04-02 18:39 | PM.ACPR ---
Procedure/Consent Time out: Time Out Performed: Yes Consent: Consent for Procedure: Consent obtained from patient, Risks & Benefits reviewed and Agrees to proceed with procedure Procedure Narrative: Pulmonary & Critical Care Medicine Procedure - Ultrasound guided Thoracentesis Procedure: CPT code 53312 thoracentesis, needle or catheter, aspiration of the pleural space; with imaging guidance Indication: Worsening right pleural effusion. C56.2 Mail Manager(s): Александр Leo MD [facility] Clinical history: 78-year-old female with mid acute on chronic CHF exacerbation secondary to CAD-has large right pleural effusion causing symptomatic dyspnea including requirements. Today scheduled for ultrasound-guided right-sided thoracentesis. Technique: The study was performed in an ACR accredited facility. Medication reconciliation form reviewed and any changes related this procedure resolved. Report: The procedure for thoracentesis was explained to the patient including the risks, benefits and possible complications. The patient was given the opportunity to ask questions, wished to proceed, and signed the written informed consent form. Using ultrasound guidance, a safe route of access was identified into the right pleural space. The site was then prepped and draped using maximal sterile barrier technique. The 1% lidocaine was used for local anesthetic. With sonographic guidance, a 6 Georgian thoracentesis catheter was placed with return of 5 cc straw colored pleural fluid. The catheter was slipped into the pleural cavity and approximately 2 L of sanguinous pleural fluid was removed. The patient tolerated the procedure well without any immediate complications. Impression: 1. Successful ultrasound-guided right thoracentesis with removal of approximately 2 L of sanguinous pleural fluid. ICD-10 code-J90 pleural effusion, not elsewhere classified Acute Procedures Epistaxis Control: Time out performed: Yes
--- NOTE | 2024-04-02 18:40 | XRR_ITS ---
PROCEDURE INFORMATION: Exam: XR Chest Exam date and time: 04/02/2024 7:01 PM Age: 78 years old Clinical indication: Shortness of breath; Additional info: Post right lung thoracentesis TECHNIQUE: Imaging protocol: Radiologic exam of the chest. Views: 1 view. COMPARISON: CR XR chest 1V portable [id number] 04/01/2024 8:38 AM FINDINGS: Lungs: No focal consolidation. Mild pulmonary edema. Pleural spaces: No evidence of pneumothorax. No evidence of pleural effusion. Heart/Mediastinum: Cardiomediastinal silhouette is within normal limits. Right-sided PICC line in place with tip in the region of the distal SVC. Bones/joints: No evidence of acute osseous abnormality. XR/XR chest 1V portable [id number] IMPRESSION: 1. No evidence of pneumothorax. 2. Mild pulmonary edema. 3. Right-sided PICC line in place with tip in the region of the distal SVC.
[2024-04-02] MEDS: azithromycin 500 MG in sodium chloride 0.9% 250 ML 250 MG IV (19:30)
[2024-04-02 19:53] LABS: Cyto Order Verification No Order; PATH Referral YES
[2024-04-02 19:59] LABS: Apprearance, Body Fluid CLOUDY; Body Fluid Specific Gravity 1.015; Color, Body Fluid AMBER; Fluid Laterality RIGHT PLEURAL FLUID
[2024-04-02 20:01] LABS: Body Fluid Polynuclear #Cells 0.027; Body Fluid WBC 123 /uL; Monocytes # Body Fluid 0.096
[2024-04-02 20:49] LABS: Albumin Body Fluid 1.7 g/dL; Cholesterol Body Fluid 25 mg/dL (0-200); Fluid Alkaline Phos. 10 IU/L; LDH Body Fluid 67 U/L; Total Protein Pleural Fluid 2.5 g/dL; Triglycerides Body Fluid 21 mg/dL (0-150); Uric Acid Body Fluid 13 mg/dL
--- NOTE | 2024-04-02 20:54 | PC.NURSE ---
Spoke with regarding patient request for medicine for sleep. order one time dose of ambien.
[2024-04-02] MEDS: lanolin oint 7 gm 1 APPLIC TOPICAL (21:02)
[2024-04-02] MEDS: metoprolol tartrate 25 mg Tablet PO (21:02)
[2024-04-02] MEDS: zolpidem 5 mg Tablet 2.5 MG PO (21:02)
[2024-04-03] VITALS (24 sets, daily range): BP systolic 97–119; BP diastolic 47–84; PULSE 47–83; RESP 15–30; TEMP 36.4–36.9; O2SAT 94–100
--- NOTE | 2024-04-03 02:30 | ECG_ITS ---
[facility] Test Date: 2024-04-03 Pat Name: Arielle Salas Department: Room: 111 Gender: Female Telegraph Messenger: : 1945 Requested By: Fred Hendrix Order Number: [id number] Marina MD: Bradley Reed M.D. Measurements Intervals [place] Rate: 59 P: 27 NV: 173 QRS: 17 QRSD: 90 T: -7 QT: 515 QTc: 512 Interpretive Statements SINUS BRADYCARDIA MODERATE T-WAVE ABNORMALITY, CONSIDER ANTEROLATERAL ISCHEMIA [-0.1+ mV T-WAVE IN V3-V6] Compared to ECG 03/30/2024 22:58:30 T-wave abnormality now present Possible ischemia now present Atrial fibrillation no longer present Left-axis deviation no longer present Left bundle-branch block no longer present Electronically Signed On 04-03-2024 13:08:15 CDT by Bradley Reed M.D. [id number]
--- NOTE | 2024-04-03 02:41 | PC.NURSE ---
Patient with complaints of chest pain 8/10, feels like pressure in sternal area. Patient had small amount of emisis at this time. Nurse completed EKG and EKG was reviewed by . ordered troponin series and EKGs.
[2024-04-03 03:02] LABS: Basophils # 0.1 10^3/uL (0.0-0.1); Basophils % 0.6 %; Eosinophils % 0.3 %; Hematocrit 30.4 % (36-47); Lymphocytes # 0.6 10^3/uL (0.8-4.8); Lymphocytes % 4.3 %; Mean Corpuscular HGB Conc 30.6 g/dL (30-55); Mean Corpuscular Hemoglobin 26.9 pg (27-33); Mean Corpuscular Volume 87.9 fl (85-98); Mean Platelet Volume 9.7 fL (7.4-10.4); Monocytes # 0.9 10^3/uL (0.2-0.9); Neutrophils # 12.42 10^3/uL (1.8-7.7); Neutrophils % 88.1 %; Nucleated Red Blood Cells % 0 %; Platelet Count 289 10^3/cmm (157-399); Red Blood Count 3.46 10^6/uL (3.85-5.65); Red Cell Distribution Width 16.8 % (12.1-15.1)
[2024-04-03 03:20] LABS: Troponin(5th) Baseline 42 ng/L (0-10)
[2024-04-03 03:25] LABS: Anion Gap 13.3 (5-19); Blood Urea Nitrogen 35 mg/dL (8-23); Calcium 8.4 mg/dL (8.5-10.5); Carbon Dioxide 29 mmol/L (22-29); Chloride 104 mmol/L (98-107); Glucose 150 mg/dL (65-115); Magnesium 2.2 mg/dL (1.7-2.3); Osmolality Calculated 305 mOsm/kg (285-295); Potassium 4.3 mmol/L (3.5-5.1); Sodium 142 mmol/L (136-145)
[2024-04-03 03:27] LABS: Creatinine Clr Calc Pharmacy 41.9308
[2024-04-03] MEDS: ondansetron 2 mg/ML SDV 2 mL 4 MG IVP (03:30)
[2024-04-03] MEDS: lidocaine 2% viscous 15 ML, aluminum-mag hydrox-simethicon 30 ML, sucralfate oral liq 1 GM PO (04:02)
[2024-04-03] MEDS: morphine 4 mg/mL SDV 1 mL 2 MG IVP (04:03)
--- NOTE | 2024-04-03 05:06 | ECG_ITS ---
[facility] Test Date: 2024-04-03 Pat Name: Arielle Salas Department: Room: 111 Gender: Female Tactical Debriefer: : 1945 Requested By: Aleta Mesa Order Number: [id number] Marina MD: Bradley Reed M.D. Measurements Intervals [place] Rate: 64 P: 55 [place]: 176 QRS: 17 QRSD: 94 T: -6 QT: 486 QTc: 504 Interpretive Statements SINUS RHYTHM INCOMPLETE RIGHT BUNDLE BRANCH BLOCK [90+ ms QRS DURATION, TERMINAL R IN V1/V2, 40+ ms S IN I/aVL/V4/V5/V6] MODERATE T-WAVE ABNORMALITY, CONSIDER ANTEROLATERAL ISCHEMIA [-0.1+ mV T-WAVE IN V3-V6] Compared to ECG 04/03/2024 02:30:40 Incomplete right bundle-branch block now present Sinus bradycardia no longer present T-wave abnormality still present Possible ischemia still present Electronically Signed On 04-03-2024 13:10:57 CDT by Bradley Reed M.D. [id number]
[2024-04-03] MEDS: cefTRIAXone 1,000 MG in sodium chloride 0.9% (plus) 50 ML 100 MG IV ×2 (05:18→17:27)
[2024-04-03 05:49] LABS: Troponin 5 2HR 39.76 ng/L (0-10)
[2024-04-03 05:54] LABS: Troponin 5 2HR Delta -2.24 ABS# (0-10)
--- NOTE | 2024-04-03 07:45 | P.PN_ITS ---
Subjective 2 Subjective: Patient required thoracentesis. Per Initial report it was transudative. Last night had episode of shortness of breath and chest discomfort. Currently feeling better. Vitals/I&O/Wt Last Vital Signs Temp 97.7 F 04/03/24 04:00 Pulse 70 04/03/24 07:10 Resp 18 04/03/24 07:10 BP 117/70 04/03/24 04:00 Pulse Ox 94 04/03/24 07:10 O2 Del Method High Flow Nasal Cannula 04/03/24 07:10 O2 Flow Rate 4 04/03/24 07:10 FiO2 60 04/02/24 15:34 04/02/24 04/03/24 04/03/24 22:59 06:59 14:59 Intake Total 550 / 1350 650 / 2000 Output Total 350 / 350 Balance 200 / 1000 650 / 1650 Weight last 48 hrs Weight 208 lb Weight 150 lb 1 oz Physical Exam 2 Narrative: GENERAL: Patient is intubated and sedated NECK: No jugular vein distension. [] HEENT: No cyanosis. No icterus. No pallor. [] HEART: Regular S1 and S2. No murmur, rub or gallop. [] LUNGS: Has diminshed air entry bilaterally. CENTRAL NERVOUS SYSTEM: Grossly nonfocal. [] EXTREMITIES: Lower extremities with 1+ edema bilaterally. [] Data 04/04/24 04:17 04/04/24 04:17 A&P Assessment and plan (1) New onset left bundle branch block (LBBB): (2) Atrial fibrillation with RVR: (3) Shock: Resolved (4) ACS (acute coronary syndrome): (5) Congestive heart failure: Plan Patient's volume status is difficult to assess. Clinically does not appear volume overloaded. However given transudative pleural effusion, and episodes of shortness of breath we will give trial of metolazone. Monitor I&O's. Monitor renal function. If significant worsening, we will cut diuretic therapy and repeat chest x ray in the AM. Patient had PCI of RCA. 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 Will do outpatient stress test in a month to assess ischemia Thank you for involving us with care of this patient. We will continue to follow. Please call with questions. Attestations 2 Medical Necessity Statement*: Care expected to cross 2 midnights. Coding Level of Care Code Acute Code for Chg Fwd Diagnoses New onset left bundle branch block (LBBB) I44.7 Atrial fibrillation with RVR I48.91 Shock R57.9 ACS (acute coronary syndrome) I24.9 Congestive heart failure I50.9
[2024-04-03] MEDS: apixaban 5 mg Tablet PO ×2 (07:46→17:28)
[2024-04-03] MEDS: metoprolol tartrate 25 mg Tablet PO ×2 (07:46→20:28)
[2024-04-03] MEDS: clopidogrel 75 mg Tablet PO (07:46)
[2024-04-03] MEDS: amiodarone 200 mg Tablet 400 MG PO ×2 (07:46→17:28)
[2024-04-03] MEDS: aspirin 325 mg Tablet PO (07:46)
--- NOTE | 2024-04-03 08:41 | ECG_ITS ---
[facility] Test Date: 2024-04-03 Pat Name: Arielle Salas Department: Room: 111 Gender: Female Teaching Young: : 1945 Requested By: Aleta Mesa Order Number: [id number] Marina MD: Bradley Reed M.D. Measurements Intervals [place] Rate: 64 P: 45 MD: 181 QRS: -31 QRSD: 148 T: 58 QT: 496 QTc: 513 Interpretive Statements SINUS RHYTHM LEFT AXIS DEVIATION [QRS AXIS < -30] LEFT BUNDLE BRANCH BLOCK [120+ ms QRS DURATION, 80+ ms Q/S IN V1/V2, 85+ ms R IN I/aVL/V5/V6] Compared to ECG 04/03/2024 05:06:07 Left-axis deviation now present Left bundle-branch block now present Incomplete right bundle-branch block no longer present T-wave abnormality no longer present Possible ischemia no longer present Electronically Signed On 04-03-2024 13:10:43 CDT by Bradley Reed M.D. [email or web address]
--- NOTE | 2024-04-03 11:21 | PM.PN ---
Subjective Subjective: The patient feels significantly better compared to yesterday and supplemental oxygen down to 3 L. Tells me that her breathing is better since thoracentesis yesterday evening Pleural fluid analysis showed transudative effusion likely secondary to CHF I have told patient that there is still a left pleural effusion which should improve with diuretic Cardiology to titrate diuretic regimen Medications: Reviewed: Yes Medication Review Details: Current Medications Acetaminophen (Acetaminophen 500 Mg Tablet) 500 mg PO Q4H PRN PRN Reason: fever Albuterol/Ipratropium (Ipratropium-Albuterol 3 Ml Neb) 3 ml INHALATION Q6H PRN PRN Reason: SHORTNESS OF BREATH Amiodarone HCl (Amiodarone 200 Mg Tablet) 400 mg PO BID NATHAN Last Admin: 04/03/24 07:46 Dose: 400 mg Apixaban (Apixaban 5 Mg Tablet) 5 mg PO BID NATHAN Last Admin: 04/03/24 07:46 Dose: 5 mg Aspirin (Aspirin 325 Mg Tablet) 325 mg PO DAILY NATHAN Last Admin: 04/03/24 07:46 Dose: 325 mg Atorvastatin Calcium (Atorvastatin 40 Mg Tablet) 80 mg PO BEDTIME NATHAN Last Admin: 04/01/24 20:06 Dose: 80 mg Clopidogrel Bisulfate (Clopidogrel 75 Mg Tablet) 75 mg PO DAILY NATHAN Last Admin: 04/03/24 07:46 Dose: 75 mg Furosemide (Furosemide 10 Mg/Ml Sdv 4ml) 40 mg IVP Q24H NATHAN Last Admin: 04/02/24 11:19 Dose: 40 mg Fentanyl (Sublimaze) 1,000 mcg in 100 mls @ 0 mls/hr IV .Q0M NATHAN; Protocol Last Titration: 04/01/24 17:57 Dose: Infused Ceftriaxone Sodium 1,000 mg/ (Sodium Chloride) 50 mls @ 100 mls/hr IV Q12H NATHAN; Protocol Last Infusion: 04/03/24 05:48 Dose: Infused Azithromycin 500 mg/ Sodium (Chloride) 250 mls @ 250 mls/hr IV Q24H NATHAN; Protocol Last Infusion: 04/02/24 20:46 Dose: Infused norepinephrine (Levophed) 4 mg in 250 mls @ 0 mls/hr IV .Q0M NATHAN; Protocol Last Titration: 04/01/24 17:58 Dose: Infused Dexmedetomidine/Sodium Chloride (Precedex) 400 mcg in 100 mls @ 0 mls/hr IV .Q0M [facility]; Protocol Last Titration: 04/01/24 17:57 Dose: Infused Propofol (Diprivan) 1,000 mg in 100 mls @ 0 mls/hr IV .Q0M [facility]; Protocol Last Titration: 04/01/24 17:56 Dose: Infused Lanolin (Lanolin Oint 7 Gm) 1 applic TOPICAL PRN PRN PRN Reason: DRYNESS Last Admin: 04/02/24 21:02 Dose: 1 applic Metolazone (Metolazone 5 Mg Tablet) 5 mg PO DAILY [facility] Last Admin: 04/03/24 12:43 Dose: 5 mg Metoprolol Tartrate (Metoprolol Tartrate 25 Mg Tablet) 25 mg PO BID@0900,2100 [facility] Last Admin: 04/03/24 07:46 Dose: 25 mg Ondansetron HCl (Ondansetron 2 Mg/Ml Sdv 2 Ml) 4 mg IVP Q6H PRN PRN Reason: NAUSEA AND VOMITING Last Admin: 04/03/24 03:30 Dose: 4 mg Potassium Chloride (Potassium Chloride Er 20 Meq Tablet) 40 meq PO DAILY [facility] Last Admin: 04/02/24 08:26 Dose: 40 meq Senna/Docusate Sodium (Sennosides-Docusate Tablet) 1 tab PO DAILY [facility] Last Admin: 04/02/24 08:26 Dose: 1 tab Vitals/I&O/Wt Last Vital Signs Temp 98.0 F 04/03/24 07:52 Pulse 69 04/03/24 07:52 Resp 18 04/03/24 07:10 BP 109/53 04/03/24 07:52 Pulse Ox 100 04/03/24 07:52 O2 Del Method Nasal Cannula 04/03/24 07:52 O2 Flow Rate 4 04/03/24 07:10 FiO2 60 04/02/24 15:34 04/02/24 04/03/24 04/03/24 22:59 06:59 14:59 Intake Total 550 / 1350 650 / 2000 Output Total 350 / 350 Balance 200 / 1000 650 / 1650 Weight last 48 hrs Weight 208 lb Weight 150 lb 1 oz Physical Exam Narrative: PHYSICAL EXAM: General: Sitting in bed-in mild respiratory distress HEENT:NCAT, PERRLA, EOMI Neck: Supple Lungs: Reduced breath sounds left lower lung zone; improved breath sounds on right lung Heart: s1/s2, RRR Abd: soft, NT, ND, BS + Normoactive Extremities: No edema 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 Laboratory Results WBC 19.96 10^3/uL (3.29-11.43) H 04/04/24 04:17 RBC 3.31 10^6/uL (3.85-5.65) L 04/04/24 04:17 Hgb 9.00 g/dL (11.27-16.99) L 04/04/24 04:17 Hct 29.5 % (36-47) L 04/04/24 04:17 MCV 89.1 fl (85-98) 04/04/24 04:17 MCH 27.2 pg (27-33) 04/04/24 04:17 MCHC 30.5 g/dL (30-55) 04/04/24 04:17 RDW 16.7 % (12.1-15.1) H 04/04/24 04:17 Plt Count 285 10^3/cmm (157-399) 04/04/24 04:17 MPV 10.9 fL (7.4-10.4) H 04/04/24 04:17 Neut % (Auto) 82.8 % 04/04/24 04:17 Lymph % (Auto) 5.5 % 04/04/24 04:17 [place] % (Auto) 9.6 % 04/04/24 04:17 Eos % (Auto) 0.4 % 04/04/24 04:17 Baso % (Auto) 0.6 % 04/04/24 04:17 Neut # (Auto) 16.55 10^3/uL (1.8-7.7) H 04/04/24 04:17 Lymph # (Auto) 1.1 10^3/uL (0.8-4.8) 04/04/24 04:17 [place] # (Auto) 1.9 10^3/uL (0.2-0.9) H 04/04/24 04:17 Eos # (Auto) 0.1 10^3/uL (0.0-0.8) 04/04/24 04:17 Baso # (Auto) 0.1 10^3/uL (0.0-0.1) 04/04/24 04:17 Nucleated RBC % (auto) 0 % 04/04/24 04:17 Nucleated RBCs # 0.0 /100WBC 04/04/24 04:17 Differential Comment Yes 04/02/24 18:16 PT 23.40 SECONDS (12.1-14.9) H 03/27/24 13:53 INR 2.00 (0.8-1.2) H 03/27/24 13:53 APTT 38.0 SECONDS (23.9-36.7) H 03/28/24 04:16 Specimen Type Arterial 03/30/24 04:20 Sample Site Radial, right 03/30/24 04:20 ABG pH 7.50 (7.35-7.45) H 03/30/24 04:20 ABG pCO2 40.1 mmHg (35-45) 03/30/24 04:20 ABG pO2 97.4 mmHg (80.0-100.0) 03/30/24 04:20 ABG PO2/FiO2 Ratio 0 03/30/24 04:20 ABG HCO3 31.3 mmol/L (22-26) H 03/30/24 04:20 ABG O2 Saturation 99.5 03/30/24 04:20 ABG Base Excess 7.5 mmol/L (-2.0-2.0) H 03/30/24 04:20 Parish Test Pos 03/30/24 04:20 A-a O2 Gradient 13.1 mmHg (5-10) H 03/30/24 04:20 Hematocrit 32.9 % (37-47) L 03/30/24 04:20 Hgb O2 Saturation 97.4 % (95-100) 03/30/24 04:20 Carboxyhemoglobin 1.8 %THgb (0.4-20.1) 03/30/24 04:20 Methemoglobin 0.4 % (0.4-1.5) 03/30/24 04:20 Total Hemoglobin 10.7 g/dL (12-16) L 03/30/24 04:20 Sodium 140.0 mmol/L (131-143) 03/30/24 04:20 Potassium 3.0 mmol/L (3.5-5.0) L 03/30/24 04:20 Glucose 91.0 mg/dL (70-115) 03/30/24 04:20 Ionized Calcium 1.1 mmol/L (1.1-1.4) 03/30/24 04:20 O2 Delivery Device Vent 03/30/24 04:20 O2 Liters/Min 15.0 % 03/27/24 13:33 FiO2 35.0 % 03/30/24 04:20 Tidal Volume 0.35 03/30/24 04:20 PEEP 5.0 cmH20 03/30/24 04:20 Bdr ID Deshawn 03/30/24 04:20 Sodium 135 mmol/L (136-145) L 04/04/24 04:17 Potassium 4.7 mmol/L (3.5-5.1) 04/04/24 04:17 Chloride 99 mmol/L (98-107) 04/04/24 04:17 Carbon Dioxide 27 mmol/L (22-29) 04/04/24 04:17 Anion Gap 13.7 (5-19) 04/04/24 04:17 BUN 47 mg/dL (8-23) H 04/04/24 04:17 Creatinine 1.3 mg/dL (0.5-0.9) H 04/04/24 04:17 GFR Calculation Not Reportable 04/04/24 04:17 Glucose 121 mg/dL (65-115) H 04/04/24 04:17 Calculated Osmolality 294 mOsm/kg (285-295) 04/04/24 04:17 Lactic Acid 3.0 mmol/L (0.5-2.2) H 03/27/24 13:53 Lactic Acid (Sepsis) 1.4 mmol/L (0.5-2.2) 03/27/24 21:58 Calcium 8.2 mg/dL (8.5-10.5) L 04/04/24 04:17 Magnesium 2.2 mg/dL (1.7-2.3) 04/03/24 02:50 Total Bilirubin 0.7 mg/dL (0.15-1.2) 04/02/24 05:32 AST 15 U/L (0-32) 04/02/24 05:32 ALT 13 U/L (0-33) 04/02/24 05:32 Alkaline Phosphatase 62 U/L (35-105) 04/02/24 05:32 Troponin T Baseline 42 ng/L (0-10) H 04/03/24 02:50 Troponin T 120 Minute 39.76 ng/L (0-10) H 04/03/24 05:05 Delta Troponin T -2.24 ABS# (0-10) L 04/03/24 05:05 Troponin T Hi Sens 6Hr 44.70 ng/L (0-10) H 04/03/24 08:43 Troponin T Hi Sens 6Hr Delta 2.70 ng/L (0-12) 04/03/24 08:43 NT-Pro-B Natriuret Pep 1703 pg/mL (0-450) H 03/27/24 13:53 Total Protein 6.3 g/dL (6.6-8.7) L 04/02/24 05:32 Albumin 2.9 g/dL (3.5-5.2) L 04/02/24 05:32 Globulin 3.4 g/dL (1.3-4.6) 04/02/24 05:32 Fluid Color Maria D 04/02/24 18:16 Fluid Appearance Cloudy 04/02/24 18:16 Fluid Specific Grav 1.015 04/02/24 18:16 Fluid pH 8.0 04/02/24 18:16 Fluid WBC 123 /uL 04/02/24 18:16 Fluid RBC 3.000 10^3/uL 04/02/24 18:16 Fld Polynuclear WBCs # 0.027 04/02/24 18:16 Fld Polynuclear WBCs % 21.900 % 04/02/24 18:16 Fl Mononucl WBCs #(Auto) 0.096 04/02/24 18:16 Fl Mononuclear % Auto 78.100 % 04/02/24 18:16 Fld Crystal Laterality Right pleural fluid 04/02/24 18:16 Fluid Glucose 192.0 mg/dL 04/02/24 18:16 Fluid Albumin 1.7 g/dL 04/02/24 18:16 Fluid LDH 67 U/L 04/02/24 18:16 Fluid Alk Phosphatase 10 IU/L 04/02/24 18:16 Fluid Cholesterol 25 mg/dL (0-200) 04/02/24 18:16 Fluid Triglycerides 21 mg/dL (0-150) 04/02/24 18:16 Fluid Uric Acid 13 mg/dL 04/02/24 18:16 Pleural Total Protein 2.5 g/dL 04/02/24 18:16 C. difficile (PCR) Negative (Negative) 04/04/24 14:15 Blood Type A Negative 03/29/24 13:20 Rho(D) Type Rh negative 03/29/24 13:20 Antibody Screen Negative 03/29/24 13:20 Crossmatch See Detail 03/29/24 13:20 Micro: Microbiology 04/02/24 18:16 Gram Stain - Final Pleural Fluid A&P Assessment and plan (1) Pleural effusion: Likely secondary to acute on chronic CHF S/p right thoracentesis-ventilator straw-colored fluid- Pleural fluid analysis showed transudative effusion likely secondary to CHF Tells me that her breathing is better since thoracentesis yesterday evening - currently fio2 down to 3 L I have told patient that there is still a left pleural effusion which should improve with diuretic Cardiology to titrate diuretic regimen (2) Acute respiratory failure: Secondary to fluid overload secondary to STEMI S/p stenting performed in RCA Extubated to BiPAP and she is tolerating well; currently on 3L supplemental oxygen (3) Congestive heart failure: Post stenting-echocardiogram EF 65% dilated LA with mitral regurg Currently on lasix 40 mg and will add metalazone. (4) ACS (acute coronary syndrome): New LBBB on EKG during admission STEMI alert called Cardiac cath revealed extensive significant chronic disease in the proximal circumflex and 80% stenosis of proximal mid RCA, culprit for acute presentation. Subsequently Successful angioplasty of RCA was performed. Currently on ASA, PLAVIX (5) Atrial fibrillation with RVR: Currently she is on amiodarone drip-heart rate-60 to 90 bpm in sinus rhythm-switched to p.o. amiodarone Started on Eliquis 5 Mg p.o. twice daily Attestations Medical Necessity Statement*: Patient has acute medical problems with recent congestive heart failure exacerbation and hypoxemia that require continued inpatient IV treatments and monitoring. Coding Level of Care Code Acute Code for [facility] Diagnoses Pleural effusion J90 Acute respiratory failure J96.00 Congestive heart failure I50.9 ACS (acute coronary syndrome) I24.9 Atrial fibrillation with RVR I48.91 Time Spent (min) 38
[2024-04-03] MEDS: metOLazone 5 MG Tablet PO (12:43)
--- NOTE | 2024-04-03 13:18 | PC.OT ---
OT treatment session on hold due to low O2 Saturation; will attempt again at later time.
--- NOTE | 2024-04-03 15:11 | PM.PN ---
Subjective Subjective: Patient overall is feeling better today than yesterday. She was just recently extubated. She had some chest discomfort and shortness of breath last night. She ended up getting another thoracentesis and this seemed to have helped. It appears that pulmonology feels like she is still got some fluid overload and congestive heart failure. Metolazone was just added today by cardiology to help her diurese. She denies any fevers or chills at this time. Medications: Reviewed: Yes Medication Review Details: Current Medications Acetaminophen (Acetaminophen 500 Mg Tablet) 500 mg PO Q4H PRN PRN Reason: fever Albuterol/Ipratropium (Ipratropium-Albuterol 3 Ml Neb) 3 ml INHALATION Q6H PRN PRN Reason: SHORTNESS OF BREATH Amiodarone HCl (Amiodarone 200 Mg Tablet) 400 mg PO BID NATHAN Last Admin: 04/03/24 07:46 Dose: 400 mg Apixaban (Apixaban 5 Mg Tablet) 5 mg PO BID NATHAN Last Admin: 04/03/24 07:46 Dose: 5 mg Aspirin (Aspirin 325 Mg Tablet) 325 mg PO DAILY NATHAN Last Admin: 04/03/24 07:46 Dose: 325 mg Atorvastatin Calcium (Atorvastatin 40 Mg Tablet) 80 mg PO BEDTIME NATHAN Last Admin: 04/01/24 20:06 Dose: 80 mg Clopidogrel Bisulfate (Clopidogrel 75 Mg Tablet) 75 mg PO DAILY NATHAN Last Admin: 04/03/24 07:46 Dose: 75 mg Furosemide (Furosemide 10 Mg/Ml Sdv 4ml) 40 mg IVP Q24H NATHAN Last Admin: 04/02/24 11:19 Dose: 40 mg Fentanyl (Sublimaze) 1,000 mcg in 100 mls @ 0 mls/hr IV .Q0M NATHAN; Protocol Last Titration: 04/01/24 17:57 Dose: Infused Ceftriaxone Sodium 1,000 mg/ (Sodium Chloride) 50 mls @ 100 mls/hr IV Q12H NATHAN; Protocol Last Infusion: 04/03/24 05:48 Dose: Infused Azithromycin 500 mg/ Sodium (Chloride) 250 mls @ 250 mls/hr IV Q24H NATHAN; Protocol Last Infusion: 04/02/24 20:46 Dose: Infused norepinephrine (Levophed) 4 mg in 250 mls @ 0 mls/hr IV .Q0M NATHAN; Protocol Last Titration: 04/01/24 17:58 Dose: Infused Dexmedetomidine/Sodium Chloride (Precedex) 400 mcg in 100 mls @ 0 mls/hr IV .Q0M COUNT INCLUDES THE [facility]; Protocol Last Titration: 04/01/24 17:57 Dose: Infused Propofol (Diprivan) 1,000 mg in 100 mls @ 0 mls/hr IV .Q0M COUNT [facility]CLUDES THE [facility]; Protocol Last Titration: 04/01/24 17:56 Dose: Infused Lanolin (Lanolin Oint 7 Gm) 1 applic TOPICAL PRN PRN PRN Reason: DRYNESS Last Admin: 04/02/24 21:02 Dose: 1 applic Metolazone (Metolazone 5 Mg Tablet) 5 mg PO DAILY [facility] Last Admin: 04/03/24 12:43 Dose: 5 mg Metoprolol Tartrate (Metoprolol Tartrate 25 Mg Tablet) 25 mg PO BID@0900,2100 COUNT [facility]CLUD[facility] Last Admin: 04/03/24 07:46 Dose: 25 mg Ondansetron HCl (Ondansetron 2 Mg/Ml Sdv 2 Ml) 4 mg IVP Q6H PRN PRN Reason: NAUSEA AND VOMITING Last Admin: 04/03/24 03:30 Dose: 4 mg Potassium Chloride (Potassium Chloride Er 20 Meq Tablet) 40 meq PO DAILY COUNT [facility]CLUD[facility] THE [facility] Last Admin: 04/02/24 08:26 Dose: 40 meq Senna/Docusate Sodium (Sennosides-Docusate Tablet) 1 tab PO DAILY COUNT [facility]CLUD[facility] THE [facility] Last Admin: 04/02/24 08:26 Dose: 1 tab Vitals/I&O/Wt Last Vital Signs Temp 97.6 F 04/03/24 12:00 Pulse 61 04/03/24 12:00 Resp 26 H 04/03/24 12:00 BP 97/57 04/03/24 12:00 Pulse Ox 100 04/03/24 12:00 O2 Del Method Room Air 04/03/24 12:00 O2 Flow Rate 4 04/03/24 07:10 FiO2 60 04/02/24 15:34 04/03/24 04/03/24 04/03/24 06:59 14:59 22:59 Intake Total 650 / 2000 630 / 630 Output Total 1000 / 1000 Balance 650 / 1650 -370 / -370 Weight last 48 hrs Weight 208 lb Weight 150 lb 1 oz Physical Exam Narrative: General: No acute distress, Alert. Well nourished. Heart: Regular rate and rhythm. No murmurs, rubs or gallops. Normal capillary refill. Lungs: Clear to auscultation. No wheezes, rhonchi or rales. Abdomen: Positive bowel sounds. Non-tender, non-distended. No hepatosplenomegaly. No gaurding. Extremities: No clubbing, cyanosis, or edema. Negative Sunday's Data 04/03/24 02:50 04/03/24 02:50 Micro: Microbiology 04/02/24 18:16 Gram Stain - Final Pleural Fluid A&P Assessment and plan (1) Congestive heart failure: Overall it is a bit difficult to assess her volume status today. She had an echocardiogram that showed a normal ejection fraction of 65%. There was a moderate mitral regurgitation. Mild pulmonary hypertension. Pulmonology and cardiology feel like she still little volume overloaded. Metolazone was added today. Chest x-ray yesterday showed some mild pulmonary edema. The BUN and creatinine ratio is getting to the point that might suggest she is a little on the dry side. Monitor fluid status closely. (2) Atrial fibrillation with RVR: Stable at this time. (3) Anemia: She stained a bit anemic with a hemoglobin of 9.3. This probably is from her ongoing illness. Continue to monitor for now. (4) Pleural effusion: Presumed to be from her congestive heart failure. Continue with metolazone and monitor. (5) Hypoxic respiratory failure: She is extubated as of yesterday. Her baseline O2 requirements are 2 L. Right now she is on 5. She is on 3 L this morning. Continue to see how this waxes and wanes. Continue with BiPAP if needed. (6) Leukocytosis: Not real clear if we are dealing with a pneumonia here as well. Repeat labs tomorrow. She is currently on Rocephin and Zithromax. If labs are elevated again tomorrow might consider repeat cultures and a change in her antibiotic regimen. Precautions given. Attestations Medical Necessity Statement*: Patient has acute medical problems with recent congestive heart failure exacerbation and hypoxemia that require continued inpatient IV treatments and monitoring. Coding Level of Care Code Acute Code for [facility] Diagnoses Congestive heart failure I50.9 Atrial fibrillation with RVR I48.91 Anemia D64.9 Pleural effusion J90 Hypoxic respiratory failure J96.91 Leukocytosis D72.829
[2024-04-03] MEDS: azithromycin 500 MG in sodium chloride 0.9% 250 ML 250 MG IV (17:27)
[2024-04-04] VITALS (8 sets, daily range): BP systolic 107–123; BP diastolic 44–71; PULSE 56–66; RESP 16–24; TEMP 36.5–37.1; O2SAT 94–100
[2024-04-04] MEDS: cefTRIAXone 1,000 MG in sodium chloride 0.9% (plus) 50 ML 100 MG IV ×2 (04:29→17:01)
[2024-04-04 05:46] LABS: Basophils # 0.1 10^3/uL (0.0-0.1); Basophils % 0.6 %; Eosinophils # 0.1 10^3/uL (0.0-0.8); Eosinophils % 0.4 %; Hematocrit 29.5 % (36-47); Lymphocytes # 1.1 10^3/uL (0.8-4.8); Lymphocytes % 5.5 %; Mean Corpuscular HGB Conc 30.5 g/dL (30-55); Mean Corpuscular Hemoglobin 27.2 pg (27-33); Mean Corpuscular Volume 89.1 fl (85-98); Mean Platelet Volume 10.9 fL (7.4-10.4); Monocytes # 1.9 10^3/uL (0.2-0.9); Monocytes % 9.6 %; Neutrophils # 16.55 10^3/uL (1.8-7.7); Neutrophils % 82.8 %; Nucleated Red Blood Cells % 0 %; Platelet Count 285 10^3/cmm (157-399); Red Blood Count 3.31 10^6/uL (3.85-5.65); Red Cell Distribution Width 16.7 % (12.1-15.1); White Blood Count 19.96 10^3/uL (3.29-11.43)
[2024-04-04 06:19] LABS: Anion Gap 13.7 (5-19); Blood Urea Nitrogen 47 mg/dL (8-23); Calcium 8.2 mg/dL (8.5-10.5); Carbon Dioxide 27 mmol/L (22-29); Chloride 99 mmol/L (98-107); Creatinine Clr Calc Pharmacy 32.8916; Glucose 121 mg/dL (65-115); Osmolality Calculated 294 mOsm/kg (285-295); Potassium 4.7 mmol/L (3.5-5.1); Sodium 135 mmol/L (136-145)
--- NOTE | 2024-04-04 08:32 | XRR_ITS ---
PROCEDURE INFORMATION: Exam: XR Chest Exam date and time: 04/04/2024 9:52 AM Age: 78 years old Clinical indication: Shortness of breath TECHNIQUE: Imaging protocol: Radiologic exam of the chest. Views: 1 view. COMPARISON: CR XR chest 1V portable [id number] 04/02/2024 7:01 PM FINDINGS: Tubes, catheters and devices: The right upper extremity PICC tip is at the superior cavoatrial junction. Lungs: Bilateral lower lung zone consolidations. Pleural spaces: Unremarkable. No pleural effusion. No pneumothorax. Heart/Mediastinum: Mild cardiomegaly. Bones/joints: Moderate degenerative disease of bilateral acromioclavicular joints and mild degenerative disease of bilateral glenohumeral joints. Moderate degenerative disease of the thoracic spine. XR/XR chest 1V portable [id number] IMPRESSION: Bilateral lower lung zone consolidations.
--- NOTE | 2024-04-04 08:37 | P.PN_ITS ---
Subjective 2 Subjective: Patient feeling well. No chest pain. O2 requirement is lower. However her creatinine increased and WBC is significantly elevated today. Vitals/I&O/Wt Last Vital Signs Temp 98.7 F 04/04/24 04:00 Pulse 58 L 04/04/24 08:00 Resp 17 04/04/24 08:00 BP 112/51 04/04/24 08:00 Pulse Ox 100 04/04/24 08:00 O2 Del Method Nasal Cannula 04/04/24 08:00 O2 Flow Rate 4 04/03/24 07:10 FiO2 60 04/02/24 15:34 04/03/24 04/04/24 04/04/24 22:59 06:59 14:59 Intake Total 300 / 930 410 / 1340 Output Total 250 / 1250 125 / 125 Balance 50 / -320 410 / 90 -125 / -125 Weight last 48 hrs Weight 156 lb 4.8 oz Weight 208 lb Physical Exam 2 Narrative: GENERAL: Patient is intubated and sedated NECK: No jugular vein distension. [] HEENT: No cyanosis. No icterus. No pallor. [] HEART: Regular S1 and S2. No murmur, rub or gallop. [] LUNGS: Has diminshed air entry bilaterally. CENTRAL NERVOUS SYSTEM: Grossly nonfocal. [] EXTREMITIES: Lower extremities with 1+ edema bilaterally. [] Data 04/04/24 04:17 04/04/24 04:17 Micro: Microbiology 04/02/24 18:16 Gram Stain - Final Pleural Fluid Anaerobic Culture - Preliminary Body Fluid Culture - Preliminary A&P Assessment and plan (1) New onset left bundle branch block (LBBB): (2) Atrial fibrillation with RVR: (3) Shock: Resolved (4) ACS (acute coronary syndrome): (5) Congestive heart failure: Plan Patient's creatinine and BUN increased significantly with further diuresis yesterday. Intravascularly she is dry. We will hold diuretics for today. Monitor I&O's and urine output. Will obtain chest x-ray today. WBC count increased significantly today. Management per primary team. Patient had PCI of RCA. 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 Will do outpatient stress test in a month to assess ischemia Thank you for involving us with care of this patient. We will continue to follow. Please call with questions. Attestations 2 Medical Necessity Statement*: Care expected to cross 2 midnights. Coding Level of Care Code Acute Code for [facility] Diagnoses New onset left bundle branch block (LBBB) I44.7 Atrial fibrillation with RVR I48.91 Shock R57.9 ACS (acute coronary syndrome) I24.9 Congestive heart failure I50.9
[2024-04-04] MEDS: metoprolol tartrate 25 mg Tablet PO (09:02)
[2024-04-04] MEDS: clopidogrel 75 mg Tablet PO (09:02)
[2024-04-04] MEDS: apixaban 5 mg Tablet PO ×2 (09:03→17:52)
[2024-04-04] MEDS: amiodarone 200 mg Tablet 400 MG PO (09:04)
[2024-04-04] MEDS: aspirin 325 mg Tablet PO (09:04)
--- NOTE | 2024-04-04 12:00 | P.PN_ITS ---
Subjective 2 Subjective: The patient feels significantly better compared to yesterday. She feels like her weakness is improving. She still feels weak overall however. She said that she had loose stools earlier this morning. She had not had a bowel movement for 8 days by her history. She denies any significant abdominal pain at this point. Vitals/I&O/Wt Last Vital Signs Temp 98.7 F 04/04/24 04:00 Pulse 57 L 04/04/24 08:22 Resp 18 04/04/24 08:22 BP 112/51 04/04/24 08:00 Pulse Ox 100 04/04/24 08:22 O2 Del Method High Flow Nasal Cannula 04/04/24 08:22 O2 Flow Rate 5 04/04/24 08:22 FiO2 60 04/02/24 15:34 04/03/24 04/04/24 04/04/24 22:59 06:59 14:59 Intake Total 300 / 930 410 / 1340 240 / 240 Output Total 250 / 1250 125 / 125 Balance 50 / -320 410 / 90 115 / 115 Weight last 48 hrs Weight 156 lb 4.8 oz Weight 208 lb Physical Exam 2 Narrative: General: Alert and oriented x 3. In no acute distress. Mouth: No erythema or tonsilar enlargement. No masses noted. Neck: No thyromegaly. No lymphadenopathy. Heart: Regular rate and rhythm. No murmurs. Lungs: Decreased air entry bilaterally in the bases with moderate rhonchi and crackles. No significant wheezes appreciated. Abdomen: Soft, non-tender. No hepatosplenomegaly. Extremities: Trace to +1 pitting edema. Data 04/04/24 04:17 04/04/24 04:17 Micro: Microbiology 04/02/24 18:16 Gram Stain - Final Pleural Fluid Anaerobic Culture - Preliminary Body Fluid Culture - Preliminary A&P Assessment and plan (1) Leukocytosis: The patient's white blood cell count has continued to climb. The cause for this is not completely clear. She did have loose stools and C. difficile would be a possibility. We will check a C. difficile. If this comes back negative for she does not have further loose bowels throughout the day, we may consider changing antibiotics due to her continued bilateral changes on her x-rays. (2) Atrial fibrillation with RVR: Stable at this time. Continue with current medications. (3) Anemia: The patient's hemoglobin is stable at 9.0. We will continue to monitor. (4) Hypoxic respiratory failure: Patient continues to have a patchy diffuse bilateral lower lung zone consolidation on x-ray. Is possible that this is due to a pneumonia that is not responding to Rocephin and azithromycin. If she does not have further loose stools today, then we will plan for changing antibiotics to further treat her leukocytosis. Continue with oxygen therapy. Attestations 2 Medical Necessity Statement*: The patient continues to need inpatient care where her stay will cross 2 midnights due to treatment of hypoxic respiratory failure and worsening leukocytosis. Coding Level of Care Code Acute Code for [facility] Diagnoses Leukocytosis D72.829 Atrial fibrillation with RVR I48.91 Anemia D64.9 Hypoxic respiratory failure J96.91
[2024-04-04 15:15] LABS: C.Diff PCR (Lab) NEGATIVE (Negative)
[2024-04-04] MEDS: azithromycin 500 MG in sodium chloride 0.9% 250 ML 250 MG IV (17:44)
[2024-04-04] MEDS: amiodarone 200 mg Tablet PO (18:25)
[2024-04-05] VITALS (34 sets, daily range): BP systolic 64–115; BP diastolic 38–63; PULSE 55–114; RESP 16–48; TEMP 36.4–36.7; O2SAT 83–100
[2024-04-05 04:18] LABS: Basophils # 0.1 10^3/uL (0.0-0.1); Basophils % 0.4 %; Eosinophils # 0.2 10^3/uL (0.0-0.8); Eosinophils % 0.8 %; Hematocrit 26.5 % (36-47); Lymphocytes % 5.8 %; Mean Corpuscular HGB Conc 31.7 g/dL (30-55); Mean Corpuscular Hemoglobin 27.1 pg (27-33); Mean Corpuscular Volume 85.5 fl (85-98); Mean Platelet Volume 11.1 fL (7.4-10.4); Monocytes # 1.5 10^3/uL (0.2-0.9); Monocytes % 8.5 %; Neutrophils # 14.78 10^3/uL (1.8-7.7); Neutrophils % 83.1 %; Nucleated Red Blood Cells % 0 %; Platelet Count 324 10^3/cmm (157-399); Red Cell Distribution Width 16.8 % (12.1-15.1)
[2024-04-05] MEDS: cefTRIAXone 1,000 MG in sodium chloride 0.9% (plus) 50 ML 100 MG IV (04:51)
--- NOTE | 2024-04-05 07:54 | XRR_ITS ---
PROCEDURE INFORMATION: Exam: XR Chest Exam date and time: 04/05/2024 11:54 AM Age: 78 years old Clinical indication: Prior surgery; Surgery date: 3-7 days post-operative; Surgery type: Cardiac stent; Patient HX: Persistent cough; Recent mi with stent placement x 1 week ago TECHNIQUE: Imaging protocol: Radiologic exam of the chest. Views: 1 view. COMPARISON: CR (CHEST, ) 04/04/2024 9:52 AM FINDINGS: Tubes, catheters and devices: Right upper extremity PICC tip is in the right atrium. Lungs: Improved aeration of bilateral lower lung zone with decreased opacities. Pleural spaces: There is decrease in the bilateral pleural effusions. Heart/Mediastinum: Obscured by lower lung zone airspace opacities. Bones/joints: Moderate degenerative disease of bilateral acromioclavicular joints. Moderate degenerative disease of bilateral glenohumeral joints. XR/XR chest 1V portable [id number] IMPRESSION: Improved aeration of bilateral lower lung zones with decrease in the pleural effusions.
--- NOTE | 2024-04-05 07:54 | P.PN_ITS ---
Subjective 2 Subjective: The patient has had continued cough and dyspnea with exertion. She is still on 3 L of oxygen via nasal cannula. She is not able to get up any phlegm but feels like it is in her lungs. She has not had any fevers. Vitals/I&O/Wt Last Vital Signs Temp 98.0 F 04/05/24 04:00 Pulse 90 04/05/24 07:20 Resp 16 04/05/24 07:20 BP 107/57 04/05/24 04:00 Pulse Ox 100 04/05/24 07:20 O2 Del Method Nasal Cannula 04/05/24 07:20 O2 Flow Rate 3 04/05/24 07:20 FiO2 60 04/02/24 15:34 04/04/24 04/05/24 04/05/24 22:59 06:59 14:59 Intake Total 590 / 830 250 / 1080 Output Total 300 / 425 425 / 850 Balance 290 / 405 -175 / 230 Weight last 48 hrs Weight 150 lb 14.4 oz Weight 156 lb 4.8 oz Physical Exam 2 Narrative: General: Alert and oriented x 3. In no acute distress. Mouth: No erythema or tonsilar enlargement. No masses noted. Neck: No thyromegaly. No lymphadenopathy. Heart: Regular rate and rhythm. No murmurs. Lungs: Decreased air entry bilaterally in the bases with moderate rhonchi and crackles. No significant wheezes appreciated. Abdomen: Soft, non-tender. No hepatosplenomegaly. Extremities: Trace to +1 pitting edema. Data 04/05/24 03:55 04/05/24 06:59 Micro: Microbiology 04/02/24 18:16 Gram Stain - Final Pleural Fluid Anaerobic Culture - Preliminary Body Fluid Culture - Preliminary A&P Assessment and plan (1) Leukocytosis: The patient's white blood cells have improved slightly since yesterday. That being said clinically, the patient seems to be a little worse and desaturates with just sitting up in bed. Because the patient was intubated and is not showing signs of significant improvement, I will go ahead and switch antibiotics to Zosyn. (2) Pleural effusion: Patient seems to continue to have significant fluid overload. I will add Lasix to help with this. We will need to watch her creatinine related to Lasix therapy. (3) Atrial fibrillation with RVR: The patient's A-fib with RVR has been well-controlled with amiodarone and metoprolol. Her dose of metoprolol was held last night as her pulse was getting into the upper 50s and lower 60s. I appreciate cardiology's management of this. Attestations 2 Medical Necessity Statement*: The patient continues to need inpatient care as we work on treating her underlying pneumonia and fluid overload. Her care continues to cross 2 midnights. Coding Level of Care Code [facility] Diagn[facility] Leukocytosis D72.829 Pleural effusion J90 Atrial fibrillation with RVR I48.91
[2024-04-05 07:55] LABS: Alanine Aminotransferase 15 U/L (0-33); Albumin Level 2.6 g/dL (3.5-5.2); Alkaline Phosphatase 78 U/L (35-105); Anion Gap 11.4 (5-19); Aspartate Amino Transferase 17 U/L (0-32); Blood Urea Nitrogen 52 mg/dL (8-23); Calcium 8.2 mg/dL (8.5-10.5); Carbon Dioxide 28 mmol/L (22-29); Chloride 100 mmol/L (98-107); Globulin 3.2 g/dL (1.3-4.6); Glucose 118 mg/dL (65-115); Magnesium 2.5 mg/dL (1.7-2.3); Osmolality Calculated 295 mOsm/kg (285-295); Potassium 4.4 mmol/L (3.5-5.1); Sodium 135 mmol/L (136-145); Total Bilirubin 0.6 mg/dL (0.15-1.2); Total Protein 5.8 g/dL (6.6-8.7)
[2024-04-05] MEDS: ondansetron 2 mg/ML SDV 2 mL 4 MG IVP ×2 (08:30→17:57)
--- NOTE | 2024-04-05 09:46 | P.PN_ITS ---
Subjective 2 Subjective: Patient says feels better. Had broadening of antibiotic coverage yesterday. CXR had showed bilateral lower lobe consolidation vs pleural effusion. Vitals/I&O/Wt Last Vital Signs Temp 98.0 F 04/05/24 04:00 Pulse 90 04/05/24 07:20 Resp 16 04/05/24 07:20 BP 107/57 04/05/24 04:00 Pulse Ox 100 04/05/24 07:20 O2 Del Method Nasal Cannula 04/05/24 07:20 O2 Flow Rate 3 04/05/24 07:20 FiO2 60 04/02/24 15:34 04/04/24 04/05/24 04/05/24 22:59 06:59 14:59 Intake Total 590 / 830 250 / 1080 236 / 236 Output Total 300 / 425 425 / 850 Balance 290 / 405 -175 / 230 236 / 236 Weight last 48 hrs Weight 150 lb 14.4 oz Weight 156 lb 4.8 oz Physical Exam 2 Narrative: GENERAL: Patient is intubated and sedated NECK: No jugular vein distension. [] HEENT: No cyanosis. No icterus. No pallor. [] HEART: Regular S1 and S2. No murmur, rub or gallop. [] LUNGS: Has diminshed air entry bilaterally. CENTRAL NERVOUS SYSTEM: Grossly nonfocal. [] EXTREMITIES: Lower extremities with 1+ edema bilaterally. [] Data 04/06/24 02:20 04/06/24 02:20 Micro: Microbiology 04/02/24 18:16 Gram Stain - Final Pleural Fluid Anaerobic Culture - Preliminary Body Fluid Culture - Preliminary A&P Assessment and plan (1) New onset left bundle branch block (LBBB): (2) Atrial fibrillation with RVR: (3) Shock: Resolved (4) ACS (acute coronary syndrome): (5) Congestive heart failure: Plan Creatinine and BUN are stable. Will resume diet until diuresis today. Monitor I&O's. Monitor renal function. Chest x-ray question possibility of bilateral lower lobe consolidation versus pleural effusions. Antibiotics broadened. Clinically patient is feeling better. Patient had PCI of RCA. 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 Will do outpatient stress test in a month to assess ischemia Thank you for involving us with care of this patient. We will continue to follow. Please call with questions. Attestations 2 Medical Necessity Statement*: Care expected to cross 2 midnights. Coding Level of Care Code Acute Code for [facility] Diagnoses New onset left bundle branch block (LBBB) I44.7 Atrial fibrillation with RVR I48.91 Shock R57.9 ACS (acute coronary syndrome) I24.9 Congestive heart failure I50.9
[2024-04-05] MEDS: clopidogrel 75 mg Tablet PO (09:51)
[2024-04-05] MEDS: FUROsemide 10 mg/mL SDV 4mL 40 MG IVP (09:51)
[2024-04-05] MEDS: aspirin 325 mg Tablet PO (09:51)
[2024-04-05] MEDS: piperacillin-tazobactam 3.375 GM in sodium chloride 0.9% (plus) 50 ML IV ×2 (09:51→16:00)
[2024-04-05] MEDS: metoprolol tartrate 25 mg Tablet PO ×2 (09:52→13:05)
[2024-04-05] MEDS: amiodarone 200 mg Tablet PO ×2 (09:52→19:15)
[2024-04-05] MEDS: apixaban 5 mg Tablet PO ×2 (09:52→17:56)
[2024-04-05] MEDS: pantoprazole DR 40 mg Tablet PO (15:58)
[2024-04-06] VITALS (15 sets, daily range): BP systolic 96–128; BP diastolic 37–62; PULSE 17–113; RESP 12–24; TEMP 36.2–36.7; O2SAT 92–100
[2024-04-06] MEDS: piperacillin-tazobactam 3.375 GM in sodium chloride 0.9% (plus) 50 ML IV ×3 (00:52→17:32)
[2024-04-06 04:03] LABS: Basophils # 0.1 10^3/uL (0.0-0.1); Basophils % 0.5 %; Eosinophils # 0.6 10^3/uL (0.0-0.8); Eosinophils % 3.5 %; Hematocrit 27.5 % (36-47); Lymphocytes # 0.6 10^3/uL (0.8-4.8); Lymphocytes % 3.5 %; Mean Corpuscular HGB Conc 31.3 g/dL (30-55); Mean Corpuscular Hemoglobin 26.8 pg (27-33); Mean Corpuscular Volume 85.7 fl (85-98); Mean Platelet Volume 10.5 fL (7.4-10.4); Monocytes # 1.2 10^3/uL (0.2-0.9); Monocytes % 6.8 %; Neutrophils # 14.92 10^3/uL (1.8-7.7); Neutrophils % 84.1 %; Nucleated Red Blood Cells % 0 %; Platelet Count 280 10^3/cmm (157-399); Red Blood Count 3.21 10^6/uL (3.85-5.65); Red Cell Distribution Width 16.1 % (12.1-15.1); White Blood Count 17.74 10^3/uL (3.29-11.43)
[2024-04-06 04:19] LABS: Alanine Aminotransferase 14 U/L (0-33); Albumin Level 2.5 g/dL (3.5-5.2); Alkaline Phosphatase 65 U/L (35-105); Anion Gap 10.4 (5-19); Aspartate Amino Transferase 12 U/L (0-32); Blood Urea Nitrogen 50 mg/dL (8-23); Calcium 8.1 mg/dL (8.5-10.5); Carbon Dioxide 30 mmol/L (22-29); Chloride 101 mmol/L (98-107); Globulin 2.8 g/dL (1.3-4.6); Glucose 129 mg/dL (65-115); Osmolality Calculated 301 mOsm/kg (285-295); Potassium 3.4 mmol/L (3.5-5.1); Sodium 138 mmol/L (136-145); Total Bilirubin 0.7 mg/dL (0.15-1.2); Total Protein 5.3 g/dL (6.6-8.7)
--- NOTE | 2024-04-06 08:19 | XRR_ITS ---
PROCEDURE INFORMATION: Exam: XR Chest Exam date and time: 04/06/2024 8:28 AM Age: 78 years old Clinical indication: Shortness of breath TECHNIQUE: Imaging protocol: Radiologic exam of the chest. Views: 1 view. COMPARISON: CR (CHEST, ) 04/05/2024 11:54 AM FINDINGS: Tubes, catheters and devices: There is a right upper extremity PICC line with its tip projecting in the region of the distal superior vena cava/RA junction. Lungs: There is dense consolidation in both lung bases as before. There has been interval worsening of right perihilar infiltrates. Pleural spaces: There are small bilateral pleural effusions. Heart/Mediastinum: There is stable cardiomegaly. Bones/joints: Unremarkable. XR/XR chest 1V portable [id number] IMPRESSION: 1. Stable cardiomegaly 2. Persistent consolidation both lung bases. Interval worsening right perihilar infiltrates 3. Small bilateral pleural effusions as before
--- NOTE | 2024-04-06 08:24 | P.PN_ITS ---
Subjective 2 Subjective: Patient doing better. Vitals/I&O/Wt Last Vital Signs Temp 97.1 F L 04/06/24 03:55 Pulse 101 H 04/06/24 07:40 Resp 16 04/06/24 07:40 BP 100/51 04/06/24 07:31 Pulse Ox 97 04/06/24 07:40 O2 Del Method Nasal Cannula 04/06/24 07:40 O2 Flow Rate 3 04/06/24 07:40 FiO2 60 04/02/24 15:34 04/05/24 04/06/24 04/06/24 22:59 06:59 14:59 Intake Total 410 / 1056 50 / 1106 Output Total 450 / 1100 500 / 1600 Balance -40 / -44 -450 / -494 Weight last 48 hrs Weight 151 lb Weight 150 lb 14.4 oz Physical Exam 2 Narrative: GENERAL: Patient is intubated and sedated NECK: No jugular vein distension. [] HEENT: No cyanosis. No icterus. No pallor. [] HEART: Regular S1 and S2. No murmur, rub or gallop. [] LUNGS: Has diminshed air entry bilaterally. CENTRAL NERVOUS SYSTEM: Grossly nonfocal. [] EXTREMITIES: Lower extremities with 1+ edema bilaterally. [] Data 04/07/24 02:32 04/07/24 02:32 Micro: Microbiology 04/02/24 18:16 Gram Stain - Final Pleural Fluid Anaerobic Culture - Preliminary Body Fluid Culture - Final A&P Assessment and plan (1) New onset left bundle branch block (LBBB): (2) Atrial fibrillation with RVR: (3) Shock: Resolved (4) ACS (acute coronary syndrome): (5) Congestive heart failure: Plan Patient feeling better today. Will continue with IV diuresis with Lasix. Antibiotic therapy per primary team. Repeat chest x-ray to reassess pleural effusion versus consolidation. Thank you for involving us with care of this patient. We will continue to follow. Please call with questions. Attestations 2 Medical Necessity Statement*: Care expected to cross 2 midnights. Coding Level of Care Code Acute Code for [facility] Fwd Diagnoses New onset left bundle branch block (LBBB) I44.7 Atrial fibrillation with RVR I48.91 Shock R57.9 ACS (acute coronary syndrome) I24.9 Congestive heart failure I50.9
[2024-04-06] MEDS: amiodarone 200 mg Tablet PO ×2 (09:37→17:33)
[2024-04-06] MEDS: apixaban 5 mg Tablet PO ×2 (09:37→17:33)
[2024-04-06] MEDS: pantoprazole DR 40 mg Tablet PO (09:37)
[2024-04-06] MEDS: clopidogrel 75 mg Tablet PO (09:37)
[2024-04-06] MEDS: vancomycin 1,000 MG in sodium chloride 0.9% 250 ML 250 MG IV (10:52)
[2024-04-06] MEDS: albumin 25 G/100 ML BAG 60 G IV ×2 (10:52→17:33)
[2024-04-06 11:02] LABS: D Dimer 2.63 ug/mLFEU (0-0.59)
[2024-04-06] MEDS: metoprolol tartrate 25 mg Tablet PO (11:55)
--- NOTE | 2024-04-06 12:00 | PC.SOCIAL ---
IMM Update Pg. 2 of IMM updated and reviewed with patient who verbalized understanding. Copy provided.
[2024-04-06 12:01] LABS: Urine Appearance Clear (CLEAR); Urine Color Yellow (Yellow)
[2024-04-06 12:02] LABS: Add Urine Culture? Yes; Add Urine Microscopic? YES; Bilirubin Urine Neg (Negative); Blood Urine 3+ (Negative); Glucose Urine UA Norm (Normal); Ketones Urine Negative (Negative); Leukocyte Esterase Urine Negative (Negative); Nitrate Urine Negative (Negative); Protein Urine Neg (Negative); RBC Urine 25-40 /hpf (0-2); Specific Gravity, Urine 1.005 (1.005-1.030); Squamous Epithelial Cell Urine 0-4 /hpf (0-5); Urobilinogen Urine Neg (Negative); pH Urine 5 (5-7)
--- NOTE | 2024-04-06 12:31 | CTR_ITS ---
PROCEDURE INFORMATION: Exam: CT Lumbar Spine With Contrast Exam date and time: 04/06/2024 1:27 PM Age: 78 years old Clinical indication: Other: RT foot drop; Additional info: Right foot drop TECHNIQUE: Imaging protocol: Computed tomography of the lumbar spine with contrast. Radiation optimization: All CT scans at this facility use at least one of these dose optimization techniques: automated exposure control; mA and/or kV adjustment per patient size (includes targeted exams where dose is matched to clinical indication); or iterative reconstruction. Contrast material: OMNI 350; Contrast volume: 100 ml; Contrast route: INTRAVENOUS (IV); COMPARISON: No relevant prior studies available. RADIATION DOSE METRICS: Total DLP (mGy-cm): 527.71 FINDINGS: Bones/joints: Assuming there are 12 rib pairs in the 12th rib pair is hypoplastic, there are 5 lumbar type vertebral bodies. There is mild scoliosis convex left. There are no acute fractures. There is 3 mm retrolisthesis L3 on L4. There is multilevel degenerative disc disease and spondylosis. T12-L1, the disc is degenerated. There is mild disc bulge and spondylosis without significant central or significant foraminal stenosis. L1-L2, the disc is degenerated. There is disc bulge and spondylosis without significant central or significant foraminal stenosis. At L2-L3, the disc is degenerated. There is mild disc bulge and spondylosis without significant central or significant foraminal stenosis. At L3-L4, the disc is degenerated. There is mild retrolisthesis. There are facet degenerative changes. There is mild disc bulge and spondylosis. There is mild central canal stenosis. There is mild bilateral foraminal stenosis. At L4-L5, the disc is degenerated. There is diffuse disc bulge and spondylosis. There are facet degenerative changes. There is ligamentum flavum hypertrophy. There is lqrv-kd-nlxmpghe central canal stenosis. There is mild right and vdte-ij-lfjsjjvm left foraminal stenosis. At L5-S1, there is diffuse disc bulge and spondylosis. There are mild facet degenerative changes. There is no significant central canal stenosis. There is mild stenosis of the bilateral lateral recesses, rptwy-liksmfk-wspb-left. Disc bulge appears to touch and possibly deviates the right S1 nerve root though this is not definitive. There is blog-ed-xrevkkmm right and moderate left foraminal stenosis. There are degenerative changes in the sacroiliac joints. Pleural spaces: There are bilateral pleural effusions. Right appears partially organized. The size of these effusions cannot be determined from this study as they are not included in their entirety. Stomach and bowel: There is sigmoid diverticulosis without evidence for diverticulitis on portions of the sigmoid colon included on this study. Intraperitoneal space: There is a small amount of free fluid in the pelvis. Vasculature: There are atherosclerotic changes in the aorta without aneurysm. Soft tissues: Unremarkable CT/CT lumbar spine w con [id number] IMPRESSION: 1. Degenerative disc disease and spondylosis. See individual levels above for more complete description. 2. There is mild central canal stenosis at L3-L4 and nzsq-tc-pipmnudz central canal stenosis at L4-L5. There is kdem-wb-snyvsjzm left foraminal stenosis at L4-L5 and gimo-li-gmqlaqhn right and moderate left foraminal stenosis at L5-S1. 3. There is mild stenosis of the superior aspect of both lateral recesses at L5-S1. Next lines 4. Further evaluation is recommended with MRI as it more sensitive to evaluate the discs and nerve roots than CT 4. Bilateral pleural effusions, the right appears at least partially organized. Size of these effusions cannot be determined from this study next lines 5. Some free fluid in the pelvis
--- NOTE | 2024-04-06 13:21 | XRR_ITS ---
PROCEDURE INFORMATION: Exam: XR Right Knee Exam date and time: 04/06/2024 1:37 PM Age: 78 years old Clinical indication: Weakness; Additional info: Right foot drop TECHNIQUE: Imaging protocol: Radiologic exam of the right knee. Views: 1 or 2 views. COMPARISON: No relevant prior studies available. FINDINGS: Bones/joints: There are degenerative changes with osteophyte formation and lateral compartment joint space narrowing. There are no acute fractures. Soft tissues: There is a soft tissue calcification in the subcutaneous fat above the patella which could be an old broken osteophyte or perhaps a vascular calcification. There is mild soft tissue swelling. XR/XR knee RT 1-2V [id number] IMPRESSION: 1. Degenerative changes with joint space narrowing and osteophyte formation 2. Negative for acute fracture.
--- NOTE | 2024-04-06 13:21 | XRR_ITS ---
PROCEDURE INFORMATION: Exam: XR Bilateral Hips Exam date and time: 04/06/2024 1:33 PM Age: 78 years old Clinical indication: Difficulty in walking; Additional info: Right foot drop TECHNIQUE: Imaging protocol: Radiologic exam of the bilateral hips. Views: 2 views of hips with pelvis when performed. COMPARISON: CT lumbar spine w con [id number] 04/06/2024 1:27 PM FINDINGS: Bones/joints: There are degenerative changes in the left hip. Prominent superolateral osteophyte formation could be causing impingement. There is spurring off the greater trochanter. There are no acute fractures in the left hip or in the included portions of the left pelvis. There is degenerative disc disease and spondylosis in the included portions of the lower lumbar spine. Soft tissues: Unremarkable. XR/XR hip BI 2V wo/w pel [id number] IMPRESSION: 1. Degenerative changes left hip and in the included portions of the lumbar spine 2. No fracture detected.
[2024-04-06] MEDS: iohexol 350 mg/mL 500 mL Btl (per mL) IV (13:35)
[2024-04-06] MEDS: ipratropium 0.5 mg/2.5 mL Neb INHALATION ×2 (13:53→20:08)
[2024-04-06] MEDS: levalbuterol 0.63 mg/3 mL Neb 0.630000000000000004 MG INHALATION ×2 (13:53→20:08)
--- NOTE | 2024-04-06 15:46 | P.PN_ITS ---
Subjective 2 Subjective: Patient says feels better. Had broadening of antibiotic coverage yesterday. CXR had showed bilateral lower lobe consolidation vs pleural effusion. Vitals/I&O/Wt Last Vital Signs Temp 97.7 F 04/06/24 11:20 Pulse 94 04/06/24 14:08 Resp 16 04/06/24 13:53 BP 96/58 04/06/24 11:20 Pulse Ox 98 04/06/24 13:53 O2 Del Method Nasal Cannula 04/06/24 13:53 O2 Flow Rate 2 04/06/24 13:53 FiO2 60 04/02/24 15:34 04/06/24 04/06/24 04/06/24 06:59 14:59 22:59 Intake Total 50 / 1106 1000 / 1000 Output Total 500 / 1600 Balance -450 / -494 1000 / 1000 Weight last 48 hrs Weight 68.492 kg Weight 68.447 kg Physical Exam 2 Narrative: General: No acute distress, AO x3, frail, chronically sick appearing on nasal cannula HEENT: PERRLA, pupils bilaterally equal and reactive Chest: Bilateral bronchial breath sounds all over lung khan, decreased air entry bilaterally in lower zone, occasional rhonchi CVS: S1-S2 regular, soft pansystolic murmur fourth intercostal retrosternal space radiating to anterior pericardium and apex, no tachycardia, no gallops, no rubs Abdomen: Soft, nontender, no organomegaly, bowel sounds present Neuro: No focal deficits, no facial deformity, AO x3, right foot drop Data 04/06/24 02:20 04/06/24 02:20 Micro: Microbiology 04/06/24 11:20 Bacterial Antigens - Final Urine Kidney 04/06/24 11:20 Legionella Urinary Antigen - Final Unknown Source 04/02/24 18:16 Gram Stain - Final Pleural Fluid Anaerobic Culture - Preliminary Body Fluid Culture - Final A&P Assessment and plan (1) Acute respiratory failure: Resolved. Extubated on 04/01. Currently on 2 L of oxygen supplementation. Respiratory failure most likely in setting of diastolic congestive heart failure leading to bilateral pleural effusion along with possibility of pneumonia. Cannot rule out aspiration pneumonia. Oxygen supplementation keeping saturation over 90%. Wean accordingly. Pulmonology on board. Repeat chest x-ray. Concerns for loculated pleural effusion. Check MRSA swab. Patient has persistent leukocytosis. Continue with Zosyn. Add vancomycin. Will discontinue vancomycin if MRSA swab negative. Repeat proBNP. Appreciate speech evaluation later during admission. Patient does have right- sided pneumonic patch. Shows slight worsening on x-ray today. Continue with current diet. Will plan for modified barium swallow. Incentive spirometry, flutter valve. Out of bed to chair. Pulmicort twice daily, ipratropium, Xopenex every 6 hours. Fluid restriction to less than 1500 cc. Patient's blood pressures have been soft. Hold off on any further IV diuresis. BUN slightly trending up. Will restart diuresis as per fluid status. Strict input output charting, daily weights. Albumin IV every 8 hourly for next 1 day, protein shakes with diet. (2) Congestive heart failure: Echocardiogram done earlier this admission showed EF of 55%, dilated LA with moderate MR, eccentrically posterior directed regurgitation jet, elevated pulmonary pressure with 40 mmHg. Treatment as above. (3) Pleural effusion: Concern for loculated fluid. Thoracentesis earlier in the admission showed transudative collection. Pulmonary team on board. (4) ACS (acute coronary syndrome): Appreciate cardiology assistance. Post PCI to RCA. Does have residual moderate to severe disease in LCx and moderate LAD disease. Plan for outpatient stress test to assess for ischemia. Continue with Plavix 75 mg daily, Eliquis 5 mg twice daily, metoprolol 25 mg twice daily. Restart statins at 40 mg daily. No active chest pain. Appreciate recent A1c, lipid panel. (5) Atrial fibrillation with RVR: Currently rate controlled. Continue with home dose of Eliquis. Metoprolol 25 mg twice daily, amiodarone 200 mg twice daily. Will continue amiodarone 200 mg twice daily for 7 days and then may change the dose to 200 mg daily. (6) Foot drop, right: As per patient and new finding. Started on 5 days ago. Appreciate physical therapy evaluation. CT lumbar spine, hip and knee x-ray. Depending on the results we will consult orthopedic surgery. 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 Did receive transfusion earlier in admission. Monitor hemoglobin daily. (9) Shock: Resolved. Monitor blood pressures. Goal blood pressure less than 140/90 MAG with mean over 65. Plan CODE STATUS: DNR/DNI. 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
[2024-04-06] MEDS: budesonide 0.5 mg/2 mL Neb INHALATION (20:08)
[2024-04-06] MEDS: atorvastatin 40 mg Tablet 80 MG PO (20:30)
[2024-04-07] VITALS (22 sets, daily range): BP systolic 96–134; BP diastolic 57–79; PULSE 88–135; RESP 22–38; TEMP 36.4–37; O2SAT 90–100
[2024-04-07] MEDS: piperacillin-tazobactam 3.375 GM in sodium chloride 0.9% (plus) 50 ML IV ×3 (01:01→18:05)
[2024-04-07] MEDS: albumin 25 G/100 ML BAG 60 G IV (02:20)
[2024-04-07] MEDS: ipratropium 0.5 mg/2.5 mL Neb INHALATION ×4 (03:11→20:15)
[2024-04-07] MEDS: levalbuterol 0.63 mg/3 mL Neb 0.630000000000000004 MG INHALATION ×4 (03:11→20:15)
[2024-04-07 03:29] LABS: Basophils # 0.1 10^3/uL (0.0-0.1); Basophils % 0.4 %; Eosinophils # 0.5 10^3/uL (0.0-0.8); Eosinophils % 2.7 %; Hematocrit 23.8 % (36-47); Lymphocytes # 0.7 10^3/uL (0.8-4.8); Mean Corpuscular HGB Conc 31.1 g/dL (30-55); Mean Corpuscular Hemoglobin 26.8 pg (27-33); Mean Corpuscular Volume 86.2 fl (85-98); Monocytes # 1.1 10^3/uL (0.2-0.9); Monocytes % 6.8 %; Neutrophils # 14.19 10^3/uL (1.8-7.7); Neutrophils % 84.9 %; Nucleated Red Blood Cells % 0 %; Platelet Count 293 10^3/cmm (157-399); Red Blood Count 2.76 10^6/uL (3.85-5.65); Red Cell Distribution Width 16.5 % (12.1-15.1); White Blood Count 16.69 10^3/uL (3.29-11.43)
[2024-04-07 04:00] LABS: Alanine Aminotransferase 16 U/L (0-33); Albumin Level 3.3 g/dL (3.5-5.2); Alkaline Phosphatase 68 U/L (35-105); Anion Gap 10.8 (5-19); Aspartate Amino Transferase 13 U/L (0-32); Blood Urea Nitrogen 34 mg/dL (8-23); Calcium 8.1 mg/dL (8.5-10.5); Carbon Dioxide 31 mmol/L (22-29); Chloride 99 mmol/L (98-107); Globulin 2.5 g/dL (1.3-4.6); Glucose 111 mg/dL (65-115); Osmolality Calculated 294 mOsm/kg (285-295); Sodium 138 mmol/L (136-145); Total Bilirubin 1.3 mg/dL (0.15-1.2); Total Protein 5.8 g/dL (6.6-8.7)
[2024-04-07 04:04] LABS: Potassium 2.8 mmol/L (3.5-5.1)
[2024-04-07] MEDS: lidocaine 1% 5 ML in potassium chloride premix 100 ML 52.5 ML IV (04:55)
[2024-04-07] MEDS: ondansetron 2 mg/ML SDV 2 mL 4 MG IVP ×2 (06:34→21:14)
[2024-04-07] MEDS: budesonide 0.5 mg/2 mL Neb INHALATION ×2 (07:22→20:15)
--- NOTE | 2024-04-07 08:45 | XR_ITS ---
WS: [id number] Exam: XR chest 1V portable [id number] Date/Time of Exam: 04/07/2024 8:48 AM Reason For Exam: SOB Comparison 04/06/2024. Extensive increasing bilateral infiltrates since the last study. Bilateral pleural effusion showing l ittle change. No pneumothorax. The heart is probably enlarged but the heart borders are obscured. The mediastinum is normal in contour. Right-sided PICC line probably ends near the cavoatrial junction. Regional bony structures are intact. Degenerative changes of the T-spine. XR/XR chest 1V portable [id number] IMPRESSION: 1. Extensive increasing bilateral pulmonary infiltrates since previous exam. Bi lateral pleural effusions. Cardiac enlargement probably unchanged.
--- NOTE | 2024-04-07 08:47 | P.PN_ITS ---
Subjective 2 Subjective: Patient appears more short of breath. Has pleural effusions Vitals/I&O/Wt Last Vital Signs Temp 97.9 F 04/07/24 07:48 Pulse 116 H 04/07/24 07:48 Resp 36 H 04/07/24 07:48 BP 124/58 04/07/24 07:48 Pulse Ox 94 04/07/24 07:48 O2 Del Method Nasal Cannula 04/07/24 07:48 O2 Flow Rate 3.5 04/07/24 07:23 FiO2 60 04/02/24 15:34 04/06/24 04/07/24 04/07/24 22:59 06:59 14:59 Intake Total 1590 / 2590 551.5 / 3141.5 3.5 / 3.5 Output Total 650 / 650 400 / 1050 Balance 940 / 1940 151.5 / 2091.5 3.5 / 3.5 Weight last 48 hrs Weight 113 lb Weight 151 lb Physical Exam 2 Narrative: GENERAL: Patient is intubated and sedated NECK: No jugular vein distension. [] HEENT: No cyanosis. No icterus. No pallor. [] HEART: Regular S1 and S2. No murmur, rub or gallop. [] LUNGS: Has diminshed air entry bilaterally. CENTRAL NERVOUS SYSTEM: Grossly nonfocal. [] EXTREMITIES: Lower extremities with 1+ edema bilaterally. [] Data 04/08/24 03:51 04/08/24 15:39 Micro: Microbiology 04/06/24 11:20 Bacterial Antigens - Final Urine Kidney 04/06/24 11:20 Legionella Urinary Antigen - Final Unknown Source 04/02/24 18:16 Gram Stain - Final Pleural Fluid Anaerobic Culture - Preliminary Body Fluid Culture - Final A&P Assessment and plan (1) New onset left bundle branch block (LBBB): (2) Atrial fibrillation with RVR: (3) Shock: Resolved (4) ACS (acute coronary syndrome): (5) Congestive heart failure: Plan Patient needs further diuresis. Can uptitrate diuretic therapy with IV Lasix and adding metolazone. Close I&O's. Monitor renal function. Possible plan for thoracentesis per pulmonology. Eliquis can be stopped if needed. However will recommend continuing Plavix and adding aspirin 81 mg as had recent stent placed. Thank you for involving us with care of this patient. We will continue to follow. Please call with questions. Attestations 2 Medical Necessity Statement*: Care expected to cross 2 midnights. Coding Level of Care Code Acute Code for [facility] Fwd Diagnoses New onset left bundle branch block (LBBB) I44.7 Atrial fibrillation with RVR I48.91 Shock R57.9 ACS (acute coronary syndrome) I24.9 Congestive heart failure I50.9
--- NOTE | 2024-04-07 09:17 | PC.CHAP ---
Pastoral Care Encounter/Spiritual Assessment Type of Contact [] Declined manager storage visit [] Patient/Family/Request visit [] Outpatient visit [] Follow-up visit [] Physician referral [] Code/Alert [x] Routine visit [] Staff referral [] Actively dying [] Patient sleeping [] Family support [] [] Out of room [] Palliative care [] [] Receiving care in room [] Pre-surgical visit [] Trauma [] Long length of stay [] ICU visit [] Other: Relational/Emotional Strength [x] Patient feels connected with others/family/visitors/staff [] Distress [] Loneliness/isolation [] Abandonment Spirituality of Patient [x] Person of Ana [] Attends Advent of their Ana [x] Believes in Prayer [] Reads Bible or Islam materials [] There are Spiritual issues to be addressed 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 Interventions [x] Prayer [x] Active listening [] Non-anxious presence [x] Spiritual/emotional support [] Crisis/trauma care [] Spiritual counseling [] Bereavement support [] Provided bereavement packet [] Provided Bible/devotional materials [] Provided toy/stuffed animal, coloring book to patient or family member [] Provided Communion [] Anointing/[place] [] Salvation [x] Completed spiritual assessment [] Other: Impact on Illness or Injury [] Angry [] Fearful [] Anxious [] Often cries [] Exhaustion [] Unable to work [] Unable to attend yazidi [] Unable to walk/stand [] Unable to read [] Unable to drive [] Unable to eat/drink [] Unable to sleep [] Unable to be with family [] Patient intubated [] Other: Summary Time spent with patient 5 min
[2024-04-07] MEDS: sennosides-docusate Tablet 1 TAB PO (09:23)
[2024-04-07] MEDS: pantoprazole DR 40 mg Tablet PO (09:23)
[2024-04-07] MEDS: clopidogrel 75 mg Tablet PO (09:23)
[2024-04-07] MEDS: amiodarone 200 mg Tablet PO ×2 (09:23→18:05)
--- NOTE | 2024-04-07 09:50 | P.CONIM_ITS ---
Providers/Reason For Consult 2 Consulting Physician/Specialty*: Hospitalist Reason for Consult*: Right foot drop Attending Physician: Zion Buckner MD Primary Care Provider: MARCIE Cordoba History of Present Illness History of Present Illness Arielle Salas is a 78 year old female been in the hospital for several weeks. Noticed last Saturday that she was unable to dorsiflex her right foot. She is not complaining of any back or back pain Review of Systems 2 General: Reports: 10 or more systems reviewed and unremarkable except in HPI and below Const: Denies: fever(s) or chills Eyes: Denies: change in vision ENMT: Denies: disequilibrium Card: Reports: irregular heart rhythm, swelling of feet/ankles and dyspnea on exertion; Denies: chest pain, palpitations, lightheadedness, syncope or pre-syncope Resp: Denies: dyspnea, productive cough or non-productive cough GI: Denies: hematochezia : Denies: hematuria Musc: Reports: back pain; Denies: neck pain, muscle cramps or muscle weakness Neuro: Reports: numbness in extremities; Denies: headache(s), weakness in extremities or dizziness Psych: Denies: anxiety or depression Endo: Reports: tired all the time Bryan/Lymph: Reports: easy bruising and easy bleeding Medications/Allergies Home Medications Medication Instructions Recorded Confirmed Last Taken Type multivitamin 1 tab PO QAM 02/27/22 03/27/24 03/09/24 History HINGED ELBOW BRACE. #1 ea 03/05/22 03/27/24 Unknown Rx cam boot #1 ea 03/06/22 03/27/24 Unknown Rx albuterol sulfate 90 mcg/actuation 2 puff inhalation QID PRN 01/29/24 03/27/24 Unknown History aerosol inhaler Shortness Of Breath Or Wheezing calcium carbonate 500 mg PO QAM 01/29/24 03/27/24 03/09/24 History ondansetron 8 mg disintegrating 8 mg PO Q8H PRN nausea and 02/13/24 03/27/24 Unknown Rx tablet vomiting #30 tabs amiodarone 200 mg tablet 100 mg (1/2 x 200 mg) PO BID 30 03/03/24 03/27/24 03/09/24 Rx days #15 tabs apixaban 5 mg tablet (Eliquis) 5 mg PO BID #60 tabs 03/03/24 03/27/24 03/09/24 Rx furosemide 40 mg tablet (Lasix) 40 mg PO BID #60 tabs 03/03/24 03/27/24 03/09/24 Rx metoprolol tartrate 25 mg tablet 25 mg PO BID@0900,2100 #60 tabs 03/03/24 03/27/24 03/09/24 Rx ferrous gluconate 324 mg (38 mg 324 mg PO QAM 03/09/24 03/27/24 03/09/24 History iron) tablet potassium chloride 10 mEq 10 meq PO QAM #60 tabs 03/12/24 03/27/24 Unknown Rx tablet,extended release spironolactone 25 mg tablet 25 mg PO DAILY #30 tabs 03/13/24 03/27/24 Unknown Rx atorvastatin 40 mg tablet 40 mg PO BEDTIME 03/27/24 03/27/24 Unknown History Allergies Allergy/AdvReac Type Severity Reaction Status Date / Time No Known Allergies Allergy Verified 03/13/24 10:01 Current Medications Generic Name Dose Route Start Last Admin Trade Name Freq PRN Reason Stop Dose Admin Amiodarone HCl 200 mg 04/04/24 18:06 04/07/24 09:23 Amiodarone 200 Mg Tablet PO 200 mg BID NATHAN Administration Apixaban 5 mg 04/02/24 09:00 04/06/24 17:33 Apixaban 5 Mg Tablet PO 5 mg BID NATHAN Administration Atorvastatin Calcium 80 mg 03/27/24 21:00 04/06/24 20:30 Atorvastatin 40 Mg Tablet PO 80 mg BEDTIME NATHAN Administration Budesonide 0.5 mg 04/06/24 20:00 04/07/24 07:22 Budesonide 0.5 Mg/2 Ml Neb INHALATION 0.5 mg BID.RESPIRATORY NATHAN Administration Clopidogrel Bisulfate 75 mg 03/28/24 09:00 04/07/24 09:23 Clopidogrel 75 Mg Tablet PO 75 mg DAILY NATHAN Administration Piperacillin Sod/Tazobactam 50 mls @ 12.5 mls/hr 04/05/24 09:00 04/07/24 09:23 Sod 3.375 gm/ Sodium Chloride IV 12.5 mls/hr Q8H NATHAN Administration Protocol Vancomycin HCl 1,000 mg/ 250 mls @ 250 mls/hr 04/06/24 10:30 04/06/24 11:55 Sodium Chloride IV Infused Q24H NATHAN Infusion Protocol Albumin Human 25 g in 100 mls @ 60 mls/hr 04/06/24 10:15 04/07/24 04:10 Albumin IV Infused Q8H NATHAN Infusion Ipratropium [place] 0.5 mg 04/06/24 14:00 04/07/24 07:23 Ipratropium 0.5 Mg/2.5 Ml Neb INHALATION 0.5 mg Q6H.RESP NATHAN Administration Lanolin 1 applic 04/02/24 19:23 04/02/24 21:02 Lanolin Oint 7 Gm TOPICAL 1 applic PRN PRN Administration DRYNESS Levalbuterol HCl 0.63 mg 04/06/24 14:00 04/07/24 07:23 Levalbuterol 0.63 Mg/3 Ml Neb INHALATION 0.63 mg Q6H.RESP NATHAN Administration Metoprolol Tartrate 25 mg 04/06/24 10:00 04/06/24 20:33 Metoprolol Tartrate 25 Mg Tablet PO Not Given BID@0900,2100 NATHAN Ondansetron HCl 4 mg 04/03/24 02:50 04/07/24 06:34 Ondansetron 2 Mg/Ml Sdv 2 Ml IVP 4 mg Q6H PRN Administration NAUSEA AND VOMITING Pantoprazole Sodium 40 mg 04/05/24 13:57 04/07/24 09:[address] 40 Mg Tablet PO 40 mg DAILY NATHAN Administration Senna/Docusate Sodium 1 tab 03/28/24 09:00 04/07/24 09:23 Sennosides-Docusate Tablet PO 1 tab DAILY NATHAN Administration 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 Hypertension CHF (congestive heart failure) Diastolic Lisfranc's dislocation Fracture of third metatarsal bone of left foot Fracture of second metatarsal bone of left foot Nondisplaced fracture of first left metatarsal bone Closed left trimalleolar fracture Anxiety No pertinent past medical history Surgical History History of foot surgery Social History Smoking and tobacco/nicotine status: never used tobacco/nicotine Alcohol intake: never Substance/Drug Use: never Vitals/I&O/Wt Last Vital Signs Temp 97.9 F 04/07/24 07:48 Pulse 116 H 04/07/24 07:48 Resp 36 H 04/07/24 07:48 BP 124/58 04/07/24 07:48 Pulse Ox 94 04/07/24 07:48 O2 Del Method Nasal Cannula 04/07/24 07:48 O2 Flow Rate 3.5 04/07/24 07:23 FiO2 60 04/02/24 15:34 04/06/24 04/07/24 04/07/24 22:59 06:59 14:59 Intake Total 1590 / 2590 551.5 / 3141.5 3.5 / 3.5 Output Total 650 / 650 400 / 1050 Balance 940 / 1940 151.5 / 2091.5 3.5 / 3.5 Weight last 48 hrs Weight 113 lb Weight 151 lb Physical Exam 2 Narrative: Patient is unable to dorsiflex her foot. She is able to plantarflex however not able to dorsiflex Data 04/07/24 02:32 04/07/24 02:32 Micro: Microbiology 04/06/24 11:20 Urine Culture - Preliminary Urine,Clean Catch 04/06/24 11:20 Bacterial Antigens - Final Urine Kidney 04/06/24 11:20 Legionella Urinary Antigen - Final Unknown Source 04/02/24 18:16 Gram Stain - Final Pleural Fluid Anaerobic Culture - Preliminary Body Fluid Culture - Final A&P Assessment and plan (1) Foot drop, right: Patient is not complaining of back pain she is unable to lay down for an MRI however. This point would like to get a nerve conduction study may have to do this outpatient. Will also order an AFO. Coding Level of Care Code Acute Code for Chg Fwd Diagnoses Foot drop, right M21.371
--- NOTE | 2024-04-07 10:12 | FL_ITS ---
WS: [id number] Exam: FL barium swallow modifd [id number] Date/Time of Exam: 04/07/2024 10:12 AM Reason For Exam: Oropharyngeal dysphagia Fluoroscopy time: 1min [id number] minutes # of spot films: 0 Modified barium swallow study was performed in conjunction with the speech therapy service. The patient experienced minimal dysfunction of the oropharyngeal phase of swallowing specifically kaley vating the tongue of the hard palate to initiate swallowing. The patient tolerated all consistencies of barium mixture foodstuffs without aspiration or penetration. The patient ingested a barium tablet without difficulty. IMPRESSION1. Mild difficulty initiating swallowing process at the level of the oropharynx. See above discussion. 2. No evidence of aspiration or penetration. A separate report with recommendations will follow from the speech therapy service.
[2024-04-07] MEDS: lidocaine 1% 5 ML in potassium chloride premix 100 ML 26.25 ML IV ×2 (10:33→22:15)
[2024-04-07] MEDS: metoprolol tartrate 25 mg Tablet PO ×2 (10:44→21:11)
[2024-04-07] MEDS: FUROsemide 10 mg/mL SDV 4mL 40 MG IVP ×2 (10:44→16:25)
[2024-04-07] MEDS: metOLazone 5 MG Tablet PO (10:44)
[2024-04-07] MEDS: vancomycin 1,000 MG in sodium chloride 0.9% 250 ML 250 MG IV (11:54)
--- NOTE | 2024-04-07 12:03 | PC.NURSE ---
barium swallow completed pt back in room.
--- NOTE | 2024-04-07 12:55 | P.PN_ITS ---
Subjective 2 Subjective: Today morning examination patient sitting up comfortably in the recliner though visibly looks more out of breath than yesterday. She continues to saturate well on 3 L of oxygen supplementation. Denies any nausea, ting, headache. Denies any chest pain. States today she is not able to lie down flat. Vitals/I&O/Wt Last Vital Signs Temp 97.9 F 04/07/24 07:48 Pulse 116 H 04/07/24 07:48 Resp 36 H 04/07/24 07:48 BP 124/58 04/07/24 07:48 Pulse Ox 94 04/07/24 07:48 O2 Del Method Nasal Cannula 04/07/24 07:48 O2 Flow Rate 3.5 04/07/24 07:23 FiO2 60 04/02/24 15:34 04/06/24 04/07/24 04/07/24 22:59 06:59 14:59 Intake Total 1590 / 2590 551.5 / 3141.5 363.5 / 363.5 Output Total 650 / 650 400 / 1050 1050 / 1050 Balance 940 / 1940 151.5 / 2091.5 -686.5 / -686.5 Weight last 48 hrs Weight 51.256 kg Weight 68.492 kg Physical Exam 2 Narrative: General: No acute distress, AO x3, frail, chronically sick appearing on nasal cannula HEENT: PERRLA, pupils bilaterally equal and reactive Chest: Bilateral bronchial breath sounds all over lung khan, decreased air entry bilaterally in lower zone, occasional rhonchi CVS: S1-S2 regular, soft pansystolic murmur fourth intercostal retrosternal space radiating to anterior pericardium and apex, no tachycardia, no gallops, no rubs Abdomen: Soft, nontender, no organomegaly, bowel sounds present Neuro: No focal deficits, no facial deformity, AO x3, right foot drop Data 04/07/24 02:32 04/07/24 02:32 Micro: Microbiology 04/06/24 11:20 Urine Culture - Preliminary Urine,Clean Catch 04/06/24 11:20 Bacterial Antigens - Final Urine Kidney 04/06/24 11:20 Legionella Urinary Antigen - Final Unknown Source 04/02/24 18:16 Gram Stain - Final Pleural Fluid Anaerobic Culture - Preliminary Body Fluid Culture - Final A&P Assessment and plan (1) Acute respiratory failure: Resolved. Extubated on 04/01. Respiratory failure most likely in setting of diastolic congestive heart failure leading to bilateral pleural effusion along with possibility of pneumonia. Cannot rule out aspiration pneumonia. Respiratory distress worsening today. To decrease the work of breathing will switch patient back to heated high flow. Oxygen supplementation keeping saturation over 90%. Will request pulmonary for a repeat evaluation given concerns for increasing pleural effusion seen on CT back yesterday. Repeat chest x-ray. IV Lasix 40 mg one-time along with 5 mg of metolazone daily. Will repeat Lasix dose later in the day depending on urine output. Stop IV albumin. Increase fluid restriction to 1200 cc. Will repeat echocardiogram limited with contrast for evaluation of EF, valvular disorder versus structural abnormality post SD. Repeat chest x-ray. Concerns for loculated pleural effusion. MRSA swab pending. Patient has persistent leukocytosis. Continue with Zosyn and vancomycin. Will discontinue vancomycin if MRSA swab negative. Appreciate speech evaluation later during admission. Patient does have right- sided pneumonic patch. Shows slight worsening on x-ray today. Diet change as per modified barium swallow to dysphagia level 6. Aggressive pulmonary toilet I-S and Acapella when possible. Out of bed to chair. Pulmicort twice daily, ipratropium, Xopenex every 6 hours. Strict input output charting, daily weights. (2) Congestive heart failure: Echocardiogram done earlier this admission showed EF of 55%, dilated LA with moderate MR, eccentrically posterior directed regurgitation jet, elevated pulmonary pressure with 40 mmHg. Treatment as above. (3) Pleural effusion: Concern for loculated fluid. Thoracentesis earlier in the admission showed transudative collection. Pulmonary team on board. (4) ACS (acute coronary syndrome): Appreciate cardiology assistance. Post PCI to RCA. Does have residual moderate to severe disease in LCx and moderate LAD disease. Plan for outpatient stress test to assess for ischemia. Continue with Plavix 75 mg daily, metoprolol 25 mg twice daily, atorvastatin 40 mg daily. Eliquis on hold for possible repeat thoracentesis. No active chest pain. Appreciate recent A1c, lipid panel. (5) Atrial fibrillation with RVR: Rate mildly elevated today. Could be in setting of increased work of breathing versus anemia. For now we will hold off on increasing rate limiting medications given borderline blood pressures. If continues to remain tachycardic after being switched to heated high flow and transfusion will plan for digoxin load. Continue with home dose of Eliquis. Metoprolol 25 mg twice daily, amiodarone 200 mg twice daily. Will continue amiodarone 200 mg twice daily for 7 days and then may change the dose to 200 mg daily. (6) Foot drop, right: As per patient and new finding. Started on 5 days ago. Appreciate physical therapy evaluation. Appreciate CT lumbar, hip x-rays. Appreciate orthopedic surgery recommendations. Recommend MRI of the spine but patient unable to do same because of unable to lie down flat. Orthopedic team recommend outpatient EMG. AFO ordered by orthopedic team. (7) 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: (8) Anemia: Hemoglobin again trending down to below 8 today. Target hemoglobin more than 8. Given congestive heart failure, respiratory distress with tachycardia will transfuse 1 more unit of PRBC along with IV Lasix. Repeat hemoglobin in evening. Protonix IV twice daily. Check stool for occult blood. (9) Shock: Resolved. Monitor blood pressures. Goal blood pressure less than 140/90 mmhg with mean over 65. Plan CODE STATUS: DNR/DNI. Cardiac diet Protonix 40 mg IV twice daily Holding Eliquis as above. Attestations 2 Medical Necessity Statement*: Requires further hospitalization for management of acute respiratory failure in setting of congestive heart failure, bilateral pleural effusion, bilateral pneumonia in a patient with A-fib with RVR who initially admitted with respiratory failure requiring mechanical ventilation and ST elevation SD post PCI currently, anemia requiring blood transfusion Diagnoses Acute respiratory failure J96.00 Congestive heart failure I50.9 Pleural effusion J90 ACS (acute coronary syndrome) I24.9 Atrial fibrillation with RVR I48.91 Foot drop, right M21.371 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 Anemia D64.9 Shock R57.9
[2024-04-07 13:29] LABS: Amylase, Peritoneal Fluid 17 U/L; Amylase, Pleural Fluid 17 U/L
--- NOTE | 2024-04-07 16:23 | USCV_ITS ---
Arielle Salas Age: 78 Gender: F : 1945 Exam Date: 04/07/2024 18:02 Ordering Phys: Zion Buckner MD Technologist: VITALIY [place] [facility] [place]: Limited study s/p cardiac cath/stenting 03/28/24. BP: 96 / 58 HR: 76 Rhythm: Atrial Fibrillation Technical Quality: Adequate MEASUREMENTS (Male / Female) Normal Values 2D ECHO LV Diastolic Diameter PLAX 4.2 cm 4.2 - 5.9 / 3.9 - 5.3 cm IVS Diastolic Thickness 1.3 cm 0.6 - 1.0 / 0.6 - 0.9 cm IVS Systolic Thickness 2.0 cm LVPW Diastolic Thickness 1.2 cm 0.6 - 1.0 / 0.6 - 0.9 cm LVPW Systolic Thickness 1.3 cm LVOT Diameter 1.7 cm LV Ejection Fraction 2D Teich 61.0 % LV Ejection Fraction MOD 2C 64.9 % LV Ejection Fraction 2C AL 64.4 % IVC Diameter 2.5 cm DOPPLER AV Peak Velocity 101.0 cm/s LVOT Peak Velocity 94.0 cm/s AV Area Cont Eq vti 1.6 cm squared AV Area Cont Eq pk 2.0 cm squared MV Area PHT 3.5 cm squared Mitral E to A Ratio 0.0 TR Peak Velocity 356.0 cm/s TR Peak Gradient 50.7 mmHg Right Atrial Pressure 15.0 mmHg Pulmonary Artery Systolic Pressu 65.7 mmHg FINDINGS Left Ventricle Left ventricle is normal size. LV systolic function is normal with EF of 60 to 65%. No regional wall motion abnormalities are seen. Right Ventricle Normal in size and function Right Atrium Normal in size Left Atrium Severely dilated Mitral Valve Moderate mitral annular calcification. Moderate to severe eccenteric mitral regurgitation. Aortic Valve Structurally normal aortic valve. No significant stenosis or regurgitation. Tricuspid Valve Moderate tricuspid regurgitation. RVSP is 60 to 65 mmHg. This is consistent with severe pulmonary hypertension. Pulmonic Valve Not well visualized Pericardium Large sized pleural effusion seen. Aorta Normal in size IVC Not well visualized CONCLUSIONS LV systolic function is normal with EF of 60-65% Severely dilated left atrium Moderate to severe eccenteric mitral regurgitation Moderate tricuspid regurgitation Severe pulmonary hypertension Large sized pleural effusion seen Bradley Reed MD (Electronically Signed) Final Date: 08 Apr 2024 17:19 S
--- NOTE | 2024-04-07 20:05 | PC.NURSE ---
SHIFT REPORT: on shift change, pt has been short of breath, breathing mildly labored when assessed. right lower lobe has no air movement,decreased and coarse crackles on left lung. spo2 is between 88-90% on 3.[address] warren and received orders to give 40 mg IV Lasix once and 40 meq IV potassium once, portable chest xray stat. 1410 pm-Started 1 unit of blood. 1615 pm-Transfused 1 unit of blood as ordered. administered 40 ivp lasix once.
[2024-04-07 20:54] LABS: Potassium 3.1 mmol/L (3.5-5.1)
[2024-04-07] MEDS: atorvastatin 40 mg Tablet 80 MG PO (21:11)
--- NOTE | 2024-04-07 21:11 | PM.PN ---
Subjective Subjective: Patient remained on 3 L supplemental oxygen over the long weekend Her H&H has dropped today and there is plan to do PRBC transfusion Bedside ultrasound examination showed recurrent bilateral pleural effusions-she is on Lasix 40 Mg daily and plan is to add metolazone 5 Mg daily; however oxygen requirement remained stable on 3 L. Plan is to repeat echocardiogram. Patient has hypoalbuminemia-however she received at least 3 doses of albumin last 24 hours Medications: Reviewed: Yes Medication Review Details: Current Medications Acetaminophen (Acetaminophen 500 Mg Tablet) 500 mg PO Q4H PRN PRN Reason: fever Albuterol/Ipratropium (Ipratropium-Albuterol 3 Ml Neb) 3 ml INHALATION Q6H PRN PRN Reason: SHORTNESS OF BREATH Amiodarone HCl (Amiodarone 200 Mg Tablet) 400 mg PO BID NATHAN Last Admin: 04/03/24 07:46 Dose: 400 mg Apixaban (Apixaban 5 Mg Tablet) 5 mg PO BID NATHAN Last Admin: 04/03/24 07:46 Dose: 5 mg Aspirin (Aspirin 325 Mg Tablet) 325 mg PO DAILY NATHAN Last Admin: 04/03/24 07:46 Dose: 325 mg Atorvastatin Calcium (Atorvastatin 40 Mg Tablet) 80 mg PO BEDTIME NATHAN Last Admin: 04/01/24 20:06 Dose: 80 mg Clopidogrel Bisulfate (Clopidogrel 75 Mg Tablet) 75 mg PO DAILY NATHAN Last Admin: 04/03/24 07:46 Dose: 75 mg Furosemide (Furosemide 10 Mg/Ml Sdv 4ml) 40 mg IVP Q24H NATHAN Last Admin: 04/02/24 11:19 Dose: 40 mg Fentanyl (Sublimaze) 1,000 mcg in 100 mls @ 0 mls/hr IV .Q0M NATHAN; Protocol Last Titration: 04/01/24 17:57 Dose: Infused Ceftriaxone Sodium 1,000 mg/ (Sodium Chloride) 50 mls @ 100 mls/hr IV Q12H NATHAN; Protocol Last Infusion: 04/03/24 05:48 Dose: Infused Azithromycin 500 mg/ Sodium (Chloride) 250 mls @ 250 mls/hr IV Q24H NATHAN; Protocol Last Infusion: 04/02/24 20:46 Dose: Infused norepinephrine (Levophed) 4 mg in 250 mls @ 0 mls/hr IV .Q0M NATHAN; Protocol Last Titration: 04/01/24 17:58 Dose: Infused Dexmedetomidine/Sodium Chloride (Precedex) 400 mcg in 100 mls @ 0 mls/hr IV .Q0M [facility]; Protocol Last Titration: 04/01/24 17:57 Dose: Infused Propofol (Diprivan) 1,000 mg in 100 mls @ 0 mls/hr IV .Q0M [facility]; Protocol Last Titration: 04/01/24 17:56 Dose: Infused Lanolin (Lanolin Oint 7 Gm) 1 applic TOPICAL PRN PRN PRN Reason: DRYNESS Last Admin: 04/02/24 21:02 Dose: 1 applic Metolazone (Metolazone 5 Mg Tablet) 5 mg PO DAILY [facility] Last Admin: 04/03/24 12:43 Dose: 5 mg Metoprolol Tartrate (Metoprolol Tartrate 25 Mg Tablet) 25 mg PO BID@0900,2100 [facility] Last Admin: 04/03/24 07:46 Dose: 25 mg Ondansetron HCl (Ondansetron 2 Mg/Ml Sdv 2 Ml) 4 mg IVP Q6H PRN PRN Reason: NAUSEA AND VOMITING Last Admin: 04/03/24 03:30 Dose: 4 mg Potassium Chloride (Potassium Chloride Er 20 Meq Tablet) 40 meq PO DAILY [facility] Last Admin: 04/02/24 08:26 Dose: 40 meq Senna/Docusate Sodium (Sennosides-Docusate Tablet) 1 tab PO DAILY [facility] Last Admin: 04/02/24 08:26 Dose: 1 tab Vitals/I&O/Wt Last Vital Signs Temp 98.3 F 04/07/24 16:00 Pulse 88 04/07/24 21:00 Resp 31 H 04/07/24 21:00 BP 109/57 04/07/24 21:00 Pulse Ox 93 04/07/24 21:00 O2 Del Method Nasal Cannula 04/07/24 21:00 O2 Flow Rate 4 04/07/24 21:00 FiO2 40 04/07/24 15:10 04/07/24 04/07/24 04/07/24 06:59 14:59 22:59 Intake Total 551.5 / 3141.5 838.5 / 838.5 630 / 1468.5 Output Total 400 / 1050 1050 / 1050 1350 / 2400 Balance 151.5 / 2091.5 -211.5 / -211.5 -720 / -931.5 Weight last 48 hrs Weight 113 lb Weight 151 lb Physical Exam Narrative: PHYSICAL EXAM: General: Sitting in bed-in mild respiratory distress HEENT:NCAT, PERRLA, EOMI Neck: Supple Lungs: Reduced bilateral breath sounds Heart: s1/s2, RRR Abd: soft, NT, ND, BS + Normoactive Extremities: No edema LOG SKIDDER: AAO x 3; no gross FND SKIN: no rash Data 04/08/24 03:51 04/08/24 15:39 Micro: Microbiology 04/02/24 18:16 Gram Stain - Final Pleural Fluid Anaerobic Culture - Preliminary Body Fluid Culture - Final 04/06/24 11:20 Urine Culture - Preliminary Urine,Clean Catch A&P Assessment and plan (1) Pleural effusion: Likely secondary to acute on chronic CHF S/p right thoracentesis-ventilator straw-colored fluid- Pleural fluid analysis showed transudative effusion likely secondary to CHF/hypoalbuminemia Tells me that her breathing is better after thoracentesis; she remained on 3 L supplemental oxygen since then-however she appears visibly short of breath ;; Her imaging revealed recurrence of right pleural effusion and persistent left pleural effusion She received at least 4 doses of albumin; she is on Lasix 40 Mg daily and added metolazone 5 Mg daily I recommended to repeat echocardiogram to check for her cardiac function; (2) Acute respiratory failure: Secondary to fluid overload secondary to STEMI S/p stenting performed in RCA Extubated to BiPAP and she is tolerating well; currently on 3L supplemental oxygen (3) Congestive heart failure: Post stenting-echocardiogram EF 65% dilated LA with mitral regurg Currently on lasix 40 mg and will add metalazone. (4) ACS (acute coronary syndrome): New LBBB on EKG during admission STEMI alert called Cardiac cath revealed extensive significant chronic disease in the proximal circumflex and 80% stenosis of proximal mid RCA, culprit for acute presentation. Subsequently Successful angioplasty of RCA was performed. Currently on ASA, PLAVIX (5) Atrial fibrillation with RVR: Currently she is on amiodarone drip-heart rate-60 to 90 bpm in sinus rhythm-switched to p.o. amiodarone Started on Eliquis 5 Mg p.o. twice daily Attestations Medical Necessity Statement*: Patient to stay in hospital for more than 48 hours Time Spent in Patient Care: Greater than 35 minutes (>than 50% of time spent in counselling and/or direct pt care on unit). Critical Care Time: The high probability of a clinically significant, sudden or life threatening deterioration of the patient's [pulmonary, cardiac] system(s) required my full and direct attention, intervention and personal management. The critical care time is as shown. This time is in addition to time spent performing any reported procedures but includes the following: [x] Data and vital sign review and interpretation [x] Patient assessment, examination and intervention [x] Documentation [x] Medication orders and management Coding Level of Care Code Acute Code for Chg Fwd Diagnoses Pleural effusion J90 Acute respiratory failure J96.00 Congestive heart failure I50.9 ACS (acute coronary syndrome) I24.9 Atrial fibrillation with RVR I48.91 Time Spent (min) 42
--- NOTE | 2024-04-07 21:39 | PC.NURSE ---
Addendum entered by Belén Briggs RN 04/07/24 21:44: Attempted to put HHF on pt. Pt is admittedly refusing, states that it is too hot on her face. Notified Dr. Buckner @[id number] of pts refusal. Original Note: Physician Notification: Dr. Buckner called unit @0 for pt update. New order for stat CBC/BMP, 40 MEQ IV Potassium, and for the pt to wear HHF all night.
[2024-04-07 22:14] LABS: Basophils % 0.3 %; Eosinophils # 0.3 10^3/uL (0.0-0.8); Eosinophils % 2.2 %; Hematocrit 28.8 % (36-47); Lymphocytes # 0.6 10^3/uL (0.8-4.8); Lymphocytes % 3.7 %; Mean Corpuscular HGB Conc 32.6 g/dL (30-55); Mean Corpuscular Hemoglobin 27.2 pg (27-33); Mean Corpuscular Volume 83.2 fl (85-98); Mean Platelet Volume 9.8 fL (7.4-10.4); Monocytes # 1.2 10^3/uL (0.2-0.9); Monocytes % 7.7 %; Neutrophils # 13.14 10^3/uL (1.8-7.7); Neutrophils % 84.9 %; Nucleated Red Blood Cells % 0 %; Platelet Count 307 10^3/cmm (157-399); Red Blood Count 3.46 10^6/uL (3.85-5.65); Red Cell Distribution Width 16.6 % (12.1-15.1); White Blood Count 15.48 10^3/uL (3.29-11.43)
[2024-04-07 22:15] LABS: Anion Gap 14.9 (5-19); Blood Urea Nitrogen 36 mg/dL (8-23); Calcium 8.9 mg/dL (8.5-10.5); Carbon Dioxide 30 mmol/L (22-29); Chloride 97 mmol/L (98-107); Glucose 160 mg/dL (65-115); Osmolality Calculated 300 mOsm/kg (285-295); Sodium 139 mmol/L (136-145)
[2024-04-07 22:18] LABS: Potassium 2.9 mmol/L (3.5-5.1)
[2024-04-08] VITALS (32 sets, daily range): BP systolic 85–128; BP diastolic 52–78; PULSE 82–120; RESP 15–38; TEMP 36.5–37; O2SAT 92–100
[2024-04-08] MEDS: piperacillin-tazobactam 3.375 GM in sodium chloride 0.9% (plus) 50 ML IV ×3 (00:22→18:09)
[2024-04-08] MEDS: ipratropium 0.5 mg/2.5 mL Neb INHALATION ×4 (02:44→20:19)
[2024-04-08] MEDS: levalbuterol 0.63 mg/3 mL Neb 0.630000000000000004 MG INHALATION ×4 (02:44→20:19)
[2024-04-08 04:17] LABS: Basophils # 0.1 10^3/uL (0.0-0.1); Basophils % 0.4 %; Eosinophils # 0.3 10^3/uL (0.0-0.8); Eosinophils % 1.8 %; Lymphocytes # 0.6 10^3/uL (0.8-4.8); Lymphocytes % 3.9 %; Mean Corpuscular Hemoglobin 27.4 pg (27-33); Mean Corpuscular Volume 85.7 fl (85-98); Mean Platelet Volume 9.6 fL (7.4-10.4); Monocytes # 1.1 10^3/uL (0.2-0.9); Monocytes % 6.9 %; Neutrophils # 14.01 10^3/uL (1.8-7.7); Nucleated Red Blood Cells % 0 %; Platelet Count 289 10^3/cmm (157-399); Red Cell Distribution Width 17.1 % (12.1-15.1); White Blood Count 16.31 10^3/uL (3.29-11.43)
[2024-04-08 04:37] LABS: Alanine Aminotransferase 16 U/L (0-33); Albumin Level 3.5 g/dL (3.5-5.2); Alkaline Phosphatase 61 U/L (35-105); Anion Gap 14.2 (5-19); Aspartate Amino Transferase 11 U/L (0-32); Blood Urea Nitrogen 34 mg/dL (8-23); Calcium 9.1 mg/dL (8.5-10.5); Carbon Dioxide 30 mmol/L (22-29); Chloride 98 mmol/L (98-107); Creatinine Clr Calc Pharmacy 37.0089; Globulin 2.7 g/dL (1.3-4.6); Glucose 154 mg/dL (65-115); Osmolality Calculated 299 mOsm/kg (285-295); Potassium 3.2 mmol/L (3.5-5.1); Sodium 139 mmol/L (136-145); Total Bilirubin 2.6 mg/dL (0.15-1.2); Total Protein 6.2 g/dL (6.6-8.7)
[2024-04-08] MEDS: budesonide 0.5 mg/2 mL Neb INHALATION ×2 (08:57→20:19)
[2024-04-08] MEDS: metoprolol tartrate 25 mg Tablet PO ×2 (09:11→22:25)
[2024-04-08] MEDS: pantoprazole DR 40 mg Tablet PO (09:12)
[2024-04-08] MEDS: clopidogrel 75 mg Tablet PO (09:12)
[2024-04-08] MEDS: amiodarone 200 mg Tablet PO ×2 (09:12→18:08)
[2024-04-08] MEDS: sennosides-docusate Tablet 1 TAB PO (09:12)
[2024-04-08] MEDS: metOLazone 5 MG Tablet PO (09:13)
[2024-04-08] MEDS: potassium chloride ER 20 mEq Tablet 80 MEQ PO (10:10)
[2024-04-08] MEDS: FUROsemide 10 mg/mL SDV 4mL 40 MG IVP (10:10)
[2024-04-08] MEDS: digoxin 250 mcg/ml INJ 2 mL IVP (10:11)
--- NOTE | 2024-04-08 11:49 | PC.SOCIAL ---
IMM Update pg 2 of IMM updated and reviewed w/ patient. Copy provided and copy dated, initialed and placed in chart.
[2024-04-08] MEDS: vancomycin 1,000 MG in sodium chloride 0.9% 250 ML 250 MG IV (11:57)
--- NOTE | 2024-04-08 12:17 | P.PN_ITS ---
Subjective 2 Subjective: No acute events overnight. Patient states she is feeling a lot better. Today morning seen sitting up in recliner. Worked with physical therapy by walking in the room. Denies any vomiting right now but did have some nausea overnight. Denies any abdominal pain, chest pain. States breathing is better. Currently on 3 L of oxygen supplementation. Did not tolerate heated high flow well yesterday. Vitals/I&O/Wt Last Vital Signs Temp 98.7 F 04/09/24 00:21 Pulse 100 04/09/24 05:47 Resp 24 H 04/09/24 04:29 BP 127/67 04/09/24 04:29 Pulse Ox 93 04/09/24 04:29 O2 Del Method Nasal Cannula 04/09/24 01:46 O2 Flow Rate 3 04/09/24 01:46 FiO2 40 04/07/24 15:10 04/08/24 04/09/24 04/09/24 22:59 06:59 14:59 Intake Total 380 / 1160 50 / 1210 Output Total 2950 / 3450 350 / 3800 Balance -2570 / -2290 -300 / -2590 Weight last 48 hrs Weight 65.884 kg Weight 67.358 kg Weight 67.358 kg Physical Exam 2 Narrative: General: No acute distress, AO x3, frail, chronically sick appearing on nasal cannula HEENT: PERRLA, pupils bilaterally equal and reactive Chest: Bilateral bronchial breath sounds all over lung khan, decreased air entry bilaterally in lower zone, occasional rhonchi CVS: S1-S2 regular, soft pansystolic murmur fourth intercostal retrosternal space radiating to anterior pericardium and apex, no tachycardia, no gallops, no rubs Abdomen: Soft, nontender, no organomegaly, bowel sounds present Neuro: No focal deficits, no facial deformity, AO x3, right foot drop Data 04/09/24 03:38 04/09/24 03:38 Micro: Microbiology 04/02/24 18:16 Gram Stain - Final Pleural Fluid Anaerobic Culture - Preliminary Body Fluid Culture - Final 04/06/24 11:20 Urine Culture - Preliminary Urine,Clean Catch A&P Assessment and plan (1) Acute respiratory failure: Resolved. Extubated on 04/01. Respiratory failure most likely in setting of diastolic congestive heart failure leading to bilateral pleural effusion along with possibility of pneumonia. Cannot rule out aspiration pneumonia. Improvement in respiratory distress today. Patient had good urine output yesterday after Lasix. Overall 3 L urine output in last 24 hours with net 1800 cc negative. Continue with oxygen supplementation keeping saturation over 92%. Appreciate pulmonary recommendations. Repeat IV Lasix 40 mg one-time. Continue with metolazone 5 mg daily. Monitor renal functions. Repeat 80 mg of oral potassium. Will repeat BMP in afternoon. Depending on the urine output within next few hours we will decide about repeat Lasix later in the day. Echocardiogram results appreciated shows normal EF with moderate to severe eccentric MR, dilated LA, severe pulmonary hypertension with moderate TR. Will discuss with cardiology further regarding possibility of mitral clipping given refractory heart failure. Increase fluid restriction to 1200 cc. Repeat chest x-ray. Concerns for loculated pleural effusion. MRSA swab negative. Will discontinue vancomycin. Leukocytosis still seems to have persisted. Could be in setting of anemia. Continue with Zosyn to finish a 7-day course. Appreciate speech evaluation later during admission. Patient does have right- sided pneumonic patch. Shows slight worsening on x-ray today. Diet change as per modified barium swallow to dysphagia level 6. Aggressive pulmonary toilet I-S and Acapella when possible. Out of bed to chair. Pulmicort twice daily, ipratropium, Xopenex every 6 hours. Strict input output charting, daily weights. (2) Congestive heart failure: Appreciate limited echocardiogram results from 04/06 consistent with eccentric MR. Will discuss with cardiology further regarding mitral valve repair. E Treatment as above. (3) Pleural effusion: Simple fluid collection as per pulmonary team on lung ultrasound. For now continue to hold Eliquis for possible plan of thoracentesis. Thoracentesis earlier in the admission showed transudative collection. Pulmonary team on board. (4) ACS (acute coronary syndrome): Appreciate cardiology assistance. Post PCI to RCA. Does have residual moderate to severe disease in LCx and moderate LAD disease. Plan for outpatient stress test to assess for ischemia. Continue with Plavix 75 mg daily, metoprolol 25 mg twice daily, atorvastatin 40 mg daily. Eliquis on hold for possible repeat thoracentesis. No active chest pain. Appreciate recent A1c, lipid panel. (5) Atrial fibrillation with RVR: Rate continues to be elevated to more than 100. Will load with digoxin to 50 mcg one-time followed by 125 mg micrograms every 6 hours for 2 doses. Digoxin level in a.m. tomorrow. Eliquis on hold as above. Continue with amiodarone 200 mg twice daily for next 4 days and will change to 20 mg daily afterwards. Continue with metoprolol 25 mg twice daily. Unfortunately not able to uptitrate metoprolol because of occasional soft blood pressures (6) Foot drop, right: As per patient and new finding. Started on 5 days ago. Appreciate physical therapy evaluation. Appreciate CT lumbar, hip x-rays. Appreciate orthopedic surgery recommendations. Patient not able to undergo MRI as she is not able to lie down flat. Plan for EMG studies today. 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 Hemoglobin up appropriately after monitor blood transfusion yesterday. Will continue to monitor. Repeat hemoglobin in evening. Protonix IV twice daily. Check stool for occult blood. (9) Shock: Resolved. Monitor blood pressures. Goal blood pressure less than 140/90 mmhg with mean over 65. Plan CODE STATUS: DNR/DNI. Cardiac diet Protonix 40 mg IV twice daily Holding Eliquis as above. Discharge planning: Patient has had a prolonged hospitalization and is postextubation on 0 522. She continues to be severely deconditioned and episodes of respiratory distress in setting of congestive heart failure. Patient will need extensive physical and pulmonary rehab going forward. She would benefit from LTAC. Case management alerted. Attestations 2 Medical Necessity Statement*: Requires further hospitalization for management of respiratory failure postextubation in setting of congestive heart failure from severe mitral regurgitation in a patient who was physically deconditioned, anemia, A-fib with RVR, hypokalemia while safe discharge planning is sought. 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
[2024-04-08 12:38] LABS: Methicillin-Resist S.aureu PCR NOT DETECTED (NOT DETECTED)
--- NOTE | 2024-04-08 15:45 | P.PN_ITS ---
Subjective 2 Subjective: Will get nerve conduction study done at bedside today. Vitals/I&O/Wt Last Vital Signs Temp 98.3 F 04/08/24 11:33 Pulse 92 04/08/24 14:20 Resp 28 H 04/08/24 14:05 BP 127/73 04/08/24 11:33 Pulse Ox 96 04/08/24 14:05 O2 Del Method Nasal Cannula 04/08/24 14:05 O2 Flow Rate 3 04/08/24 14:05 FiO2 40 04/07/24 15:10 04/08/24 04/08/24 04/08/24 06:59 14:59 22:59 Intake Total 155 / 1773.5 780 / 780 Output Total 850 / 3250 500 / 500 2100 / 2600 Balance -695 / -1476.5 280 / 280 -2100 / -1820 Weight last 48 hrs Weight 148 lb 8 oz Weight 113 lb Data 04/08/24 03:51 04/08/24 03:51 Micro: Microbiology 04/02/24 18:16 Gram Stain - Final Pleural Fluid Anaerobic Culture - Preliminary Body Fluid Culture - Final 04/06/24 11:20 Urine Culture - Preliminary Urine,Clean Catch A&P Assessment and plan (1) Foot drop, right: Will get nerve conduction study done at today to determine cause of foot drop. Attestations 2 Medical Necessity Statement*: Per primary service Coding Level of Care Code Acute Code for [facility] Fwd Diagnoses Foot drop, right M21.371
[2024-04-08 16:08] LABS: Anion Gap 13.6 (5-19); Blood Urea Nitrogen 37 mg/dL (8-23); Calcium 9.3 mg/dL (8.5-10.5); Carbon Dioxide 33 mmol/L (22-29); Chloride 100 mmol/L (98-107); Creatinine Clr Calc Pharmacy 41.7232; Glucose 169 mg/dL (65-115); Osmolality Calculated 309 mOsm/kg (285-295); Potassium 3.6 mmol/L (3.5-5.1); Sodium 143 mmol/L (136-145)
--- NOTE | 2024-04-08 16:46 | PM.ACPR ---
Documented by User: Noemi Ferraro 04/08/24 17:01 Nerve Conduction Study Nerve Conduction Study Details: 78 y/o female has been in the hospital for several weeks. 04/02/24 patient noticed she was unable to dorsiflex her right foot. Patient is able to plantarflex her right foot. She is not complaining of any back or leg pain DX: Foot drop, right M21.[address] Jose Cain's consult. Danilo Nichols EEG T., CNIM, NCS T. Time Out Is a Time Out required?: No Documented by User: Didi Mcqueen MD 04/08/24 19:19 Nerve Conduction Study Nerve Conduction Study Details: 78 y/o female has been in the hospital for several weeks. 04/02/24 patient noticed she was unable to dorsiflex her right foot. Patient is able to plantarflex her right foot. She is not complaining of any back or leg pain DX: Foot drop, right M21.[address] Jose Cain's consult. Danilo Nichols EEG T., CNIM, NCS T. Nerve conduction studies were performed in both lower extremities including F waves at the request of Dr. Jose Cain. The right peroneal nerve distal response was unobtainable and no proximal motor response could be found in tibialis anterior stimulating from the popliteal fossa or the fibular head. The left tibial nerve was examined. Distal motor latency was prolonged with markedly diminished CMAP amplitude. Proximal motor conduction was normal to the popliteal fossa. The left peroneal nerve distal response was unobtainable. A very low amplitude response was found in tibialis anterior from the fibular head. There was marked slowing of conduction across the fibular head to tibialis anterior and normal conduction from the popliteal fossa to the fibular head. The right tibial nerve was examined. Distal motor latency was normal, with markedly diminished CMAP amplitude. Proximal motor conduction was normal to the popliteal fossa. The sural nerve responses were absent bilaterally The F waves were absent. CONCLUSION: This is a patient with new foot drop on the right. She had significant slowing of conduction in the LEFT peroneal nerve across the fibular head. 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
--- NOTE | 2024-04-08 17:32 | P.PN_ITS ---
Subjective 2 Subjective: Patient is responding well to diuresis. Feeling better. Vitals/I&O/Wt Last Vital Signs Temp 98.6 F 04/08/24 16:00 Pulse 94 04/08/24 16:00 Resp 28 H 04/08/24 16:00 BP 112/67 04/08/24 16:00 Pulse Ox 100 04/08/24 16:00 O2 Del Method Nasal Cannula 04/08/24 16:00 O2 Flow Rate 3 04/08/24 14:05 FiO2 40 04/07/24 15:10 04/08/24 04/08/24 04/08/24 06:59 14:59 22:59 Intake Total 155 / 1773.5 780 / 780 Output Total 850 / 3250 500 / 500 2100 / 2600 Balance -695 / -1476.5 280 / 280 -2100 / -1820 Weight last 48 hrs Weight 148 lb 8 oz Weight 113 lb Physical Exam 2 Narrative: GENERAL: Patient is intubated and sedated NECK: No jugular vein distension. [] HEENT: No cyanosis. No icterus. No pallor. [] HEART: Regular S1 and S2. No murmur, rub or gallop. [] LUNGS: Has diminshed air entry bilaterally. CENTRAL NERVOUS SYSTEM: Grossly nonfocal. [] EXTREMITIES: Lower extremities with 1+ edema bilaterally. [] Data 04/09/24 03:38 04/09/24 03:38 Micro: Microbiology 04/02/24 18:16 Gram Stain - Final Pleural Fluid Anaerobic Culture - Preliminary Body Fluid Culture - Final 04/06/24 11:20 Urine Culture - Preliminary Urine,Clean Catch A&P Assessment and plan (1) New onset left bundle branch block (LBBB): (2) Atrial fibrillation with RVR: (3) Shock: Resolved (4) ACS (acute coronary syndrome): (5) Congestive heart failure: Plan Patient is wanting well to diuretic therapy. Continue Lasix and metolazone. Close underlying renal function monitoring. Echocardiogram shows normal LV systolic function, large pleural effusion. Patient has moderate to severe mitral regurgitation. It is eccentric. Given recurrent pulmonary edema/pleural effusions, we will plan for ALEXANDRA on Saturday. Thoracentesis plan per pulmonology. Heart rate is borderline elevated. Low sodium diet and exercise Thank you for involving us with care of this patient. We will continue to follow. Please call with questions. Attestations 2 Medical Necessity Statement*: Care expected to cross 2 midnights. Coding Level of Care Code Acute Code for [facility] Fwd Diagnoses New onset left bundle branch block (LBBB) I44.7 Atrial fibrillation with RVR I48.91 Shock R57.9 ACS (acute coronary syndrome) I24.9 Congestive heart failure I50.9
[2024-04-08] MEDS: digoxin 250 mcg/ml INJ 2 mL 125 MCG IVP ×2 (18:08→22:26)
--- NOTE | 2024-04-08 21:49 | PC.NURSE ---
Optifoam 7X7 was used but no place to charge for it.
[2024-04-08] MEDS: atorvastatin 40 mg Tablet 80 MG PO (22:25)
[2024-04-09] VITALS (14 sets, daily range): BP systolic 107–136; BP diastolic 60–67; PULSE 81–120; RESP 20–35; TEMP 36.2–37.1; O2SAT 93–98; BMI 26.5
[2024-04-09] MEDS: piperacillin-tazobactam 3.375 GM in sodium chloride 0.9% (plus) 50 ML IV ×3 (00:21→17:41)
[2024-04-09] MEDS: ipratropium 0.5 mg/2.5 mL Neb INHALATION ×4 (01:46→21:02)
[2024-04-09] MEDS: levalbuterol 0.63 mg/3 mL Neb 0.630000000000000004 MG INHALATION ×4 (01:46→21:01)
[2024-04-09 04:29] LABS: Basophils # 0.1 10^3/uL (0.0-0.1); Basophils % 0.3 %; Eosinophils # 0.4 10^3/uL (0.0-0.8); Eosinophils % 2.8 %; Hematocrit 30.2 % (36-47); Lymphocytes # 0.5 10^3/uL (0.8-4.8); Lymphocytes % 3.1 %; Mean Corpuscular HGB Conc 31.1 g/dL (30-55); Mean Corpuscular Hemoglobin 26.7 pg (27-33); Mean Corpuscular Volume 85.8 fl (85-98); Mean Platelet Volume 9.8 fL (7.4-10.4); Monocytes # 1.3 10^3/uL (0.2-0.9); Monocytes % 7.8 %; Neutrophils % 85.1 %; Nucleated Red Blood Cells % 0 %; Platelet Count 280 10^3/cmm (157-399); Red Blood Count 3.52 10^6/uL (3.85-5.65); Red Cell Distribution Width 17.1 % (12.1-15.1); White Blood Count 15.98 10^3/uL (3.29-11.43)
[2024-04-09 04:47] LABS: Alanine Aminotransferase 17 U/L (0-33); Albumin Level 3.2 g/dL (3.5-5.2); Alkaline Phosphatase 63 U/L (35-105); Anion Gap 11.1 (5-19); Aspartate Amino Transferase 14 U/L (0-32); Blood Urea Nitrogen 38 mg/dL (8-23); Carbon Dioxide 35 mmol/L (22-29); Chloride 98 mmol/L (98-107); Globulin 2.8 g/dL (1.3-4.6); Glucose 145 mg/dL (65-115); Osmolality Calculated 304 mOsm/kg (285-295); Potassium 3.1 mmol/L (3.5-5.1); Sodium 141 mmol/L (136-145); Total Bilirubin 1.8 mg/dL (0.15-1.2)
[2024-04-09] MEDS: potassium chloride ER 20 mEq Tablet PO (05:59)
[2024-04-09] MEDS: budesonide 0.5 mg/2 mL Neb INHALATION ×2 (07:37→21:02)
[2024-04-09] MEDS: sennosides-docusate Tablet 1 TAB PO (08:28)
[2024-04-09] MEDS: amiodarone 200 mg Tablet PO ×2 (08:28→17:41)
[2024-04-09] MEDS: potassium chloride ER 20 mEq Tablet 80 MEQ PO (08:28)
[2024-04-09] MEDS: metoprolol tartrate 25 mg Tablet PO ×2 (08:28→22:00)
[2024-04-09] MEDS: clopidogrel 75 mg Tablet PO (08:28)
[2024-04-09] MEDS: metOLazone 5 MG Tablet PO (08:28)
[2024-04-09] MEDS: pantoprazole DR 40 mg Tablet PO (08:28)
[2024-04-09] MEDS: FUROsemide 10 mg/mL SDV 4mL 40 MG IVP (08:29)
--- NOTE | 2024-04-09 08:35 | P.PN_ITS ---
Subjective 2 Subjective: Patient is feeling better. She had thoracentesis performed with reported bloody effusion noted. Could be from hemothorax from prior thoracentesis Vitals/I&O/Wt Last Vital Signs Temp 98.3 F 04/09/24 07:22 Pulse 86 04/09/24 07:38 Resp 24 H 04/09/24 07:38 BP 136/67 04/09/24 07:22 Pulse Ox 95 04/09/24 07:38 O2 Del Method Nasal Cannula 04/09/24 07:38 O2 Flow Rate 3 04/09/24 07:38 FiO2 40 04/07/24 15:10 04/08/24 04/09/24 04/09/24 22:59 06:59 14:59 Intake Total 380 / 1160 50 / 1210 Output Total 2950 / 3450 350 / 3800 Balance -2570 / -2290 -300 / -2590 Weight last 48 hrs Weight 145 lb 4 oz Weight 148 lb 8 oz Weight 148 lb 8 oz Physical Exam 2 Narrative: GENERAL: Patient is intubated and sedated NECK: No jugular vein distension. [] HEENT: No cyanosis. No icterus. No pallor. [] HEART: Regular S1 and S2. No murmur, rub or gallop. [] LUNGS: Has diminshed air entry bilaterally. CENTRAL NERVOUS SYSTEM: Grossly nonfocal. [] EXTREMITIES: Lower extremities with 1+ edema bilaterally. [] Data 04/10/24 04:02 04/10/24 04:02 Micro: Microbiology 04/02/24 18:16 Gram Stain - Final Pleural Fluid Anaerobic Culture - Preliminary Body Fluid Culture - Final 04/06/24 11:20 Urine Culture - Preliminary Urine,Clean Catch A&P Assessment and plan (1) New onset left bundle branch block (LBBB): (2) Atrial fibrillation with RVR: (3) Shock: Resolved (4) ACS (acute coronary syndrome): (5) Congestive heart failure: Plan Patient has been diuresing well. Continue aggressive diuresis. Had thoracentesis with reported bloody effusion. Can be secondary to prior thoracentesis. Eliquis has been held. Can continue with aspirin and Plavix and stop Eliquis after discussion with patient and family regarding possible stroke risk. Repeat echocardiogram demonstrated normal LV systolic function, pleural effusion and moderate to severe eccentric mitral regurgitation. Will need further assessment with transesophageal echocardiogram. N.p.o. after midnight. Heart rates are better controlled this evening. Thank you for involving us with care of this patient. We will continue to follow. Please call with questions. Attestations 2 Medical Necessity Statement*: Care expected to cross 2 midnights. Coding Level of Care Code Acute Code for g Fwd Diagnoses New onset left bundle branch block (LBBB) I44.7 Atrial fibrillation with RVR I48.91 Shock R57.9 ACS (acute coronary syndrome) I24.9 Congestive heart failure I50.9
[2024-04-09 08:56] LABS: Digoxin 2.4 ng/mL (0.6-1.2)
--- NOTE | 2024-04-09 13:39 | P.PN_ITS ---
Subjective 2 Subjective: No overnight events Patient still on 3 L supplemental oxygen but has conversational dyspnea Transthoracic echo showed moderate to severe mitral regurgitation- Chest x-ray revealed worsening right pleural effusion and persistent left pleural effusion-despite recent diuresis-net - 4 L in last 48 hours Bedside ultrasound today showed recurrent large right pleural effusion as well as persistent moderate left pleural effusion. S/p repeat thoracentesis right pleural effusion-1500 dark bloody effusion drained-H&H remained stable after 1 unit transfusion on 04/07/2024 Cardiology planning to do ALEXANDRA tomorrow. Medications: Reviewed: Yes Medication Review Details: Current Medications Acetaminophen (Acetaminophen 500 Mg Tablet) 500 mg PO Q4H PRN PRN Reason: fever Albuterol/Ipratropium (Ipratropium-Albuterol 3 Ml Neb) 3 ml INHALATION Q6H PRN PRN Reason: SHORTNESS OF BREATH Amiodarone HCl (Amiodarone 200 Mg Tablet) 400 mg PO BID [facility] [place] Last Admin: 04/03/24 07:46 Dose: 400 mg Apixaban (Apixaban 5 Mg Tablet) 5 mg PO BID NATHAN Last Admin: 04/03/24 07:46 Dose: 5 mg Aspirin (Aspirin 325 Mg Tablet) 325 mg PO DAILY NATHAN Last Admin: 04/03/24 07:46 Dose: 325 mg Atorvastatin Calcium (Atorvastatin 40 Mg Tablet) 80 mg PO BEDTIME NATHAN Last Admin: 04/01/24 20:06 Dose: 80 mg Clopidogrel Bisulfate (Clopidogrel 75 Mg Tablet) 75 mg PO DAILY NATHAN Last Admin: 04/03/24 07:46 Dose: 75 mg Furosemide (Furosemide 10 Mg/Ml Sdv 4ml) 40 mg IVP Q24H NATHAN Last Admin: 04/02/24 11:19 Dose: 40 mg Fentanyl (Sublimaze) 1,000 mcg in 100 mls @ 0 mls/hr IV .Q0M NATHAN; Protocol Last Titration: 04/01/24 17:57 Dose: Infused Ceftriaxone Sodium 1,000 mg/ (Sodium Chloride) 50 mls @ 100 mls/hr IV Q12H NATHAN; Protocol Last Infusion: 04/03/24 05:48 Dose: Infused Azithromycin 500 mg/ Sodium (Chloride) 250 mls @ 250 mls/hr IV Q24H NATHAN; Protocol Last Infusion: 04/02/24 20:46 Dose: Infused norepinephrine (Levophed) 4 mg in 250 mls @ 0 mls/hr IV .Q0M NATHAN; Protocol Last Titration: 04/01/24 17:58 Dose: Infused Dexmedetomidine/Sodium Chloride (Precedex) 400 mcg in 100 mls @ 0 mls/hr IV .Q0M NATHAN; Protocol Last Titration: 04/01/24 17:57 Dose: Infused Propofol (Diprivan) 1,000 mg in 100 mls @ 0 mls/hr IV .Q0M NATHAN; Protocol Last Titration: 04/01/24 17:56 Dose: Infused Lanolin (Lanolin Oint 7 Gm) 1 applic TOPICAL PRN PRN PRN Reason: DRYNESS Last Admin: 04/02/24 21:02 Dose: 1 applic Metolazone (Metolazone 5 Mg Tablet) 5 mg PO DAILY [facility] [place] Last Admin: 04/03/24 12:43 Dose: 5 mg Metoprolol Tartrate (Metoprolol Tartrate 25 Mg Tablet) 25 mg PO BID@0900,2100 [facility] [place] Last Admin: 04/03/24 07:46 Dose: 25 mg Ondansetron HCl (Ondansetron 2 Mg/Ml Sdv 2 Ml) 4 mg IVP Q6H PRN PRN Reason: NAUSEA AND VOMITING Last Admin: 04/03/24 03:30 Dose: 4 mg Potassium Chloride (Potassium Chloride Er 20 Meq Tablet) 40 meq PO DAILY [facility] [place] Last Admin: 04/02/24 08:26 Dose: 40 meq Senna/Docusate Sodium (Sennosides-Docusate Tablet) 1 tab PO DAILY [facility] [place] Last Admin: 04/02/24 08:26 Dose: 1 tab Vitals/I&O/Wt Last Vital Signs Temp 98.2 F 04/09/24 12:00 Pulse 109 H 04/09/24 12:00 Resp 26 H 04/09/24 12:00 BP 107/67 04/09/24 12:00 Pulse Ox 96 04/09/24 12:00 O2 Del Method Nasal Cannula 04/09/24 12:00 O2 Flow Rate 3 04/09/24 07:38 FiO2 40 04/07/24 15:10 04/08/24 04/09/24 04/09/24 22:59 06:59 14:59 Intake Total 380 / 1160 50 / 1210 240 / 240 Output Total 2950 / 3450 350 / 3800 1300 / 1300 Balance -2570 / -2290 -300 / -2590 -1060 / -1060 Weight last 48 hrs Weight 145 lb 4 oz Weight 148 lb 8 oz Weight 148 lb 8 oz Physical Exam 2 Narrative: PHYSICAL EXAM: General: Sitting in bed-in mild respiratory distress HEENT:NCAT, PERRLA, EOMI Neck: Supple Lungs: Reduced bilateral breath sounds Heart: s1/s2, RRR Abd: soft, NT, ND, BS + Normoactive Extremities: No edema J2EE ARCHITECT: AAO x 3; no gross FND SKIN: no rash Data 04/09/24 03:38 04/09/24 03:38 Other Labs: Radiology Impressions Lumbar Spine CT 04/06/24 12:31 IMPRESSION: 1. Degenerative disc disease and spondylosis. See individual levels above for more complete description. 2. There is mild central canal stenosis at L3-L4 and [id number] central canal stenosis at L4-L5. There is [id number] left foraminal stenosis at L4-L5 and [id number]-[id number] right and moderate left foraminal stenosis at L5-S1. 3. There is mild stenosis of the superior aspect of both lateral recesses at L5-S1. Next lines 4. Further evaluation is recommended with MRI as it more sensitive to evaluate the discs and nerve roots than CT 4. Bilateral pleural effusions, the right appears at least partially organized. Size of these effusions cannot be determined from this study next lines 5. Some free fluid in the pelvis Hip/Pelvis X-Ray 04/06/24 13:21 IMPRESSION: 1. Degenerative changes left hip and in the included portions of the lumbar spine 2. No fracture detected. Knee X-Ray 04/06/24 13:21 IMPRESSION: 1. Degenerative changes with joint space narrowing and osteophyte formation 2. Negative for acute fracture. Chest X-Ray 04/07/24 08:45 IMPRESSION: 1. Extensive increasing bilateral pulmonary infiltrates since previous exam. Bilateral pleural effusions. Cardiac enlargement probably unchanged. Laboratory Results WBC 15.98 10^3/uL (3.29-11.43) H 04/09/24 03:38 RBC 3.52 10^6/uL (3.85-5.65) L 04/09/24 03:38 Hgb 9.40 g/dL (11.27-16.99) L 04/09/24 03:38 Hct 30.2 % (36-47) L 04/09/24 03:38 MCV 85.8 fl (85-98) 04/09/24 03:38 MCH 26.7 pg (27-33) L 04/09/24 03:38 MCHC 31.1 g/dL (30-55) 04/09/24 03:38 RDW 17.1 % (12.1-15.1) H 04/09/24 03:38 Plt Count 280 10^3/cmm (157-399) 04/09/24 03:38 MPV 9.8 fL (7.4-10.4) 04/09/24 03:38 Neut % (Auto) 85.1 % 04/09/24 03:38 Lymph % (Auto) 3.1 % 04/09/24 03:38 Elmore % (Auto) 7.8 % 04/09/24 03:38 Eos % (Auto) 2.8 % 04/09/24 03:38 Baso % (Auto) 0.3 % 04/09/24 03:38 Neut # (Auto) 13.60 10^3/uL (1.8-7.7) H 04/09/24 03:38 Lymph # (Auto) 0.5 10^3/uL (0.8-4.8) L 04/09/24 03:38 Elmore # (Auto) 1.3 10^3/uL (0.2-0.9) H 04/09/24 03:38 Eos # (Auto) 0.4 10^3/uL (0.0-0.8) 04/09/24 03:38 Baso # (Auto) 0.1 10^3/uL (0.0-0.1) 04/09/24 03:38 Nucleated RBC % (auto) 0 % 04/09/24 03:38 Nucleated RBCs # 0.0 /100WBC 04/09/24 03:38 Differential Comment Yes 04/02/24 18:16 PT 23.40 SECONDS (12.1-14.9) H 03/27/24 13:53 INR 2.00 (0.8-1.2) H 03/27/24 13:53 APTT 38.0 SECONDS (23.9-36.7) H 03/28/24 04:16 D-Dimer 2.63 ug/mLFEU (0-0.59) H 04/06/24 10:43 Specimen Type Arterial 03/30/24 04:20 Sample Site Radial, right 03/30/24 04:20 ABG pH 7.50 (7.35-7.45) H 03/30/24 04:20 ABG pCO2 40.1 mmHg (35-45) 03/30/24 04:20 ABG pO2 97.4 mmHg (80.0-100.0) 03/30/24 04:20 ABG PO2/FiO2 Ratio 0 03/30/24 04:20 ABG HCO3 31.3 mmol/L (22-26) H 03/30/24 04:20 ABG O2 Saturation 99.5 03/30/24 04:20 ABG Base Excess 7.5 mmol/L (-2.0-2.0) H 03/30/24 04:20 Parish Test Pos 03/30/24 04:20 A-a O2 Gradient 13.1 mmHg (5-10) H 03/30/24 04:20 Hematocrit 32.9 % (37-47) L 03/30/24 04:20 Hgb O2 Saturation 97.4 % (95-100) 03/30/24 04:20 Carboxyhemoglobin 1.8 %THgb (0.4-20.1) 03/30/24 04:20 Methemoglobin 0.4 % (0.4-1.5) 03/30/24 04:20 Total Hemoglobin 10.7 g/dL (12-16) L 03/30/24 04:20 Sodium 140.0 mmol/L (131-143) 03/30/24 04:20 Potassium 3.0 mmol/L (3.5-5.0) L 03/30/24 04:20 Glucose 91.0 mg/dL (70-115) 03/30/24 04:20 Ionized Calcium 1.1 mmol/L (1.1-1.4) 03/30/24 04:20 O2 Delivery Device Vent 03/30/24 04:20 O2 Liters/Min 15.0 % 03/27/24 13:33 FiO2 35.0 % 03/30/24 04:20 Tidal Volume 0.35 03/30/24 04:20 PEEP 5.0 cmH20 03/30/24 04:20 Laboratory Associate ID Deshawn 03/30/24 04:20 Sodium 141 mmol/L (136-145) 04/09/24 03:38 Potassium 3.1 mmol/L (3.5-5.1) L 04/09/24 03:38 Chloride 98 mmol/L (98-107) 04/09/24 03:38 Carbon Dioxide 35 mmol/L (22-29) H 04/09/24 03:38 Anion Gap 11.1 (5-19) 04/09/24 03:38 BUN 38 mg/dL (8-23) H 04/09/24 03:38 Creatinine 0.8 mg/dL (0.5-0.9) 04/09/24 03:38 GFR Calculation Not Reportable 04/09/24 03:38 Glucose 145 mg/dL (65-115) H 04/09/24 03:38 Calculated Osmolality 304 mOsm/kg (285-295) H 04/09/24 03:38 Lactic Acid 3.0 mmol/L (0.5-2.2) H 03/27/24 13:53 Lactic Acid (Sepsis) 1.4 mmol/L (0.5-2.2) 03/27/24 21:58 Calcium 9.0 mg/dL (8.5-10.5) 04/09/24 03:38 Magnesium 2.5 mg/dL (1.7-2.3) H 04/05/24 06:59 Total Bilirubin 1.8 mg/dL (0.15-1.2) H 04/09/24 03:38 AST 14 U/L (0-32) 04/09/24 03:38 ALT 17 U/L (0-33) 04/09/24 03:38 Alkaline Phosphatase 63 U/L (35-105) 04/09/24 03:38 Troponin T Baseline 42 ng/L (0-10) H 04/03/24 02:50 Troponin T 120 Minute 39.76 ng/L (0-10) H 04/03/24 05:05 Delta Troponin T -2.24 ABS# (0-10) L 04/03/24 05:05 Troponin T Hi Sens 6Hr 44.70 ng/L (0-10) H 04/03/24 08:43 Troponin T Hi Sens 6Hr Delta 2.70 ng/L (0-12) 04/03/24 08:43 C-React Prot High Sens 12.900 mg/dL (0.0-0.3) H 04/06/24 02:20 NT-Pro-B Natriuret Pep 1703 pg/mL (0-450) H 03/27/24 13:53 Total Protein 6.0 g/dL (6.6-8.7) L 04/09/24 03:38 Albumin 3.2 g/dL (3.5-5.2) L 04/09/24 03:38 Globulin 2.8 g/dL (1.3-4.6) 04/09/24 03:38 Procalcitonin 0.30 ng/mL (0-0.5) 04/06/24 02:20 Urine Color Yellow (Yellow) 04/06/24 11:20 Urine Appearance Clear (CLEAR) 04/06/24 11:20 Urine pH 5 (5-7) 04/06/24 11:20 Ur Specific Vantage 1.005 (1.005-1.030) 04/06/24 11:20 Urine Protein Neg (Negative) 04/06/24 11:20 Urine Glucose (UA) Norm (Normal) 04/06/24 11:20 Urine Ketones Negative (Negative) 04/06/24 11:20 Urine Blood 3+ (Negative) H 04/06/24 11:20 Urine Nitrate Negative (Negative) 04/06/24 11:20 Urine Bilirubin Neg (Negative) 04/06/24 11:20 Urine Urobilinogen Neg mg/dL (Negative) 04/06/24 11:20 Ur Leukocyte Esterase Negative (Negative) 04/06/24 11:20 Urine RBC 25-40 /hpf (0-2) H 04/06/24 11:20 Urine WBC None /hpf (0-5) 04/06/24 11:20 Ur Squamous Epith Cells 0-4 /hpf (0-5) H 04/06/24 11:20 Amorphous Sediment Not Reportable 04/06/24 11:20 Urine Bacteria None /hpf (NONE) 04/06/24 11:20 Urine Yeast 2+ /hpf H 04/06/24 11:20 Fluid Color Maria D 04/02/24 18:16 Fluid Appearance Cloudy 04/02/24 18:16 Fluid Specific Grav 1.015 04/02/24 18:16 Fluid pH 8.0 04/02/24 18:16 Fluid WBC 123 /uL 04/02/24 18:16 Fluid RBC 3.000 10^3/uL 04/02/24 18:16 Fld Polynuclear WBCs # 0.027 04/02/24 18:16 Fld Polynuclear WBCs % 21.900 % 04/02/24 18:16 Fl Mononucl WBCs #(Auto) 0.096 04/02/24 18:16 Fl Mononuclear % Auto 78.100 % 04/02/24 18:16 Fld Crystal Laterality Right pleural fluid 04/02/24 18:16 Fluid Glucose 192.0 mg/dL 04/02/24 18:16 Fluid Albumin 1.7 g/dL 04/02/24 18:16 Fluid LDH 67 U/L 04/02/24 18:16 Fluid Alk Phosphatase 10 IU/L 04/02/24 18:16 Fluid Cholesterol 25 mg/dL (0-200) 04/02/24 18:16 Fluid Triglycerides 21 mg/dL (0-150) 04/02/24 18:16 Fluid Uric Acid 13 mg/dL 04/02/24 18:16 Peritoneal Amylase 17 U/L 04/02/24 18:16 Pleural Total Protein 2.5 g/dL 04/02/24 18:16 Pleural Amylase 17 U/L 04/02/24 18:16 Digoxin 2.4 ng/mL (0.6-1.2) H* 04/09/24 03:38 C. difficile (PCR) Negative (Negative) 04/04/24 14:15 MRSA (PCR) Not detected (NOT DETECTED) 04/06/24 11:07 Blood Type A Negative 04/07/24 10:38 Rho(D) Type Rh negative 04/07/24 10:38 Antibody Screen Negative 04/07/24 10:38 Crossmatch See Detail 04/07/24 10:38 Micro: Microbiology 04/06/24 11:20 Urine Culture - Final Urine,Clean Catch 04/02/24 18:16 Gram Stain - Final Pleural Fluid Anaerobic Culture - Preliminary Body Fluid Culture - Final A&P Assessment and plan (1) Hemothorax: Patient had moderate to severe bilateral pleural effusion with right greater than left Patient was on 30% FiO2 and was extubated 04/01/2024 to 3 L supplemental oxygen; over next 36 hours-patient became more dyspneic and her oxygen requirements gradually went up and she was requiring BiPAP while in stepdown unit Bedside ultrasound showed large right pleural effusion despite normal EF on post PCI echocardiogram as well as diuretics; Patient was on Plavix for her RCA PCI drug-eluting stent placed to 03/27/2024- which we could not hold off; in view of impending respiratory failure-proceeded with therapeutic thoracentesis on 04/02/2024 and it drained 2 L of straw-colored fluid. There is oozing of blood from thoracentesis site which required pressure bandages. Over the next 5 days-there has been a gradual drop in H&H to 7.4/23 and she required 1 unit PRBC transfusion. Fluid analysis showed transudative effusion. We continued aggressive diuresis and albumin supplementation. Patient continues to require 3 L supplemental oxygen-however she began to have conversational dyspnea and there has been worsening leukocytosis. Bedside ultrasound today showed recurrent large right pleural effusion and persistent moderate left pleural effusion. Hence repeated a therapeutic thoracentesis on right pleural effusion to rule out empyema/hemothorax; this procedure is again done while patient on Plavix due to his recent stent-drained 1500 cc dark maroon-colored bloody fluid. Sent for pleural fluid analysis to rule out empyema/parapneumonic effusion. We will repeat CBC and follow-up on H&H (2) Acute respiratory failure: Secondary to fluid overload secondary to STEMI S/p stenting performed in RCA He currently on 3L supplemental oxygen (3) Congestive heart failure: Post stenting-echocardiogram EF 65% dilated LA with mitral regurg Currently on lasix 40 mg and metalazone. Net -4 L over last 48 hours (4) ACS (acute coronary syndrome): New LBBB on EKG during admission STEMI alert called Cardiac cath revealed extensive significant chronic disease in the proximal circumflex and 80% stenosis of proximal mid RCA, culprit for acute presentation. Subsequently Successful angioplasty of RCA was performed. Currently on ASA, PLAVIX Recent echo showed moderate to severe mitral regurgitation-possible complication after recent UT--cardiology to do ALEXANDRA tomorrow (5) Atrial fibrillation with RVR: Currently she is on amiodarone drip-heart rate-60 to 90 bpm in sinus rhythm- switched to p.o. amiodarone Held Eliquis 5 Mg p.o. twice daily due to drop in H&H Attestations 2 Medical Necessity Statement*: Patient is scheduled for ALEXANDRA tomorrow Time Spent in Patient Care: Greater than 35 minutes (>than 50% of time spent in counselling and/or direct pt care on unit) . Coding Level of Care Code Acute Code for Chg Fwd Diagnoses Hemothorax J94.2 Acute respiratory failure J96.00 Congestive heart failure I50.9 ACS (acute coronary syndrome) I24.9 Atrial fibrillation with RVR I48.91 Time Spent (min) 43
--- NOTE | 2024-04-09 13:42 | XR_ITS ---
WS: [id number] Exam: XR chest 1V portable [id number] Date/Time of Exam: 04/09/2024 1:55 PM Reason For Exam: Post right thoracentesis Comparison 04/07/2024 at 8:58 a.m. The lungs are fully inflated. Significantly improved bilateral infiltrates. Resolved right-sided pleu ral effusion. There is still moderate size LEFT basal pleural effusion. No pneumothorax. The heart is enlarged. The mediastinum is normal in contour. A right-sided PICC line ends at the cavoatrial junct ion. XR/XR chest 1V portable [id number] IMPRESSION: 1. Chest x-ray showing significant improvement since previous study. 2. Residual moderate sized LEFT pleural effusion with compressive atelectasis o f the LEFT lower lobe. 3. No pneumothorax is seen. 4. Cardiac enlargement. Right-sided PICC line in place in satisfactory position .
--- NOTE | 2024-04-09 14:02 | P.PCN_ITS ---
Procedure/Consent Time out: Time Out Performed: Yes Consent: Consent for Procedure: Consent obtained from patient, Risks & Benefits reviewed and Agrees to proceed with procedure Procedure Narrative: Pulmonary & Critical Care Medicine Procedure - Ultrasound guided Thoracentesis Procedure: CPT code 86880 thoracentesis, needle or catheter, aspiration of the pleural space; with imaging guidance Indication: Worsening right pleural effusion. 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 On 03/30/2024 patient was on 30% FiO2 and following commands-was extubated to 3 L supplemental oxygen; over next 36 hours-patient became more dyspneic and her oxygen requirements gradually went up and she was requiring BiPAP. Bedside ultrasound showed large right pleural effusion - despite normal EF on post PCI echocardiogram as well as diuretics; despite patient was on Plavix for PCI drug-eluting stent placed 6 days ago for RCA occlusion-we could not hold off; and so proceeded with therapeutic thoracentesis on 04/02/2024 in view of impending respiratory failure. Drained 2 L of straw-colored fluid. Fluid analysis showed transudative effusion. We continued aggressive diuresis and albumin supplementation. There was oozing of blood from skin incision site which required pressure bandages and bleeding controlled after few hours.. Over the next 5 days-there has been a gradual drop in H&H to 7.4/23 and she required 1 unit PRBC transfusion. Patient continues to require 3 L supplemental oxygen-however she began to have conversational dyspnea and there has been worsening leukocytosis. Bedside ultrasound today showed recurrent large right pleural effusion and persistent moderate left pleural effusion. Patient being symptomatic with shortness of breath-we will proceed with repeat therapeutic and diagnostic thoracentesis of right pleural fluid-to rule out empyema/parapneumonic effusion/hemothorax. Patient's Eliquis was held 2 days ago; but she is on her Plavix. Again discussed possible complications including pneumothorax as well as bleeding as patient is on Plavix. She verbalized understanding and agreed with the procedure. Technique: The study was performed in an ACR accredited facility. Medication reconciliation form reviewed and any changes related this procedure resolved. Report: The procedure for thoracentesis was explained to the patient including the risks, benefits and possible complications. The patient was given the opportunity to ask questions, wished to proceed, and signed the written informed consent form. Using ultrasound guidance, a safe route of access was identified into the right pleural space. The site was then prepped and draped using maximal sterile barrier technique. The 1% lidocaine was used for local anesthetic. With sonographic guidance, a 6 Portuguese thoracentesis catheter was placed with return of 5 cc dark maroon-colored bloody pleural fluid. The catheter was slipped into the pleural cavity and approximately 1.5 L of maroon- colored bloody pleural fluid was removed. The patient tolerated the procedure well without any immediate complications. Impression: 1. Successful ultrasound-guided right t horacentesis with removal of approximately 1.5 L of maroon-colored bloody pleural fluid. ICD-10 code-J90 pleural effusion, not elsewhere classified Acute Procedures Epistaxis Control: Time out performed: Yes
[2024-04-09 14:06] LABS: Cyto Order Verification No Order; PATH Referral YES
[2024-04-09 14:07] LABS: Apprearance, Body Fluid CLOUDY; Color, Body Fluid RED; Fluid Laterality RIGHT PLEURAL FLUID
[2024-04-09 14:13] LABS: Body Fluid Polynuclear #Cells 0.095; Body Fluid WBC 310 /uL; Monocytes # Body Fluid 0.215
[2024-04-09 14:29] LABS: Albumin Body Fluid 1.8 g/dL; Fluid Alkaline Phos. 21 IU/L; LDH Body Fluid 244 U/L; Total Protein Pleural Fluid 2.9 g/dL
--- NOTE | 2024-04-09 15:00 | P.PN_ITS ---
Subjective 2 Subjective: No overnight events. States feeling better. Sitting up in chair. Down to 2 L of oxygen supplementation. Continues to have good urine output. Underwent EMG yesterday. Undergoing thoracentesis today with pulmonary team. Patient denies any nausea, vomiting, headache. Vitals/I&O/Wt Last Vital Signs Temp 98.2 F 04/09/24 12:00 Pulse 92 04/09/24 14:22 Resp 24 H 04/09/24 14:22 BP 107/67 04/09/24 12:00 Pulse Ox 97 04/09/24 14:22 O2 Del Method Nasal Cannula 04/09/24 14:22 O2 Flow Rate 3 04/09/24 14:22 FiO2 40 04/07/24 15:10 04/09/24 04/09/24 04/09/24 06:59 14:59 22:59 Intake Total 50 / 1210 290 / 290 Output Total 350 / 3800 1300 / 1300 Balance -300 / -2590 -1010 / -1010 Weight last 48 hrs Weight 65.884 kg Weight 67.358 kg Weight 67.358 kg Physical Exam 2 Narrative: General: No acute distress, AO x3, frail, chronically sick appearing on nasal cannula HEENT: PERRLA, pupils bilaterally equal and reactive Chest: Bilateral bronchial breath sounds all over lung khan, decreased air entry bilaterally in lower zone, occasional rhonchi CVS: S1-S2 regular, soft pansystolic murmur fourth intercostal retrosternal space radiating to anterior pericardium and apex, no tachycardia, no gallops, no rubs Abdomen: Soft, nontender, no organomegaly, bowel sounds present Neuro: No focal deficits, no facial deformity, AO x3, right foot drop Data 04/09/24 03:38 04/09/24 03:38 Micro: Microbiology 04/06/24 11:20 Urine Culture - Final Urine,Clean Catch 04/02/24 18:16 Gram Stain - Final Pleural Fluid Anaerobic Culture - Preliminary Body Fluid Culture - Final A&P Assessment and plan (1) Acute respiratory failure: Resolved. Extubated on 04/01. Respiratory failure most likely in setting of diastolic congestive heart failure leading to bilateral pleural effusion along with possibility of pneumonia. Cannot rule out aspiration pneumonia. Improvement in respiratory distress today. Patient had good urine output yesterday after Lasix. Overall 3.8 L urine output in last 48 hours with net 4L negative. Continue with oxygen supplementation keeping saturation over 92%. Appreciate pulmonary recommendations. Plan for thoracentesis today. Will follow-up thoracentesis lab. Repeat IV Lasix 40 mg one-time. Continue with metolazone 5 mg daily. Hold off on metolazone tomorrow. Monitor renal functions. Repeat 80 mg of oral potassium. Will repeat BMP in afternoon. As patient is going for thoracentesis today will plan to hold off on further Lasix in the evening. Echocardiogram results appreciated shows normal EF with moderate to severe eccentric MR, dilated LA, severe pulmonary hypertension with moderate TR. Discussed with cardiology regarding possible need for mitral valve repair. Plan for ALEXANDRA in the a.m. N.p.o. after midnight. Continue with fluid restriction to 1200 cc. Repeat chest x-ray. Concerns for loculated pleural effusion. MRSA swab negative. Will discontinue vancomycin. Leukocytosis still seems to have persisted. Could be in setting of anemia. Continue with Zosyn to finish a 7-day course. Appreciate speech evaluation later during admission. Patient does have right- sided pneumonic patch. Shows slight worsening on x-ray today. Diet change as per modified barium swallow to dysphagia level 6. Aggressive pulmonary toilet I-S and Acapella when possible. Out of bed to chair. Pulmicort twice daily, ipratropium, Xopenex every 6 hours. Strict input output charting, daily weights. (2) Congestive heart failure: Appreciate limited echocardiogram results from 04/06 consistent with eccentric MR. Will discuss with cardiology further regarding mitral valve repair. E Treatment as above. (3) Pleural effusion: Simple fluid collection as per pulmonary team on lung ultrasound. For now continue to hold Eliquis for possible plan of thoracentesis. Thoracentesis earlier in the admission showed transudative collection. Pulmonary team on board. (4) ACS (acute coronary syndrome): Appreciate cardiology assistance. Post PCI to RCA. Does have residual moderate to severe disease in LCx and moderate LAD disease. Plan for outpatient stress test to assess for ischemia. Continue with Plavix 75 mg daily, metoprolol 25 mg twice daily, atorvastatin 40 mg daily. Plan to restart Eliquis 12 hours post thoracentesis No active chest pain. Appreciate recent A1c, lipid panel. (5) Atrial fibrillation with RVR: Heart rate better controlled. Received digoxin load yesterday. Check digoxin levels. Eliquis on hold as above. Continue with amiodarone 200 mg twice daily for next 4 days and will change to 20 mg daily afterwards. Continue with metoprolol 25 mg twice daily. Unfortunately not able to uptitrate metoprolol because of occasional soft blood pressures (6) Foot drop, right: As per patient and new finding. Started on 5 days ago. Appreciate physical therapy evaluation. Appreciate CT lumbar, hip x-rays. Appreciate orthopedic surgery recommendations. Appreciate EMG results. 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 Hemoglobin stable for now. Overall 2 units of blood transfusion during hospitalization. Monitor hemoglobin daily for now. Protonix IV twice daily. Check stool for occult blood. (9) Shock: Resolved. Monitor blood pressures. Goal blood pressure less than 140/90 mmhg with mean over 65. Plan CODE STATUS: DNR/DNI. Cardiac diet Protonix 40 mg IV twice daily Holding Eliquis as above. Discharge planning: Patient has had a prolonged hospitalization and is postextubation on 0 522. She continues to be severely deconditioned and episodes of respiratory distress in setting of congestive heart failure. Patient will need extensive physical and pulmonary rehab going forward. She would benefit from LTAC. Case management alerted. Patient's care discussed in detail with the patient at bedside. All the questions were answered. Also updated patient's son over the phone. 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
[2024-04-09 17:16] LABS: Anion Gap 12.7 (5-19); Blood Urea Nitrogen 33 mg/dL (8-23); Calcium 8.9 mg/dL (8.5-10.5); Carbon Dioxide 32 mmol/L (22-29); Chloride 101 mmol/L (98-107); Creatinine Clr Calc Pharmacy 51.6145; Glucose 196 mg/dL (65-115); Osmolality Calculated 307 mOsm/kg (285-295); Potassium 3.7 mmol/L (3.5-5.1); Sodium 142 mmol/L (136-145)
--- NOTE | 2024-04-09 17:47 | PC.NURSE ---
Addendum entered by Brandy Fuchs RN 04/09/24 18:39: Provider is notified that the [employer]UFTING MACHINE [employer]ER did empty 950 from patients catheter bag at 1500 but did not record it yet. Staff member was called to another department and when the staff member returned they notified the nurse that she emptied it but had not recorded it yet. Nursing staff recorded it then. Nursing was just about to give the lasix IVP. Provider decided to hold the lasix 40mg. Lasix was not given per provider. Original Note: Provider notified of urine output today. Provider ordered lasix 40mg IVP once. order entered.
[2024-04-09 18:32] LABS: Hematocrit 34.6 % (36-47); Mean Corpuscular HGB Conc 31.2 g/dL (30-55); Mean Corpuscular Hemoglobin 27.2 pg (27-33); Mean Corpuscular Volume 87.2 fl (85-98); Mean Platelet Volume 9.8 fL (7.4-10.4); Platelet Count 338 10^3/cmm (157-399); Red Blood Count 3.97 10^6/uL (3.85-5.65); Red Cell Distribution Width 17.2 % (12.1-15.1); White Blood Count 20.78 10^3/uL (3.29-11.43)
[2024-04-09 18:48] LABS: Total Cells Counted 100 (0-100)
[2024-04-09 18:51] LABS: Absolute Segmented Neutrophil 18.9 10/cmm (1.6-7.1); Band Neutrophils Absolute 0.4 10^3/cmm (0.0-1.2); Eosinophils 0 %; Lymphocytes 6 %; Lymphocytes Absolute 1.2 10^3/cmm (1.2-3.4); Monocytes Absolute 0.2 10^3/cmm (0.1-0.6); Segmented Neutrophils 91 %
[2024-04-09 18:52] LABS: Absolute Neutrophil 19.3 10^3/cmm (1.4-6.5); Anisocytosis 1+; Giant Platelets Trace; Macrocytosis Trace; Platelet Estimate Normal (Normal)
[2024-04-09] MEDS: atorvastatin 40 mg Tablet 80 MG PO (22:00)
[2024-04-10] VITALS (13 sets, daily range): BP systolic 103–120; BP diastolic 58–75; PULSE 78–102; RESP 16–25; TEMP 36.2–36.9; O2SAT 90–100; BMI 25.6
[2024-04-10] MEDS: ipratropium 0.5 mg/2.5 mL Neb INHALATION ×4 (01:35→20:48)
[2024-04-10] MEDS: levalbuterol 0.63 mg/3 mL Neb 0.630000000000000004 MG INHALATION ×4 (01:35→20:48)
[2024-04-10] MEDS: piperacillin-tazobactam 3.375 GM in sodium chloride 0.9% (plus) 50 ML IV ×3 (02:14→18:13)
[2024-04-10 04:29] LABS: Basophils # 0.1 10^3/uL (0.0-0.1); Basophils % 0.4 %; Eosinophils # 0.3 10^3/uL (0.0-0.8); Eosinophils % 1.7 %; Hematocrit 31.8 % (36-47); Lymphocytes # 0.5 10^3/uL (0.8-4.8); Mean Corpuscular HGB Conc 31.1 g/dL (30-55); Mean Corpuscular Hemoglobin 27.3 pg (27-33); Mean Corpuscular Volume 87.6 fl (85-98); Mean Platelet Volume 9.7 fL (7.4-10.4); Monocytes # 1.1 10^3/uL (0.2-0.9); Monocytes % 6.4 %; Neutrophils # 14.94 10^3/uL (1.8-7.7); Neutrophils % 87.6 %; Nucleated Red Blood Cells % 0 %; Platelet Count 288 10^3/cmm (157-399); Red Blood Count 3.63 10^6/uL (3.85-5.65); Red Cell Distribution Width 17.1 % (12.1-15.1); White Blood Count 17.06 10^3/uL (3.29-11.43)
[2024-04-10 04:54] LABS: Alanine Aminotransferase 19 U/L (0-33); Alkaline Phosphatase 62 U/L (35-105); Anion Gap 10.8 (5-19); Aspartate Amino Transferase 17 U/L (0-32); Blood Urea Nitrogen 38 mg/dL (8-23); Calcium 9.2 mg/dL (8.5-10.5); Carbon Dioxide 35 mmol/L (22-29); Chloride 99 mmol/L (98-107); Creatinine Clr Calc Pharmacy 51.6145; Glucose 136 mg/dL (65-115); Osmolality Calculated 303 mOsm/kg (285-295); Potassium 3.8 mmol/L (3.5-5.1); Sodium 141 mmol/L (136-145); Total Bilirubin 1.2 mg/dL (0.15-1.2)
[2024-04-10] MEDS: budesonide 0.5 mg/2 mL Neb INHALATION ×2 (08:06→20:48)
[2024-04-10] MEDS: clopidogrel 75 mg Tablet PO (08:36)
[2024-04-10] MEDS: sennosides-docusate Tablet 1 TAB PO (08:36)
[2024-04-10] MEDS: pantoprazole DR 40 mg Tablet PO (08:36)
[2024-04-10] MEDS: amiodarone 200 mg Tablet PO ×2 (08:36→18:14)
[2024-04-10] MEDS: metoprolol tartrate 25 mg Tablet PO ×2 (08:36→21:09)
--- NOTE | 2024-04-10 09:09 | PC.NURSE ---
Physician orders to give 40mg IVP lasix, and resume diet orders.
[2024-04-10] MEDS: FUROsemide 10 mg/mL SDV 4mL 40 MG IVP (09:41)
--- NOTE | 2024-04-10 09:45 | PC.SOCIAL ---
IMM Update pg 2 of IMM updated and reviewed w/ patient. Copy provided and copy in chart dated, and initialed.
--- NOTE | 2024-04-10 10:37 | P.PN_ITS ---
Subjective 2 Subjective: Patient feeling better since thoracentesis. has been diuresing well. Renal function is stable. Vitals/I&O/Wt Last Vital Signs Temp 97.1 F L 04/10/24 07:59 Pulse 94 04/10/24 08:00 Resp 18 04/10/24 08:00 BP 111/72 04/10/24 07:59 Pulse Ox 99 04/10/24 08:00 O2 Del Method Nasal Cannula 04/10/24 08:00 O2 Flow Rate 2 04/10/24 08:00 FiO2 40 04/07/24 15:10 04/09/24 04/10/24 04/10/24 22:59 06:59 14:59 Intake Total 50 / 580 50 / 50 Output Total 1300 / 2600 250 / 2850 150 / 150 Balance -1250 / -2020 -250 / -2270 -100 / -100 Weight last 48 hrs Weight 140 lb 4 oz Weight 145 lb 4 oz Weight 148 lb 8 oz Physical Exam 2 Narrative: GENERAL: Patient is intubated and sedated NECK: No jugular vein distension. [] HEENT: No cyanosis. No icterus. No pallor. [] HEART: Regular S1 and S2. Grade 2/6 systolic murmur LUNGS: Has diminshed air entry bilaterally. CENTRAL NERVOUS SYSTEM: Grossly nonfocal. [] EXTREMITIES: Lower extremities with 1+ edema bilaterally. [] Data 04/10/24 04:02 04/10/24 04:02 Micro: Microbiology 04/09/24 13:00 Gram Stain - Final Pleural Fluid 04/02/24 18:16 Gram Stain - Final Pleural Fluid Anaerobic Culture - Final Body Fluid Culture - Final 04/06/24 11:20 Urine Culture - Final Urine,Clean Catch A&P Assessment and plan (1) New onset left bundle branch block (LBBB): (2) Atrial fibrillation with RVR: (3) Shock: Resolved (4) ACS (acute coronary syndrome): (5) Congestive heart failure: Plan Patient is diuresing well. Can switch to oral diuretics today and monitor I and Os and renal function. Unfortunately transesophageal echocardiogram could not be arranged as anesthesia has no availability. Can obtain CXR today and tomorrow and if no recurrence of pleural effusion/worsening of pulmonary edema and clinically continues to improve, can arrange outpatient ALEXANDRA, otherwise will arrange on Saturday. Had a discussion with family about the plan and they are agreeable. Thank you for involving us with care of this patient. We will continue to follow. Please call with questions. Attestations 2 Medical Necessity Statement*: Care expected to cross 2 midnights. Coding Level of Care Code Acute Code for Chg Fwd Diagnoses New onset left bundle branch block (LBBB) I44.7 Atrial fibrillation with RVR I48.91 Shock R57.9 ACS (acute coronary syndrome) I24.9 Congestive heart failure I50.9
--- NOTE | 2024-04-10 11:59 | XR_ITS ---
WS: [id number] Exam: XR chest 1V portable [id number] Date/Time of Exam: 04/10/2024 11:59 AM Reason For Exam: chf, pleural effusion Comparison 04/09/2024. Moderate size LEFT basal pleural effusion with compressive atelectasis of the LEFT lower lobe unchang ed. Remaining lung khan are generally clear. Mild cardiac enlargement unchanged. Right-sided PICC l ine probably ends near the cavoatrial junction. Bony structures are intact. No pneumothorax. XR/XR chest 1V portable [id number] IMPRESSION: 1. Moderate-sized LEFT pleural effusion with compressive atelectasis of the LEF T lower lobe. There is also some atelectasis in the lingula. Overall, no signif icant change since the last exam.
[2024-04-10] MEDS: acetaZOLAMIDE 250 mg Tablet PO (12:22)
--- NOTE | 2024-04-10 14:41 | PM.PN ---
Subjective Subjective: FiO2 down to 2 L since right thoracentesis; drained 1.5 L bloody fluid-H&H remained stable-patient reported her breathing is better compared to yesterday -today's chest x-ray did not show any recurrence of right pleural effusion; -Fluid is lymphocyte predominant exudative; normal glucose, WBC 310-less likely empyema/parapneumonic effusion There is still persistent left pleural effusion Medications: Reviewed: Yes Medication Review Details: Current Medications Acetaminophen (Acetaminophen 500 Mg Tablet) 500 mg PO Q4H PRN PRN Reason: fever Albuterol/Ipratropium (Ipratropium-Albuterol 3 Ml Neb) 3 ml INHALATION Q6H PRN PRN Reason: SHORTNESS OF BREATH Amiodarone HCl (Amiodarone 200 Mg Tablet) 400 mg PO BID NATHAN Last Admin: 04/03/24 07:46 Dose: 400 mg Apixaban (Apixaban 5 Mg Tablet) 5 mg PO BID NATHAN Last Admin: 04/03/24 07:46 Dose: 5 mg Aspirin (Aspirin 325 Mg Tablet) 325 mg PO DAILY NATHAN Last Admin: 04/03/24 07:46 Dose: 325 mg Atorvastatin Calcium (Atorvastatin 40 Mg Tablet) 80 mg PO BEDTIME NATHAN Last Admin: 04/01/24 20:06 Dose: 80 mg Clopidogrel Bisulfate (Clopidogrel 75 Mg Tablet) 75 mg PO DAILY NATHAN Last Admin: 04/03/24 07:46 Dose: 75 mg Furosemide (Furosemide 10 Mg/Ml Sdv 4ml) 40 mg IVP Q24H NATHAN Last Admin: 04/02/24 11:19 Dose: 40 mg Fentanyl (Sublimaze) 1,000 mcg in 100 mls @ 0 mls/hr IV .Q0M NATHAN; Protocol Last Titration: 04/01/24 17:57 Dose: Infused Ceftriaxone Sodium 1,000 mg/ (Sodium Chloride) 50 mls @ 100 mls/hr IV Q12H NATHAN; Protocol Last Infusion: 04/03/24 05:48 Dose: Infused Azithromycin 500 mg/ Sodium (Chloride) 250 mls @ 250 mls/hr IV Q24H NATHAN; Protocol Last Infusion: 04/02/24 20:46 Dose: Infused norepinephrine (Levophed) 4 mg in 250 mls @ 0 mls/hr IV .Q0M NATHAN; Protocol Last Titration: 04/01/24 17:58 Dose: Infused Dexmedetomidine/Sodium Chloride (Precedex) 400 mcg in 100 mls @ 0 mls/hr IV .Q0M [facility]; Protocol Last Titration: 04/01/24 17:57 Dose: Infused Propofol (Diprivan) 1,000 mg in 100 mls @ 0 mls/hr IV .Q0M [facility]; Protocol Last Titration: 04/01/24 17:56 Dose: Infused Lanolin (Lanolin Oint 7 Gm) 1 applic TOPICAL PRN PRN PRN Reason: DRYNESS Last Admin: 04/02/24 21:02 Dose: 1 applic Metolazone (Metolazone 5 Mg Tablet) 5 mg PO DAILY [facility] Last Admin: 04/03/24 12:43 Dose: 5 mg Metoprolol Tartrate (Metoprolol Tartrate 25 Mg Tablet) 25 mg PO BID@0900,2100 [facility] Last Admin: 04/03/24 07:46 Dose: 25 mg Ondansetron HCl (Ondansetron 2 Mg/Ml Sdv 2 Ml) 4 mg IVP Q6H PRN PRN Reason: NAUSEA AND VOMITING Last Admin: 04/03/24 03:30 Dose: 4 mg Potassium Chloride (Potassium Chloride Er 20 Meq Tablet) 40 meq PO DAILY [facility] Last Admin: 04/02/24 08:26 Dose: 40 meq Senna/Docusate Sodium (Sennosides-Docusate Tablet) 1 tab PO DAILY [facility] Last Admin: 04/02/24 08:26 Dose: 1 tab Vitals/I&O/Wt Last Vital Signs Temp 97.3 F L 04/10/24 11:47 Pulse 85 04/10/24 13:57 Resp 16 04/10/24 13:57 BP 115/58 04/10/24 11:47 Pulse Ox 100 04/10/24 13:57 O2 Del Method Nasal Cannula 04/10/24 13:57 O2 Flow Rate 2 04/10/24 13:57 FiO2 40 04/07/24 15:10 04/09/24 04/10/24 04/10/24 22:59 06:59 14:59 Intake Total 50 / 580 100 / 100 Output Total 1300 / 2600 250 / 2850 1050 / 1050 Balance -1250 / -2020 -250 / -2270 -950 / -950 Weight last 48 hrs Weight 140 lb 4 oz Weight 145 lb 4 oz Weight 148 lb 8 oz Physical Exam Narrative: PHYSICAL EXAM: General: Sitting in bed-in mild respiratory distress HEENT:NCAT, PERRLA, EOMI Neck: Supple Lungs: Improved breath sounds right lower lung zone; reduced left lower lung zone breath sounds Heart: s1/s2, RRR Abd: soft, NT, ND, BS + Normoactive Extremities: No edema [employer] ECOLOGIST: AAO x 3; no gross FND SKIN: no rash Data 04/10/24 04:02 04/10/24 04:02 Other Labs: Radiology Impressions Lumbar Spine CT 04/06/24 12:31 IMPRESSION: 1. Degenerative disc disease and spondylosis. See individual levels above for more complete description. 2. There is mild central canal stenosis at L3-L4 and kuel-[id number]-[id number] central canal stenosis at L4-L5. There is egdg-ps-dzkaovln left foraminal stenosis at L4-L5 and vpyv-gy-maetkdzu right and moderate left foraminal stenosis at L5-S1. 3. There is mild stenosis of the superior aspect of both lateral recesses at L5-S1. Next lines 4. Further evaluation is recommended with MRI as it more sensitive to evaluate the discs and nerve roots than CT 4. Bilateral pleural effusions, the right appears at least partially organized. Size of these effusions cannot be determined from this study next lines 5. Some free fluid in the pelvis Hip/Pelvis X-Ray 04/06/24 13:21 IMPRESSION: 1. Degenerative changes left hip and in the included portions of the lumbar spine 2. No fracture detected. Knee X-Ray 04/06/24 13:21 IMPRESSION: 1. Degenerative changes with joint space narrowing and osteophyte formation 2. Negative for acute fracture. Chest X-Ray 04/10/24 11:59 IMPRESSION: 1. Moderate-sized LEFT pleural effusion with compressive atelectasis of the LEFT lower lobe. There is also some atelectasis in the lingula. Overall, no significant change since the last exam. Laboratory Results WBC 17.06 10^3/uL (3.29-11.43) H 04/10/24 04:02 Corrected WBC Cancelled 04/09/24 13:00 RBC 3.63 10^6/uL (3.85-5.65) L 04/10/24 04:02 Hgb 9.90 g/dL (11.27-16.99) L 04/10/24 04:02 Hct 31.8 % (36-47) L 04/10/24 04:02 MCV 87.6 fl (85-98) 04/10/24 04:02 MCH 27.3 pg (27-33) 04/10/24 04:02 MCHC 31.1 g/dL (30-55) 04/10/24 04:02 RDW 17.1 % (12.1-15.1) H 04/10/24 04:02 Plt Count 288 10^3/cmm (157-399) 04/10/24 04:02 MPV 9.7 fL (7.4-10.4) 04/10/24 04:02 Neut % (Auto) 87.6 % 04/10/24 04:02 Lymph % (Auto) 3.0 % 04/10/24 04:02 Ford % (Auto) 6.4 % 04/10/24 04:02 Eos % (Auto) 1.7 % 04/10/24 04:02 Baso % (Auto) 0.4 % 04/10/24 04:02 Neut # (Auto) 14.94 10^3/uL (1.8-7.7) H 04/10/24 04:02 Lymph # (Auto) 0.5 10^3/uL (0.8-4.8) L 04/10/24 04:02 Ford # (Auto) 1.1 10^3/uL (0.2-0.9) H 04/10/24 04:02 Eos # (Auto) 0.3 10^3/uL (0.0-0.8) 04/10/24 04:02 Baso # (Auto) 0.1 10^3/uL (0.0-0.1) 04/10/24 04:02 Nucleated RBC % (auto) 0 % 04/10/24 04:02 Total Counted 100 (0-100) 04/09/24 16:33 Atypical Lymphs % 0.0 % (0-5) 04/09/24 16:33 Absolute Neutrophils 19.3 10^3/cmm (1.4-6.5) H 04/09/24 16:33 Segmented Neutrophils 91 % 04/09/24 16:33 Abs Segm Neuts (Man) 18.9 10/cmm (1.6-7.1) H 04/09/24 16:33 Band Neutrophils 2.0 % 04/09/24 16:33 Abs Band Neuts (Man) 0.4 10^3/cmm (0.0-1.2) 04/09/24 16: Absolute Lymphocytes 1.2 10^3/cmm (1.2-3.4) 04/09/24 16:33 Lymphocytes (Manual) 6 % 04/09/24 16: Monocytes (Manual) 1.0 % 04/09/24 16: Absolute Monocytes 0.2 10^3/cmm (0.1-0.6) 04/09/24 16: Eosinophils (Manual) 0 % 04/09/24: Absolute Eosinophils 0.0 10^3/cmm (0.0-0.7) 04/09/24 16: Basophils (Manual) 0.0 % 04/09/24: Absolute Basophils 0.0 10^3/cmm (0.0-0.2) 04/09/24 16:33 Metamyelocytes Cancelled 04/09/24 13:00 Myelocytes Cancelled 04/09/24 13:00 Promyelocytes Cancelled 04/09/24 13:00 Nucleated RBCs Cancelled 04/09/24 13:00 Nucleated RBCs # 0.0 /100WBC 04/10/24 04:02 Differential Comment Yes 04/09/24 13:00 Pathologist Review Cancelled 04/09/24 13:00 Hypersegmented Polys Cancelled 04/09/24 13:00 Blast Cells Cancelled 04/09/24 13:00 Smudge Cells Cancelled 04/09/24 13:00 Toxic Granulation Cancelled 04/09/24 13:00 Toxic Vacuolation Cancelled 04/09/24 13:00 Dohle Bodies Cancelled 04/09/24 13:00 Catherine Rods Cancelled 04/09/24 13:00 Platelet Estimate Normal (Normal) 04/09/24 16:33 Giant Platelets Trace 04/09/24 16:33 Polychromasia Cancelled 04/09/24 13:00 Hypochromasia Cancelled 04/09/24 13:00 Poikilocytosis Cancelled 04/09/24 13:00 Basophilic Stippling Cancelled 04/09/24 13:00 Anisocytosis 1+ H 04/09/24 16:33 Microcytosis Cancelled 04/09/24 13:00 Macrocytosis Trace 04/09/24 16:33 Spherocytes Cancelled 04/09/24 13:00 Sickle Cells Cancelled 04/09/24 13:00 Target Cells Cancelled 04/09/24 13:00 Tear Drop Cells Cancelled 04/09/24 13:00 Ovalocytes Cancelled 04/09/24 13:00 Stomatocytes Cancelled 04/09/24 13:00 Helmet Cells Cancelled 04/09/24 13:00 Caballero-Downing Bodies Cancelled 04/09/24 13:00 Costa Cells Cancelled 04/09/24 13:00 Crenated Cell Cancelled 04/09/24 13:00 Acanthocytes (Spur) Cancelled 04/09/24 13:00 Rouleaux Cancelled 04/09/24 13:00 Schistocytes Cancelled 04/09/24 13:00 RBC Morph Comment Cancelled 04/09/24 13:00 PT 23.40 SECONDS (12.1-14.9) H 03/27/24 13:53 INR 2.00 (0.8-1.2) H 03/27/24 13:53 APTT 38.0 SECONDS (23.9-36.7) H 03/28/24 04:16 D-Dimer 2.63 ug/mLFEU (0-0.59) H 04/06/24 10:43 Specimen Type Arterial 03/30/24 04:20 Sample Site Radial, right 03/30/24 04:20 ABG pH 7.50 (7.35-7.45) H 03/30/24 04:20 ABG pCO2 40.1 mmHg (35-45) 03/30/24 04:20 ABG pO2 97.4 mmHg (80.0-100.0) 03/30/24 04:20 ABG PO2/FiO2 Ratio 0 03/30/24 04:20 ABG HCO3 31.3 mmol/L (22-26) H 03/30/24 04:20 ABG O2 Saturation 99.5 03/30/24 04:20 ABG Base Excess 7.5 mmol/L (-2.0-2.0) H 03/30/24 04:20 Parish Test Pos 03/30/24 04:20 A-a O2 Gradient 13.1 mmHg (5-10) H 03/30/24 04:20 Hematocrit 32.9 % (37-47) L 03/30/24 04:20 Hgb O2 Saturation 97.4 % (95-100) 03/30/24 04:20 Carboxyhemoglobin 1.8 %THgb (0.4-20.1) 03/30/24 04:20 Methemoglobin 0.4 % (0.4-1.5) 03/30/24 04:20 Total Hemoglobin 10.7 g/dL (12-16) L 03/30/24 04:20 Sodium 140.0 mmol/L (131-143) 03/30/24 04:20 Potassium 3.0 mmol/L (3.5-5.0) L 03/30/24 04:20 Glucose 91.0 mg/dL (70-115) 03/30/24 04:20 Ionized Calcium 1.1 mmol/L (1.1-1.4) 03/30/24 04:20 O2 Delivery Device Vent 03/30/24 04:20 O2 Liters/Min 15.0 % 03/27/24 13:33 FiO2 35.0 % 03/30/24 04:20 Tidal Volume 0.35 03/30/24 04:20 PEEP 5.0 cmH20 03/30/24 04:20 Grader Green Meat ID Deshawn 03/30/24 04:20 Sodium 141 mmol/L (136-145) 04/10/24 04:02 Potassium 3.8 mmol/L (3.5-5.1) 04/10/24 04:02 Chloride 99 mmol/L (98-107) 04/10/24 04:02 Carbon Dioxide 35 mmol/L (22-29) H 04/10/24 04:02 Anion Gap 10.8 (5-19) 04/10/24 04:02 BUN 38 mg/dL (8-23) H 04/10/24 04:02 Creatinine 0.8 mg/dL (0.5-0.9) 04/10/24 04:02 GFR Calculation Not Reportable 04/10/24 04:02 Glucose 136 mg/dL (65-115) H 04/10/24 04:02 Calculated Osmolality 303 mOsm/kg (285-295) H 04/10/24 04:02 Lactic Acid 3.0 mmol/L (0.5-2.2) H 03/27/24 13:53 Lactic Acid (Sepsis) 1.4 mmol/L (0.5-2.2) 03/27/24 21:58 Calcium 9.2 mg/dL (8.5-10.5) 04/10/24 04:02 Magnesium 2.5 mg/dL (1.7-2.3) H 04/05/24 06:59 Total Bilirubin 1.2 mg/dL (0.15-1.2) 04/10/24 04:02 AST 17 U/L (0-32) 04/10/24 04:02 ALT 19 U/L (0-33) 04/10/24 04:02 Alkaline Phosphatase 62 U/L (35-105) 04/10/24 04:02 Troponin T Baseline 42 ng/L (0-10) H 04/03/24 02:50 Troponin T 120 Minute 39.76 ng/L (0-10) H 04/03/24 05:05 Delta Troponin T -2.24 ABS# (0-10) L 04/03/24 05:05 Troponin T Hi Sens 6Hr 44.70 ng/L (0-10) H 04/03/24 08:43 Troponin T Hi Sens 6Hr Delta 2.70 ng/L (0-12) 04/03/24 08:43 C-React Prot High Sens 12.900 mg/dL (0.0-0.3) H 04/06/24 02:20 NT-Pro-B Natriuret Pep 1703 pg/mL (0-450) H 03/27/24 13:53 Total Protein 6.0 g/dL (6.6-8.7) L 04/10/24 04:02 Albumin 3.0 g/dL (3.5-5.2) L 04/10/24 04:02 Globulin 3.0 g/dL (1.3-4.6) 04/10/24 04:02 Procalcitonin 0.30 ng/mL (0-0.5) 04/06/24 02:20 Urine Color Yellow (Yellow) 04/06/24 11:20 Urine Appearance Clear (CLEAR) 04/06/24 11:20 Urine pH 5 (5-7) 04/06/24 11:20 Ur Specific [place] 1.005 (1.005-1.030) 04/06/24 11:20 Urine Protein Neg (Negative) 04/06/24 11:20 Urine Glucose (UA) Norm (Normal) 04/06/24 11:20 Urine Ketones Negative (Negative) 04/06/24 11:20 Urine Blood 3+ (Negative) H 04/06/24 11:20 Urine Nitrate Negative (Negative) 04/06/24 11:20 Urine Bilirubin Neg (Negative) 04/06/24 11:20 Urine Urobilinogen Neg mg/dL (Negative) 04/06/24 11:20 Ur Leukocyte Esterase Negative (Negative) 04/06/24 11:20 Urine RBC 25-40 /hpf (0-2) H 04/06/24 11:20 Urine WBC None /hpf (0-5) 04/06/24 11:20 Ur Squamous Epith Cells 0-4 /hpf (0-5) H 04/06/24 11:20 Amorphous Sediment Not Reportable 04/06/24 11:20 Urine Bacteria None /hpf (NONE) 04/06/24 11:20 Urine Yeast 2+ /hpf H 04/06/24 11:20 Fluid Color Red 04/09/24 13:00 Fluid Appearance Cloudy 04/09/24 13:00 Fluid Specific Grav 1.020 04/09/24 13:00 Fluid pH 8.0 04/09/24 13:00 Fluid WBC 310 /uL 04/09/24 13:00 Fluid RBC 471.000 10^3/uL 04/09/24 13:00 Fld Polynuclear WBCs # 0.095 04/09/24 13:00 Fld Polynuclear WBCs % 30.600 % 04/09/24 13:00 Fl Mononucl WBCs #(Auto) 0.215 04/09/24 13:00 Fl Mononuclear % Auto 69.400 % 04/09/24 13:00 Fld Crystal Laterality Right pleural fluid 04/09/24 13:00 Fluid Glucose 200.0 mg/dL 04/09/24 13:00 Fluid Albumin 1.8 g/dL 04/09/24 13:00 Fluid LDH 244 U/L 04/09/24 13:00 Fluid Alk Phosphatase 21 IU/L 04/09/24 13:00 Fluid Cholesterol 25 mg/dL (0-200) 04/02/24 18:16 Fluid Triglycerides 21 mg/dL (0-150) 04/02/24 18:16 Fluid Uric Acid 13 mg/dL 04/02/24 18:16 Peritoneal Amylase 17 U/L 04/02/24 18:16 Pleural Total Protein 2.9 g/dL 04/09/24 13:00 Pleural Amylase 17 U/L 04/02/24 18:16 Digoxin 2.4 ng/mL (0.6-1.2) H* 04/09/24 03:38 C. difficile (PCR) Negative (Negative) 04/04/24 14:15 MRSA (PCR) Not detected (NOT DETECTED) 04/06/24 11:07 Blood Type A Negative 04/07/24 10:38 Rho(D) Type Rh negative 04/07/24 10:38 Antibody Screen Negative 04/07/24 10:38 Crossmatch See Detail 04/07/24 10:38 Micro: Microbiology 04/09/24 13:00 Gram Stain - Final Pleural Fluid 04/02/24 18:16 Gram Stain - Final Pleural Fluid Anaerobic Culture - Final Body Fluid Culture - Final 04/06/24 11:20 Urine Culture - Final Urine,Clean Catch A&P Assessment and plan (1) Hemothorax: Patient had moderate to severe bilateral pleural effusion with right greater than left Patient was on 30% FiO2 and was extubated 04/01/2024 to 3 L supplemental oxygen; over next 36 hours-patient became more dyspneic and her oxygen requirements gradually went up and she was requiring BiPAP while in stepdown unit Bedside ultrasound showed large right pleural effusion despite normal EF on post PCI echocardiogram as well as diuretics; Patient was on Plavix for her RCA PCI drug-eluting stent placed to 03/27/2024-which we could not hold off; in view of impending respiratory failure-proceeded with therapeutic thoracentesis on 04/02/2024 and it drained 2 L of straw-colored fluid. There is oozing of blood from thoracentesis site which required pressure bandages. Over the next 5 days-there has been a gradual drop in H&H to 7.4/23 and she required 1 unit PRBC transfusion. Fluid analysis showed transudative effusion. We continued aggressive diuresis and albumin supplementation. However gradually patient began to have conversational dyspnea despite being on same 3 L supplemental oxygen and there has been worsening leukocytosis bedside ultrasound 04/09/2024 showed recurrent large right pleural effusion and persistent moderate left pleural effusion. Hence repeated a therapeutic thoracentesis on right pleural effusion to rule out empyema/hemothorax; this procedure is again done while patient on Plavix due to his recent stent-drained 1500 cc dark maroon-colored bloody fluid.-Fluid is lymphocyte predominant exudative; normal glucose, WBC 310-less likely empyema/parapneumonic effusion FiO2 down to 2 L since post to repeat right thoracentesis; H&H remained stable-for 24 hours Patient reported her breathing is better compared to prior to thoracentesis 24-hour chest x-ray did not show any recurrence of right pleural effusion; (2) Bilateral pleural effusion: Right pleural effusion-s/p thoracentesis on 04/02/2024 drained 2 L straw-colored fluid; repeat drainage 04/09/2024-drain 1.5 L bloody fluid-24 hours later H&H stable/chest x-ray did not show recurrence of right pleural effusion. Given her significant dyspnea and worsening oxygen requirements-I did right thoracentesis on 04/02/2024 despite patient being on Plavix and drained 2 L transudative straw-colored fluid likely secondary to her CHF/hypoalbuminemia. However over the next 5 days her H&H gradually declined and patient started having worsening dyspnea again-and I have to repeat right thoracentesis despite patient being on Plavix-drain 1.5 L bloody fluid. Her imaging as well as bedside ultrasound examinations showed persistent moderate left pleural effusion which has been stable; as patient is on baseline 2 L supplemental oxygen and does not appear to be in significant dyspnea-I will defer thoracentesis of left pleural effusion unless patient becomes symptomatic as patient is still on Plavix. (3) Acute respiratory failure: Secondary to fluid overload secondary to STEMI S/p stenting performed in RCA He currently on 3L supplemental oxygen (4) Congestive heart failure: Post stenting-echocardiogram EF 65% dilated LA with mitral regurg Switch her Lasix to 40 twice daily; added Diamox to 50 Mg p.o. daily; held metolazone (5) ACS (acute coronary syndrome): New LBBB on EKG during admission STEMI alert called Cardiac cath revealed extensive significant chronic disease in the proximal circumflex and 80% stenosis of proximal mid RCA, culprit for acute presentation. Subsequently Successful angioplasty of RCA was performed. Currently on ASA, PLAVIX Recent echo showed moderate to severe mitral regurgitation-possible complication after recent [place]--cardiology to evaluate for ALEXANDRA (6) Atrial fibrillation with RVR: Currently she is on amiodarone drip-heart rate-60 to 90 bpm in sinus rhythm-switched to p.o. amiodarone Held Eliquis 5 Mg p.o. twice daily due to drop in H&H Attestations Medical Necessity Statement*: Deferred to hospitalist Time Spent in Patient Care: Greater than 35 minutes (>than 50% of time spent in counselling and/or direct pt care on unit). Coding Level of Care Code Acute Code for [facility] Fwd Diagnoses Hemothorax J94.2 Bilateral pleural effusion J90 Acute respiratory failure J96.00 Congestive heart failure I50.9 ACS (acute coronary syndrome) I24.9 Atrial fibrillation with RVR I48.91 Time Spent (min) 53
[2024-04-10] MEDS: ondansetron 2 mg/ML SDV 2 mL 4 MG IVP (14:46)
[2024-04-10] MEDS: FUROsemide 40 mg Tablet PO (18:12)
[2024-04-10] MEDS: atorvastatin 40 mg Tablet 80 MG PO (21:09)
[2024-04-11] VITALS (18 sets, daily range): BP systolic 96–126; BP diastolic 50–65; PULSE 74–104; RESP 16–25; TEMP 36.4–36.8; O2SAT 90–100; BMI 25.5
[2024-04-11] MEDS: piperacillin-tazobactam 3.375 GM in sodium chloride 0.9% (plus) 50 ML IV ×4 (01:38→23:25)
[2024-04-11] MEDS: ipratropium 0.5 mg/2.5 mL Neb INHALATION ×4 (02:54→21:28)
[2024-04-11] MEDS: levalbuterol 0.63 mg/3 mL Neb 0.630000000000000004 MG INHALATION ×4 (02:54→21:28)
[2024-04-11 06:17] LABS: Basophils # 0.1 10^3/uL (0.0-0.1); Basophils % 0.3 %; Eosinophils # 0.5 10^3/uL (0.0-0.8); Lymphocytes # 0.8 10^3/uL (0.8-4.8); Lymphocytes % 5.4 %; Mean Corpuscular HGB Conc 31.3 g/dL (30-55); Mean Corpuscular Hemoglobin 27.1 pg (27-33); Mean Corpuscular Volume 86.7 fl (85-98); Mean Platelet Volume 9.7 fL (7.4-10.4); Monocytes % 6.2 %; Neutrophils # 13.03 10^3/uL (1.8-7.7); Neutrophils % 84.3 %; Nucleated Red Blood Cells % 0 %; Platelet Count 291 10^3/cmm (157-399); Red Blood Count 3.69 10^6/uL (3.85-5.65); Red Cell Distribution Width 16.7 % (12.1-15.1); White Blood Count 15.45 10^3/uL (3.29-11.43)
[2024-04-11 06:32] LABS: Alanine Aminotransferase 21 U/L (0-33); Albumin Level 2.9 g/dL (3.5-5.2); Alkaline Phosphatase 64 U/L (35-105); Anion Gap 13.9 (5-19); Aspartate Amino Transferase 17 U/L (0-32); Blood Urea Nitrogen 35 mg/dL (8-23); Calcium 8.6 mg/dL (8.5-10.5); Carbon Dioxide 35 mmol/L (22-29); Chloride 92 mmol/L (98-107); Creatinine Clr Calc Pharmacy 45.0403; Globulin 3.2 g/dL (1.3-4.6); Glucose 135 mg/dL (65-115); Osmolality Calculated 296 mOsm/kg (285-295); Sodium 138 mmol/L (136-145); Total Bilirubin 1.1 mg/dL (0.15-1.2); Total Protein 6.1 g/dL (6.6-8.7)
[2024-04-11 06:39] LABS: Potassium 2.9 mmol/L (3.5-5.1)
--- NOTE | 2024-04-11 07:57 | P.PN_ITS ---
Subjective 2 Subjective: Arielle العلي was admitted on the nearly 2 weeks ago with collapse at home, new left bundle branch block, pulmonary edema, respiratory failure requiring intubation. There was a suggestion of an acute myocardial infarction upon admission. She was taken to the catheterization laboratory and a right coronary artery stent was placed. Since then she has had recurrent pleural effusions requiring thoracentesis, persistent heart failure, volume overload, anemia among others. She previously was on a factor Xa inhibitor but that has been held secondary to bloody pleural effusions. Currently she is being diuresed with Lasix and Zaroxolyn. Over the last several days her diuresis has become more successful. This morning her potassium is 2.9. She is also on Plavix, statin, amiodarone, beta-pietro. She was found to have mitral valve prolapse with mitral regurgitation. She also has dyslipidemia. An echo was done on the which revealed normal ejection fraction. Repeat echo was done on the showing normal left ventricular function with 3-4+ eccentric mitral regurgitation, left atrial enlargement, severe pulmonary hypertension and pleural effusions. She has very slowly improved. When I saw her today she is sitting in a chair. She is awake and alert and conversant. She is in no distress. She has no pain. Vitals/I&O/Wt Last Vital Signs Temp 97.5 F L 04/11/24 07:56 Pulse 86 04/11/24 07:56 Resp 25 H 04/11/24 07:56 BP 96/58 04/11/24 07:56 Pulse Ox 100 04/11/24 07:56 O2 Del Method Nasal Cannula 04/11/24 07:56 O2 Flow Rate 2 04/11/24 02:56 FiO2 40 04/07/24 15:10 04/10/24 04/11/24 04/11/24 22:59 06:59 14:59 Intake Total 340 / 440 Output Total 950 / 2000 750 / 2750 Balance -950 / -1900 -410 / -2310 Weight last 48 hrs Weight 139 lb 9 oz Weight 140 lb 4 oz Physical Exam 2 Narrative: GENERAL: In general she is comfortable at rest HEENT: Exam within normal limits. NECK: Supple without jugular vein distention. The carotid upstroke is normal without bruits. BACK: Exam normal. LUNGS: Clear. Dullness to percussion both bases HEART: Irregular rate and rhythm ABDOMEN: Benign without organomegaly or tenderness. EXTREMITIES: No edema. NEUROLOGIC: Exam normal. SKIN: Unremarkable. Data 04/11/24 06:08 04/11/24 06:08 Micro: Microbiology 04/09/24 13:00 Gram Stain - Final Pleural Fluid Anaerobic Culture - Preliminary Body Fluid Culture - Preliminary A&P Assessment and plan (1) 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: (2) Atrial fibrillation with RVR: (3) New onset left bundle branch block (LBBB): (4) Congestive heart failure: (5) ACS (acute coronary syndrome): (6) Anxiety: (7) Transaminitis: (8) Anemia: (9) Hypoxic respiratory failure: (10) Bilateral pleural effusion: (11) Hypokalemia: (12) Dyslipidemia: Plan Replace potassium. Adjust diuretics. More activity. Physical therapy. Apparently there is tentative plan for transesophageal echo on Saturday to assess the mitral valve. If she goes home over the weekend this will be done as an outpatient. Otherwise, she remains relatively stable and is slowly improving. Attestations 2 Medical Necessity Statement*: Hospitalization for management of multiple acute problems. and High Time for a total of 50 minutes, includes reviewing past or interval history, examining/interviewing patient, counseling patient/family/other support, updating patient/family/other support, discussing plan of care with staff, communicating with other healthcare providers and documenting encounter Diagnoses 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 Atrial fibrillation with RVR I48.91 New onset left bundle branch block (LBBB) I44.7 Congestive heart failure I50.9 ACS (acute coronary syndrome) I24.9 Anxiety F41.9 Transaminitis R74.01 Anemia D64.9 Hypoxic respiratory failure J96.91 Bilateral pleural effusion J90 Hypokalemia E87.6 Dyslipidemia E78.5
[2024-04-11] MEDS: sennosides-docusate Tablet 1 TAB PO (08:09)
[2024-04-11] MEDS: amiodarone 200 mg Tablet PO (08:09)
[2024-04-11] MEDS: acetaZOLAMIDE 250 mg Tablet PO (08:10)
[2024-04-11] MEDS: clopidogrel 75 mg Tablet PO (08:10)
[2024-04-11] MEDS: pantoprazole DR 40 mg Tablet PO (08:10)
[2024-04-11] MEDS: potassium chloride ER 20 mEq Tablet PO ×2 (08:10→09:45)
[2024-04-11] MEDS: metoprolol tartrate 25 mg Tablet PO ×2 (08:11→21:03)
[2024-04-11] MEDS: FUROsemide 40 mg Tablet PO ×2 (08:11→16:10)
[2024-04-11] MEDS: budesonide 0.5 mg/2 mL Neb INHALATION ×2 (08:35→21:28)
[2024-04-11] MEDS: potassium chloride ER 20 mEq Tablet 80 MEQ PO (09:44)
[2024-04-11 11:16] LABS: Digoxin 0.9 ng/mL (0.6-1.2)
--- NOTE | 2024-04-11 13:14 | P.PN_ITS ---
Subjective 2 Subjective: No complaints overnight. Patient on examination seen sitting comfortably in the chair. Denies any nausea, pain, headache. States breathing is improving. Has remained hemodynamically stable and afebrile. Around 2.8 L urine output in last 24 hours. Vitals/I&O/Wt Last Vital Signs Temp 98.0 F 04/11/24 12:00 Pulse 98 04/11/24 12:00 Resp 18 04/11/24 12:00 BP 99/62 04/11/24 12:00 Pulse Ox 99 04/11/24 12:00 O2 Del Method Nasal Cannula 04/11/24 12:00 O2 Flow Rate 2 04/11/24 08:00 FiO2 40 04/07/24 15:10 04/10/24 04/11/24 04/11/24 22:59 06:59 14:59 Intake Total 340 / 440 240 / 240 Output Total 950 / 2000 750 / 2750 Balance -950 / -1900 -410 / -2310 240 / 240 Weight last 48 hrs Weight 63.304 kg Weight 63.616 kg Physical Exam 2 Narrative: General: No acute distress, AO x3, frail, chronically sick appearing on nasal cannula HEENT: PERRLA, pupils bilaterally equal and reactive Chest: Bilateral bronchial breath sounds all over lung khan, decreased air entry bilaterally in lower zone, occasional rhonchi CVS: S1-S2 regular, soft pansystolic murmur fourth intercostal retrosternal space radiating to anterior pericardium and apex, no tachycardia, no gallops, no rubs Abdomen: Soft, nontender, no organomegaly, bowel sounds present Neuro: No focal deficits, no facial deformity, AO x3, right foot drop Data 04/11/24 06:08 04/11/24 06:08 Micro: Microbiology 04/09/24 13:00 Gram Stain - Final Pleural Fluid Anaerobic Culture - Preliminary Body Fluid Culture - Preliminary A&P Assessment and plan (1) Acute respiratory failure: Resolved. Extubated on 04/01. Respiratory failure most likely in setting of diastolic congestive heart failure leading to bilateral pleural effusion along with possibility of pneumonia. Cannot rule out aspiration pneumonia. Continues to have good urine output. Overall 6.5 L negative now since admission. Continue with oral Lasix 40 mg twice daily along with acetazolamide to 50 mg oral daily. Monitor for contraction alkalosis. Hold off on metolazone for now. Has severe hypokalemia today with potassium down to 2.9. Repleted with 100 mg of oral potassium. Repeat BMP in evening. Wean oxygen supplementation keeping saturation over 90%. Depending on clinical scenario over the weekend we will plan for left thoracentesis. Plan for ALEXANDRA on Saturday for evaluation of mitral regurgitation. Leukocytosis most likely reactionary. Continues to remain stable. Patient has remained afebrile. MRSA negative so vancomycin was discontinued. Continue Zosyn to finish 7-day course. Last dose on 04/11. Patient has finished a course of 3 days of azithromycin for atypical coverage. Appreciate speech evaluation later during admission. Diet change as per modified barium swallow to dysphagia level 6. Aggressive pulmonary toilet I-S and Acapella when possible. Out of bed to chair. Pulmicort twice daily, ipratropium, Xopenex every 6 hours. Strict input output charting, daily weights. (2) Congestive heart failure: Appreciate limited echocardiogram results from 04/06 consistent with eccentric MR. Will discuss with cardiology further regarding mitral valve repair. Treatment as above. (3) Pleural effusion: Simple fluid collection as per pulmonary team on lung ultrasound. For now continue to hold Eliquis for possible plan of thoracentesis. Thoracentesis earlier in the admission showed transudative collection. Pulmonary team on board. (4) ACS (acute coronary syndrome): Appreciate cardiology assistance. Post PCI to RCA. Does have residual moderate to severe disease in LCx and moderate LAD disease. Plan for outpatient stress test to assess for ischemia. Continue with Plavix 75 mg daily, metoprolol 25 mg twice daily, atorvastatin 40 mg daily. Plan to restart Eliquis after left-sided thoracentesis. No active chest pain. Appreciate recent A1c, lipid panel. (5) Atrial fibrillation with RVR: Heart rate better controlled. Repeat digoxin levels today. If normal will start on oral digoxin 125 mcg oral daily. Eliquis on hold as above. Discussed in detail with the patient for possibly switching from Eliquis to dual antiplatelet therapy given concerns for bleeding. Discussed about risk of stroke in setting of baseline atrial fibrillation. Patient states she does not want to have a stroke going forward and she is okay with risk of bleeding. She wants to continue Eliquis. Will restart Eliquis after thoracentesis. She is agreeable for the same. Switch to amiodarone 200 mg oral daily. Patient has finished a 7-day course of twice daily dosing. Continue with metoprolol 25 mg twice daily. Unfortunately not able to uptitrate metoprolol because of occasional soft blood pressures (6) Foot drop, right: As per patient and new finding. Started on 5 days ago. Appreciate physical therapy evaluation. Appreciate CT lumbar, hip x-rays. Appreciate orthopedic surgery recommendations. Appreciate EMG results. Concerning for lumbar radiculopathy. Continue with physical therapy. 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 Hemoglobin stable for now. Overall 2 units of blood transfusion during hospitalization. Monitor hemoglobin daily for now. Protonix IV twice daily. Check stool for occult blood. (9) Shock: Resolved. Monitor blood pressures. Goal blood pressure less than 140/90 mmhg with mean over 65. (10) Physical deconditioning: (11) Difficult ventilator weaning: Plan CODE STATUS: DNR/DNI. Cardiac diet Protonix 40 mg IV twice daily Holding Eliquis as above. Discharge planning: Patient has had a prolonged hospitalization and is postextubation on 0 04/01. She continues to be severely deconditioned and episodes of respiratory distress in setting of congestive heart failure. Patient will need extensive physical and pulmonary rehab going forward. She would benefit from LTAC. Case management alerted. 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
[2024-04-11] MEDS: digoxin 125 mcg Tablet PO (13:41)
[2024-04-11 15:51] LABS: Anion Gap 13.5 (5-19); Blood Urea Nitrogen 39 mg/dL (8-23); Calcium 8.9 mg/dL (8.5-10.5); Carbon Dioxide 35 mmol/L (22-29); Chloride 92 mmol/L (98-107); Glucose 232 mg/dL (65-115); Osmolality Calculated 301 mOsm/kg (285-295); Potassium 3.5 mmol/L (3.5-5.1); Sodium 137 mmol/L (136-145)
[2024-04-11 15:56] LABS: Creatinine Clr Calc Pharmacy 40.5363
[2024-04-11] MEDS: atorvastatin 40 mg Tablet 80 MG PO (21:03)
[2024-04-11] MEDS: ondansetron 2 mg/ML SDV 2 mL 4 MG IVP (23:25)
[2024-04-12] VITALS (31 sets, daily range): BP systolic 96–136; BP diastolic 49–70; PULSE 68–99; RESP 15–35; TEMP 36.5–37.1; O2SAT 92–100; BMI 25.1
[2024-04-12 04:09] LABS: Basophils % 0.2 %; Eosinophils # 0.3 10^3/uL (0.0-0.8); Eosinophils % 2.3 %; Hematocrit 31.4 % (36-47); Lymphocytes # 0.7 10^3/uL (0.8-4.8); Lymphocytes % 4.7 %; Mean Corpuscular HGB Conc 30.6 g/dL (30-55); Mean Corpuscular Hemoglobin 26.9 pg (27-33); Mean Platelet Volume 9.6 fL (7.4-10.4); Neutrophils # 12.13 10^3/uL (1.8-7.7); Neutrophils % 84.7 %; Nucleated Red Blood Cells % 0 %; Platelet Count 290 10^3/cmm (157-399); Red Blood Count 3.57 10^6/uL (3.85-5.65); Red Cell Distribution Width 16.8 % (12.1-15.1); White Blood Count 14.33 10^3/uL (3.29-11.43)
[2024-04-12 04:31] LABS: Alanine Aminotransferase 23 U/L (0-33); Albumin Level 2.9 g/dL (3.5-5.2); Alkaline Phosphatase 63 U/L (35-105); Anion Gap 13.2 (5-19); Aspartate Amino Transferase 14 U/L (0-32); Blood Urea Nitrogen 37 mg/dL (8-23); Calcium 8.5 mg/dL (8.5-10.5); Carbon Dioxide 34 mmol/L (22-29); Chloride 95 mmol/L (98-107); Creatinine Clr Calc Pharmacy 40.5363; Glucose 152 mg/dL (65-115); Osmolality Calculated 300 mOsm/kg (285-295); Potassium 3.2 mmol/L (3.5-5.1); Sodium 139 mmol/L (136-145); Total Bilirubin 0.8 mg/dL (0.15-1.2); Total Protein 5.9 g/dL (6.6-8.7)
[2024-04-12] MEDS: budesonide 0.5 mg/2 mL Neb INHALATION ×2 (07:44→21:24)
[2024-04-12] MEDS: levalbuterol 0.63 mg/3 mL Neb 0.630000000000000004 MG INHALATION ×2 (07:44→21:24)
[2024-04-12] MEDS: ipratropium 0.5 mg/2.5 mL Neb INHALATION ×2 (07:44→21:24)
[2024-04-12] MEDS: metoprolol tartrate 25 mg Tablet PO ×2 (08:28→20:44)
[2024-04-12] MEDS: sennosides-docusate Tablet 1 TAB PO (08:28)
[2024-04-12] MEDS: FUROsemide 40 mg Tablet PO ×2 (08:28→16:37)
[2024-04-12] MEDS: amiodarone 200 mg Tablet PO (08:28)
[2024-04-12] MEDS: digoxin 125 mcg Tablet PO (08:28)
[2024-04-12] MEDS: pantoprazole DR 40 mg Tablet PO (08:28)
[2024-04-12] MEDS: clopidogrel 75 mg Tablet PO (08:29)
[2024-04-12] MEDS: potassium chloride ER 20 mEq Tablet PO (08:29)
[2024-04-12] MEDS: acetaZOLAMIDE 250 mg Tablet PO (08:29)
--- NOTE | 2024-04-12 09:00 | PC.NURSE ---
notified [place] [facility] attendant Informed Dr. Gardiner that pt is not on Aspirin. On Plavix but Eliquis was still on hold.
--- NOTE | 2024-04-12 09:08 | P.PN_ITS ---
Subjective 2 Subjective: Arielle continues to slowly improve. She continues to diurese well. I note she is not on aspirin. She has an appetite but very little. Last chest x-ray 2 days ago showed stable left pleural effusion. Yesterday 2350 mL of urine output with a negative fluid balance of over 2 L. Vitals/I&O/Wt Last Vital Signs Temp 97.7 F 04/12/24 00:40 Pulse 91 04/12/24 08:31 Resp 22 H 04/12/24 08:31 BP 110/50 04/12/24 08:31 Pulse Ox 92 04/12/24 08:31 O2 Del Method Nasal Cannula 04/12/24 08:31 O2 Flow Rate 1 04/12/24 08:31 FiO2 40 04/07/24 15:10 04/11/24 04/12/24 04/12/24 22:59 06:59 14:59 Intake Total 100 / 340 50 / 390 118 / 118 Output Total 2100 / 2100 250 / 250 Balance 100 / 340 -2050 / -1710 -132 / -132 Weight last 48 hrs Weight 137 lb 4 oz Weight 139 lb 9 oz Physical Exam 2 Narrative: GENERAL: In general she is comfortable at rest HEENT: Exam within normal limits. NECK: Supple without jugular vein distention. The carotid upstroke is normal without bruits. BACK: Exam normal. LUNGS: Clear. HEART: Regular rate and rhythm. ABDOMEN: Benign without organomegaly or tenderness. EXTREMITIES: No edema. NEUROLOGIC: Exam normal. SKIN: Unremarkable. 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 I will add low-dose aspirin for now. It can be discontinued if the anticoagulant is put back in place. I would recommend discontinuing the metolazone or at least cutting it back some. Her serum bicarbonate is up to 34. She will soon be over diuresed. Attestations 2 Medical Necessity Statement*: Continued hospitalization for management of multiple problems. 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
[2024-04-12] MEDS: aspirin 81 mg Chew Tablet PO (10:53)
[2024-04-12] MEDS: potassium chloride ER 20 mEq Tablet 40 MEQ PO (10:55)
--- NOTE | 2024-04-12 12:05 | P.PN_ITS ---
Subjective 2 Subjective: No acute events overnight. Patient sitting up in chair today. States slept in bed last night. Head of bed elevated up to 30 degrees. Family at bedside. States overall feeling better. Denies any nausea, pain, headache. Appetite remains limited. Able to drink her protein shakes. Down to 2 L of oxygen supplementation. Vitals/I&O/Wt Last Vital Signs Temp 97.7 F 04/12/24 00:40 Pulse 91 04/12/24 08:31 Resp 22 H 04/12/24 08:31 BP 110/50 04/12/24 08:31 Pulse Ox 92 04/12/24 08:31 O2 Del Method Nasal Cannula 04/12/24 08:31 O2 Flow Rate 1 04/12/24 08:31 FiO2 40 04/07/24 15:10 04/11/24 04/12/24 04/12/24 22:59 06:59 14:59 Intake Total 100 / 340 50 / 390 354 / 354 Output Total 2100 / 2100 250 / 250 Balance 100 / 340 -2050 / -1710 104 / 104 Weight last 48 hrs Weight 62.256 kg Weight 63.304 kg Physical Exam 2 Narrative: General: No acute distress, AO x3, frail, chronically sick appearing on nasal cannula HEENT: PERRLA, pupils bilaterally equal and reactive Chest: Bilateral bronchial breath sounds all over lung khan, decreased air entry bilaterally in lower zone, occasional rhonchi CVS: S1-S2 regular, soft pansystolic murmur fourth intercostal retrosternal space radiating to anterior pericardium and apex, no tachycardia, no gallops, no rubs Abdomen: Soft, nontender, no organomegaly, bowel sounds present Neuro: No focal deficits, no facial deformity, AO x3, right foot drop Data 04/12/24 03:45 04/12/24 03:45 Micro: Microbiology 04/09/24 13:00 Gram Stain - Final Pleural Fluid Anaerobic Culture - Preliminary Body Fluid Culture - Final A&P Assessment and plan (1) Acute respiratory failure: Resolved. Extubated on 04/01. Respiratory failure most likely in setting of diastolic congestive heart failure leading to bilateral pleural effusion along with possibility of pneumonia. Cannot rule out aspiration pneumonia. Continues to have good urine output. Overall 6.5 L negative now since admission. Continue with oral Lasix 40 mg twice daily along with acetazolamide to 50 mg oral daily. Monitor for contraction alkalosis. Hold off on metolazone for now. Has severe hypokalemia today with potassium down to 2.9. Repleted with 100 mg of oral potassium. Repeat BMP in evening. Wean oxygen supplementation keeping saturation over 90%. Depending on clinical scenario over the weekend we will plan for left thoracentesis. Plan for ALEXANDRA on Saturday for evaluation of mitral regurgitation. Leukocytosis most likely reactionary. Continues to remain stable. Patient has remained afebrile. MRSA negative so vancomycin was discontinued. Continue Zosyn to finish 7-day course. Last dose on 04/11. Patient has finished a course of 3 days of azithromycin for atypical coverage. Appreciate speech evaluation later during admission. Diet change as per modified barium swallow to dysphagia level 6. Aggressive pulmonary toilet I-S and Acapella when possible. Out of bed to chair. Pulmicort twice daily, ipratropium, Xopenex every 6 hours. Strict input output charting, daily weights. (2) Congestive heart failure: Appreciate limited echocardiogram results from 04/06 consistent with eccentric MR. Will discuss with cardiology further regarding mitral valve repair. Treatment as above. (3) Pleural effusion: Simple fluid collection as per pulmonary team on lung ultrasound. For now continue to hold Eliquis for possible plan of thoracentesis. Thoracentesis earlier in the admission showed transudative collection. Pulmonary team on board. (4) ACS (acute coronary syndrome): Appreciate cardiology assistance. Post PCI to RCA. Does have residual moderate to severe disease in LCx and moderate LAD disease. Plan for outpatient stress test to assess for ischemia. Continue with Plavix 75 mg daily, metoprolol 25 mg twice daily, atorvastatin 40 mg daily. Plan to restart Eliquis after left-sided thoracentesis. No active chest pain. Appreciate recent A1c, lipid panel. (5) Atrial fibrillation with RVR: Heart rate better controlled. Repeat digoxin levels today. If normal will start on oral digoxin 125 mcg oral daily. Eliquis on hold as above. Discussed in detail with the patient for possibly switching from Eliquis to dual antiplatelet therapy given concerns for bleeding. Discussed about risk of stroke in setting of baseline atrial fibrillation. Patient states she does not want to have a stroke going forward and she is okay with risk of bleeding. She wants to continue Eliquis. Will restart Eliquis after thoracentesis. She is agreeable for the same. Switch to amiodarone 200 mg oral daily. Patient has finished a 7-day course of twice daily dosing. Continue with metoprolol 25 mg twice daily. Unfortunately not able to uptitrate metoprolol because of occasional soft blood pressures (6) Foot drop, right: As per patient and new finding. Started on 5 days ago. Appreciate physical therapy evaluation. Appreciate CT lumbar, hip x-rays. Appreciate orthopedic surgery recommendations. Appreciate EMG results. Concerning for lumbar radiculopathy. Continue with physical therapy. 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 Hemoglobin stable for now. Overall 2 units of blood transfusion during hospitalization. Monitor hemoglobin daily for now. Protonix IV twice daily. Check stool for occult blood. (9) Shock: Resolved. Monitor blood pressures. Goal blood pressure less than 140/90 mmhg with mean over 65. (10) Physical deconditioning: (11) Difficult ventilator weaning: Plan CODE STATUS: DNR/DNI. Cardiac diet Protonix 40 mg IV twice daily Holding Eliquis as above. Plan for the day: Patient doing well. Continue with oral Lasix 40 mg twice daily and acetazolamide 250 mg oral daily. Contraction alkalosis improving. Metolazone has been withheld since 04/10. Continue current diuretics for now. Monitor BMP daily. Replace potassium with 40 mg additionally. Continue with fluid restriction. Heart rate stable. Continue with oral amiodarone 20 mg daily, metoprolol 25 mg twice daily and a new dose of digoxin 125 mcg daily. N.p.o. after midnight. Plan for ALEXANDRA tomorrow and a possible left-sided thoracentesis. Chest x-ray to be done in AM. Appreciate cardiology recommendations. Eliquis on hold. Started on aspirin for dual antiplatelet given recent PCI. Will discontinue aspirin after Eliquis is started. Discharge planning: Patient has had a prolonged hospitalization and is postextubation on 04/01. She continues to be severely deconditioned and episodes of respiratory distress in setting of congestive heart failure. Patient will need extensive physical and pulmonary rehab going forward. She would benefit from LTAC. Case management alerted. Care discussed in detail with patient's family at bedside. All the questions were answered. 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
--- NOTE | 2024-04-12 17:06 | PC.NURSE ---
medication wasted in pyxis Lasix 40 mg PO tablet fell on the floor upon opening from the packet. Wasted the pill and removed a new tablet.
[2024-04-12] MEDS: atorvastatin 40 mg Tablet 80 MG PO (20:43)
[2024-04-13] VITALS (34 sets, daily range): BP systolic 96–107; BP diastolic 43–59; PULSE 70–115; RESP 13–30; TEMP 36.4–36.9; O2SAT 91–100
--- NOTE | 2024-04-13 04:00 | XR_ITS ---
WS: [id number] XR chest 1V portable [id number] REASON FOR EXAM: pleural effusion FINDINGS: Compared to the previous examination of 04/10/2024, hazy reticular opacity of the right lower lung fie ld is unchanged. Opacification of the left lower hemithorax which appears to be due to consolidated l eft lower lung and likely left pleural effusion also is unchanged. No new chest findings are identified. XR/XR chest 1V portable [id number] IMPRESSION: Stable abnormal chest.
[2024-04-13 04:59] LABS: Basophils % 0.2 %; Eosinophils # 0.4 10^3/uL (0.0-0.8); Eosinophils % 2.9 %; Hematocrit 33.3 % (36-47); Lymphocytes # 1.1 10^3/uL (0.8-4.8); Lymphocytes % 8.4 %; Mean Corpuscular HGB Conc 30.6 g/dL (30-55); Mean Corpuscular Hemoglobin 26.8 pg (27-33); Mean Corpuscular Volume 87.4 fl (85-98); Mean Platelet Volume 9.9 fL (7.4-10.4); Monocytes # 0.8 10^3/uL (0.2-0.9); Monocytes % 6.2 %; Neutrophils # 10.73 10^3/uL (1.8-7.7); Neutrophils % 81.3 %; Nucleated Red Blood Cells % 0 %; Platelet Count 255 10^3/cmm (157-399); Red Blood Count 3.81 10^6/uL (3.85-5.65); Red Cell Distribution Width 16.8 % (12.1-15.1)
[2024-04-13 05:21] LABS: Alanine Aminotransferase 27 U/L (0-33); Albumin Level 3.2 g/dL (3.5-5.2); Alkaline Phosphatase 70 U/L (35-105); Anion Gap 12.5 (5-19); Aspartate Amino Transferase 19 U/L (0-32); Blood Urea Nitrogen 44 mg/dL (8-23); Calcium 8.3 mg/dL (8.5-10.5); Carbon Dioxide 35 mmol/L (22-29); Chloride 94 mmol/L (98-107); Globulin 3.1 g/dL (1.3-4.6); Glucose 133 mg/dL (65-115); Osmolality Calculated 299 mOsm/kg (285-295); Potassium 3.5 mmol/L (3.5-5.1); Sodium 138 mmol/L (136-145); Total Bilirubin 0.9 mg/dL (0.15-1.2); Total Protein 6.3 g/dL (6.6-8.7)
--- NOTE | 2024-04-13 07:17 | ANES.PREANE2 ---
Pre-Anesthetic Assessment Height/Weight: Height 1.57 m Weight 63.911 kg Temp Pulse Resp BP Pulse Ox O2 Del Method O2 Flow Rate 98.5 F 83 13 101/51 100 Nasal Cannula 1 04/13/24 04:00 04/13/24 05:16 04/13/24 04:00 04/13/24 04:00 04/13/24 04:00 04/13/24 04:00 04/13/24 04:00 FiO2 40 04/07/24 15:10 Operation Date: 03/27/24 14:00 Proposed Procedures p Percutaneous Coronary Intervention(Not Applicable) - Levar Gerard MD Pulmonary resp failure, extubated 04/01 on supplemental O2 via NC B/L pleural effusions CV/HEM Atrial Fibrillation, Coronary Artery Disease (recent stent placement < 30 days ago) and Congestive Heart Failure MVR echo CONCLUSIONS LV systolic function is normal with EF of 60-65% Severely dilated left atrium 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 #1 ea 03/05/22 03/27/24 Unknown Rx cam boot #1 ea 03/06/22 03/27/24 Unknown Rx albuterol sulfate 90 mcg/actuation 2 puff inhalation QID PRN 01/29/24 03/27/24 Unknown History aerosol inhaler Shortness Of Breath Or Wheezing calcium carbonate 500 mg PO QAM 01/29/24 03/27/24 03/09/24 History ondansetron 8 mg disintegrating 8 mg PO Q8H PRN nausea and 02/13/24 03/27/24 Unknown Rx tablet vomiting #30 tabs amiodarone 200 mg tablet 100 mg (1/2 x 200 mg) PO BID 30 03/03/24 03/27/24 03/09/24 Rx days #15 tabs apixaban 5 mg tablet (Eliquis) 5 mg PO BID #60 tabs 03/03/24 03/27/24 03/09/24 Rx furosemide 40 mg tablet (Lasix) 40 mg PO BID #60 tabs 03/03/24 03/27/24 03/09/24 Rx metoprolol tartrate 25 mg tablet 25 mg PO BID@0900,2100 #60 tabs 03/03/24 03/27/24 03/09/24 Rx ferrous gluconate 324 mg (38 mg 324 mg PO QAM 03/09/24 03/27/24 03/09/24 History iron) tablet potassium chloride 10 mEq 10 meq PO QAM #60 tabs 03/12/24 03/27/24 Unknown Rx tablet,extended release spironolactone 25 mg tablet 25 mg PO DAILY #30 tabs 03/13/24 03/27/24 Unknown Rx atorvastatin 40 mg tablet 40 mg PO BEDTIME 03/27/24 03/27/24 Unknown History Allergies Allergy/AdvReac Type Severity Reaction Status Date / Time No Known Allergies Allergy Verified 03/13/24 10:01 Current Medications Generic Name Dose Route Start Last Admin Trade Name Freq PRN Reason Stop Dose Admin Acetazolamide 250 mg 04/10/24 12:00 04/12/24 08:29 Acetazolamide 250 Mg Tablet PO 250 mg DAILY NATHAN Administration Amiodarone HCl 200 mg 04/12/24 09:00 04/12/24 08:28 Amiodarone 200 Mg Tablet PO 200 mg DAILY NATHAN Administration Aspirin 81 mg 04/12/24 09:15 04/12/24 10:53 Aspirin 81 Mg Chew Tablet PO 81 mg DAILY NATHAN Administration Atorvastatin Calcium 80 mg 03/27/24 21:00 04/12/24 20:43 Atorvastatin 40 Mg Tablet PO 80 mg BEDTIME NATHAN Administration Budesonide 0.5 mg 04/06/24 20:00 04/12/24 21:24 Budesonide 0.5 Mg/2 Ml Neb INHALATION 0.5 mg BID.RESPIRATORY NATHAN Administration Clopidogrel Bisulfate 75 mg 03/28/24 09:00 04/12/24 08:29 Clopidogrel 75 Mg Tablet PO 75 mg DAILY NATHAN Administration Digoxin 125 mcg 04/12/24 09:00 04/12/24 08:28 Digoxin 125 Mcg Tablet PO 125 mcg DAILY NATHAN Administration Furosemide 40 mg 04/10/24 16:00 04/12/24 16:37 Furosemide 40 Mg Tablet PO 40 mg BID@08,16 NATHAN Administration Ipratropium [place] 0.5 mg 04/06/24 14:00 04/13/24 02:45 Ipratropium 0.5 Mg/2.5 Ml Neb INHALATION Not Given Q6H.RESP NATHAN Lanolin 1 applic 04/02/24 19:23 04/02/24 21:02 Lanolin Oint 7 Gm TOPICAL 1 applic PRN PRN Administration DRYNESS Levalbuterol HCl 0.63 mg 04/06/24 14:00 04/13/24 02:45 Levalbuterol 0.63 Mg/3 Ml Neb INHALATION Not Given Q6H.RESP NATHAN Metolazone 5 mg 04/07/24 10:05 04/09/24 08:28 Metolazone 5 Mg Tablet PO 5 mg DAILY NATHAN Administration Metoprolol Tartrate 25 mg 04/06/24 10:00 04/12/24 20:44 Metoprolol Tartrate 25 Mg Tablet PO 25 mg BID@0900,2100 NATHAN Administration Ondansetron HCl 4 mg 04/03/24 02:50 04/11/24 23:25 Ondansetron 2 Mg/Ml Sdv 2 Ml IVP 4 mg Q6H PRN Administration NAUSEA AND VOMITING Pantoprazole Sodium 40 mg 04/05/24 13:57 04/12/24 08:[address] 40 Mg Tablet PO 40 mg DAILY NATHAN Administration Potassium Chloride 20 meq 04/11/24 09:00 04/12/24 08:29 Potassium Chloride Er 20 Meq Tablet PO 20 meq DAILY NATHAN Administration Senna/Docusate Sodium 1 tab 03/28/24 09:00 04/12/24 08:28 Sennosides-Docusate Tablet PO 1 tab DAILY NATHAN Administration Additional Medication Information Current Medications Acetaminophen (Acetaminophen 500 Mg Tablet) 500 mg PO Q4H PRN PRN Reason: fever Albuterol/Ipratropium (Ipratropium-Albuterol 3 Ml Neb) 3 ml INHALATION Q6H PRN PRN Reason: SHORTNESS OF BREATH Amiodarone HCl (Amiodarone 200 Mg Tablet) 400 mg PO BID [facility] Last Admin: 04/03/24 07:46 Dose: 400 mg Apixaban (Apixaban 5 Mg Tablet) 5 mg PO BID [facility] Last Admin: 04/03/24 07:46 Dose: 5 mg Aspirin (Aspirin 325 Mg Tablet) 325 mg PO DAILY [facility] Last Admin: 04/03/24 07:46 Dose: 325 mg Atorvastatin Calcium (Atorvastatin 40 Mg Tablet) 80 mg PO BEDTIME [facility] Last Admin: 04/01/24 20:06 Dose: 80 mg Clopidogrel Bisulfate (Clopidogrel 75 Mg Tablet) 75 mg PO DAILY [facility] Last Admin: 04/03/24 07:46 Dose: 75 mg Furosemide (Furosemide 10 Mg/Ml Sdv 4ml) 40 mg IVP Q24H NATHAN Last Admin: 04/02/24 11:19 Dose: 40 mg Fentanyl (Sublimaze) 1,000 mcg in 100 mls @ 0 mls/hr IV .Q0M NATHAN; Protocol Last Titration: 04/01/24 17:57 Dose: Infused Ceftriaxone Sodium 1,000 mg/ (Sodium Chloride) 50 mls @ 100 mls/hr IV Q12H NATHAN; Protocol Last Infusion: 04/03/24 05:48 Dose: Infused Azithromycin 500 mg/ Sodium (Chloride) 250 mls @ 250 mls/hr IV Q24H NATHAN; Protocol Last Infusion: 04/02/24 20:46 Dose: Infused norepinephrine (Levophed) 4 mg in 250 mls @ 0 mls/hr IV .Q0M NATHAN; Protocol Last Titration: 04/01/24 17:58 Dose: Infused Dexmedetomidine/Sodium Chloride (Precedex) 400 mcg in 100 mls @ 0 mls/hr IV .Q0M NATHAN; Protocol Last Titration: 04/01/24 17:57 Dose: Infused Propofol (Diprivan) 1,000 mg in 100 mls @ 0 mls/hr IV .Q0M NATHAN; Protocol Last Titration: 04/01/24 17:56 Dose: Infused Lanolin (Lanolin Oint 7 Gm) 1 applic TOPICAL PRN PRN PRN Reason: DRYNESS Last Admin: 04/02/24 21:02 Dose: 1 applic Metolazone (Metolazone 5 Mg Tablet) 5 mg PO DAILY [facility] Last Admin: 04/03/24 12:43 Dose: 5 mg Metoprolol Tartrate (Metoprolol Tartrate 25 Mg Tablet) 25 mg PO BID@0900,2100 [facility] Last Admin: 04/03/24 07:46 Dose: 25 mg Ondansetron HCl (Ondansetron 2 Mg/Ml Sdv 2 Ml) 4 mg IVP Q6H PRN PRN Reason: NAUSEA AND VOMITING Last Admin: 04/03/24 03:30 Dose: 4 mg Potassium Chloride (Potassium Chloride Er 20 Meq Tablet) 40 meq PO DAILY [facility] Last Admin: 04/02/24 08:26 Dose: 40 meq Senna/Docusate Sodium (Sennosides-Docusate Tablet) 1 tab PO DAILY NATHAN Last Admin: 04/02/24 08:26 Dose: 1 tab PFSH Anesthesia Medical History (Updated 04/11/24 @ 13:20 by Zion Buckner MD) Hypokalemia Dyslipidemia Bilateral pleural effusion Atrial fibrillation Diastolic congestive heart failure Emotional stress 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 Hypertension CHF (congestive heart failure) Diastolic Lisfranc's dislocation Fracture of third metatarsal bone of left foot Fracture of second metatarsal bone of left foot Nondisplaced fracture of first left metatarsal bone Closed left trimalleolar fracture Anxiety No pertinent past medical history Surgical History History of foot surgery Social History Smoking and tobacco/nicotine status: never used tobacco/nicotine Alcohol intake: never Substance/Drug Use: never Data Anesthesia 04/13/24 03:41 04/13/24 03:41 Short CBC 04/12/24 04/13/24 Range/Units 03:45 03:41 WBC 14.33 H 13.20 H (3.29-11.43) 10^3/uL Hgb 9.60 L 10.20 L (11.27-16.99) g/dL Hct 31.4 L 33.3 L (36-47) % MCV 88.0 87.4 (85-98) fl Plt Count 290 255 (157-399) 10^3/cmm Neut % (Auto) 84.7 81.3 % Neut # (Auto) 12.13 H 10.73 H (1.8-7.7) 10^3/uL BMP 04/11/24 04/12/24 04/13/24 15:11 03:45 03:41 Sodium 137 139 138 Potassium 3.5 3.2 L 3.5 Chloride 92 L 95 L 94 L Carbon Dioxide 35 H 34 H 35 H BUN 39 H 37 H 44 H Creatinine 1.0 H 1.0 H 1.0 H Glucose 232 H 152 H 133 H Calcium 8.9 8.5 8.3 L Liver Function 06/02/24 06/03/24 Range/Units 03:45 03:41 Total Bilirubin 0.8 0.9 (0.15-1.2) mg/dL AST 14 19 (0-32) U/L ALT 23 27 (0-33) U/L Alkaline Phosphatase 63 70 (35-105) U/L Albumin 2.9 L 3.2 L (3.5-5.2) g/dL Microbiology 04/09/24 13:00 Gram Stain - Final Pleural Fluid Anaerobic Culture - Preliminary Body Fluid Culture - Final Cardiac Studies: Echocardiogram 03/28/24 Echocardiogram Limited Views 04/07/24 Sestamibi Stress Test (Cardiology) 01/05/24
[2024-04-13] MEDS: ipratropium 0.5 mg/2.5 mL Neb INHALATION ×2 (07:37→14:25)
[2024-04-13] MEDS: levalbuterol 0.63 mg/3 mL Neb 0.630000000000000004 MG INHALATION ×2 (07:37→14:25)
[2024-04-13] MEDS: budesonide 0.5 mg/2 mL Neb INHALATION (07:37)
--- NOTE | 2024-04-13 07:39 | P.PN_ITS ---
Subjective 2 Subjective: Seen this morning, no acute distress, plan for ALEXANDRA today. Vitals/I&O/Wt Last Vital Signs Temp 97.9 F 04/13/24 07:21 Pulse 76 04/13/24 07:21 Resp 20 H 04/13/24 07:21 BP 97/45 04/13/24 07:21 Pulse Ox 97 04/13/24 07:21 O2 Del Method Room Air 04/13/24 07:21 O2 Flow Rate 1 04/13/24 04:00 FiO2 40 04/07/24 15:10 04/12/24 04/13/24 04/13/24 22:59 06:59 14:59 Intake Total 400 / 1191 Output Total 200 / 700 825 / 1525 Balance 200 / 491 -825 / -334 Weight last 48 hrs Weight 63.911 kg Weight 62.256 kg Physical Exam 2 Narrative: General: No acute distress, AO x3, frail, chronically sick appearing on nasal cannula HEENT: PERRLA, pupils bilaterally equal and reactive Chest: Bilateral bronchial breath sounds all over lung khan, decreased air entry bilaterally in lower zone, occasional rhonchi CVS: S1-S2 regular, soft pansystolic murmur fourth intercostal retrosternal space radiating to anterior pericardium and apex Abdomen: Soft, nontender, no organomegaly, bowel sounds present Neuro: AO x3, right foot drop Data 04/13/24 03:41 04/13/24 03:41 Micro: Microbiology 04/09/24 13:00 Gram Stain - Final Pleural Fluid Anaerobic Culture - Preliminary Body Fluid Culture - Final A&P Assessment and plan (1) Acute respiratory failure: Resolved. Extubated on 04/01. Respiratory failure most likely in setting of diastolic congestive heart failure leading to bilateral pleural effusion along with possibility of pneumonia. Cannot rule out aspiration pneumonia. Continues to have good urine output. Overall 6.5 L negative now since admission. Continue with oral Lasix 40 mg twice daily along with acetazolamide to 50 mg oral daily. Monitor for contraction alkalosis. Hold off on metolazone for now. Has severe hypokalemia today with potassium down to 2.9. Repleted with 100 mg of oral potassium. Repeat BMP in evening. Wean oxygen supplementation keeping saturation over 90%. Depending on clinical scenario over the weekend we will plan for left thoracentesis. Plan for ALEXANDRA on Saturday for evaluation of mitral regurgitation. Leukocytosis most likely reactionary. Continues to remain stable. Patient has remained afebrile. MRSA negative so vancomycin was discontinued. Continue Zosyn to finish 7-day course. Last dose on 04/11. Patient has finished a course of 3 days of azithromycin for atypical coverage. Appreciate speech evaluation later during admission. Diet change as per modified barium swallow to dysphagia level 6. Aggressive pulmonary toilet I-S and Acapella when possible. Out of bed to chair. Pulmicort twice daily, ipratropium, Xopenex every 6 hours. Strict input output charting, daily weights. (2) Congestive heart failure: Appreciate limited echocardiogram results from 04/06 consistent with eccentric MR. Will discuss with cardiology further regarding mitral valve repair. Treatment as above. (3) Pleural effusion: Simple fluid collection as per pulmonary team on lung ultrasound. For now continue to hold Eliquis for possible plan of thoracentesis. Thoracentesis earlier in the admission showed transudative collection. Pulmonary team on board. (4) ACS (acute coronary syndrome): Appreciate cardiology assistance. Post PCI to RCA. Does have residual moderate to severe disease in LCx and moderate LAD disease. Plan for outpatient stress test to assess for ischemia. Continue with Plavix 75 mg daily, metoprolol 25 mg twice daily, atorvastatin 40 mg daily. Plan to restart Eliquis after left-sided thoracentesis. No active chest pain. Appreciate recent A1c, lipid panel. (5) Atrial fibrillation with RVR: Heart rate better controlled. Repeat digoxin levels today. If normal will start on oral digoxin 125 mcg oral daily. Eliquis on hold as above. Discussed in detail with the patient for possibly switching from Eliquis to dual antiplatelet therapy given concerns for bleeding. Discussed about risk of stroke in setting of baseline atrial fibrillation. Patient states she does not want to have a stroke going forward and she is okay with risk of bleeding. She wants to continue Eliquis. Will restart Eliquis after thoracentesis. She is agreeable for the same. Switch to amiodarone 200 mg oral daily. Patient has finished a 7-day course of twice daily dosing. Continue with metoprolol 25 mg twice daily. Unfortunately not able to uptitrate metoprolol because of occasional soft blood pressures (6) Foot drop, right: As per patient and new finding. Started on 5 days ago. Appreciate physical therapy evaluation. Appreciate CT lumbar, hip x-rays. Appreciate orthopedic surgery recommendations. Appreciate EMG results. Concerning for lumbar radiculopathy. Continue with physical therapy. 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 Hemoglobin stable for now. Overall 2 units of blood transfusion during hospitalization. Monitor hemoglobin daily for now. Protonix IV twice daily. Check stool for occult blood. (9) Shock: Resolved. Monitor blood pressures. Goal blood pressure less than 140/90 mmhg with mean over 65. (10) Physical deconditioning: (11) Difficult ventilator weaning: Plan CODE STATUS: DNR/DNI. Cardiac diet Protonix 40 mg IV twice daily Holding Eliquis as above. Plan for the day: Patient doing well. Continue with oral Lasix 40 mg twice daily and acetazolamide 250 mg oral daily. Contraction alkalosis improving. Metolazone has been withheld since 04/10. Continue current diuretics for now. Monitor BMP daily. Replace potassium with 40 mg additionally. Potassium 3.5 today. Continue with fluid restriction. Heart rate stable. Continue with oral amiodarone 200 mg daily, metoprolol 25 mg twice daily and continue digoxin 125 mcg daily. Will check digoxin level in AM. N.p.o. for ALEXANDRA and possible left-sided thoracentesis today. Repeat x-ray after above procedure. Appreciate cardiology recommendations. Eliquis on hold. Started on aspirin for dual antiplatelet given recent PCI. Will discontinue aspirin after Eliquis is started. Discharge planning: Patient has had a prolonged hospitalization and is postextubation on 04/01. She continues to be severely deconditioned and episodes of respiratory distress in setting of congestive heart failure. Patient will need extensive physical and pulmonary rehab going forward. She would benefit from LTAC. Case management alerted. Continue with above plan today. Attestations 2 Medical Necessity Statement*: Requires further hospitalization for management of hypoxic respiratory failure in setting of congestive heart failure in a patient admitted for ST elevation UT, moderate to severe eccentric MR, bilateral pleural effusion, severe physical deconditioning while safe discharge planning is sought Diagnoses Acute respiratory failure J96.00 Congestive heart failure I50.9 Pleural effusion J90 ACS (acute coronary syndrome) I24.9 Atrial fibrillation with RVR I48.91 Foot drop, right M21.371 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 Anemia D64.9 Shock R57.9 Physical deconditioning R53.81 Difficult ventilator weaning Z99.11
--- NOTE | 2024-04-13 07:44 | P.PN_ITS ---
Subjective 2 Subjective: Patient feels better. Still has left-sided pleural effusion. Underwent a ALEXANDRA today that shows severe prolapse of posterior mitral valve leaflet (appears P2) and has severe MR that is eccentric and anteriorly directed. Vitals/I&O/Wt Last Vital Signs Temp 97.9 F 04/13/24 07:21 Pulse 77 04/13/24 07:39 Resp 16 04/13/24 07:39 BP 97/45 04/13/24 07:21 Pulse Ox 97 04/13/24 07:39 O2 Del Method Room Air 04/13/24 07:39 O2 Flow Rate 1 04/13/24 04:00 FiO2 40 04/07/24 15:10 04/12/24 04/13/24 04/13/24 22:59 06:59 14:59 Intake Total 400 / 1191 Output Total 200 / 700 825 / 1525 Balance 200 / 491 -825 / -334 Weight last 48 hrs Weight 140 lb 14.4 oz Weight 137 lb 4 oz Physical Exam 2 Narrative: GENERAL: Patient is intubated and sedated NECK: No jugular vein distension. [] HEENT: No cyanosis. No icterus. No pallor. [] HEART: Regular S1 and S2. Grade 3/6 systolic murmur LUNGS: Has diminshed air entry bilaterally. CENTRAL NERVOUS SYSTEM: Grossly nonfocal. [] EXTREMITIES: Lower extremities with 1+ edema bilaterally. 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 ALEXANDRA confirmed severe prolapse of posterior mitral valve leaflet with severe anteriorly directed eccentric mitral regurgitation. We will discuss with structural heart team at [facility] for possible transfer. Continue current medications. Assess I&O's. Monitor renal function. Keep holding metolazone. Thoracentesis planned per pulmonology. Thank you for involving us with care of this patient. We will continue to follow. Please call with questions. Attestations 2 Medical Necessity Statement*: Care expected to cross 2 midnights. 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
--- NOTE | 2024-04-13 09:02 | PC.NURSE ---
Patient is doing well this morning. Reports feeling good and had no events over night. Patient is scheduled for a ALEXANDRA at 10am in which she is NPO for. Patient is aware and physician ordered to hold PO medications until after the ALEXANDRA> nurse will continue to monitor patient.
[2024-04-13] MEDS: pantoprazole DR 40 mg Tablet PO (09:56)
[2024-04-13] MEDS: digoxin 125 mcg Tablet PO (09:57)
[2024-04-13] MEDS: clopidogrel 75 mg Tablet PO (09:57)
[2024-04-13] MEDS: aspirin 81 mg Chew Tablet PO (09:57)
[2024-04-13] MEDS: amiodarone 200 mg Tablet PO (09:57)
--- NOTE | 2024-04-13 11:49 | W.PM.OPSUD ---
Surgery/Procedure H&P Update DATE OF PROCEDURE: April 13, 2024 DATE H&P PERFORMED: 03/27/24 H&P UPDATE INFORMATION: I have reviewed H&P completed within last 30 days, I have examined patient prior to procedure and Changes to prior documentation as noted here CHANGES TO PREVIOUS DOCUMENTATION: Patient wasAdmitted with pulmonary edema and respiratory failure. Underwent revascularization of RCA. However continued going into recurrent pulmonary edema and pleural effusions requiring thoracentesis.Repeat echo showed eccentric mitral regurgitation. Plan for transesophageal echocardiogram to better assess valve anatomy and degree of severity of MR. PREOP DIAGNOSIS: Mitral regurgitation PRIMARY INDICATION FOR PROCEDURE: Mitral regurgitation PLANNED PROCEDURE: Transesophageal echocardiogram Anesthesia team available for sedation
--- NOTE | 2024-04-13 13:35 | PM.PN ---
Subjective Subjective: Still has left-sided pleural effusion-however deferred thoracentesis given she is on Plavix and currently Respiratory standpoint patient doing well well over the weekend-currently on room air she is saturating 97%. Denied any shortness of breath; able to lie flat on bed Continue diuresis-she is on Lasix 40 twice daily and acetazolamide 250 Mg p.o. daily-net -1700 cc over last 24 hours; overall net -8.7 L since admission Underwent a ALEXANDRA today that shows severe prolapse of posterior mitral valve leaflet (appears P2) and has severe MR that is eccentric and anteriorly directed-awaiting cardiology recommendations Medications: Reviewed: Yes Medication Review Details: Current Medications Acetaminophen (Acetaminophen 500 Mg Tablet) 500 mg PO Q4H PRN PRN Reason: fever Albuterol/Ipratropium (Ipratropium-Albuterol 3 Ml Neb) 3 ml INHALATION Q6H PRN PRN Reason: SHORTNESS OF BREATH Amiodarone HCl (Amiodarone 200 Mg Tablet) 400 mg PO BID [facility] Last Admin: 04/03/24 07:46 Dose: 400 mg Apixaban (Apixaban 5 Mg Tablet) 5 mg PO BID NATHAN Last Admin: 04/03/24 07:46 Dose: 5 mg Aspirin (Aspirin 325 Mg Tablet) 325 mg PO DAILY NATHAN Last Admin: 04/03/24 07:46 Dose: 325 mg Atorvastatin Calcium (Atorvastatin 40 Mg Tablet) 80 mg PO BEDTIME NATHAN Last Admin: 04/01/24 20:06 Dose: 80 mg Clopidogrel Bisulfate (Clopidogrel 75 Mg Tablet) 75 mg PO DAILY NATHAN Last Admin: 04/03/24 07:46 Dose: 75 mg Furosemide (Furosemide 10 Mg/Ml Sdv 4ml) 40 mg IVP Q24H NATHAN Last Admin: 04/02/24 11:19 Dose: 40 mg Fentanyl (Sublimaze) 1,000 mcg in 100 mls @ 0 mls/hr IV .Q0M NATHAN; Protocol Last Titration: 04/01/24 17:57 Dose: Infused Ceftriaxone Sodium 1,000 mg/ (Sodium Chloride) 50 mls @ 100 mls/hr IV Q12H NATHAN; Protocol Last Infusion: 04/03/24 05:48 Dose: Infused Azithromycin 500 mg/ Sodium (Chloride) 250 mls @ 250 mls/hr IV Q24H NATHAN; Protocol Last Infusion: 04/02/24 20:46 Dose: Infused norepinephrine (Levophed) 4 mg in 250 mls @ 0 mls/hr IV .Q0M NATHAN; Protocol Last Titration: 04/01/24 17:58 Dose: Infused Dexmedetomidine/Sodium Chloride (Precedex) 400 mcg in 100 mls @ 0 mls/hr IV .Q0M NATHAN; Protocol Last Titration: 04/01/24 17:57 Dose: Infused Propofol (Diprivan) 1,000 mg in 100 mls @ 0 mls/hr IV .Q0M NATHAN; Protocol Last Titration: 04/01/24 17:56 Dose: Infused Lanolin (Lanolin Oint 7 Gm) 1 applic TOPICAL PRN PRN PRN Reason: DRYNESS Last Admin: 04/02/24 21:02 Dose: 1 applic Metolazone (Metolazone 5 Mg Tablet) 5 mg PO DAILY [facility] Last Admin: 04/03/24 12:43 Dose: 5 mg Metoprolol Tartrate (Metoprolol Tartrate 25 Mg Tablet) 25 mg PO BID@0900,2100 [facility] Last Admin: 04/03/24 07:46 Dose: 25 mg Ondansetron HCl (Ondansetron 2 Mg/Ml Sdv 2 Ml) 4 mg IVP Q6H PRN PRN Reason: NAUSEA AND VOMITING Last Admin: 04/03/24 03:30 Dose: 4 mg Potassium Chloride (Potassium Chloride Er 20 Meq Tablet) 40 meq PO DAILY [facility] Last Admin: 04/02/24 08:26 Dose: 40 meq Senna/Docusate Sodium (Sennosides-Docusate Tablet) 1 tab PO DAILY [facility] Last Admin: 04/02/24 08:26 Dose: 1 tab Vitals/I&O/Wt Last Vital Signs Temp 98 F 04/13/24 11:48 Pulse 74 04/13/24 11:48 Resp 24 H 04/13/24 11:48 BP 104/54 04/13/24 11:48 Pulse Ox 97 04/13/24 11:48 O2 Del Method Room Air 04/13/24 11:48 O2 Flow Rate 1 04/13/24 04:00 FiO2 40 04/07/24 15:10 04/12/24 04/13/24 04/13/24 22:59 06:59 14:59 Intake Total 400 / 1191 Output Total 200 / 700 825 / 1525 Balance 200 / 491 -825 / -334 Weight last 48 hrs Weight 140 lb 14.4 oz Weight 137 lb 4 oz Physical Exam Narrative: PHYSICAL EXAM: General: Sitting in bed-in mild respiratory distress HEENT:NCAT, PERRLA, EOMI Neck: Supple Lungs: Improved breath sounds right lower lung zone; reduced left lower lung zone breath sounds Heart: s1/s2, RRR Abd: soft, NT, ND, BS + Normoactive Extremities: No edema 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 Degenerative disc disease and spondylosis. See individual levels above for more complete description. 2. There is mild central canal stenosis at L3-L4 and kivw-ko-ylyefipo central canal stenosis at L4-L5. There is evdu-ze-lildmwra left foraminal stenosis at L4-L5 and oshq-ao-tvnovrts right and moderate left foraminal stenosis at L5-S1. 3. There is mild stenosis of the superior aspect of both lateral recesses at L5-S1. Next lines 4. Further evaluation is recommended with MRI as it more sensitive to evaluate the discs and nerve roots than CT 4. Bilateral pleural effusions, the right appears at least partially organized. Size of these effusions cannot be determined from this study next lines 5. Some free fluid in the pelvis Hip/Pelvis X-Ray 04/06/24 13:21 IMPRESSION: 1. Degenerative changes left hip and in the included portions of the lumbar spine 2. No fracture detected. Knee X-Ray 04/06/24 13:21 IMPRESSION: 1. Degenerative changes with joint space narrowing and osteophyte formation 2. Negative for acute fracture. Chest X-Ray 04/13/24 04:00 IMPRESSION: Stable abnormal chest. Laboratory Results WBC 13.20 10^3/uL (3.29-11.43) H 04/13/24 03:41 Corrected WBC Cancelled 04/09/24 13:00 RBC 3.81 10^6/uL (3.85-5.65) L 04/13/24 03:41 Hgb 10.20 g/dL (11.27-16.99) L 04/13/24 03:41 Hct 33.3 % (36-47) L 04/13/24 03:41 MCV 87.4 fl (85-98) 04/13/24 03:41 MCH 26.8 pg (27-33) L 04/13/24 03:41 MCHC 30.6 g/dL (30-55) 04/13/24 03:41 RDW 16.8 % (12.1-15.1) H 04/13/24 03:41 Plt Count 255 10^3/cmm (157-399) 04/13/24 03:41 MPV 9.9 fL (7.4-10.4) 04/13/24 03:41 Neut % (Auto) 81.3 % 04/13/24 03:41 Lymph % (Auto) 8.4 % 04/13/24 03:41 Runnels % (Auto) 6.2 % 04/13/24 03:41 Eos % (Auto) 2.9 % 04/13/24 03:41 Baso % (Auto) 0.2 % 04/13/24 03:41 Neut # (Auto) 10.73 10^3/uL (1.8-7.7) H 04/13/24 03:41 Lymph # (Auto) 1.1 10^3/uL (0.8-4.8) 04/13/24 03:41 Runnels # (Auto) 0.8 10^3/uL (0.2-0.9) 04/13/24 03:41 Eos # (Auto) 0.4 10^3/uL (0.0-0.8) 04/13/24 03:41 Baso # (Auto) 0.0 10^3/uL (0.0-0.1) 04/13/24 03:41 Nucleated RBC % (auto) 0 % 04/13/24 03:41 Total Counted 100 (0-100) 04/09/24 16:33 Atypical Lymphs % 0.0 % (0-5) 04/09/24 16:33 Absolute Neutrophils 19.3 10^3/cmm (1.4-6.5) H 04/09/24 16:33 Segmented Neutrophils 91 % 04/09/24 16:33 Abs Segm Neuts (Man) 18.9 10/cmm (1.6-7.1) H 04/09/24 16:33 Band Neutrophils 2.0 % 04/09/24 16:33 Abs Band Neuts (Man) 0.4 10^3/cmm (0.0-1.2) 04/09/24 16: Absolute Lymphocytes 1.2 10^3/cmm (1.2-3.4) 04/09/24 16:33 Lymphocytes (Manual) 6 % 04/09/24 16: Monocytes (Manual) 1.0 % 04/09/24 16: Absolute Monocytes 0.2 10^3/cmm (0.1-0.6) 04/09/24 16: Eosinophils (Manual) 0 % 04/09/24 16: Absolute Eosinophils 0.0 10^3/cmm (0.0-0.7) 04/09/24 16: Basophils (Manual) 0.0 % 04/09/24: Absolute Basophils 0.0 10^3/cmm (0.0-0.2) 04/09/24 16:33 Metamyelocytes Cancelled 04/09/24 13:00 Myelocytes Cancelled 04/09/24 13:00 Promyelocytes Cancelled 04/09/24 13:00 Nucleated RBCs Cancelled 04/09/24 13:00 Nucleated RBCs # 0.0 /100WBC 04/13/24 03:41 Differential Comment Yes 04/09/24 13:00 Pathologist Review Cancelled 04/09/24 13:00 Hypersegmented Polys Cancelled 04/09/24 13:00 Blast Cells Cancelled 04/09/24 13:00 Smudge Cells Cancelled 04/09/24 13:00 Toxic Granulation Cancelled 04/09/24 13:00 Toxic Vacuolation Cancelled 04/09/24 13:00 Dohle Bodies Cancelled 04/09/24 13:00 Catherine Rods Cancelled 04/09/24 13:00 Platelet Estimate Normal (Normal) 04/09/24 16:33 Giant Platelets Trace 04/09/24 16:33 Polychromasia Cancelled 04/09/24 13:00 Hypochromasia Cancelled 04/09/24 13:00 Poikilocytosis Cancelled 04/09/24 13:00 Basophilic Stippling Cancelled 04/09/24 13:00 Anisocytosis 1+ H 04/09/24 16:33 Microcytosis Cancelled 04/09/24 13:00 Macrocytosis Trace 04/09/24 16:33 Spherocytes Cancelled 04/09/24 13:00 Sickle Cells Cancelled 04/09/24 13:00 Target Cells Cancelled 04/09/24 13:00 Tear Drop Cells Cancelled 04/09/24 13:00 Ovalocytes Cancelled 04/09/24 13:00 Stomatocytes Cancelled 04/09/24 13:00 Helmet Cells Cancelled 04/09/24 13:00 [place] Bodies Cancelled 04/09/24 13:00 [place] Cells Cancelled 04/09/24 13:00 Crenated Cell Cancelled 04/09/24 13:00 Acanthocytes (Spur) Cancelled 04/09/24 13:00 Rouleaux Cancelled 04/09/24 13:00 Schistocytes Cancelled 04/09/24 13:00 RBC Morph Comment Cancelled 04/09/24 13:00 PT 23.40 SECONDS (12.1-14.9) H 03/27/24 13:53 INR 2.00 (0.8-1.2) H 03/27/24 13:53 APTT 38.0 SECONDS (23.9-36.7) H 03/28/24 04:16 D-Dimer 2.63 ug/mLFEU (0-0.59) H 04/06/24 10:43 Specimen Type Arterial 03/30/24 04:20 Sample Site Radial, right 03/30/24 04:20 ABG pH 7.50 (7.35-7.45) H 03/30/24 04:20 ABG pCO2 40.1 mmHg (35-45) 03/30/24 04:20 ABG pO2 97.4 mmHg (80.0-100.0) 03/30/24 04:20 ABG PO2/FiO2 Ratio 0 03/30/24 04:20 ABG HCO3 31.3 mmol/L (22-26) H 03/30/24 04:20 ABG O2 Saturation 99.5 03/30/24 04:20 ABG Base Excess 7.5 mmol/L (-2.0-2.0) H 03/30/24 04:20 Parish Test Pos 03/30/24 04:20 A-a O2 Gradient 13.1 mmHg (5-10) H 03/30/24 04:20 Hematocrit 32.9 % (37-47) L 03/30/24 04:20 Hgb O2 Saturation 97.4 % (95-100) 03/30/24 04:20 Carboxyhemoglobin 1.8 %THgb (0.4-20.1) 03/30/24 04:20 Methemoglobin 0.4 % (0.4-1.5) 03/30/24 04:20 Total Hemoglobin 10.7 g/dL (12-16) L 03/30/24 04:20 Sodium 140.0 mmol/L (131-143) 03/30/24 04:20 Potassium 3.0 mmol/L (3.5-5.0) L 03/30/24 04:20 Glucose 91.0 mg/dL (70-115) 03/30/24 04:20 Ionized Calcium 1.1 mmol/L (1.1-1.4) 03/30/24 04:20 O2 Delivery Device Vent 03/30/24 04:20 O2 Liters/Min 15.0 % 03/27/24 13:33 FiO2 35.0 % 03/30/24 04:20 Tidal Volume 0.35 03/30/24 04:20 PEEP 5.0 cmH20 03/30/24 04:20 Bead Supervisor ID Deshawn 03/30/24 04:20 Sodium 138 mmol/L (136-145) 04/13/24 03:41 Potassium 3.5 mmol/L (3.5-5.1) 04/13/24 03:41 Chloride 94 mmol/L (98-107) L 04/13/24 03:41 Carbon Dioxide 35 mmol/L (22-29) H 04/13/24 03:41 Anion Gap 12.5 (5-19) 04/13/24 03:41 BUN 44 mg/dL (8-23) H 04/13/24 03:41 Creatinine 1.0 mg/dL (0.5-0.9) H 04/13/24 03:41 GFR Calculation Not Reportable 04/13/24 03:41 Glucose 133 mg/dL (65-115) H 04/13/24 03:41 Calculated Osmolality 299 mOsm/kg (285-295) H 04/13/24 03:41 Lactic Acid 3.0 mmol/L (0.5-2.2) H 03/27/24 13:53 Lactic Acid (Sepsis) 1.4 mmol/L (0.5-2.2) 03/27/24 21:58 Calcium 8.3 mg/dL (8.5-10.5) L 04/13/24 03:41 Magnesium 2.5 mg/dL (1.7-2.3) H 04/05/24 06:59 Total Bilirubin 0.9 mg/dL (0.15-1.2) 04/13/24 03:41 AST 19 U/L (0-32) 04/13/24 03:41 ALT 27 U/L (0-33) 04/13/24 03:41 Alkaline Phosphatase 70 U/L (35-105) 04/13/24 03:41 Troponin T Baseline 42 ng/L (0-10) H 04/03/24 02:50 Troponin T 120 Minute 39.76 ng/L (0-10) H 04/03/24 05:05 Delta Troponin T -2.24 ABS# (0-10) L 04/03/24 05:05 Troponin T Hi Sens 6Hr 44.70 ng/L (0-10) H 04/03/24 08:43 Troponin T Hi Sens 6Hr Delta 2.70 ng/L (0-12) 04/03/24 08:43 C-React Prot High Sens 12.900 mg/dL (0.0-0.3) H 04/06/24 02:20 NT-Pro-B Natriuret Pep 1703 pg/mL (0-450) H 03/27/24 13:53 Total Protein 6.3 g/dL (6.6-8.7) L 04/13/24 03:41 Albumin 3.2 g/dL (3.5-5.2) L 04/13/24 03:41 Globulin 3.1 g/dL (1.3-4.6) 04/13/24 03:41 Procalcitonin 0.30 ng/mL (0-0.5) 04/06/24 02:20 Urine Color Yellow (Yellow) 04/06/24 11:20 Urine Appearance Clear (CLEAR) 04/06/24 11:20 Urine pH 5 (5-7) 04/06/24 11:20 Ur Specific [place] 1.005 (1.005-1.030) 04/06/24 11:20 Urine Protein Neg (Negative) 04/06/24 11:20 Urine Glucose (UA) Norm (Normal) 04/06/24 11:20 Urine Ketones Negative (Negative) 04/06/24 11:20 Urine Blood 3+ (Negative) H 04/06/24 11:20 Urine Nitrate Negative (Negative) 04/06/24 11:20 Urine Bilirubin Neg (Negative) 04/06/24 11:20 Urine Urobilinogen Neg mg/dL (Negative) 04/06/24 11:20 Ur Leukocyte Esterase Negative (Negative) 04/06/24 11:20 Urine RBC 25-40 /hpf (0-2) H 04/06/24 11:20 Urine WBC None /hpf (0-5) 04/06/24 11:20 Ur Squamous Epith Cells 0-4 /hpf (0-5) H 04/06/24 11:20 Amorphous Sediment Not Reportable 04/06/24 11:20 Urine Bacteria None /hpf (NONE) 04/06/24 11:20 Urine Yeast 2+ /hpf H 04/06/24 11:20 Fluid Color Red 04/09/24 13:00 Fluid Appearance Cloudy 04/09/24 13:00 Fluid Specific Grav 1.020 04/09/24 13:00 Fluid pH 8.0 04/09/24 13:00 Fluid WBC 310 /uL 04/09/24 13:00 Fluid RBC 471.000 10^3/uL 04/09/24 13:00 Fld Polynuclear WBCs # 0.095 04/09/24 13:00 Fld Polynuclear WBCs % 30.600 % 04/09/24 13:00 Fl Mononucl WBCs #(Auto) 0.215 04/09/24 13:00 Fl Mononuclear % Auto 69.400 % 04/09/24 13:00 Fld Crystal Laterality Right pleural fluid 04/09/24 13:00 Fluid Glucose 200.0 mg/dL 04/09/24 13:00 Fluid Albumin 1.8 g/dL 04/09/24 13:00 Fluid LDH 244 U/L 04/09/24 13:00 Fluid Alk Phosphatase 21 IU/L 04/09/24 13:00 Fluid Cholesterol 25 mg/dL (0-200) 04/02/24 18:16 Fluid Triglycerides 21 mg/dL (0-150) 04/02/24 18:16 Fluid Uric Acid 13 mg/dL 04/02/24 18:16 Peritoneal Amylase 17 U/L 04/02/24 18:16 Pleural Total Protein 2.9 g/dL 04/09/24 13:00 Pleural Amylase 17 U/L 04/02/24 18:16 Digoxin 0.9 ng/mL (0.6-1.2) 04/11/24 06:08 C. difficile (PCR) Negative (Negative) 04/04/24 14:15 MRSA (PCR) Not detected (NOT DETECTED) 04/06/24 11:07 Blood Type A Negative 04/07/24 10:38 Rho(D) Type Rh negative 04/07/24 10:38 Antibody Screen Negative 04/07/24 10:38 Crossmatch See Detail 04/07/24 10:38 Micro: Microbiology 04/09/24 13:00 Gram Stain - Final Pleural Fluid Anaerobic Culture - Preliminary Body Fluid Culture - Final A&P Assessment and plan (1) Hemothorax: Patient had moderate to severe bilateral pleural effusion with right greater than left Patient was on 30% FiO2 and was extubated 04/01/2024 to 3 L supplemental oxygen; over next 36 hours-patient became more dyspneic and her oxygen requirements gradually went up and she was requiring BiPAP while in stepdown unit Bedside ultrasound showed large right pleural effusion despite normal EF on post PCI echocardiogram as well as diuretics; Patient was on Plavix for her RCA PCI drug-eluting stent placed to 03/27/2024-which we could not hold off; in view of impending respiratory failure-proceeded with therapeutic thoracentesis on 04/02/2024 and it drained 2 L of straw-colored fluid. There is oozing of blood from thoracentesis site which required pressure bandages. Over the next 5 days-there has been a gradual drop in H&H to 7.4/23 and she required 1 unit PRBC transfusion. Fluid analysis showed transudative effusion. We continued aggressive diuresis and albumin supplementation. However gradually patient began to have conversational dyspnea despite being on same 3 L supplemental oxygen and there has been worsening leukocytosis bedside ultrasound 04/09/2024 showed recurrent large right pleural effusion and persistent moderate left pleural effusion. Hence repeated a therapeutic thoracentesis on right pleural effusion to rule out empyema/hemothorax; this procedure is again done while patient on Plavix due to his recent stent-drained 1500 cc dark maroon-colored bloody fluid.-Fluid is lymphocyte predominant exudative; normal glucose, WBC 310-less likely empyema/parapneumonic effusion Postprocedure CBC-showed stable H&H over the next 4 days; chest x-ray did not show any recurrence of right pleural effusion. Still has left-sided pleural effusion-however deferred thoracentesis given she is on Plavix and currently Respiratory standpoint patient doing well over the weekend-currently on room air she is saturating 97%. Denied any shortness of breath; able to lie flat on bed Continue diuresis-she is on Lasix 40 twice daily and acetazolamide 250 Mg p.o. daily-net -1700 cc over last 24 hours; overall net -8.7 L since admission Underwent a ALEXANDRA today that shows severe prolapse of posterior mitral valve leaflet (appears P2) and has severe MR that is eccentric and anteriorly directed-awaiting cardiology recommendations (2) Bilateral pleural effusion: Right pleural effusion-s/p thoracentesis on 04/02/2024 drained 2 L straw-colored fluid; repeat drainage 04/09/2024-drain 1.5 L bloody fluid-24 hours later H&H stable/chest x-ray did not show recurrence of right pleural effusion. Given her significant dyspnea and worsening oxygen requirements-I did right thoracentesis on 04/02/2024 despite patient being on Plavix and drained 2 L transudative straw-colored fluid likely secondary to her CHF/hypoalbuminemia. However over the next 5 days her H&H gradually declined and patient started having worsening dyspnea again-and I have to repeat right thoracentesis despite patient being on Plavix-drain 1.5 L bloody fluid. Her imaging as well as bedside ultrasound examinations showed persistent moderate left pleural effusion which has been stable; as patient is asymptomatic and saturating 97% on room air-I will defer thoracentesis given patient is on Plavix and had hemothorax after doing right-sided thoracentesis. (3) Acute respiratory failure: Secondary to fluid overload secondary to STEMI S/p stenting performed in RCA He currently on room air saturating 97% (4) Congestive heart failure: Post stenting-echocardiogram EF 65% dilated LA with mitral regurg Continue diuresis-she is on Lasix 40 twice daily and acetazolamide 250 Mg p.o. daily-net -1700 cc over last 24 hours; overall net -8.7 L since admission Underwent a ALEXANDRA today that shows severe prolapse of posterior mitral valve leaflet (appears P2) and has severe MR that is eccentric and anteriorly directed-awaiting cardiology recommendations (5) ACS (acute coronary syndrome): New LBBB on EKG during admission 03/27/2024 STEMI alert called Cardiac cath revealed extensive significant chronic disease in the proximal circumflex and 80% stenosis of proximal mid RCA, culprit for acute presentation. Subsequently Successful angioplasty of RCA was performed. Currently on ASA, PLAVIX Recent echo showed moderate to severe mitral regurgitation-possible complication after recent TX--cardiology to evaluate for ALEXANDRA (6) Atrial fibrillation with RVR: Currently she is on amiodarone drip-heart rate-60 to 90 bpm in sinus rhythm-switched to p.o. amiodarone Held Eliquis 5 Mg p.o. twice daily due to drop in H&H (7) New onset left bundle branch block (LBBB): (8) Shock: Resolved (9) 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: Plan Patient is overall stable. ALEXANDRA confirmed severe prolapse of posterior mitral valve leaflet with severe anteriorly directed eccentric mitral regurgitation. We will discuss with structural heart team at [facility] for possible transfer. Continue current medications. Assess I&O's. Monitor renal function. Keep holding metolazone. Thoracentesis planned per pulmonology. Thank you for involving us with care of this patient. We will continue to follow. Please call with questions. Attestations Medical Necessity Statement*: Deferred to hospitalist and cardiology Time Spent in Patient Care: Greater than 35 minutes (>than 50% of time spent in counselling and/or direct pt care on unit). Coding Level of Care Code Acute Code for [facility] Fwd Diagnoses Hemothorax J94.2 Bilateral pleural effusion J90 Acute respiratory failure J96.00 Congestive heart failure I50.9 ACS (acute coronary syndrome) I24.9 Atrial fibrillation with RVR I48.91 New onset left bundle branch block (LBBB) I44.7 Shock R57.9 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 Time Spent (min) 43
--- NOTE | 2024-04-13 15:12 | PM.TDS ---
Transfer Summary Providers Date of Admission: 03/27/24 14:40 Date of Discharge/Transfer: 04/13/24 Attending Provider at Admission: Levar Gerard MD Attending Provider at Transfer: Aleta Mesa MD Primary Care Provider: MARCIE Cordoba Transfer Plans: Anticipated date of transfer: 04/13/24. Diagnoses at Discharge Discharge Diagnosis (1) Hemothorax: Status: Acute (2) Bilateral pleural effusion: Status: Acute (3) Acute respiratory failure: Status: Acute (4) Congestive heart failure: Status: Acute (5) ACS (acute coronary syndrome): Status: Acute (6) Atrial fibrillation with RVR: Status: Acute (7) New onset left bundle branch block (LBBB): Status: Acute (8) Shock: Status: Acute (9) 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: Status: Acute Reason for Visit Reason for Visit RESP. DISTRESS Hospital Course Hospital Course 78-year-old with history of atrial fibrillation diastolic heart failure, dyslipidemia, hypertension presented to the hospital on 03/27 for respiratory failure found to have ST elevation MS.? Was intubated.? Underwent PCI to RCA.? Had prolonged hospitalization due to refractory and persistent congestive heart failure.? Was extubated on 04/01.? Also found to have bilateral pleural effusion.? Right-sided pleural effusion was tapped by pulmonary team. Hospitalization has been prolonged due to recurrent episodes of congestive heart failure.? Had repeat pleural tap on the right side earlier this week.? Bloody fluid was drained.? It is believed after the previous tap she bled into her pleural space.? Required blood transfusion. Hemoglobin is stable now.? Discussed with her about stopping Eliquis and switching to dual antiplatelet therapy.? Patient declined as she would want to prevent stroke at every cost.? Currently Eliquis is on hold in anticipation of repeat thoracentesis however that was not done today secondary to results of ALEXANDRA today showing severe mitral regurg. Patient was having refractory CHF therefore ALEXANDRA was pursued today. Patient has been difficult to diurese however is now finally 8L negative. Stopped metolazone and started on acetazolamide because she was developing contraction alkalosis.? Renal functions are so far stable.? Switched her over to oral Lasix.? Patient is also severely deconditioned. Because of prolonged hospitalization, deconditioning, recurrent congestive heart failure patient would need further extensive rehab both physical and pulmonary.? Have asked case management to get LTAC involved.? Patient is agreeable.? Secondary to results of ALEXANDRA today, case was discussed with structural ear machine operator Dr. Crespo at [facility]. Patient will be transferred to [facility] for further evaluation for theresa clip. Patient has been accepted by Dr. Youngblood Shoe Salesman. Patient agreeable to transfer. Physical Exam Narrative: PHYSICAL EXAM: General: Sitting in bed-in mild respiratory distress HEENT:NCAT, PERRLA, EOMI Neck: Supple Lungs: Improved breath sounds right lower lung zone; reduced left lower lung zone breath sounds Heart: s1/s2, RRR Abd: soft, NT, ND, BS + Normoactive Extremities: No edema MOLD STRIPPER: AAO x 3; no gross FND TS Data Studies Completed and Pending Pending at discharge Category Date Time Status NE nerve conduction velocity Routine Exams 04/08/24 16:38 Ordered Anaerobic Culture Routine Lab 04/09/24 13:00 Results Basic Metabolic Panel AM LABS Lab 04/14/24 04:00 Ordered Body Fluid Culture & GS Routine Lab 04/09/24 13:00 Results Complete Blood Count w/Auto AM LABS Lab 04/14/24 04:00 Ordered Complete Blood Count w/Auto AM LABS Lab 04/14/24 04:00 Ordered Comprehensive Metabolic Panel AM LABS Lab 04/14/24 04:00 Ordered Magnesium AM LABS Lab 04/14/24 04:00 Ordered Phosphorus AM LABS Lab 04/14/24 04:00 Ordered CV. echo transesophageal [id number] Routine Ultrasound 04/13/24 12:00 Taken Completed Studies During Hospitalization Category Date Time Status CT lumbar spine w con 00776 Routine Cat Scan 04/06/24 12:31 Completed MASTIC WORKER request for service Routine Exams 03/27/24 13:49 Completed CXRP [XR chest 1V portable 70513] Routine Exams 03/27/24 17:38 Completed CXRP [XR chest 1V portable 84071] Routine Exams 03/28/24 11:34 Completed CXRP [XR chest 1V portable 51618] Routine Exams 03/31/24 07:00 Completed FL barium swallow modifd 08419 Routine Exams 04/07/24 10:12 Completed XR chest 1V portable 51247 QAM Exams 04/13/24 04:00 Completed XR chest 1V portable 86530 Routine Exams 03/29/24 04:00 Completed XR chest 1V portable 09393 Routine Exams 04/01/24 08:23 Completed XR chest 1V portable 79564 Routine Exams 04/04/24 08:32 Completed XR chest 1V portable 98857 Routine Exams 04/05/24 07:54 Completed XR chest 1V portable 61289 Routine Exams 04/06/24 08:19 Completed XR chest 1V portable 88798 Routine Exams 04/09/24 13:42 Completed XR chest 1V portable 24920 Routine Exams 04/10/24 11:59 Completed XR chest 1V portable 93626 Stat Exams 03/27/24 13:37 Completed XR chest 1V portable 40204 Stat Exams 04/02/24 18:40 Completed XR chest 1V portable 22481 Stat Exams 04/07/24 08:45 Completed XR hip BI 2V wo/w pel 10031 Routine Exams 04/06/24 13:21 Completed XR knee RT 1-2V 04047 Routine Exams 04/06/24 13:21 Completed CV. echo complete* [id number] Routine Ultrasound 03/28/24 17:05 Completed CV. echo limited 25387 Routine Ultrasound 04/07/24 16:23 Completed Laboratory Last Values WBC 13.20 10^3/uL (3.29-11.43) H 04/13/24 03:41 Corrected WBC Cancelled 04/09/24 13:00 RBC 3.81 10^6/uL (3.85-5.65) L 04/13/24 03:41 Hgb 10.20 g/dL (11.27-16.99) L 04/13/24 03:41 Hct 33.3 % (36-47) L 04/13/24 03:41 MCV 87.4 fl (85-98) 04/13/24 03:41 MCH 26.8 pg (27-33) L 04/13/24 03:41 MCHC 30.6 g/dL (30-55) 04/13/24 03:41 RDW 16.8 % (12.1-15.1) H 04/13/24 03:41 Plt Count 255 10^3/cmm (157-399) 04/13/24 03:41 MPV 9.9 fL (7.4-10.4) 04/13/24 03:41 Neut % (Auto) 81.3 % 04/13/24 03:41 Lymph % (Auto) 8.4 % 04/13/24 03:41 Stephens % (Auto) 6.2 % 04/13/24 03:41 Eos % (Auto) 2.9 % 04/13/24 03:41 Baso % (Auto) 0.2 % 04/13/24 03:41 Neut # (Auto) 10.73 10^3/uL (1.8-7.7) H 04/13/24 03:41 Lymph # (Auto) 1.1 10^3/uL (0.8-4.8) 04/13/24 03:41 Stephens # (Auto) 0.8 10^3/uL (0.2-0.9) 04/13/24 03:41 Eos # (Auto) 0.4 10^3/uL (0.0-0.8) 04/13/24 03:41 Baso # (Auto) 0.0 10^3/uL (0.0-0.1) 04/13/24 03:41 Nucleated RBC % (auto) 0 % 04/13/24 03:41 Total Counted 100 (0-100) 04/09/24 16:33 Atypical Lymphs % 0.0 % (0-5) 04/09/24 16:33 Absolute Neutrophils 19.3 10^3/cmm (1.4-6.5) H 04/09/24 16:33 Segmented Neutrophils 91 % 04/09/24 16:33 Abs Segm Neuts (Man) 18.9 10/cmm (1.6-7.1) H 04/09/24 16:33 Band Neutrophils 2.0 % 04/09/24 16:33 Abs Band Neuts (Man) 0.4 10^3/cmm (0.0-1.2) 04/09/24 16:33 Absolute Lymphocytes 1.2 10^3/cmm (1.2-3.4) 04/09/24 16:33 Lymphocytes (Manual) 6 % 04/09/24 16:33 Monocytes (Manual) 1.0 % 04/09/24 16:33 Absolute Monocytes 0.2 10^3/cmm (0.1-0.6) 04/09/24 16:33 Eosinophils (Manual) 0 % 04/09/24 16:33 Absolute Eosinophils 0.0 10^3/cmm (0.0-0.7) 04/09/24 16:33 Basophils (Manual) 0.0 % 04/09/24 16:33 Absolute Basophils 0.0 10^3/cmm (0.0-0.2) 04/09/24 16:33 Metamyelocytes Cancelled 04/09/24 13:00 Myelocytes Cancelled 04/09/24 13:00 Promyelocytes Cancelled 04/09/24 13:00 Nucleated RBCs Cancelled 04/09/24 13:00 Nucleated RBCs # 0.0 /100WBC 04/13/24 03:41 Differential Comment Yes 04/09/24 13:00 Pathologist Review Cancelled 04/09/24 13:00 Hypersegmented Polys Cancelled 04/09/24 13:00 Blast Cells Cancelled 04/09/24 13:00 Smudge Cells Cancelled 04/09/24 13:00 Toxic Granulation Cancelled 04/09/24 13:00 Toxic Vacuolation Cancelled 04/09/24 13:00 Dohle Bodies Cancelled 04/09/24 13:00 Catherine Rods Cancelled 04/09/24 13:00 Platelet Estimate Normal (Normal) 04/09/24 16:33 Giant Platelets Trace 04/09/24 16:33 Polychromasia Cancelled 04/09/24 13:00 Hypochromasia Cancelled 04/09/24 13:00 Poikilocytosis Cancelled 04/09/24 13:00 Basophilic Stippling Cancelled 04/09/24 13:00 Anisocytosis 1+ H 04/09/24 16:33 Microcytosis Cancelled 04/09/24 13:00 Macrocytosis Trace 04/09/24 16:33 Spherocytes Cancelled 04/09/24 13:00 Sickle Cells Cancelled 04/09/24 13:00 Target Cells Cancelled 04/09/24 13:00 Tear Drop Cells Cancelled 04/09/24 13:00 Ovalocytes Cancelled 04/09/24 13:00 Stomatocytes Cancelled 04/09/24 13:00 Helmet Cells Cancelled 04/09/24 13:00 [place] Bodies Cancelled 04/09/24 13:00 [place] Cells Cancelled 04/09/24 13:00 Crenated Cell Cancelled 04/09/24 13:00 Acanthocytes (Spur) Cancelled 04/09/24 13:00 Rouleaux Cancelled 04/09/24 13:00 Schistocytes Cancelled 04/09/24 13:00 RBC Morph Comment Cancelled 04/09/24 13:00 PT 23.40 SECONDS (12.1-14.9) H 03/27/24 13:53 INR 2.00 (0.8-1.2) H 03/27/24 13:53 APTT 38.0 SECONDS (23.9-36.7) H 03/28/24 04:16 D-Dimer 2.63 ug/mLFEU (0-0.59) H 04/06/24 10:43 Specimen Type Arterial 03/30/24 04:20 Sample Site Radial, right 03/30/24 04:20 ABG pH 7.50 (7.35-7.45) H 03/30/24 04:20 ABG pCO2 40.1 mmHg (35-45) 03/30/24 04:20 ABG pO2 97.4 mmHg (80.0-100.0) 03/30/24 04:20 ABG PO2/FiO2 Ratio 0 03/30/24 04:20 ABG HCO3 31.3 mmol/L (22-26) H 03/30/24 04:20 ABG O2 Saturation 99.5 03/30/24 04:20 ABG Base Excess 7.5 mmol/L (-2.0-2.0) H 03/30/24 04:20 Parish Test Pos 03/30/24 04:20 A-a O2 Gradient 13.1 mmHg (5-10) H 03/30/24 04:20 Hematocrit 32.9 % (37-47) L 03/30/24 04:20 Hgb O2 Saturation 97.4 % (95-100) 03/30/24 04:20 Carboxyhemoglobin 1.8 %THgb (0.4-20.1) 03/30/24 04:20 Methemoglobin 0.4 % (0.4-1.5) 03/30/24 04:20 Total Hemoglobin 10.7 g/dL (12-16) L 03/30/24 04:20 Sodium 140.0 mmol/L (131-143) 03/30/24 04:20 Potassium 3.0 mmol/L (3.5-5.0) L 03/30/24 04:20 Glucose 91.0 mg/dL (70-115) 03/30/24 04:20 Ionized Calcium 1.1 mmol/L (1.1-1.4) 03/30/24 04:20 O2 Delivery Device Vent 03/30/24 04:20 O2 Liters/Min 15.0 % 03/27/24 13:33 FiO2 35.0 % 03/30/24 04:20 Tidal Volume 0.35 03/30/24 04:20 PEEP 5.0 cmH20 03/30/24 04:20 Business Systems Technician ID Deshawn 03/30/24 04:20 Sodium 138 mmol/L (136-145) 04/13/24 03:41 Potassium 3.5 mmol/L (3.5-5.1) 04/13/24 03:41 Chloride 94 mmol/L (98-107) L 04/13/24 03:41 Carbon Dioxide 35 mmol/L (22-29) H 04/13/24 03:41 Anion Gap 12.5 (5-19) 04/13/24 03:41 BUN 44 mg/dL (8-23) H 04/13/24 03:41 Creatinine 1.0 mg/dL (0.5-0.9) H 04/13/24 03:41 GFR Calculation Not Reportable 04/13/24 03:41 Glucose 133 mg/dL (65-115) H 04/13/24 03:41 Calculated Osmolality 299 mOsm/kg (285-295) H 04/13/24 03:41 Lactic Acid 3.0 mmol/L (0.5-2.2) H 03/27/24 13:53 Lactic Acid (Sepsis) 1.4 mmol/L (0.5-2.2) 03/27/24 21:58 Calcium 8.3 mg/dL (8.5-10.5) L 04/13/24 03:41 Magnesium 2.5 mg/dL (1.7-2.3) H 04/05/24 06:59 Total Bilirubin 0.9 mg/dL (0.15-1.2) 04/13/24 03:41 AST 19 U/L (0-32) 04/13/24 03:41 ALT 27 U/L (0-33) 04/13/24 03:41 Alkaline Phosphatase 70 U/L (35-105) 04/13/24 03:41 Troponin T Baseline 42 ng/L (0-10) H 04/03/24 02:50 Troponin T 120 Minute 39.76 ng/L (0-10) H 04/03/24 05:05 Delta Troponin T -2.24 ABS# (0-10) L 04/03/24 05:05 Troponin T Hi Sens 6Hr 44.70 ng/L (0-10) H 04/03/24 08:43 Troponin T Hi Sens 6Hr Delta 2.70 ng/L (0-12) 04/03/24 08:43 C-React Prot High Sens 12.900 mg/dL (0.0-0.3) H 04/06/24 02:20 NT-Pro-B Natriuret Pep 1703 pg/mL (0-450) H 03/27/24 13:53 Total Protein 6.3 g/dL (6.6-8.7) L 04/13/24 03:41 Albumin 3.2 g/dL (3.5-5.2) L 04/13/24 03:41 Globulin 3.1 g/dL (1.3-4.6) 04/13/24 03:41 Procalcitonin 0.30 ng/mL (0-0.5) 04/06/24 02:20 Urine Color Yellow (Yellow) 04/06/24 11:20 Urine Appearance Clear (CLEAR) 04/06/24 11:20 Urine pH 5 (5-7) 04/06/24 11:20 Ur Specific [employer] 1.005 (1.005-1.030) 04/06/24 11:20 Urine Protein Neg (Negative) 04/06/24 11:20 Urine Glucose (UA) Norm (Normal) 04/06/24 11:20 Urine Ketones Negative (Negative) 04/06/24 11:20 Urine Blood 3+ (Negative) H 04/06/24 11:20 Urine Nitrate Negative (Negative) 04/06/24 11:20 Urine Bilirubin Neg (Negative) 04/06/24 11:20 Urine Urobilinogen Neg mg/dL (Negative) 04/06/24 11:20 Ur Leukocyte Esterase Negative (Negative) 04/06/24 11:20 Urine RBC 25-40 /hpf (0-2) H 04/06/24 11:20 Urine WBC None /hpf (0-5) 04/06/24 11:20 Ur Squamous Epith Cells 0-4 /hpf (0-5) H 04/06/24 11:20 Amorphous Sediment Not Reportable 04/06/24 11:20 Urine Bacteria None /hpf (NONE) 04/06/24 11:20 Urine Yeast 2+ /hpf H 04/06/24 11:20 Fluid Color Red 04/09/24 13:00 Fluid Appearance Cloudy 04/09/24 13:00 Fluid Specific Grav 1.020 04/09/24 13:00 Fluid pH 8.0 04/09/24 13:00 Fluid WBC 310 /uL 04/09/24 13:00 Fluid RBC 471.000 10^3/uL 04/09/24 13:00 Fld Polynuclear WBCs # 0.095 04/09/24 13:00 Fld Polynuclear WBCs % 30.600 % 04/09/24 13:00 Fl Mononucl WBCs #(Auto) 0.215 04/09/24 13:00 Fl Mononuclear % Auto 69.400 % 04/09/24 13:00 Fld Crystal Laterality Right pleural fluid 04/09/24 13:00 Fluid Glucose 200.0 mg/dL 04/09/24 13:00 Fluid Albumin 1.8 g/dL 04/09/24 13:00 Fluid LDH 244 U/L 04/09/24 13:00 Fluid Alk Phosphatase 21 IU/L 04/09/24 13:00 Fluid Cholesterol 25 mg/dL (0-200) 04/02/24 18:16 Fluid Triglycerides 21 mg/dL (0-150) 04/02/24 18:16 Fluid Uric Acid 13 mg/dL 04/02/24 18:16 Peritoneal Amylase 17 U/L 04/02/24 18:16 Pleural Total Protein 2.9 g/dL 04/09/24 13:00 Pleural Amylase 17 U/L 04/02/24 18:16 Digoxin 0.9 ng/mL (0.6-1.2) 04/11/24 06:08 C. difficile (PCR) Negative (Negative) 04/04/24 14:15 MRSA (PCR) Not detected (NOT DETECTED) 04/06/24 11:07 Blood Type A Negative 04/07/24 10:38 Rho(D) Type Rh negative 04/07/24 10:38 Antibody Screen Negative 04/07/24 10:38 Crossmatch See Detail 04/07/24 10:38 Radiology Impressions Lumbar Spine CT 04/06/24 12:31 IMPRESSION: 1. Degenerative disc disease and spondylosis. See individual levels above for more complete description. 2. There is mild central canal stenosis at L3-L4 and wici-za-cfcyqmyw central canal stenosis at L4-L5. There is tjsr-id-xeqlvang left foraminal stenosis at L4-L5 and aocx-gg-lgbdnslw right and moderate left foraminal stenosis at L5-S1. 3. There is mild stenosis of the superior aspect of both lateral recesses at L5-S1. Next lines 4. Further evaluation is recommended with MRI as it more sensitive to evaluate the discs and nerve roots than CT 4. Bilateral pleural effusions, the right appears at least partially organized. Size of these effusions cannot be determined from this study next lines 5. Some free fluid in the pelvis Hip/Pelvis X-Ray 04/06/24 13:21 IMPRESSION: 1. Degenerative changes left hip and in the included portions of the lumbar spine 2. No fracture detected. Knee X-Ray 04/06/24 13:21 IMPRESSION: 1. Degenerative changes with joint space narrowing and osteophyte formation 2. Negative for acute fracture. Chest X-Ray 04/13/24 04:00 IMPRESSION: Stable abnormal chest. Recent Clincial Data Last Vital Signs Temp 98 F 04/13/24 11:48 Pulse 88 04/13/24 14:36 Resp 16 04/13/24 14:27 BP 104/54 04/13/24 11:48 Pulse Ox 96 04/13/24 14:27 O2 Del Method Room Air 04/13/24 14:27 O2 Flow Rate 1 04/13/24 04:00 FiO2 40 04/07/24 15:10 Vital Signs Temp Pulse Resp BP Pulse Ox O2 Del Method O2 Flow Rate 04/13/24 14:36 88 04/13/24 14:27 84 16 96 Room Air 04/13/24 11:48 98 F 74 24 H 104/54 97 Room Air 04/13/24 11:30 98 F 91 20 H 97/56 04/13/24 11:00 97 25 H 107/57 91 04/13/24 10:30 90 29 H 101/48 91 06/03/24 10:00 99 29 H 100/56 04/13/24 09:57 89 04/13/24 09:30 115 H 25 H 99/58 04/13/24 09:00 97 30 H 98 04/13/24 08:30 82 25 H 101/43 97 04/13/24 08:00 86 18 103/44 04/13/24 07:57 93 04/13/24 07:39 77 16 97 Room Air 04/13/24 07:30 81 24 H 97/45 95 04/13/24 07:21 97.9 F 76 20 H 97/45 97 Room Air 04/13/24 07:00 86 23 H 101/51 97 04/13/24 06:30 70 15 101/51 99 04/13/24 06:00 74 18 101/51 100 04/13/24 05:30 102 H 20 H 101/51 98 04/13/24 05:16 83 04/13/24 05:00 81 19 H 101/51 99 04/13/24 04:30 75 13 101/51 100 04/13/24 04:00 85 14 101/51 100 04/13/24 04:00 98.5 F 79 13 101/51 100 Nasal Cannula 1 04/13/24 03:30 93 25 H 96/59 94 Intake & Output/Weight 04/11/24 04/12/24 04/13/24 04/14/24 06:59 06:59 06:59 06:59 Intake Total 440 / 440 390 / 390 1191 / 1191 Output Total 2750 / 2750 2100 / 2100 1525 / 1525 Balance -2310 / -2310 -1710 / -1710 -334 / -334 Weight 63.304 kg 62.256 kg 63.911 kg Vitals Last Vital Signs Temp 98 F 04/13/24 11:48 Pulse 88 04/13/24 14:36 Resp 16 04/13/24 14:27 BP 104/54 04/13/24 11:48 Pulse Ox 96 04/13/24 14:27 O2 Del Method Room Air 04/13/24 14:27 O2 Flow Rate 1 04/13/24 04:00 FiO2 40 04/07/24 15:10 TS Medications Medications Acetaminophen (Acetaminophen 500 Mg Tablet) 500 mg PO Q4H PRN PRN Reason: fever Acetazolamide (Acetazolamide 250 Mg Tablet) 250 mg PO DAILY [facility] Last Admin: 04/13/24 09:54 Dose: Not Given Albuterol/Ipratropium (Ipratropium-Albuterol 3 Ml Neb) 3 ml INHALATION Q6H PRN PRN Reason: SHORTNESS OF BREATH Amiodarone HCl (Amiodarone 200 Mg Tablet) 200 mg PO DAILY [facility] Last Admin: 04/13/24 09:57 Dose: 200 mg Aspirin (Aspirin 81 Mg Chew Tablet) 81 mg PO DAILY [facility] Last Admin: 04/13/24 09:57 Dose: 81 mg Atorvastatin Calcium (Atorvastatin 40 Mg Tablet) 80 mg PO BEDTIME [facility] Last Admin: 04/12/24 20:43 Dose: 80 mg Budesonide (Budesonide 0.5 Mg/2 Ml Neb) 0.5 mg INHALATION BID.RESPIRATORY [facility] Last Admin: 04/13/24 07:37 Dose: 0.5 mg Clopidogrel Bisulfate (Clopidogrel 75 Mg Tablet) 75 mg PO DAILY [facility] Last Admin: 04/13/24 09:57 Dose: 75 mg Digoxin (Digoxin 125 Mcg Tablet) 125 mcg PO DAILY [facility] Last Admin: 04/13/24 09:57 Dose: 125 mcg Furosemide (Furosemide 40 Mg Tablet) 40 mg PO BID@08,16 [facility] Last Admin: 04/13/24 09:48 Dose: Not Given Ipratropium [place] (Ipratropium 0.5 Mg/2.5 Ml Neb) 0.5 mg INHALATION Q6H.RESP [facility] Last Admin: 04/13/24 14:25 Dose: 0.5 mg Lanolin (Lanolin Oint 7 Gm) 1 applic TOPICAL PRN PRN PRN Reason: DRYNESS Last Admin: 04/02/24 21:02 Dose: 1 applic Levalbuterol HCl (Levalbuterol 0.63 Mg/3 Ml Neb) 0.63 mg INHALATION Q6H.RESP [facility] Last Admin: 04/13/24 14:25 Dose: 0.63 mg Metolazone (Metolazone 5 Mg Tablet) 5 mg PO DAILY [facility] Last Admin: 04/09/24 08:28 Dose: 5 mg Metoprolol Tartrate (Metoprolol Tartrate 25 Mg Tablet) 25 mg PO BID@0900,2100 [facility] Last Admin: 04/13/24 09:53 Dose: Not Given Morphine Sulfate (Morphine 4 Mg/Ml Sdv 1 Ml) 2 mg IVP Q4H PRN PRN Reason: SEVERE PAIN Ondansetron HCl (Ondansetron 2 Mg/Ml Sdv 2 Ml) 4 mg IVP Q6H PRN PRN Reason: NAUSEA AND VOMITING Last Admin: 04/11/24 23:25 Dose: 4 mg Pantoprazole Sodium (Pantoprazole Dr 40 Mg Tablet) 40 mg PO DAILY [facility] Last Admin: 04/13/24 09:56 Dose: 40 mg Potassium Chloride (Potassium Chloride Er 20 Meq Tablet) 20 meq PO DAILY [facility] Last Admin: 04/13/24 10:13 Dose: Not Given Senna/Docusate Sodium (Sennosides-Docusate Tablet) 1 tab PO DAILY [facility] Last Admin: 04/13/24 10:13 Dose: Not Given Discontinued Medications Amiodarone HCl (Amiodarone 200 Mg Tablet) 400 mg PO BID [facility] Last Admin: 04/05/24 14:22 Dose: Not Given Amiodarone HCl (Amiodarone 200 Mg Tablet) 200 mg PO BID [facility] Last Admin: 04/11/24 08:09 Dose: 200 mg Apixaban (Apixaban 5 Mg Tablet) 5 mg PO BID [facility] Last Admin: 04/07/24 10:44 Dose: Not Given Apixaban (Apixaban 5 Mg Tablet) 5 mg PO BID [facility] Aspirin (Aspirin 325 Mg Tablet) 325 mg PO ONCE ONE Stop: 03/27/24 13:40 Last Admin: 03/27/24 13:55 Dose: 325 mg Aspirin (Aspirin 325 Mg Tablet) 325 mg PO DAILY [facility] Last Admin: 04/06/24 11:54 Dose: Not Given Atropine Sulfate (Atropine 0.1 Mg/Ml Syr 10 Ml) Confirm Administered Dose 1 mg .ROUTE .STK-MED ONE Stop: 03/27/24 14:32 Azithromycin (Azithromycin 500 Mg Sdv) Confirm Administered Dose 500 mg .ROUTE .STK-MED ONE Stop: 04/01/24 16:52 Last Admin: 04/01/24 17:28 Dose: Not Given Budesonide (Budesonide 0.5 Mg/2 Ml Neb) 0.5 mg INHALATION BID [facility] Budesonide (Budesonide 0.5 Mg/2 Ml Neb) 0.5 mg INHALATION BID [facility] Clopidogrel Bisulfate (Clopidogrel 300 Mg Tablet) 600 mg PO ONCE ONE Stop: 03/27/24 13:40 Last Admin: 03/27/24 13:55 Dose: 600 mg Lidocaine HCl 15 ml/ Al Hydrox /Mg Hydrox/Simethicone 30 ml/Sucralfate 1 gm 0 ml PO ONCE ONE Stop: 04/03/24 03:43 Last Admin: 04/03/24 04:02 Dose: 50 suspension Dextrose (Dextrose 5% 250 Ml Bag) 250 ml .ROUTE .STK-MED ONE Stop: 03/28/24 10:17 Digoxin (Digoxin 250 Mcg/Ml Inj 2 Ml) 250 mcg IVP NOW ONE Stop: 04/08/24 09:54 Last Admin: 04/08/24 10:11 Dose: 250 mcg Digoxin (Digoxin 250 Mcg/Ml Inj 2 Ml) 125 mcg IVP Q6H NATHAN Stop: 04/08/24 23:01 Last Admin: 04/08/24 22:26 Dose: 125 mcg Digoxin (Digoxin 125 Mcg Tablet) 125 mcg PO ONCE ONE Stop: 04/11/24 12:14 Last Admin: 04/11/24 13:41 Dose: 125 mcg Epinephrine HCl (Epinephrine 0.1 Mg/Ml Syr 10 Ml) 6 mg .ROUTE .STK-MED ONE Stop: 03/28/24 10:17 Etomidate (Etomidate 2 Mg/Ml Inj Sdv 10 Ml) 20 mg IVP NOW ONE Stop: 03/27/24 13:36 Last Admin: 03/27/24 13:35 Dose: 20 mg Etomidate (Etomidate 2 Mg/Ml Inj Sdv 10 Ml) 20 mg .ROUTE .STK-MED ONE Stop: 03/28/24 10:17 Fentanyl (Fentanyl 50 Mcg/Ml Inj 2ml) 50 mcg IVP ONCE ONE Stop: 03/27/24 13:40 Last Admin: 03/27/24 13:54 Dose: Not Given Furosemide (Furosemide 10 Mg/Ml Sdv 10ml) 60 mg IVP ONCE ONE Stop: 03/27/24 13:40 Last Admin: 03/27/24 15:21 Dose: Not Given Furosemide (Furosemide 10 Mg/Ml Sdv 10ml) 40 mg IVP ONCE ONE Stop: 03/27/24 17:34 Last Admin: 03/27/24 18:57 Dose: 40 mg Furosemide (Furosemide 10 Mg/Ml Sdv 4ml) 40 mg IVP ONCE ONE Stop: 03/28/24 14:04 Last Admin: 03/28/24 14:18 Dose: 40 mg Furosemide (Furosemide 10 Mg/Ml Sdv 4ml) 40 mg IVP ONCE ONE Stop: 03/29/24 19:46 Last Admin: 03/29/24 19:47 Dose: 40 mg Furosemide (Furosemide 10 Mg/Ml Sdv 4ml) 40 mg IVP ONCE ONE Stop: 03/30/24 07:30 Last Admin: 03/30/24 08:27 Dose: 40 mg Furosemide (Furosemide 10 Mg/Ml Sdv 4ml) 40 mg IVP ONCE ONE Stop: 03/31/24 11:08 Last Admin: 03/31/24 12:20 Dose: 40 mg Furosemide (Furosemide 10 Mg/Ml Sdv 4ml) 40 mg IVP ONCE ONE Stop: 03/31/24 19:31 Last Admin: 03/31/24 19:55 Dose: 40 mg Furosemide (Furosemide 10 Mg/Ml Sdv 4ml) 40 mg IVP Q24H NATHAN Last Admin: 04/06/24 11:54 Dose: Not Given Furosemide (Furosemide 10 Mg/Ml Sdv 4ml) 40 mg IVP ONCE ONE Stop: 04/02/24 15:37 Last Admin: 04/02/24 15:40 Dose: 40 mg Furosemide (Furosemide 10 Mg/Ml Sdv 4ml) 40 mg IVP ONCE ONE Stop: 04/07/24 08:44 Last Admin: 04/07/24 10:44 Dose: 40 mg Furosemide (Furosemide 10 Mg/Ml Sdv 4ml) 40 mg IVP ONCE ONE Stop: 04/07/24 14:35 Last Admin: 04/07/24 16:25 Dose: 40 mg Furosemide (Furosemide 10 Mg/Ml Sdv 4ml) 40 mg IVP ONCE ONE Stop: 04/08/24 09:48 Last Admin: 04/08/24 10:10 Dose: 40 mg Furosemide (Furosemide 10 Mg/Ml Sdv 4ml) 40 mg IVP ONCE ONE Stop: 04/09/24 07:34 Last Admin: 04/09/24 08:29 Dose: 40 mg Furosemide (Furosemide 10 Mg/Ml Sdv 4ml) 40 mg IVP ONCE ONE Stop: 04/09/24 17:47 Last Admin: 04/09/24 18:17 Dose: Not Given Furosemide (Furosemide 10 Mg/Ml Sdv 4ml) 40 mg IVP ONCE ONE Stop: 04/10/24 09:11 Last Admin: 04/10/24 09:41 Dose: 40 mg Heparin Sodium (Porcine) (Heparin 5,000 Unit/Ml Inj 1 Ml) 4,000 unit IVP ONCE ONE Stop: 03/27/24 13:40 Last Admin: 03/27/24 13:57 Dose: 4,000 unit Heparin Sodium (Porcine) (Heparin 5,000 Unit/Ml Inj 1 Ml) Confirm Administered Dose 10,000 unit .ROUTE .STK-MED ONE Stop: 03/27/24 13:49 Heparin Sodium (Porcine) (Heparin 5,000 Unit/Ml Inj 1 Ml) Confirm Administered Dose 5,000 unit .ROUTE .STK-MED ONE Stop: 03/27/24 14:23 Heparin Sodium (Porcine) (Heparin 5,000 Unit/Ml Inj 1 Ml) Confirm Administered Dose 5,000 unit .ROUTE .STK-MED ONE Stop: 03/27/24 14:45 Midazolam HCl (Versed) 100 mg in 100 mls @ 0 mls/hr IV .Q0M NATHAN; Protocol Last Titration: 04/02/24 20:46 Dose: Infused Fentanyl (Sublimaze) 1,000 mcg in 100 mls @ 0 mls/hr IV .Q0M NATHAN; Protocol Fentanyl (Sublimaze) 1,000 mcg in 100 mls @ 0 mls/hr IV .Q0M NATHAN; Protocol Last Titration: 04/01/24 17:57 Dose: Infused Lidocaine HCl (Xylocaine) Confirm Administered Dose 20 mls @ as directed .ROUTE .STK-MED ONE Stop: 03/27/24 13:50 Sodium Chloride (Sodium Chloride 0.9%) Confirm Administered Dose 1,000 mls @ as directed .ROUTE .STK-MED ONE Stop: 03/27/24 14:10 norepinephrine (Levophed) Confirm Administered Dose 4 mg in 250 mls @ as directed .ROUTE .STK-MED ONE Stop: 03/27/24 14:16 Ceftriaxone Sodium 1,000 mg/ (Sodium Chloride) 50 mls @ 100 mls/hr IV Q12H NATHAN; Protocol Last Infusion: 04/05/24 05:21 Dose: Infused Azithromycin 500 mg/ Sodium (Chloride) 250 mls @ 250 mls/hr IV Q24H NATHAN; Protocol Last Infusion: 04/04/24 18:52 Dose: Infused norepinephrine (Levophed) 4 mg in 250 mls @ 0 mls/hr IV .Q0M NATHAN; Protocol Last Titration: 04/01/24 17:58 Dose: Infused Potassium Phosphate 40 meq/ (Sodium Chloride) 108.5106 mls @ 27.273 mls/hr IV ONCE ONE Stop: 03/30/24 13:23 Last Infusion: 03/30/24 14:03 Dose: Infused Dexmedetomidine/Sodium Chloride (Precedex) 400 mcg in 100 mls @ 0 mls/hr IV .Q0M NATHAN; Protocol Last Titration: 04/01/24 17:57 Dose: Infused Propofol (Diprivan) 1,000 mg in 100 mls @ 0 mls/hr IV .Q0M NATHAN; Protocol Last Titration: 04/01/24 17:56 Dose: Infused Amiodarone HCl/Dextrose (Nexterone) 150 mg in 100 mls @ 400 mls/hr IV ONCE ONE Stop: 03/30/24 23:59 Last Infusion: 03/31/24 07:23 Dose: Infused Amiodarone HCl/Dextrose (Nexterone) 360 mg in 200 mls @ 0 mls/hr IV .Q0M NATHAN; Protocol Last Titration: 04/01/24 17:57 Dose: Infused Piperacillin Sod/Tazobactam (Sod 3.375 gm/ Sodium Chloride) 50 mls @ 12.5 mls/hr IV Q8H NATHAN; Protocol Stop: 04/12/24 08:59 Last Infusion: 04/12/24 03:35 Dose: Infused Vancomycin HCl 1,000 mg/ (Sodium Chloride) 250 mls @ 250 mls/hr IV Q24H NATHAN; Protocol Last Infusion: 04/08/24 13:43 Dose: Infused Albumin Human (Albumin) 25 g in 100 mls @ 60 mls/hr IV Q8H NATHAN Last Infusion: 04/07/24 04:10 Dose: Infused Lidocaine HCl 5 ml/ Potassium (Chloride) 105 mls @ 52.5 mls/hr IV ONCE ONE Stop: 04/07/24 06:09 Last Infusion: 04/07/24 07:47 Dose: Infused Lidocaine HCl 5 ml/ Potassium (Chloride) 105 mls @ 26.25 mls/hr IV ONCE ONE Stop: 04/07/24 13:15 Last Infusion: 04/07/24 14:22 Dose: Infused Lidocaine HCl 5 ml/ Potassium (Chloride) 105 mls @ 26.25 mls/hr IV ONCE ONE Stop: 04/08/24 01:35 Last Infusion: 04/08/24 02:15 Dose: Infused Lidocaine HCl (Xylocaine) Confirm Administered Dose 5 mls @ as directed .ROUTE .STK-MED ONE Stop: 04/13/24 09:23 Iohexol (Iohexol 350 Mg/Ml 500 Ml Btl (Per Ml)) 0 ml IV ONCE ONE Stop: 04/06/24 13:36 Last Admin: 04/06/24 13:35 Dose: 100 ml Ipratropium [place] (Ipratropium 0.5 Mg/2.5 Ml Neb) 0.5 mg INHALATION Q6H NATHAN Metolazone (Metolazone 5 Mg Tablet) 5 mg PO DAILY [facility] Last Admin: 04/03/24 12:43 Dose: 5 mg Metoprolol Tartrate (Metoprolol Tartrate 25 Mg Tablet) 25 mg PO BID@0900,2100 [facility] Last Admin: 04/05/24 09:52 Dose: 25 mg Metoprolol Tartrate (Metoprolol Tartrate 25 Mg Tablet) 25 mg PO ONCE ONE Stop: 04/05/24 11:08 Last Admin: 04/05/24 13:05 Dose: 25 mg Metoprolol Tartrate (Metoprolol Tartrate 50 Mg Tablet) 50 mg PO BID@0900,2100 [facility] Last Admin: 04/06/24 11:54 Dose: Not Given Midazolam HCl (Midazolam 1 Mg/Ml Inj 2 Ml) 2 mg IVP ONCE ONE Stop: 03/27/24 13:40 Last Admin: 03/27/24 13:54 Dose: Not Given Midazolam HCl (Midazolam 1 Mg/Ml Inj 2 Ml) Confirm Administered Dose 2 mg .ROUTE .STK-MED ONE Stop: 03/27/24 13:49 Morphine Sulfate (Morphine Ir 15 Mg Tablet) 15 mg PO Q6H PRN PRN Reason: MODERATE PAIN Morphine Sulfate (Morphine 4 Mg/Ml Sdv 1 Ml) 2 mg IVP ONCE ONE Stop: 04/03/24 03:42 Last Admin: 04/03/24 04:03 Dose: 2 mg Nitroglycerin (Nitroglycerin 5 Mg/Ml Sdv 10 Ml) Confirm Administered Dose 50 mg .ROUTE .STK-MED ONE Stop: 03/27/24 14:38 Ondansetron HCl (Ondansetron 2 Mg/Ml Sdv 2 Ml) 4 mg IVP Q6H PRN PRN Reason: NAUSEA AND VOMITING Last Admin: 04/01/24 20:03 Dose: 4 mg Potassium Chloride (Potassium Chloride Er 20 Meq Tablet) 40 meq PO DAILY NATHAN Last Admin: 04/02/24 08:26 Dose: 40 meq Potassium Chloride (Potassium Chloride Er 20 Meq Tablet) 80 meq PO ONCE ONE Stop: 04/08/24 09:54 Last Admin: 04/08/24 10:10 Dose: 80 meq Potassium Chloride (Potassium Chloride Er 20 Meq Tablet) 20 meq PO ONCE ONE Stop: 04/09/24 05:36 Last Admin: 04/09/24 05:59 Dose: 20 meq Potassium Chloride (Potassium Chloride Er 20 Meq Tablet) 80 meq PO ONCE ONE Stop: 04/09/24 07:34 Last Admin: 04/09/24 08:28 Dose: 80 meq Potassium Chloride (Potassium Chloride Er 20 Meq Tablet) 20 meq PO ONCE ONE Stop: 04/11/24 07:04 Last Admin: 04/11/24 08:10 Dose: 20 meq Potassium Chloride (Potassium Chloride Er 20 Meq Tablet) 80 meq PO ONCE ONE Stop: 04/11/24 08:43 Last Admin: 04/11/24 09:44 Dose: 80 meq Potassium Chloride (Potassium Chloride Er 20 Meq Tablet) 40 meq PO ONCE ONE Stop: 04/12/24 10:38 Last Admin: 04/12/24 10:55 Dose: 40 meq Propofol (Propofol 10 Mg/Ml Sdv 20 Ml) Confirm Administered Dose 400 mg .ROUTE .STK-MED ONE Stop: 04/13/24 09:23 Sodium Chloride (Sodium Chloride 0.9% 100 Ml Bag) 50 ml IV PRN PRN PRN Reason: Blood transfusion prime and flush Stop: 03/30/24 10:57 Sodium Chloride (Sodium Chloride 0.9% 100 Ml Bag) 50 ml IV PRN PRN PRN Reason: Blood transfusion prime and flush Stop: 04/08/24 10:01 Zolpidem Tartrate (Zolpidem 5 Mg Tablet) 2.5 mg PO ONCE ONE Stop: 04/02/24 20:54 Last Admin: 04/02/24 21:02 Dose: 2.5 mg Allergies No Known Allergies Allergy (Verified 03/13/24 10:01) Home Medications multivitamin 1 tab PO QAM 02/27/22 [History Confirmed 03/27/24] HINGED ELBOW BRACE. #1 ea 03/05/22 [Rx Confirmed 03/27/24] cam boot #1 ea 03/06/22 [Rx Confirmed 03/27/24] albuterol sulfate 90 mcg/actuation aerosol inhaler 2 puff inhalation QID PRN Shortness Of Breath Or Wheezing 01/29/24 [History Confirmed 03/27/24] calcium carbonate 500 mg PO QAM 01/29/24 [History Confirmed 03/27/24] ondansetron 8 mg disintegrating tablet 8 mg PO Q8H PRN nausea and vomiting #30 tabs 02/13/24 [Rx Confirmed 03/27/24] amiodarone 200 mg tablet 100 mg (1/2 x 200 mg) PO BID 30 days #15 tabs 03/03/24 [Rx Confirmed 03/27/24] apixaban 5 mg tablet (Eliquis) 5 mg PO BID #60 tabs 03/03/24 [Rx Confirmed 03/27/24] furosemide 40 mg tablet (Lasix) 40 mg PO BID #60 tabs 03/03/24 [Rx Confirmed 03/27/24] metoprolol tartrate 25 mg tablet 25 mg PO BID@0900,2100 #60 tabs 03/03/24 [Rx Confirmed 03/27/24] ferrous gluconate 324 mg (38 mg iron) tablet 324 mg PO QAM 03/09/24 [History Confirmed 03/27/24] potassium chloride 10 mEq tablet,extended release 10 meq PO QAM #60 tabs 03/12/24 [Rx Confirmed 03/27/24] spironolactone 25 mg tablet 25 mg PO DAILY #30 tabs 03/13/24 [Rx Confirmed 03/27/24] atorvastatin 40 mg tablet 40 mg PO BEDTIME 03/27/24 [History Confirmed 03/27/24] Discharge Plan Discharge Patient Disposition: Xfer Other Condition: Stable Prescriptions: No Action (DME) HINGED ELBOW BRACE. See Rx Instructions .ROUTE .MEDSUPPLY Qty: 1 0RF Rx Instructions: As directed set 0-90 Lasix 40 mg tablet 40 mg PO BID Qty: 60 2RF amiodarone 200 mg tablet 100 mg PO BID 30 Days Qty: 15 2RF Eliquis 5 mg tablet 5 mg PO BID Qty: 60 2RF Rx Instructions: 340B metoprolol tartrate 25 mg tablet 25 mg PO BID@0900,2100 Qty: 60 2RF spironolactone 25 mg tablet 25 mg PO DAILY Qty: 30 1RF potassium chloride 10 mEq tablet extended release 10 meq PO QAM Qty: 60 5RF (DME) cam boot See Rx Instructions .Route .MEDSUPPLY Qty: 1 0RF Rx Instructions: As directed ondansetron 8 mg tablet,disintegrating 8 mg PO Q8H PRN (Reason: nausea and vomiting) Qty: 30 2RF multivitamin Tablet 1 tab PO QAM calcium carbonate 500 mg calcium (1,250 mg) Tablet 500 mg PO QAM albuterol sulfate 90 mcg/actuation HFA aerosol inhaler 2 puff INHALATION QID PRN (Reason: Shortness Of Breath Or Wheezing) atorvastatin 40 mg tablet 40 mg PO BEDTIME ferrous gluconate 324 mg (38 mg iron) tablet 324 mg PO QAM Referrals: [facility] [Outside] Anyi Etienne FNP-C [Primary Care Provider] - Shell Perez FNP [Nurse Practitioner] - (Shell Perez's Office has your information and will be calling you to schedule a follow up appointment. You can call them with any questions or concerns. Thank you.) Patient Instructions: Heart Failure (DC), Coronary Angioplasty (DC), CHF Stoplight, Opioid Safety, Post Angiogram Home Care Instructions Transfer Attestations Time Spent in Transfer Care: greater than 30 min Quality Metrics Clinical Quality Measures [ Acute Myocardial Infaction { Clinical Trial Participant: No; Contraindication to aspirin: None; Aspirin prescribed; Contraindication to statin: None; Statin prescribed; Contraindication to PCI: None; PCI performed; Contraindication to Fibrinolytics: Alternative treatment initiated}] Coding Level of Care Code Acute Code for g Fwd Diagnoses Hemothorax J94.2 Bilateral pleural effusion J90 Acute respiratory failure J96.00 Congestive heart failure I50.9 ACS (acute coronary syndrome) I24.9 Atrial fibrillation with RVR I48.91 New onset left bundle branch block (LBBB) I44.7 Shock R57.9 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
[2024-04-13 17:05] LABS: Glucose Point of Care 217 mg/dL (70-110)
--- NOTE | 2024-04-13 20:27 | PC.NURSE ---
[facility] arrived at 1930 to transport darrell to [facility]. Belongings including clothing, phone and battery charger conveyor line given to [facility] staff. Contacted patients son to let him know that patient had been transferred.
== END 2024-04-13 19:30 | disposition short-term general hospital (02) | DRG 321 ==
LOC: ER 13:39 → CCL 13:48 → ICU 14:42 → CSU 04-02 14:57
PROVIDERS: Family Medicine; Internal Medicine; Internal Medicine Pulmonary Disease; Student in an Organized Health Care Education/Training Program; Admitting Provider Internal Medicine Cardiovascular Disease; Emergency Provider Family Medicine; PCP Nurse Practitioner Family; Visit Provider Internal Medicine
PROC: 02H03DZ Insertion of Intraluminal Device into Coronary Artery, One Artery, Percutaneous Approach (ICD-10-PCS; principal; 2024-03-27 14:00)
PROC: 02H03DZ Insertion of Intraluminal Device into Coronary Artery, One Artery, Percutaneous Approach (ICD-10-PCS; 2024-03-27 14:00)
DX: I21.11 ST elevation (STEMI) myocardial infarction involving right coronary artery (principal); I50.33 Acute on chronic diastolic (congestive) heart failure; J81.0 Acute pulmonary edema; J96.01 Acute respiratory failure with hypoxia; R57.0 Cardiogenic shock; J90 Pleural effusion, not elsewhere classified; E87.0 Hyperosmolality and hypernatremia; E87.3 Alkalosis; I44.7 Left bundle-branch block, unspecified; Z99.81 Dependence on supplemental oxygen; I27.20 Pulmonary hypertension, unspecified; I08.1 Rheumatic disorders of both mitral and tricuspid valves; Z66 Do not resuscitate; G62.9 Polyneuropathy, unspecified; M21.371 Foot drop, right foot; K59.00 Constipation, unspecified; D64.9 Anemia, unspecified; I24.9 Acute ischemic heart disease, unspecified; Z79.01 Long term (current) use of anticoagulants; I48.91 Unspecified atrial fibrillation; F41.9 Anxiety disorder, unspecified; E78.5 Hyperlipidemia, unspecified; I11.0 Hypertensive heart disease with heart failure
CPT/HCPCS: 36415; 36416; 36430; 36573; 36592; 36600; 71045; 72132; 73521; 73560; 74230; 80048; 80051; 80053; 80162; 80503; 81001; 82042; 82150; 82330; 82465; 82805; 82945; 82962; 83605; 83615; 83735; 83880; 83986; 84075; 84132; 84145; 84157; 84315; 84478; 84484; 84560; 85007; 85025; 85027; 85347; 85378; 85610; 85730; 86141; 86403; 86850; 86900; 86920; 87040; 87070; 87075; 87086; 87205; 87449; 87493; 87641; 89050; 92523; 92526; 92610; 92611; 93005; 93306; 93308; 93312; 93320; 93325; 93454; 94002; 94003; 94640; 94660; 94799; 96374; 96375; 96376; 97110; 97116; 97161; 97165; 97530; 97535; 99152; 99153; A4222; C1725; C1751; C1769; C1874; C1887; C1894; C9600; J0171; J0283; J0456; J0461; J0696; J1160; J1644; J1940; J2250; J2270; J2405; J2543; J2704; J3010; J3370; J3480; J3490; J7030; J7050; J7060; J7614; J7626; J7644; P9016; P9046; Q9967

== ENCOUNTER 2024-05-12 13:02 | Outpatient (CLI) | payer MEDICARE, SELFPAY ==
--- NOTE | 2024-05-12 13:11 | USCV_ITS ---
Arielle Salas Age: 78 Gender: F : 1945 Exam Date: 05/12/2024 13:29 Ordering Phys: Yang Saleh Technologist: Exam [place] [facility] [place] Indication: mitral valve repair clip BP: 120 / 60 HR: 63 Rhythm: Sinus Technical Quality: Adequate MEASUREMENTS (Male / Female) Normal Values 2D ECHO LV Diastolic Diameter PLAX 4.0 cm 4.2 - 5.9 / 3.9 - 5.3 cm IVS Diastolic Thickness 1.1 cm 0.6 - 1.0 / 0.6 - 0.9 cm IVS Systolic Thickness 1.6 cm LVPW Diastolic Thickness 1.3 cm 0.6 - 1.0 / 0.6 - 0.9 cm LVPW Systolic Thickness 1.6 cm LVOT Diameter 2.0 cm LV Ejection Fraction 2D Teich 57.8 % LV Ejection Fraction MOD 2C 65.0 % LV Ejection Fraction 2C AL 67.5 % LA Diameter 4.4 cm RA Systolic Volume 4C AL 32.6 ml RA Systolic Volume 4C MOD 32.1 ml LA Sys Volume AL 126.8 cm cubed LA Sys Volume Index AL 75.2 cm cubed/m squared DOPPLER AV Peak Velocity 126.0 cm/s LVOT Peak Velocity 81.0 cm/s AV Area Cont Eq vti 2.5 cm squared AV Area Cont Eq pk 1.9 cm squared MV Peak Velocity 160.0 cm/s MV Area PHT 3.1 cm squared Mitral E to A Ratio 1.9 TV Peak Velocity 317.0 cm/s TR Peak Velocity 353.0 cm/s TR Peak Gradient 49.8 mmHg TV Peak E Velocity 87.0 cm/s Right Atrial Pressure 3.0 mmHg Pulmonary Artery Systolic Pressu 52.8 mmHg PV Peak Velocity 91.0 cm/s FINDINGS Left Ventricle Normal left ventricular size, systolic function and wall thickness, with no regional wall motion abnormalities. Grade II/IV diastolic dysfunction, moderately elevated filling pressures. Left ventricular ejection fraction is estimated at 60 %. Right Ventricle Normal right ventricular size and systolic function. Moderate pulmonary hypertension, RVSP 52.8 mmHg. Right Atrium The right atrium is normal in size. Left Atrium Mildly increased left atrial size. Mitral Valve Mitral valve leaflets appear normal. There is an unusual structure next to her associated with the posterior leaflet of the mitral valve. It is horizontal and echodense. It does not appear to be a thrombus or vegetation. Perhaps there has been a MitraClip repair. Mild mitral regurgitation. Aortic Valve Structurally normal aortic valve without significant sclerosis or stenosis. There is no aortic regurgitation. Tricuspid Valve Structurally normal tricuspid valve. Mild tricuspid valve regurgitation. Pulmonic Valve Pulmonic valve not well visualized. Mild pulmonary valve regurgitation. Pericardium Normal pericardium without effusion. Aorta Normal ascending aorta dimension. IVC The inferior vena cava appears normal. CONCLUSIONS Normal left ventricular size, systolic function and wall thickness, with no regional wall motion abnormalities. Grade II/IV diastolic dysfunction, moderately elevated filling pressures. Left ventricular ejection fraction is estimated at 60 %. Normal right ventricular size and systolic function. Moderate pulmonary hypertension, RVSP 52.8 mmHg. Mildly increased left atrial size. Mitral valve leaflets appear normal. There is an unusual structure next to her associated with the posterior leaflet of the mitral valve. It is horizontal and echodense. It does not appear to be a thrombus or vegetation. Perhaps there has been a MitraClip repair. Mild mitral regurgitation. Previous study was a transesophageal echo done just over 2 weeks ago. There appears to have been a mitral valve repair of some sort with far less mitral regurgitation currently. Dr. Raad Gardiner MD (Electronically Signed) Final Date: 12 May 2024 16:20 S
== END 2024-05-12 13:03 | disposition home or self-care (01) ==
PROVIDERS: PCP Nurse Practitioner Family; Visit Provider Physician Assistant
DX: I34.0 Nonrheumatic mitral (valve) insufficiency (principal); Z98.890 Other specified postprocedural states; I50.32 Chronic diastolic (congestive) heart failure; I27.20 Pulmonary hypertension, unspecified
CPT/HCPCS: 93306

== ENCOUNTER → 2024-05-13 12:40 | Outpatient (BNVA) | payer MEDICARE, SELFPAY | PROVIDERS: PCP Nurse Practitioner Family; Visit Provider Thoracic Surgery (Cardiothoracic Vascular Surgery) | DX: I96 Gangrene, not elsewhere classified (principal); L89.153 Pressure ulcer of sacral region, stage 3; L89.610 Pressure ulcer of right heel, unstageable | CPT/HCPCS: 97597; 99213; A6248 ==

== ENCOUNTER 2024-05-20 06:00 | Outpatient (RCR) | payer MEDICARE, SELFPAY | END 2024-06-10 23:59 | disposition home or self-care (01) | LOC: APT 06:00 | PROVIDERS: PCP Nurse Practitioner Family; Visit Provider Physical Medicine & Rehabilitation | DX: R26.89 Other abnormalities of gait and mobility (principal) | CPT/HCPCS: 97110; 97112; 97162 ==

== ENCOUNTER → 2024-05-21 13:04 | Outpatient (BNVA) | payer MEDICARE, SELFPAY | PROVIDERS: Visit Provider Thoracic Surgery (Cardiothoracic Vascular Surgery) | DX: I96 Gangrene, not elsewhere classified (principal); L89.153 Pressure ulcer of sacral region, stage 3; L89.510 Pressure ulcer of right ankle, unstageable | CPT/HCPCS: 97597 ==

== ENCOUNTER → 2024-05-25 12:54 | Outpatient (BNVA) | payer MEDICARE, SELFPAY | PROVIDERS: Visit Provider Nurse Practitioner Family | DX: Z98.890 Other specified postprocedural states (principal); Z95.818 Presence of other cardiac implants and grafts | CPT/HCPCS: 99214 ==

== ENCOUNTER → 2024-05-26 10:49 | Outpatient (BNVA) | payer MEDICARE, SELFPAY | PROVIDERS: PCP Nurse Practitioner Family; Visit Provider Nurse Practitioner Family | DX: Z98.890 Other specified postprocedural states (principal); Z95.818 Presence of other cardiac implants and grafts | CPT/HCPCS: 80048; 83880 ==

== ENCOUNTER → 2024-05-29 10:36 | Outpatient (BNVA) | payer MEDICARE, SELFPAY | PROVIDERS: PCP Nurse Practitioner Family; Visit Provider Thoracic Surgery (Cardiothoracic Vascular Surgery) | DX: I96 Gangrene, not elsewhere classified (principal); L89.613 Pressure ulcer of right heel, stage 3; L89.153 Pressure ulcer of sacral region, stage 3 | CPT/HCPCS: 97597 ==

== ENCOUNTER → 2024-06-03 13:01 | Outpatient (BNVA) | payer MEDICARE, SELFPAY | PROVIDERS: PCP Nurse Practitioner Family; Visit Provider Nurse Practitioner Family | DX: I50.9 Heart failure, unspecified (principal) | CPT/HCPCS: 80048; 83880 ==

== ENCOUNTER → 2024-06-05 11:16 | Outpatient (BNVA) | payer MEDICARE, SELFPAY | PROVIDERS: PCP Nurse Practitioner Family; Visit Provider Thoracic Surgery (Cardiothoracic Vascular Surgery) | DX: I73.9 Peripheral vascular disease, unspecified (principal); L89.613 Pressure ulcer of right heel, stage 3; L89.153 Pressure ulcer of sacral region, stage 3 | CPT/HCPCS: 97597 ==

== ENCOUNTER 2024-06-11 06:00 | Outpatient (RCR) | payer MEDICARE, SELFPAY | END 2024-07-11 23:59 | disposition home or self-care (01) | LOC: APT 06:00 | PROVIDERS: PCP Nurse Practitioner Family; Visit Provider Physical Medicine & Rehabilitation | DX: Z74.09 Other reduced mobility (principal) | CPT/HCPCS: 97110; 97112; 97530 ==

== ENCOUNTER → 2024-06-12 10:54 | Outpatient (BNVA) | payer MEDICARE, SELFPAY | PROVIDERS: PCP Nurse Practitioner Family; Visit Provider Thoracic Surgery (Cardiothoracic Vascular Surgery) | DX: I96 Gangrene, not elsewhere classified (principal); L89.613 Pressure ulcer of right heel, stage 3; L89.153 Pressure ulcer of sacral region, stage 3 | CPT/HCPCS: 97597 ==

== ENCOUNTER → 2024-06-19 10:37 | Outpatient (BNVA) | payer MEDICARE, SELFPAY | PROVIDERS: PCP Nurse Practitioner Family; Visit Provider Thoracic Surgery (Cardiothoracic Vascular Surgery) | DX: I96 Gangrene, not elsewhere classified (principal); L89.613 Pressure ulcer of right heel, stage 3; L89.153 Pressure ulcer of sacral region, stage 3 | CPT/HCPCS: 97597; A6212 ==

== ENCOUNTER → 2024-06-25 14:11 | Outpatient (BNVA) | payer MEDICARE, SELFPAY | PROVIDERS: PCP Nurse Practitioner Family; Visit Provider Thoracic Surgery (Cardiothoracic Vascular Surgery) | DX: I96 Gangrene, not elsewhere classified (principal); L97.413 Non-pressure chronic ulcer of right heel and midfoot with necrosis of muscle; L89.153 Pressure ulcer of sacral region, stage 3 | CPT/HCPCS: 97597 ==

== ENCOUNTER → 2024-07-02 10:16 | Outpatient (BNVA) | payer MEDICARE, SELFPAY | PROVIDERS: PCP Nurse Practitioner Family; Visit Provider Thoracic Surgery (Cardiothoracic Vascular Surgery) | DX: L89.153 Pressure ulcer of sacral region, stage 3 (principal); Z09 Encounter for follow-up examination after completed treatment for conditions other than malignant neoplasm | CPT/HCPCS: 97597 ==

== ENCOUNTER → 2024-07-09 10:06 | Outpatient (BNVA) | payer MEDICARE, SELFPAY | PROVIDERS: PCP Nurse Practitioner Family; Visit Provider Thoracic Surgery (Cardiothoracic Vascular Surgery) | DX: L89.153 Pressure ulcer of sacral region, stage 3 (principal) | CPT/HCPCS: 97597 ==

== ENCOUNTER → 2024-07-23 10:10 | Outpatient (BNVA) | payer MEDICARE, SELFPAY | PROVIDERS: PCP Nurse Practitioner Family; Visit Provider Thoracic Surgery (Cardiothoracic Vascular Surgery) | DX: Z09 Encounter for follow-up examination after completed treatment for conditions other than malignant neoplasm (principal); Z87.2 Personal history of diseases of the skin and subcutaneous tissue | CPT/HCPCS: 99212; A6212 ==

== ENCOUNTER → 2024-08-13 13:12 | Outpatient (BNVA) | payer MEDICARE, SELFPAY | PROVIDERS: PCP Family Medicine; Visit Provider Internal Medicine | DX: I34.0 Nonrheumatic mitral (valve) insufficiency (principal); I34.1 Nonrheumatic mitral (valve) prolapse; E78.5 Hyperlipidemia, unspecified; I50.9 Heart failure, unspecified; Z86.79 Personal history of other diseases of the circulatory system; Z98.890 Other specified postprocedural states; Z95.818 Presence of other cardiac implants and grafts | CPT/HCPCS: 99214 ==

== ENCOUNTER → 2024-10-20 15:21 | Outpatient (BNVA) | payer MEDICARE, SELFPAY | PROVIDERS: PCP Family Medicine; Visit Provider Family Medicine | DX: I50.9 Heart failure, unspecified (principal); E78.5 Hyperlipidemia, unspecified; I48.91 Unspecified atrial fibrillation; R74.01 Elevation of levels of liver transaminase levels; E87.6 Hypokalemia; D64.9 Anemia, unspecified | CPT/HCPCS: 80053; 80061; 85025 ==

== ENCOUNTER → 2025-03-04 09:36 | Outpatient (BNVA) | payer MEDICARE, SELFPAY | PROVIDERS: PCP Family Medicine; Visit Provider Nurse Practitioner Family | DX: I48.91 Unspecified atrial fibrillation (principal); Z79.01 Long term (current) use of anticoagulants; E78.5 Hyperlipidemia, unspecified; Z87.891 Personal history of nicotine dependence; Z95.818 Presence of other cardiac implants and grafts | CPT/HCPCS: 99214 ==

== ENCOUNTER → 2025-04-06 12:37 | Outpatient (BNVA) | payer MEDICARE, SELFPAY | PROVIDERS: PCP Family Medicine; Visit Provider Family Medicine | DX: E87.6 Hypokalemia (principal); I50.9 Heart failure, unspecified; I48.91 Unspecified atrial fibrillation; D64.9 Anemia, unspecified; E03.9 Hypothyroidism, unspecified | CPT/HCPCS: 80053; 80061; 82306; 82607; 84443; 85025 ==

== ENCOUNTER → 2025-04-15 08:17 | Outpatient (BNVA) | payer MEDICARE, SELFPAY | PROVIDERS: PCP Family Medicine; Visit Provider Family Medicine | DX: E03.9 Hypothyroidism, unspecified (principal); R73.9 Hyperglycemia, unspecified | CPT/HCPCS: 83036; 84439; 84443 ==

== ENCOUNTER 2025-05-17 12:32 | Outpatient (CLI) | payer MEDICARE, SELFPAY ==
--- NOTE | 2025-05-17 12:45 | USCV_ITS ---
Arielle Salas Age: 79 Gender: F : 1945 Exam Date: 05/17/2025 12:57 Ordering Phys: Marc Wallace DO Technologist: ALAYNA Exam Location: [facility] [place] Indication: HF BP: 132 / 68 HR: 53 Rhythm: Sinus Technical Quality: Adequate MEASUREMENTS (Male / Female) Normal Values 2D ECHO LV Diastolic Diameter PLAX 5.5 cm 4.2 - 5.9 / 3.9 - 5.3 cm IVS Diastolic Thickness 1.3 cm 0.6 - 1.0 / 0.6 - 0.9 cm IVS Systolic Thickness 1.6 cm LVPW Diastolic Thickness 1.2 cm 0.6 - 1.0 / 0.6 - 0.9 cm LVPW Systolic Thickness 1.3 cm LVOT Diameter 2.0 cm LV Ejection Fraction 2D Teich 58.3 % LV Ejection Fraction MOD 4C 58.7 % LV Ejection Fraction MOD 2C 41.6 % LV Ejection Fraction 2C AL 43.3 % LA Diameter 4.6 cm RA Systolic Volume 4C AL 36.9 ml RA Systolic Volume 4C MOD 37.3 ml LA Sys Volume AL 139.0 cm cubed LA Sys Volume Index AL 83.3 cm cubed/m squared Aorta at Sinotubular Diameter 2.2 cm IVC Diameter 1.8 cm M-MODE LA Ao Ratio MM 1.9 AV Cusp Separation MM 1.5 cm DOPPLER AV Peak Velocity 171.0 cm/s LVOT Peak Velocity 117.0 cm/s AV Area Cont Eq vti 1.7 cm squared AV Area Cont Eq pk 2.0 cm squared MV Peak Velocity 200.0 cm/s MV Area PHT 1.6 cm squared Mitral E to A Ratio 3.0 TR Peak Velocity 363.0 cm/s TR Peak Gradient 52.7 mmHg TV Peak E Velocity 99.0 cm/s PV Peak Velocity 110.0 cm/s FINDINGS Left Ventricle Normal left ventricular size and systolic function, EF 59%. Mild left ventricular hypertrophy.Grade III/IV diastolic dysfunction (restrictive filling pattern), severely elevated filling pressures. Echodensity just below the posterior leaflet , may suggest a mitral valve clip Right Ventricle The right ventricle is normal in size and function. Right Atrium The right atrium is normal in size. Left Atrium Markedly dilated left atrium with a systolic volume index of 83 mL/m squared Mitral Valve Moderate mitral annular calcification. Moderate prolapse of the posterior leaflet. Mild to moderate eccentric mitral regurgitation with the regurgitant jet directed anteriorly. Peak velocity across the mitral valve was 2 m/s with a peak gradient of 16 and a mean gradient of 4. Mitral valve area, based on pressure half-time was 1.6 cm squared Aortic Valve Thickened aortic valve. Tricuspid Valve Moderate tricuspid valve regurgitation. Pulmonic Valve Mild pulmonary valve regurgitation. Pericardium Small echo-free space anteriorly and posteriorly, suggesting pericardial effusion Aorta Normal aortic annulus size. IVC Normal inferior vena cava. CONCLUSIONS Normal left ventricular size and systolic function, EF 59%. Mild left ventricular hypertrophy.Grade III/IV diastolic dysfunction (restrictive filling pattern), severely elevated filling pressures. Echodensity just below the posterior leaflet, may suggest mitral valve clip Moderate mitral annular calcification. Moderate prolapse of the posterior leaflet. Mild to moderate eccentric mitral regurgitation with the regurgitant jet directed anteriorly. Peak velocity across the mitral valve was 2 m/s with a peak gradient of 16 and a mean gradient of 4. Mitral valve area, based on pressure half-time was 1.6 cm squared. Markedly dilated left atrium with a systolic volume index of 83 mL/m squared. Thickened aortic valve. Moderate tricuspid valve regurgitation. Estimated pulmonary artery peak systolic pressure 56 mmHg Mild pulmonary valve regurgitation. Possible small pericardial effusion. Compared to the studies from 05/12/24, there may not be a significant change. Difficult to quantify the mitral regurgitation because of the eccentric nature. Consider ALEXANDRA, if clinically indicated Dr Ignacio Rivers MD [facility] (Electronically Signed) Final Date: 18 May 2025 08:00 S
== END 2025-05-17 12:33 | disposition home or self-care (01) ==
PROVIDERS: PCP Family Medicine; Visit Provider Family Medicine
DX: I50.9 Heart failure, unspecified (principal); Z86.79 Personal history of other diseases of the circulatory system; I51.89 Other ill-defined heart diseases; I51.7 Cardiomegaly
CPT/HCPCS: 93306

== ENCOUNTER → 2025-05-20 09:52 | Outpatient (BNVA) | payer MEDICARE, SELFPAY | PROVIDERS: PCP Family Medicine; Visit Provider Family Medicine | DX: E03.9 Hypothyroidism, unspecified (principal) | CPT/HCPCS: 84443 ==

== ENCOUNTER → 2025-07-28 08:54 | Outpatient (BNVA) | payer MEDICARE, SELFPAY | PROVIDERS: PCP Family Medicine; Visit Provider Family Medicine | DX: E03.9 Hypothyroidism, unspecified (principal) | CPT/HCPCS: 84443 ==

== ENCOUNTER → 2025-09-27 09:57 | Outpatient (BNVA) | payer MEDICARE, SELFPAY | PROVIDERS: PCP Family Medicine; Visit Provider Family Medicine | DX: E03.9 Hypothyroidism, unspecified (principal); I50.9 Heart failure, unspecified; E78.5 Hyperlipidemia, unspecified; R74.01 Elevation of levels of liver transaminase levels; D64.9 Anemia, unspecified | CPT/HCPCS: 80053; 80061; 84443; 85025 ==

== ENCOUNTER → 2025-11-03 10:43 | Outpatient (BNVA) | payer MEDICARE, SELFPAY | PROVIDERS: PCP Family Medicine; Visit Provider Internal Medicine | DX: I48.91 Unspecified atrial fibrillation (principal); Z79.01 Long term (current) use of anticoagulants | CPT/HCPCS: 99214 ==